=== PATIENT | female | born 1990 | race Caucasian/White ===

== ENCOUNTER 2023-07-13 09:30 | Outpatient (OUT) | payer OTHER, SELFPAY ==
--- NOTE | 2023-07-13 09:34 | US_ITS ---
[place] [id number] Patient Name: ACE MORRISSEY MRN: [id number] date: 1990 Sex: F Assigned Patient Location: [facility] Current Patient Location: [facility] Accession/Order Number: [id number] Exam Date: 07/13/2023 09:40 Report Date: 07/13/2023 11:09 At the request of: SHANNA KEITH Procedure: US OB transvaginal EXAMINATION: US OB transvaginal HISTORY: MISSED MENSES COMPARISON: No relevant comparison available. FINDINGS: GESTATIONAL SAC: Present and normal appearing. YOLK SAC: Present and normal appearing. POLE: Present and normal appearing. CARDIAC: Present. UTERUS: Small subchorionic hematoma. OVARIES: Right: Normal. Left: Not seen. CERVIX: 3.5 cm in length and closed. CUL-DE-SAC: Normal. OTHER: None. AGE BY LMP: 8 weeks 6 days [facility] BY LMP: 02/16/2024 AGE BY US CRL: 9 weeks 0 days [facility] BY US CRL: 02/15/2024 US/US OB transvaginal IMPRESSION: 1. Single live intrauterine . 2. Small subchronic hematoma. Electronically authenticated by: MARKELL FERMIN Date: 07/13/2023 11:09
== END 2023-07-13 09:31 | disposition home or self-care (01) ==
LOC: NOMS 09:30
PROVIDERS: PCP Family Medicine; Visit Provider Obstetrics & Gynecology
DX: Z34.91 Encounter for supervision of normal pregnancy, unspecified, first trimester (principal); Z3A.09 9 weeks gestation of pregnancy; N92.6 Irregular menstruation, unspecified
CPT/HCPCS: 76817

== ENCOUNTER 2023-07-25 09:57 | Outpatient (OUT) | payer OTHER, SELFPAY ==
[2023-07-25 10:50] LABS: Basophils Absolute Auto 0.1 10^3/uL (0.0-0.1); Basophils Percent Auto 0.5 % (0.2-2.0); Eosinophils Absolute Auto 0.1 10^3/uL (0.0-0.7); Eosinophils Percent Auto 1.2 % (0.9-7.0); Hematocrit 39.9 % (36.0-48.0); Hemoglobin 13.4 g/dL (12.0-16.0); Immature Granulocytes Abs Auto 0.02 10^3/uL (0.00-0.03); Immature Granulocytes Pct Auto 0.2 % (0.0-0.5); Lymphocytes Absolute Auto 2.7 10^3/uL (1.2-3.8); Mean Corpuscular HGB Conc 33.6 g/dL (29.9-35.2); Mean Corpuscular Hemoglobin 30.7 pg (26.7-34.0); Mean Corpuscular Volume 91.3 fL (81.0-99.0); Mean Platelet Volume 11.7 fL (9.5-13.5); Monocytes Absolute Auto 0.6 10^3/uL (0.3-0.8); Monocytes Percent Auto 6.7 % (1.7-12.0); Neutrophils Absolute Auto 6.1 10^3/uL (1.4-6.5); Neutrophils Percent Auto 63.4 % (43.0-75.0); Platelet Count 265 10^3/uL (150-450); Red Blood Count 4.37 10^6/uL (4.20-5.40); Red Cell Distribution Width 12.6 % (11.0-15.0); White Blood Count 9.5 10^3/uL (4.0-11.0)
[2023-07-25 12:01] LABS: Estimated Average Glucose 114 mg/dL; Glycohemoglobin A1C 5.6 % (4.5-6.2)
[2023-07-26 07:08] LABS: HBsAg Screen Negative (Negative); Rubella Antibodies, IgG 8.06 index (Immune >0.99)
[2023-07-26 08:10] LABS: HCV Ab Non Reactive (Non Reactive)
[2023-07-26 09:08] LABS: HIV Ab/p24 Ag Screen Non Reactive (Non Reactive)
[2023-07-26 13:08] LABS: Rapid Plasma Reagin, Quant Non Reactive titer (NonRea<1:1)
== END 2023-07-25 09:58 | disposition home or self-care (01) ==
LOC: LAB 10:01
PROVIDERS: PCP Family Medicine; Visit Provider Obstetrics & Gynecology
DX: Z36.0 Encounter for antenatal screening for chromosomal anomalies (principal); N92.6 Irregular menstruation, unspecified
CPT/HCPCS: 36415; 83036; 85025; 86592; 86762; 86803; 86850; 86900; 86901; 87086; 87340; 87389

== ENCOUNTER 2023-09-04 09:02 | Outpatient (OUT) | payer OTHER, SELFPAY ==
--- OUTSIDE RECORDS SUMMARY | 2023-09-04 09:29 | XMS_ITS | CCD ---
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 Name Role Phone NO, PHYSICIAN Primary Care Unavailable JUDY TORO Attending Marla vailable Maryuri, Physician Primary Care Provider Unavailabl e HAYLIE PEARSON Admitting Unavailabl e ORHAYLIE CRISTOBAL Referring Unavailabl e PEERZADE, [facility] Primary Care Unav ailable HAYLIE PEARSON Admitting Unavailabl e ORWIHAYLIE BROWN Referring Unavailabl e PEERZADE, [facility] Primary Care Unav ailable Haylie Pearson Unavailable [phone] Peerzade, [facility] Primary Care Provide r HAYLIE PEARSON Admitting Unavailabl e HAYLIE PEARSON Attending Unavailabl e NO, PHYSICIAN Primary Care Unavailable HAYLIE PEARSON Admitting Unavailabl e PEERZADE, [facility] Primary Care Unav ailable HAYLIE PEARSON Attending Unavailabl e [facility] onsulting Unavailable PEERZADE, [facility] Primary Care Unav ailable HAYLIE PEARSON Admitting Unavailabl e ORWICKHAYLIE Attending Unavailabl e ORWIHAYLIE BROWN Admitting Unavailabl e PEERZADE, [facility] Primary Care Unav ailable [facility] onsulting Unavailable KAREN SCHULTE Attending Unavailable HAYLIE PEARSON Admitting Unavailabl e PEERZADE, [facility] Primary Care Unav ailable SHANNA KEITH Attending Unavailable Medications Current Medications Medication Drug Class(es) Dates Sig (Normalized) Sig (Original) amoxicillin 500 mg oral capsule (1 source) Penicillin-class Antibacterial Start: 05-11-2019 End: 05-21-2019 take 1 capsule by mouth three times daily amoxicillin (AMOXIL) 500 MG capsule Indications: Acute bilateral otitis media Take 1 (one) capsule (500 mg total) by mouth 3 (three) times a day for 10 days . 30 capsule 0 05/11/2019 05/21/2019 Active vitamin with Ca-Iron-FA 27-1 mg Tab (2 sources) take 1 tablet by mouth once daily vitamin with Ca-Iron-FA 27-1 mg Tab Take 1 tablet by mouth daily . 0 Active Completed/Discontinued Medications Medication Drug Class(es) Dates Sig (Normalized) Sig (Original) acetaminophen 325 mg oral tablet (1 source) Start: 10-25-2019 End: 10-27-2019 take 1 tablet by mouth every four hours as needed 650 mg, Oral, Every 4 hours PRN, mild pain, Starting 10/25/19 at 1146, aluminum hydroxide 40 mg/ml / magnesium hydroxide 40 mg/ml / simethicone 4 mg/ml oral suspension (1 source) Start: 10-25-2019 End: 10-27-2019 take 30 mL by mouth every four hours as needed 30 mL, Oral, Every 4 hours PRN, indigestion, Starting 10/25/19 at 1146, bisacodyl 10 mg rectal suppository (1 source) Stimulant Laxative Start: 10-25-2019 End: 10-27-2019 10 mg, Rectal, Daily PRN, constipation, Starting 10/25/19 at 1146, Use oral medication first for constipation.&nbsp ; Use rectal suppository, if ordered, for constipation if oral route not tolerated. calcium chloride 0.0014 meq/ml / potassium chloride 0.004 meq/ml / sodium chloride 0.103 meq/ml / sodium lactate 0.028 meq/ml injectable solution (5 sources) Start: 10-25-2019 End: 10-27-2019 take 125 mL intravenous route every hour 125 mL/hr, Intravenous, Continuous, Starting Mon10/25/19 at 1245, Start when oxyTOCIN (PITOCIN) drip is discontinued. Discontinue after 24 hours if patient is afebrile and tolerating orals. Start: 10-25-2019 End: 10-25-2019 take 2000 mL intravenous route every twenty-four hours as needed lactated ringers bolus 2,000 mL Start: 10-14-2019 End: 10-14-2019 250 mL, Intravenous, Adminis ter over 5 Minutes, As needed, for hypotension, Starting Mon10/14/19 at 1037, For 1 dose, L&D Pre-Delivery For hypotension, over 5 minutes, as instructed in the Notify Anesthesiologist/WIRELESS CONSULTANT: Hypotension order. Start: 10-14-2019 End: 10-14-2019 lactated Ringers infusion ceFAZolin 2000 mg injection (1 source) Cephalosporin Antibacterial Start: 10-25-2019 End: 10-25-2019 ceFAZolin (ANCEF) IVPB 2 g (premix) citric acid 66.8 mg/ml / sodium citrate 100 mg/ml oral solution (2 sources) Calculi Dissolution Agent, Anti-coagulant Start: 10-25-2019 End: 10-25-2019 citric acid-sodium citrate (BICITRA) solution 30 mL Start: 10-14-2019 End: 10-14-2019 citric acid-sodium citrate ( BICITRA) solution 30 mL diphenhydrAMINE (BENADRYL) oral solid 25 mg (1 source) Start: 10-25-2019 End: 10-27-2019 take 25 mg by mouth every six hours as needed diphenhydrAMINE (BENADRYL) oral solid 25 mg docusate sodium 100 mg oral capsule (1 source) Start: 10-25-2019 End: 10-27-2019 100 mg, Oral, 2 times daily PRN, constipation, Starting Mon10/25/19 at 1146, Use oral medication first for constipation.&nbsp ; Use rectal suppository, if ordered, for constipation if oral route not tolerated. DO NOT CRUSH OR CHEW. docusate sodium 50 mg / sennosides, chcf 8.6 mg oral tablet (1 source) Start: 10-25-2019 End: 10-27-2019 take 1 tablet by mouth once daily 2 tablet, Oral, Nightly, First dose on Mon10/25/19 at 2100, Hold for loose stools Do Not Crush or Chew if administering orally due to bitter taste. May be crushed if given via tube. ferrous sulfate 325 mg oral tablet (1 source) Start: 10-26-2019 End: 10-27-2019 take 325 mg by mouth once daily at breakfast 325 mg, Oral, Daily with breakfast, First dose on Mon10/26/19 at 0800, ibuprofen 600 mg oral tablet (1 source) Nonsteroidal Anti-inflammatory Drug Start: 10-25-2019 End: 10-27-2019 600 mg, Oral, Every 6 hours scheduled, First dose on Mon10/25/19 at 1245, Give with food. D o not give with ketorolac (TORADOL). &n bsp;If following ketorolac (TORADOL) therapy, start at least 6 hours after ketorolac. Do Not Crush or Chew if administering orally due to bitter taste. May be crushed if given via tube. 1 ml ketorolac tromethamine 30 mg/ml injection (1 source) Nonsteroidal Anti-inflammatory Drug, Cyclooxygenase Inhibitor Start: 10-25-2019 End: 10-25-2019 take 30 mg intravenous route every six hours 30 mg, Intravenous, Every 6 hours, First dose on Mon10/25/19 at 1400, For 2 doses, Sign and Release Start 6 hours after dose given in OR. Give every 6 hours x 2 doses post-procedure. naloxone (NARCAN) injection 0.1 mg (1 source) Start: 10-25-2019 End: 10-27-2019 naloxone (NARCAN) injection 0.1 mg ondansetron 8 mg disintegrating oral tablet (1 source) Serotonin-3 Receptor Antagonist Start: 10-25-2019 End: 10-25-2019 ondansetron (ZOFRAN-ODT) disintegrating tablet 8 mg ondansetron (ZOFRAN-ODT) disintegrating tablet 4 mg (1 source) Start: 10-25-2019 End: 10-27-2019 take 1 tablet by mouth every six hours as needed ondansetron (ZOFRAN-ODT) disintegrating tablet 4 mg oxyCODONE hydrochloride 5 mg oral tablet (1 source) Opioid Agonist Start: 10-25-2019 End: 10-27-2019 take 5-10 mg by mouth every four hours as needed 5-10 mg, Oral, Every 4 hours PRN, moderate to severe pain, Starting Mon10/25/19 at 1146, [] Initiate with 5 mg oral every 4 hours prn moderate to severe pain. [] For unrelieved pain, may repeat 5 mg oral dose within 60 minutes of initial dose. [] If pain is RELIEVED after repeat dose, change to 10 mg oral every 4 hours prn moderate to severe pain. [] If pain is UNrelieved after repeat dose, or patient requires dose reduction, call physician. vitamin with Ca-Iron-FA tablet 1 tablet (1 source) Start: 10-25-2019 End: 10-27-2019 take 1 tablet by mouth once daily 1 tablet, Oral, Daily, First dose on Mon10/25/19 at 1245, rho(d) immune globulin (RHOPHYLAC) injection 300 mcg (1 source) Start: 10-25-2019 End: 10-27-2019 inject 300 ug by intramuscular injection every twenty-four hours as needed rho(d) immune globulin (RHOPHYLAC) injection 300 mcg 200 ml ropivacaine hydrochloride 2 mg/ml injection (1 source) Amide Local Anesthetic Start: 10-14-2019 End: 10-14-2019 Epidural, Continuous, Starting Mon10/14/19 at 0845, Sign and Release Only the patient is permitted to push the PCEA button. Continous Infusion: 10 mL/hr PCEA Bolus Dose: 4 mL PCEA Bolus Lockout Interval: 15 minutes Number of Boluses per Hour: 4 simethicone 80 mg chewable tablet (1 source) Start: 10-25-2019 End: 10-27-2019 take 80 mg by mouth after mealtime as needed 80 mg, Oral, After meals as needed, flatulence, Starting Mon10/25/19 at 1146, 1000 ml sodium chloride 9 mg/ml injection (1 source) Start: 10-25-2019 End: 10-27-2019 0-150 mL/hr, Intravenous, As needed, To flush line after IV infusions when no maintenance IV ordered or a compatibility issue. Infuse 20ml at the same rate as the secondary infusion, Starting Mon10/25/19 at 1146, Run as Primary IV. NOT intended for KVO. Problems Active Problems Problem Classification Problem Date Documented Da te Episodic/Chronic Other and delivery including normal (4 sources) ; Translations: [] Onset: 10-14-2019 10-14-2019 Episodic Other upper respiratory infections (1 source) Nasopharyngitis; Translations: [Acute nasopharyngitis] Episodic Otitis media and related conditions (1 source) Acute bilateral otitis media ; Translations: [Acute bilateral otitis media] Episodic Past or Other Problems Problem Classification Problem Date Documented Da te Episodic/Chronic NEGATED: Highlighted row has been ruled out!Unclassified (1 source) No known active problems Results Test Name Value Interpretation [facility] Erythrocyte distribution width (RBC) [Entitic vol] 14.1 % 11.6 - 14.8 % Hematocrit (Bld) [Volume fraction] 31.7 % Low 36 - 46 % Hemoglobin (Bld) [Mass/Vol] 9.9 g/dL Low 12 - 16 g/dL Interpretation and review of laboratory results Abnormal MCH (RBC) [Entitic mass] 29.6 pg 26 - 34 pg MCHC (RBC) [Mass/Vol] 31.2 g/dL 31 - 37 g/dL O [facility] MCV (RBC) [Entitic vol] 94.6 fL 80 - 100 fL Nucleated RBC (Bld) [#/Vol] 0.00 10*3/uL Nucleated RBC/100 WBC (Bld) [Ratio] 0.0 % Platelet mean volume (Bld) [Entitic vol] 12.2 fL 9.4 - 12.4 fL Platelets (Bld) [#/Vol] 191 10*3/uL RBC (Bld) [#/Vol] 3.35 10*6/uL Low [facility] WBC (Bld) [#/Vol] 12.37 10*3/uL High [facility] CBCon 10-25-2019 Erythrocyte distribution width (RBC) [Entitic vol] 13.8 % 11.6 - 14.8 % Hematocrit (Bld) [Volume fraction] 37.8 % 36 - 46 % Hemoglobin (Bld) [Mass/Vol] 12.5 g/dL 12 - 16 g/dL Interpretation and review of laboratory results Abnormal MCH (RBC) [Entitic mass] 30.0 pg 26 - 34 pg MCHC (RBC) [Mass/Vol] 33.1 g/dL 31 - 37 g/dL O [facility] MCV (RBC) [Entitic vol] 90.9 fL 80 - 100 fL Nucleated RBC (Bld) [#/Vol] 0.00 10*3/uL Nucleated RBC/100 WBC (Bld) [Ratio] 0.0 % Platelet mean volume (Bld) [Entitic vol] 12.4 fL 9.4 - 12.4 fL Platelets (Bld) [#/Vol] 256 10*3/uL RBC (Bld) [#/Vol] 4.16 10*6/uL [facility] WBC (Bld) [#/Vol] 12.90 10*3/uL [facility] Syphilis Antibodyon 10-25-19 20 Interpretation and review of laboratory results Normal T. pallidum Ab Ql (S) Negative Negative [facility] Type and Screenon 10-25-2019 ABO and Rh group Nom (Bld) B Positive Blood group antibody screen Ql Negative Specimen Expires 10/28/2019 23:59 EST ABORH VERIFICATIONon 020 ABO and Rh group Nom (Bld) ABO/Rh Verification ABO and Rh group Nom (Bld) B Positive Patient's ABO/Rh is verified. CBCon 10-14-2019 Erythrocyte distribution width (RBC) [Entitic vol] 13.5 % 11.6 - 14.8 % Hematocrit (Bld) [Volume fraction] 35.6 % Low 36 - 46 % Hemoglobin (Bld) [Mass/Vol] 11.6 g/dL Low 12 - 16 g/dL Interpretation and review of laboratory results Abnormal MCH (RBC) [Entitic mass] 30.0 pg 26 - 34 pg MCHC (RBC) [Mass/Vol] 32.6 g/dL 31 - 37 g/dL [facility] MCV (RBC) [Entitic vol] 92.0 fL 80 - 100 fL Nucleated RBC (Bld) [#/Vol] 0.00 10*3/uL Nucleated RBC/100 WBC (Bld) [Ratio] 0.0 % Platelet mean volume (Bld) [Entitic vol] 12.8 fL High 9.4 - 12.4 fL Platelets (Bld) [#/Vol] 253 10*3/uL RBC (Bld) [#/Vol] 3.87 10*6/uL Low [facility] ealt WBC (Bld) [#/Vol] 12.69 10*3/uL High [facility] RPRon 10-14-2019 Interpretation and review of laboratory results Normal Reagin Ab RPR Ql (S) Non-Reactive Non-Reactive Type and Screenon 10-14-2019 ABO and Rh group Nom (Bld) B Positive Blood group antibody screen Ql Negative Specimen Expires 10/17/2019 23:59 EST Group B Strep PCR, Vaginal/R ectalon 10-01-2019 S. agalactiae Ag Ql (Unsp spec) Negative Negative CHLAMYDIA/GONORRHOEAE AMPLIF IED RNAon 03-22-2019 C. trachomatis rRNA ELEUTERIO+probe Ql (Unsp spec) Negative Negative N. gonorrhoeae rRNA ELEUTERIO+probe Ql (Unsp spec) Negative Negative Type and Screenon 03-22-2019 ABO and Rh group Nom (Bld) B Rh Type Positive Vital Signs Date Time Vital Sign Value Performing Clinician Faci lity 10-27-2019 08:19-0400 Body Temperature 97.7 [degF] [facility] 10-27-2019 08:19-0400 BP Diastolic 67 mm[Hg] [facility] 10-27-2019 08:19-0400 BP Systolic 105 mm[Hg] [facility] 10-27-2019 08:19-0400 Pulse (Heart Rate) 71 /min [facility] 10-27-2019 08:19-0400 Pulse Oximetry 96 % [facility] 10-27-2019 08:19-0400 Respiratory Rate 16 /min [facility] 10-25-2019 06:01-0400 BMI (Body Mass Index) 29.13 kg/m2 [facility] 10-25-2019 06:01-0400 Body weight 84.37 kg [facility] 10-25-2019 06:01-0400 Height 170.2 cm [facility] 10-14-2019 10:30-0400 BP Diastolic 77 mm[Hg] [facility] 10-14-2019 10:30-0400 BP Systolic 126 mm[Hg] [facility] 10-14-2019 10:30-0400 Pulse (Heart Rate) 91 /min [facility] 10-14-2019 10:30-0400 Respiratory Rate 16 /min [facility] 10-14-2019 10:15-0400 Pulse Oximetry 97 % [facility] 10-14-2019 05:39-0400 BMI (Body Mass Index) 28.82 kg/m2 [facility] 10-14-2019 05:39-0400 Body Temperature 98.1 [degF] [facility] 10-14-2019 05:39-0400 Body weight 83.46 kg [facility] 10-14-2019 05:39-0400 Height 170.2 cm [facility] 05-11-2019 13:20-0500 Pulse (Heart Rate) 106 /min [facility] 05-11-2019 13:15-0500 BMI (Body Mass Index) 26.31 kg/m2 [facility] 05-11-2019 13:15-0500 Body Temperature 98.4 [degF] [facility] 05-11-2019 13:15-0500 Body weight 76.2 kg [facility] 05-11-2019 13:15-0500 BP Diastolic 76 mm[Hg] [facility] 05-11-2019 13:15-0500 BP Systolic 110 mm[Hg] [facility] 05-11-2019 13:15-0500 Height 170.2 cm [facility] 05-11-2019 13:15-0500 Pulse Oximetry 98 % [facility] 05-11-2019 13:15-0500 Respiratory Rate 14 /min [facility] Encounters Encounter Date Encounter Type Care Provider Facility Start: 08-14-2023 End: 08-14-2023 ambulatory SHANNA INNA Not Available Start: 07-13-2023 End: 07-13-2023 ambulatory SHANNA INNA Not Available Start: 11-11-2019 End: 11-15-2019 Patient encounter procedure [facility] Start: 10-25-2019 End: 10-27-2019 Evaluation and management of inpatient [facility] Start: 10-25-2019 End: 10-27-2019 Evaluation and management of inpatient [facility] Work Phone: [facility] Mother/ Start: 10-24-2019 End: 10-24-2019 Patient encounter procedure [facility] Start: 10-14-2019 End: 10-14-2019 [facility] Start: 10-14-2019 End: 10-14-2019 Subsequent hospital visit by physician Haylie Pearson Work Phone: [facility] Delivery Start: 10-11-2019 End: 10-11-2019 Patient encounter procedure [facility] Start: 10-08-2019 Patient encounter procedure [facility] Start: 05-11-2019 End: 05-11-2019 Patient encounter procedure PHYSICIAN MARYURI [facility] Start: 05-11-2019 End: 05-11-2019 Office outpatient visit 25 minutes [facility] [employer] [employer] Work Phone: Urgent Care [facility] Comment on above: Acute nasopharyngiti s (Primary Dx); Acute bilateral otitis media Procedures Date Procedure Procedure Detail Performing Clinician Start: 10-26-2019 Complete blood count (hemogram) panel - Blood by Automated count Haylie Pearson Work Phone: Start: 10-25-2019 Blood type and Indir ect antibody screen panel - Blood Haylie Pearson Work Phone: Start: 10-25-2019 Complete blood count (hemogram) panel - Blood by Automated count Haylie [facility]ocr[facility] Work Phone: Start: 10-25-2019 Treponema pallidum I gG Ab [Presence] in Serum Haylie [facility] Phone: Start: 10-14-2019 Blood group typing Caren ann [facility] Work Phone: Start: 10-14-2019 Blood type and Indir ect antibody screen panel - Blood Haylie Socrative Work Phone: Start: 10-14-2019 Complete blood count (hemogram) panel - Blood by Automated count Haylie Socrative Work Phone: Start: 10-14-2019 Rapid plasma reagin test [facility] Phone: Start: 10-01-2019 Streptococcus agalac tiae DNA [Presence] in Unspecified specimen by ELEUTERIO with probe detection Historical Provider Start: 03-22-2019 Blood type and Indir ect antibody screen panel - Blood Historical Provider Start: 03-22-2019 Neisseria gonorrhoea e nucleic acid detection Historical Provider Plan of Treatment Date Care Activity Detail Author Start: 12-03-2019 Influenza vaccination given Se quential Influenza Vaccine (#1) Start: 10-01-2019 Influenza vaccination given SE QUENTIAL INFLUENZA VACCINE (#1) Comment on above: Postponed from 12/02 (Patient Refused) Start: 02-08-2006 Hepatitis C antibody , confirmatory test Hepatitis C Screening Start: 02-08-2003 HIV screening HIV Screening [facility] Start: 02-08-1991 History and physical examination, annual for health maintenance Wellness Visit Start: 1988 Screening for malign ant neoplasm of cervix PAP SMEAR Start: 1988 Tetanus vaccination [facility] Immunizations Immunization Date Immunization Notes Care Provider [facility] [place] 10-25-2019 diphtheria, tetanus toxoids and acellular pertussis vaccine, unspecified formulation Haylie Pearson 10-25-2019 measles, mumps and r ubella virus vaccine Haylie Pearson 10-25-2019 varicella zoster immune globulin Tamanna nehemias [facility] Payers Date Payer Category Payer Private Health Insurance [id number] 2019 Private Health Insurance [id number] 2019 Private Health Insurance [id number] 1988 Unknown [id number] 1988 Unknown [id number] 2.16.8 [id number] 1988 Unknown [id number] 2.16.8 [id number] 1988 Unknown [id number] 2.16.8 [id number] 1988 Unknown [id number] 2.16.8 [id number] 1988 Unknown [id number] 2.16.8 [id number] 1988 Unknown [id number] 2.16.8 [id number] 1988 Unknown [id number] 2.16.8 [id number] 1988 Unknown [id number] 2.16.84 [id number] 1988 Unknown [id number] 2.16.84 [id number] Social History Date Type Detail Facility Start: 05-11-2019 End: 10-27-2019 Tobacco smoking status IDIS Never smoker Start: 05-11-2019 End: 10-27-2019 Alcohol intake Ex-drinker (finding) Start: 02-07-2019 Sex Assigned At Not on file [facility] Exposure to SARS-CoV-2 (event) Not sure Summary Purpose Family History No Family History Records FoundNo Family History Records FoundNo Family History Records FoundNo Family History Records Found Advance Directives No Advanced Directives Records FoundDocuments on File Type Date 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 Advance Directives and Living Will Documents on File Type Date Recorded 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 Advance Directives and Livin g Will 10/14/2019 5:28 AM Latest Code Status on File Code Status Date Activated Date Inactivated Comments Full Code 10/14/2019 5:32 AM 10/14/2019 1:17 PM Documents on File Type Date Recorded 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 URIs are spread by coughs, sneezes, and direct contact. The common cold is the most frequent kind of URI. The flu and sinus infections are other kinds of URIs. Almost all URIs are caused by viruses. Antibiotics won't cure them. But you can treat most infections with home care. This may include drinking lots of fluids and taking nvgs-arq-bsmueet pain medicine. You will probably feel better in 4 to 10 days. The doctor has checked you carefully, but problems can develop later. If you notice any problems ornew symptoms, get medical treatment right away. Follow-up care is a [place] part of your treatment and safety. Be sure to make and go to all appointments, and call your doctor if you are having problems. It's also a good idea to know your test resultsand keep a list of the medicines you take. How can you care for yourself at home? To prevent dehydration, drink plenty of fluids, enough so that your urine is light yellow or clear like water. Choose water and other caffeine-free clear liquids until you feel better. If you have kidney, heart, or liver disease and have to limit fluids, talk with your doctor before you increase the amount of fluids you drink. Take an bqvd-fhg-vlzrzhy pain medicine, such as acetaminophen (Tylenol), ibuprofen (Advil, Motrin),or naproxen (Aleve). Read and follow all instructions on the label. Before you use cough and cold medicines, check the label. These medicines may not be safe for youngchildren or for people with certain health problems. Be careful when taking onam-dcv-ekuyery cold or flu medicines and Tylenol at the same time. Many ofthese medicines have acetaminophen, which is Tylenol. Read the labels to make sure that you are nottaking more than the recommended dose. Too much acetaminophen (Tylenol) can be harmful. Get plenty of rest. Do not smoke or allow others to smoke around you. If you need help quitting, talk to your doctor about stop-smoking programs and medicines. These can increase your chances of quitting for good. When should you call for help? Call 911 anytime you think you may need emergency care. For example, call if: You have severe trouble breathing. Call your doctor now or seek immediate medical care if: You seem to be getting much sicker. You have new or worse trouble breathing. You have a new or higher fever. You have a new rash. Watch closely for changes in your health, and be sure to contact your doctor if: You have a new symptom, such as a sore throat, an earache, or sinus pain. You cough more deeply or more often, especially if you notice more mucus or a change in the color of your mucus. You do not get better as expected. Where can you learn more? Log into your personal health record on [email or web address] and enter K520 in the Education box to learn more about Upper Respiratory Infection (Cold): Care Instructions. Current as of: September 09, 2018 Content Version: 12.3 1508-9133 [employer]. Care instructions adapted under license by your healthcare professional. If you have questions about a medical condition or this instruction, always ask your healthcare professional. [employer] disclaims any warranty or liability for your use of this information. Ear Infection (Otitis Media): Care Instructions Your Care Instructions An ear infection may start with a cold and affect the middle ear (otitis media). It can hurt a lot.Most ear infections clear up on their own in a couple of days. Most often you will not need antibiotics. This is because many ear infections are caused by a virus. Antibiotics don't work against a virus. Regular doses of pain medicines are the best way to reduce your fever and help you feel better. Follow-up care is [place] part of your treatment and safety. Be sure to make and go to all appointments, and call your doctor if you are having problems. It's also a good idea to know your test resultsand keep a list of the medicines you take. How can you care for yourself at home? Take pain medicines exactly as directed. ? If the doctor gave you a prescription medicine for pain, take it as prescribed. ? If you are not taking a prescription pain medicine, take an mutd-pii-sbrvmxw medicine, such as acetaminophen (Tylenol), ibuprofen (Advil, Motrin), or naproxen (Aleve). Read and follow all instructions on the label. ? Do not take two or more pain medicines at the same time unless the doctor told you to. Many pain medicines have acetaminophen, which is Tylenol. Too much acetaminophen (Tylenol) can be harmful. Plan to take a full dose of pain reliever before bedtime. Getting enough sleep will help you get better. Try a warm, moist washcloth on the ear. It may help relieve pain. If your doctor prescribed antibiotics, take them as directed. Do not stop taking them just because you feel better. You need to take the full course of antibiotics. When should you call for help? Call your doctor now or seek immediate medical care if: You have new or increasing ear pain. You have new or increasing pus or blood draining from your ear. You have a fever with a stiff neck or a severe headache. Watch closely for changes in your health, and be sure to contact your doctor if: You have new or worse symptoms. You are not getting better after taking an antibiotic for 2 days. Where can you learn more? Log into your personal health record on https://[employer] Receive and enter X558 in the Education box to learn more about Ear Infection (Otitis Media): Care Instructions. Current as of: October 28, 2018 Content Version: 12.3 [employer]. Care instructions adapted under license by your healthcare professional. If you have questions about a medical condition or this instruction, always ask your healthcare professional. [employer] disclaims any warranty or liability for your use of this information. documented in this encounter History of Present Illness * Judy Toro CNP - 05/11/2019 1:31 PM EST PATIENT NAME: [facility] [address] [facility] [id number] : 1990 DATE OF VISIT: 05/11/2019 #: [id number] PROVIDER: Judy Toro CNP Chief Complaint Patient presents with URI Cough with sore throat, sinus pressure green and bloody mucus with fatigue x 5 days ( currently 15wks ) SUBJECTIVE 29 y.o. female presents URI (Cough with sore throat, sinus pressure green and bloody mucus with fatigue x 5 days ( currently 15wks )) Pt is currently 15 weeks . She denies any symptoms of labor, vaginal bleeding or abdominal cramps. She has not began feeling movement in her baby yet. URI This is a new problem. The current episode started in the past 7 days (5 days). The problem has been gradually worsening. There has been no fever. Associated symptoms include congestion, coughing, ear pain, rhinorrhea, sinus pain, sneezing and a sore throat. Pertinent negatives include no abdominalpain, chest pain, diarrhea, dysuria, headaches, nausea, rash, vomiting or wheezing. Treatments tried: Dayquil. The treatment provided no relief. MEDICAL ISSUES Past Medical History: Diagnosis Date Rheumatoid arthritis (HCC) There is no problem list on file for this patient. SOCIAL HISTORY Social History Socioeconomic History Marital status: Spouse name: Not on file Number of children: Not on file Years of education: Not on file Highest education level: Not on file Occupational History Not on file Social Needs Financial resource strain: Not on file Food insecurity Worry: Not on file Inability: Not on file Transportation needs Medical: Not on file Non-medical: Not on file Tobacco Use Smoking status: Never Smoker Smokeless tobacco: Never Used Substance and Sexual Activity Alcohol use: Not Currently Drug use: Never Sexual activity: Not on file Lifestyle Physical activity Days per week: Not on file Minutes per session: Not on file Stress: Not on file Relationships Social connections Talks on phone: Not on file Gets together: Not on file Attends mu-ism service: Not on file Active member of club or organization: Not on file Attends meetings of clubs or organizations: Not on file Relationship status: Not on file Other Topics Concern Not on file Social History Narrative Not on file FAMILY HISTORY Family History Problem Relation Age of Onset No Known Problems Mother No Known Problems Father No Known Problems Brother REVIEW OF SYSTEMS Review of Systems Constitutional: Positive for chills, diaphoresis and fatigue. Negative for activity change, appetite change and fever. HENT: Positive for congestion, ear pain, postnasal drip, rhinorrhea, sinus pressure, sinus pain, sneezing and sore throat. Eyes: Negative for pain, discharge, redness and itching. Respiratory: Positive for cough. Negative for chest tightness, shortness of breath and wheezing. Cardiovascular: Negative for chest pain, palpitations and leg swelling. Gastrointestinal: Negative for abdominal pain, constipation, diarrhea, nausea and vomiting. Genitourinary: Negative for dysuria. Musculoskeletal: Negative for arthralgias and myalgias. Skin: Negative for rash. Allergic/Immunologic: Negative for environmental allergies. Neurological: Negative for dizziness, light-headedness, numbness and headaches. MEDICATIONS PRIOR TO VISIT No current outpatient medications on file prior to visit. No current facility-administered medications on file prior to visit. ALLERGIES/INTOLERANCES No Known Allergies OBJECTIVE BP 110/76 (BP Location: Left arm, Patient Position: Sitting, BP Cuff Size: Adult) Pulse (!) 106 Temp 98.4 F (36.9 C) (Oral) Resp 14 Ht 5' 7 Wt 76.2 kg (168 lb) LMP 01/24/2019 SpO2 98% No BMI 26.31 kg/m Physical Exam Vitals signs and nursing note reviewed. Constitutional: General: She is not in acute distress. Appearance: She is well-developed. She is not diaphoretic. HENT: Head: Normocephalic and atraumatic. Right Ear: Ear canal and external ear normal. Tympanic membrane is erythematous. Left Ear: Ear canal and external ear normal. Tympanic membrane is erythematous. Nose: Nose normal. No rhinorrhea. Mouth/Throat: Mouth: Mucous membranes are moist. Eyes: General: Right eye: No discharge. Left eye: No discharge. Conjunctiva/sclera: Conjunctivae normal. Neck: Musculoskeletal: Normal range of motion and neck supple. Cardiovascular: Rate and Rhythm: Normal rate and regular rhythm. Heart sounds: Normal heart sounds. Pulmonary: Effort: Pulmonary effort is normal. No respiratory distress. Breath sounds: Normal breath sounds. Abdominal: General: There is no distension. Musculoskeletal: Normal range of motion. Skin: Findings: No rash. Neurological: Mental Status: She is alert and oriented to person, place, and time. Psychiatric: Behavior: Behavior normal. Thought Content: Thought content normal. Judgment: Judgment normal. PROCEDURE Procedures Results No results found for this or any previous visit (from the past 168 hour(s)). No orders to display ASSESSMENT/PLAN (expressed as patient instructions): 1. Acute nasopharyngitis CANCELED: POC Influenza A/B, Molecular 2. Acute bilateral otitis media amoxicillin (AMOXIL) 500 MG capsule Return if symptoms worsen or fail to improve, for Recheck. ADDITIONAL CLINICAL COMMENTS Pt to increase her oral fluid intake and follow up for persistent or worsening sx Flu Shot: Patient Declined Discussed over the counter medications for symptomatic management and side effects of medications. Recommended taking all medications with food and to stop medications if they develop any signs of anallergic reaction. Educated patient and/or guardian about signs and symptoms that would warrant further immediate evaluation. Recommended that they should return to urgent care, make an appointment with their family physician, or go to the emergency room if symptoms persist or get acutely worse. Recommended follow upwithin the next week with their PCP or to get established with a PCP soon in order to follow up appropriately. ORDERS PLACED THIS VISIT No orders of the defined types were placed in this encounter. MEDICATION LIST AT END OF VISIT Current Outpatient Medications Medication Sig Dispense Refill amoxicillin (AMOXIL) 500 MG capsule Take 1 (one) capsule (500 mg total) by mouth 3 (three) times a day for 10 days . 30 capsule 0 No current facility-administered medications for this visit. documented in this encounter* Saundra Whitlock CNM - 10/14/2019 11:07 AM EDT FHT reviewed and reassuring OK to discharge home Precautions reviewed Patient instructed to follow-up as scheduled/PRN * Haylie Pearson MD - 10/14/2019 8:18 AM EDT Failed version-- attempted under epidurall anesthesia without success. patientt to schedule c section at 39 weeks * Gaby Dahl CNM - 10/14/2019 6:51 AM EDT Limited abdominal ultrasound done to determine presentation prior to attempt at external version. Breech confirmed. documented in this encounter* Karen Schulte MD - 10/27/2019 10:15 AM EDT Section Progress Note Assessment/Plan: Status post section: Doing well post-op D/w pt post op restrictions and proper wound care Has percocet rx D/c home likely pod 2 with routine f/u in office. Subjective: Day 2: Delivery Pt is without complaints. Her pain is controlled. She is tolerating po, reports flatus, and is ambulating without difficulty. Objective: Vital signs in last 24 hours: Temp: [97.7 F (36.5 C)-98.3 F (36.8 C)] 97.7 F (36.5 C) Heart Rate: [71-88] 71 Resp: [16] 16 BP: (105-112)/(67-75) 105/67 Results from last 7 days Lab Units 10/26/19 0526 10/25/19 0606 WBC K/mcL 12.37* 12.90* HGB g/dL 9.9* 12.5 HCT % 31.7* 37.8 PLT K/mcL 191 256 Telemed rounds during COVID-19 pandemic. Karen Schulte MD 10/27/19 10:15 AM * Karen Schulte MD - 10/26/2019 10:11 AM EDT Section Progress Note Assessment/Plan: Status post section: Doing well post-op D/w pt post op restrictions and proper wound care Has percocet rx D/c home likely pod 2 with routine f/u in office. Subjective: Day 1: Delivery Pt is without complaints. Her pain is controlled. She is tolerating po and is ambulating without difficulty. Objective: Vital signs in last 24 hours: Temp: [97.7 F (36.5 C)-99.1 F (37.3 C)] 99.1 F (37.3 C) Heart Rate: [69-87] 76 Resp: [16-23] 16 BP: (101-110)/(62-80) 106/68 Results from last 7 days Lab Units 10/26/19 0526 10/25/19 0606 WBC K/mcL 12.37* 12.90* HGB g/dL 9.9* 12.5 HCT % 31.7* 37.8 PLT K/mcL 191 256 Telemed rounds during COVID-19 pandemic. Karen Schulte MD 10/26/19 10:12 AM * Mesfin Ortiz MD - 10/25/2019 8:16 AM EDT therapy administrative assistant to of primary for breech. documented in this encounter Assessments Diagnosis Acute nasopharyngitis Acute nasopharyngitis (common cold) Acute bilateral otitis media Diagnosis state, incidental Discharge Instructions * Attachments The following attachments cannot be sent through Care Everywhere. * : KICK COUNTS (SOMALI) * : WEEK 38 (SOMALI) * : WHEN TO CALL (AFTER 20 WEEKS): GENERAL INFO (SOMALI) * : BREECH VERSION (SOMALI) documented in this encounter Hospital Course * Karen Schulte MD - 10/27/2019 10:21 AM EDT Section Discharge Summary Patient is s/p Section Delivery day 2. course uncomplicated.Discharge to home in stable condition on ppd 2 with plans to follow up with OB provider in 4 weeks. Disposition: Home Discharge condition: Stable Medications upon discharge: Daily vitamin. Motrin 600 mg orally every 6 hours as needed for a week. section patients: Percocet 5/325 1-2 tabs orally every 6 hours as needed for pain. Medication List CONTINUE taking these medications vitamin with Ca-Iron-FA 27-1 mg Tab documented in this encounter Additional Source Comments INFORMATION SOURCE (unrecogn ized section and content) DATE CREATED AUTHOR 05/11/2019 [facility] DATE CREATED AUTHOR AUTHOR'S ORGANIZ ATION 10/25/2019 [facility] DATE CREATED AUTHOR AUTHOR'S ORGANIZ ATION 11/27/2019 [facility] DATE CREATED AUTHOR AUTHOR'S ORGANIZ ATION 08/15/[address] [facility] EPIC Reason for Visit (unrecogniz ed section and content) Reason Comments URI Cough with sore thro at, sinus pressure green and bloody mucus with fatigue x 5 days ( currently 15wks ) Reason Comments Procedure here for scheduled v ersion Status Reason Specialty Diagnoses / Procedures Referre d By Contact Referred To Contact Diagnoses MATERNITY Reason Comments Scheduled patient arrived ambu lating with FOB, denies LOF or VB, pos. FM Status Reason Specialty Diagnoses / Procedures Referre d By Contact Referred To Contact Diagnoses breech Procedures SECTION Haylie Pearson MD - 10/14/2019 8:17 AM Haylie Richardson MD - 10/25/2019 8:49 AM EDT H&P Notes (unrecognized sect ion and content) HISTORY AND PHYSICAL UPDATE Assessment/Plan: Active Problems: Risks, benefits, alternatives and possible complications have been discussed in detail with the patient. Pre-admission, admission, and post admission procedures and expectations were discussed in detail. All questions answered, all appropriate consents will be signed at the Hospital. Admission is for Intervention: version. Subjective: Chief Complaint Patient presents with Procedure here for scheduled version Jo[facility] is a 29 y.o. female with Estimated Date of Delivery: 10/31/19 at 37w4d gestation who is being admitted for External version. Her current obstetrical history is significant for no obstetrical problems. Patient reports no complaints. Movement: normal. The following past medical history, Medical/Surgical/Family/Social history, Medications and Allergies, and Physical Exam have been reviewed and are part of the record and are unchanged documented in this encounter HISTORY AND PHYSICAL UPDATE Assessment/Plan: Active Problems: Risks, benefits, alternatives and possible complications have been discussed in detail with the patient. Pre-admission, admission, and post admission procedures and expectations were discussed in detail. All questions answered, all appropriate consents will be signed at the Hospital. Admission is for Intervention: plan delivery. Subjective: Chief Complaint Patient presents with Scheduled patient arrived ambulating with FOB, denies LOF or VB, pos. FM Joanne Brown is a 29 y.o. female with Estimated Date of Delivery: 10/31/19 at 39w1d gestation who is being admitted for . Her current obstetrical history is significant for breech presentation. Patient reports no complaints. Movement: normal. The following past medical history, Medical/Surgical/Family/Social history, Medications and Allergies, and Physical Exam have been reviewed and are part of the record and are unchanged documented in this encounter Quick Note - Yasmin Butts, RN - 10/14/2019 10:56 AM EDTQuac Note - Yasmin Butts RN - 10/14/2019 10:31 AM EDTKiesha Note - Yasmin Butts, RN - 10/14/2019 9:16 AM EDT Miscellaneous Notes (unrecog nized section and content) D/C PIV and epidural. D/C pt. to home. Reviewed written d/c papers. Pt denied any further questions. Pt. escorted to drop off via wheelchair. Reactive tracing per C. PROSPER Stern Placed pt. breech to high fowlers. Fetus remains breech. Pt. tolerated well. Pt. Placed in trendelenburg/ironing board position. Version stopped. Placed toco and us on tender abdomen. Fetus remains breech. Start of version by Dr. Pearson. FHR 142. Procedure explained to pt. And all questions answered. Orders received for version including terbutaline 15min prior to procedure and epidural. Plan for version at 0730 Patient arrived ambulatory for scheduled version. States she is planning an epidural for the procedure. If no successful they will schedule a c/s for a later date. Patient is unsure if she will stay for induction if it is successful. Denies any complaints at this time. documented in this encounter Patient discharged out patient picker exit in wheelchair with infant. Pt given d/c instructions. Pt educated on d/c care, when to call dr, f/u appts, and medications. Pt verbalizes understanding and all questions answered by RN. This note was copied from a baby's chart. Rounding to discuss progress. Observed baby latched at the left breast in cross cradle hold. Baby displays a passive feeding pattern. Mom says baby has been feeding for about 40 minutes and feeding was more active earlier on in the feeding. Instructed on active feeding vs passive feeding, and signs of milk transfer/swallowing. Baby's weight is down 9% toady. Encouraged frequent feedings and instructed to try to keep baby active during feeding using stimulation and breast compressions. Recommend that mom start pumping after and feed baby anything that she collects. Parents to see the massage therapist tomorrow for exam and weight check. Mom informed that baby may need some formula supplementation for a short time if her weight continues to drop. Mom verbalizes understanding and she has a Spectra pump for home use. Instructed on engorgement management as well as signs and symptoms of mastitis. Reviewed outpatient resources and encouraged to follow up as needed. Mom verbalizes understanding and denies further needs at this time. Anesthesia Post-op Follow-up Note 1 Day Post-Op Procedure(s): SECTION Patient participation: patient participated Mental status: awake Pain management: adequate Anesthetic complications: no Nausea / vomiting: no Cardiovascular status: hemodynamically stable Respiratory / airway status: airway patent, room air and spontaneous ventilation Postoperative hydration: acceptable Comment: Patient has satisfactorily recovered from her anesthetic. Pt ambulating without difficulty. Pt denies headache. Temp: [36.5 C-37.3 C] 36.8 C Heart Rate: [72-87] 72 Resp: [16] 16 BP: (101-112)/(64-75) 112/75 This note was copied from a baby's chart. This mother states feeding is going much better now; states latch is comfortable and has settled down somewhat since last night. Encouraged to call if she is having issues with latch-pain, shallow latch, inability to keep baby awake. Reviewed signs of a good feeding-nutritive suck/swallow, rounded nipples after feeding, increasing voids/stools. Reviewed basics of engorgement including use of ice, massage, and reverse pressure softening, reviewed mastitis symptoms/treatment, and follow up support either through outpatient phone call/outpatient visit. Parents educated about second night, and to call with any issues with feeds this evening. Ongoing assistance offered per . This note was copied from a baby's chart. This mother called out to say they were attempting feeding; infant is still very irritable and father helping with positioning infant. She finally obtained moderately deep latch on R breast in cross cradle position; infant mostly passive and continuing to be irritable at the breast. She stayed latched for about 10-15 minutes overall. She opens her mouth wide and wants to latch but wants to suck on her fingers at the same time. Mother may need to wrap her with next feeding to see if she can latch more effectively. Ongoing support offered per , continue to encourage skin to skin, feeding attempts at least every 3 hours. This note was copied from a baby's chart. Completed initial assessment of this mother/baby couplet. sleepy tried rousing techniques. Able to wake her, brought her to mother where she started to scream. Assisted her in football position, infant showing feeding cues but refusing to latch. Hand expressed a drop and seemed briefly interested but continued to cry. Put skin to skin with mother and encouraged her to keep her there for at least 30 minutes to see if she will wake and start showing feeding cues. Reviewed initial education including skin to skin, feeding attempts, hand expression/breast compression, and voids and stools. Ongoing support offered per . Pt able to ambulate to bathroom with 2 person standby assist. Denies dizziness or lightheadedness. Marilu care instructed and patient able to demonstrate. Pt ambulated back to bed. Call light within reach. G1 now P1 primary c section for breech. See dictation. No complications documented in this encounter FOR RECORDS PERTAINING TO PATIENTS WHO ARE OR HAVE BEEN ENROLLED IN A CHEMICAL DEPENDENCY/SUBSTANCEABUSE PROGRAM, SOME INFORMATION MAY BE OMITTED. This clinical summary was aggregated from multiple sources. Caution should be exercised in using it in the provision of clinical care. This summary normalizes information from multiple sources, and as a consequence, information in this document may materially change the coding, format and clinical context of patient data. In addition, data may be omitted in some cases. CLINICAL DECISIONS SHOULD BE BASED ON THE PRIMARY CLINICAL RECORDS. [employer] [facility] [facility]. provides no warranty or guarantee of the accuracy or completeness of information in this document.
[2023-09-04 12:53] LABS: Glucose 1 Hour 111 mg/dL (<130)
== END 2023-09-04 09:03 | disposition home or self-care (01) ==
LOC: LAB 09:03
PROVIDERS: PCP Family Medicine; Visit Provider Obstetrics & Gynecology
DX: O09.522 Supervision of elderly multigravida, second trimester (principal)
CPT/HCPCS: 36415; 82950

== ENCOUNTER 2023-09-11 21:28 | Outpatient (REF) | payer OTHER, SELFPAY ==
--- OUTSIDE RECORDS SUMMARY | 2023-09-11 21:33 | XMS_ITS ---
Patient Summarization (C-CDA 2.1 CCD) Created on: September 11, 2023 BROWNACE : 1990 Sex: Female Author Organization Sample organization Care Team Providers Care Consultant Education Name Role Phone NO, PHYSICIAN Primary Care Unavailable JUDY TORO Attending Marla vailable Maryuri, Physician Primary Care Provider Unavailabl e HAYLIE PEARSON Admitting Unavailabl e ORWICK, HAYLIE HERNANDEZ Referring Unavailabl e PEERZADE, [facility] Primary Care Unav ailable HAYLIE PEARSON Admitting Unavailabl e ORWICK, HAYLIE HERNANDEZ Referring Unavailabl e PEERZADE, [facility] Care Unav ailable Haylie Pearson Unavailable Peerzade, [facility] Primary Care Provide r HAYLIE PEARSON Admitting Unavailabl e HAYLIE PEARSON Attending Unavailabl e NO, PHYSICIAN Primary Care Unavailable HAYLIE PEARSON Admitting Unavailabl e PEERZADE, [facility] Care Unav ailable HAYLIE PEARSON Attending Unavailabl e [facility] onsulting Unavailable PEERZADE, [facility] Unav ailable HAYLIE PEARSON Admitting Unavailabl e ORWIKEVIN, HAYLIE HERNANDEZ Attending Unavailabl e ORWIKEVIN, HAYLIE HERNANDEZ Admitting Unavailabl e PEERZADE, [facility] Primary [facility] [place] Unav ailable [facility] onsulting Unavailable KAREN SCHULTE Attending Unavailable HAYLIE PEARSON Admitting Unavailabl e PEERZADE, [facility] Unav ailable SHANNA KEITH Attending Unavailable SHANNA KEITH Attending Unavailable Encounters Encounter Date Encounter Type Care Provider Facility Start: 09-11-2023 End: 09-11-2023 ambulatory SHANNA INNA Not Available Start: 08-14-2023 End: 08-14-2023 ambulatory SHANNA INNA Not Available Start: 07-13-2023 End: 07-13-2023 ambulatory SHANNA INNA Not Available Start: 11-11-2019 End: 11-15-2019 [facility]: 10-25-2019 End: 10-27-2019 Evaluation and management of inpatient [facility] Start: 10-25-2019 End: 10-27-2019 Evaluation and management of inpatient [facility] Work Phone: [facility]/ Start: 10-24-2019 End: 10-24-2019 Patient encounter procedure [facility] Start: 10-14-2019 End: 10-14-2019 [facility] Start: 10-14-2019 End: 10-14-2019 Subsequent hospital visit by physician Haylie Pearson Work Phone: [facility] Start: 10-11-2019 End: 10-11-2019 Patient encounter procedure [facility] Start: 10-08-2019 Patient encounter procedure [facility] Start: 05-11-2019 End: 05-11-2019 Patient encounter procedure PHYSICIAN MARYURI [facility] Start: 05-11-2019 End: 05-11-2019 Office outpatient visit 25 minutes Judy Elena [employer] Work Phone: [facility] Jono Saldivar Comment on above: Acute nasopharyngiti s (Primary Dx); Acute bilateral otitis media Immunizations Immunization Date Immunization Notes Care Provider Fa [facility] 10-25-2019 diphtheria, tetanus toxoids and acellular pertussis vaccine, unspecified formulation [facility] 10-25-2019 measles, mumps and r ubella virus vaccine [facility] 10-25-2019 varicella zoster immune globulin [facility] Medications Current Medications Medication Drug Class(es) Dates [...] Every 4 hours PRN, mild pain, Starting Mon10/25/19 at 1146, aluminum hydroxide 40 mg/ml / [...] 10 mg, Rectal, Daily PRN, constipation, Starting Mon10/25/19 at 1146, Use [...] 5 minutes, as instructed in the Notify Anesthesiologist/CUSHION STUFFER: Hypotension order. Start: 10-14-2019 End: 10-14-2019 lactated [...] CHEW. docusate sodium 50 mg / sennosides, shelter 8.6 mg oral tablet (1 source) Start: [...] as Primary IV. NOT intended for KVO. Payers Date Payer Category Payer Private Health Insurance [id number] 2022 Private Health Insurance [id number] 2019 Private Health Insurance [id number] 2019 Private Health Insurance xxx [id number] 1990 Unknown [id number] [id number] 1990 Unknown [id number] 2.16.8 [id number] 1990 Unknown [id number] 2.16.8 [id number] 1988 Unknown [id number] 2.16.8 [id number] 1988 Unknown [id number] 2.16.8 [id number] 1988 Unknown [id number] 2.16.8 [id number] 1988 Unknown [id number] 2.16.8 [id number] 1988 Unknown [id number] 2.16.8 [id number] 1988 Unknown [id number] 2.16.84 [id number] 1988 Unknown [id number] 2.16.84 [id number] 1990 Unknown [id number] 2.16.84 [id number] Plan of Treatment Date Care Activity Detail Author Start: 12-03-2019 Influenza vaccination given Se quential Influenza Vaccine (#1) [facility] Start: 10-01-2019 Influenza vaccination given SE QUENTIAL INFLUENZA VACCINE (#1) [facility] Comment on above: Postponed from 12/02 (Patient Refused) Start: 02-08-2006 Hepatitis C antibody , confirmatory test Hepatitis C Screening [facility] Start: 02-08-2003 HIV screening HIV Screening [facility] Start: 02-08-1991 History and physical examination, annual for health maintenance Wellness Visit [facility] Start: 1990 Screening for malign ant neoplasm of cervix PAP SMEAR [facility] Start: 1988 Tetanus [facility] Problems Active Problems Problem Classification Problem Date [...] out!Unclassified (1 source) No known active problems Procedures Date Procedure Procedure Detail Performing Clinician Start: 10-26-2019 Complete blood count (hemogram) panel - Blood by Automated count Haylie [employer] Work Phone: Start: 10-25-2019 Blood type and Indir ect antibody screen panel - Blood Haylie [employer] Work Phone: Start: 10-25-2019 Complete blood count (hemogram) panel - Blood by Automated count Haylie [employer] Work Phone: Start: 10-25-2019 Treponema pallidum I gG Ab [Presence] in Serum Haylie [employer] Work Phone: Start: 10-14-2019 Blood group typing Caren ann [employer] Work Phone: Start: 10-14-2019 Blood type and Indir ect antibody screen panel - Blood Haylie [employer] Work Phone: Start: 10-14-2019 Complete blood count (hemogram) panel - Blood by Automated count Haylie [employer] Work Phone: Start: 10-14-2019 Rapid plasma reagin test Haylie Ivania Pearson Work Phone: Start: 10-01-2019 Streptococcus agalac tiae DNA [Presence] in Unspecified specimen by ELEUTERIO with probe detection Historical Provider Start: 03-22-2019 Blood type and Indir ect antibody screen panel - Blood Historical Provider Start: 03-22-2019 Neisseria gonorrhoea e nucleic acid detection Historical Provider Results Test Name Value Interpretation Reference [facility] Erythrocyte distribution width (RBC) [Entitic vol] 14.1 % 11.6 - 14.8 % [facility] Hematocrit (Bld) [Volume fraction] 31.7 % Low 36 - 46 % [facility] Hemoglobin (Bld) [Mass/Vol] 9.9 g/dL Low 12 - 16 g/dL [facility] Interpretation and review of laboratory results Abnormal [facility] MCH (RBC) [Entitic mass] 29.6 pg 26 - 34 pg [facility] MCHC (RBC) [Mass/Vol] 31.2 g/dL 31 - 37 g/dL [facility] MCV (RBC) [Entitic vol] 94.6 fL 80 - 100 fL [facility] Nucleated RBC (Bld) [#/Vol] 0.00 10*3/uL [facility] Nucleated RBC/100 WBC (Bld) [Ratio] 0.0 % [facility] Platelet mean volume (Bld) [Entitic vol] 12.2 fL 9.4 - 12.4 fL [facility] Platelets (Bld) [#/Vol] 191 10*3/uL [facility] RBC (Bld) [#/Vol] 3.35 10*6/uL Low [facility] WBC (Bld) [#/Vol] 12.37 10*3/uL [facility] Erythrocyte distribution width (RBC) [Entitic vol] 13.8 % 11.6 - 14.8 % [facility] Hematocrit (Bld) [Volume fraction] 37.8 % 36 - 46 % [facility] Hemoglobin (Bld) [Mass/Vol] 12.5 g/dL 12 - 16 g/dL [facility] Interpretation and review of laboratory results Abnormal [facility] MCH (RBC) [Entitic mass] 30.0 pg 26 - 34 pg [facility] MCHC (RBC) [Mass/Vol] 33.1 g/dL 31 - 37 g/dL [facility] MCV (RBC) [Entitic vol] 90.9 fL 80 - 100 fL [facility] Nucleated RBC (Bld) [#/Vol] 0.00 10*3/uL [facility] Nucleated RBC/100 WBC (Bld) [Ratio] 0.0 % [facility] Platelet mean volume (Bld) [Entitic vol] 12.4 fL 9.4 - 12.4 fL [facility] Platelets (Bld) [#/Vol] 256 10*3/uL [facility] RBC (Bld) [#/Vol] 4.16 10*6/uL [facility] ealth WBC (Bld) [#/Vol] 12.90 10*3/uL [facility] Syphilis Antibodyon 10-25-19 20 Interpretation and review of laboratory results Normal [facility] T. pallidum Ab Ql (S) Negative Negative [facility] Type and Screenon 10-25-2019 ABO and Rh group Nom (Bld) B Positive [facility] Blood group antibody screen Ql Negative [facility] Specimen Expires 10/28/2019 23:59 EST [facility] ABORH VERIFICATIONon 020 ABO and Rh group Nom (Bld) ABO/Rh Verification [facility] Patient's ABO/Rh is verified. [facility] CBCon 10-14-2019 Erythrocyte distribution width (RBC) [Entitic vol] 13.5 % 11.6 - 14.8 % [facility] Hematocrit (Bld) [Volume fraction] 35.6 % Low 36 - 46 % [facility] Hemoglobin (Bld) [Mass/Vol] 11.6 g/dL Low 12 - 16 g/dL [facility] Interpretation and review of laboratory results Abnormal [facility] MCH (RBC) [Entitic mass] 30.0 pg 26 - 34 pg [facility] MCHC (RBC) [Mass/Vol] 32.6 g/dL 31 - 37 g/dL [facility] MCV (RBC) [Entitic vol] 92.0 fL 80 - 100 fL [facility] Nucleated RBC (Bld) [#/Vol] 0.00 10*3/uL [facility] Nucleated RBC/100 WBC (Bld) [Ratio] 0.0 % [facility] Platelet mean volume (Bld) [Entitic vol] 12.8 fL High 9.4 - 12.4 fL [facility] Platelets (Bld) [#/Vol] 253 10*3/uL [facility] RBC (Bld) [#/Vol] 3.87 10*6/uL Low [facility] WBC (Bld) [#/Vol] 12.69 10*3/uL [facility] Hematologyon 10-14-2019 ABO and Rh group Nom (Bld) B Positive [facility] RPRon 10-14-2019 Interpretation and review of laboratory results Normal [facility] Reagin Ab RPR Ql (S) Non-Reactive Non-Reactive [facility] Type and Screenon 10-14-2019 Blood group antibody screen Ql Negative [facility] Specimen Expires 10/17/2019 23:59 EST [facility] Group B Strep PCR, Vaginal/R ectalon 10-01-2019 S. agalactiae Ag Ql (Unsp spec) Negative Negative [facility] CHLAMYDIA/GONORRHOEAE AMPLIF IED RNAon 03-22-2019 C. trachomatis rRNA ELEUTERIO+probe Ql (Unsp spec) Negative Negative [facility] N. gonorrhoeae rRNA ELEUTERIO+probe Ql (Unsp spec) Negative Negative [facility] Type and Screenon 03-22-2019 ABO and Rh group Nom (Bld) B [facility] Rh Type Positive [facility] Social History Date Type Detail Facility Start: 05-11-2019 End: 10-27-2019 Tobacco smoking status NHIS Never smoker [facility] Start: 05-11-2019 End: 10-27-2019 Alcohol intake Ex-drinker (finding) [facility] Start: 02-07-2019 [facility] Sex Assigned At Not on file [facility] Exposure to SARS-CoV-2 (event) Not sure [facility] Vital Signs Date Time Vital Sign Value Performing Clinician Faci lity 10-27-2019 08:19-0400 Body Temperature 97.7 [degF] [facility] 10-27-2019 08:19-0400 BP Diastolic 67 mm[Hg] [facility] 10-27-2019 08:19-0400 BP Systolic 105 mm[Hg] [facility] 10-27-2019 08:19-0400 Pulse (Heart Rate) 71 /min [facility] 10-27-2019 08:19-0400 Pulse Oximetry 96 % [facility] 10-27-2019 08:19-0400 Respiratory Rate 16 /min [facility] 10-25-2019 06:01-0400 BMI (Body Mass Index) 29.13 kg/m2 [facility] 10-25-2019 06:01-0400 Body weight 84.37 kg [facility] 10-25-2019 06:01-0400 Height 170.2 cm [facility] 10-14-2019 10:30-0400 BP Diastolic 77 mm[Hg] [facility] 10-14-2019 10:30-0400 BP Systolic 126 mm[Hg] [facility] 10-14-2019 10:30-0400 Pulse (Heart Rate) 91 /min [facility] 10-14-2019 10:30-0400 Respiratory Rate 16 /min [facility] 10-14-2019 10:15-0400 Pulse Oximetry 97 % [facility] 10-14-2019 05:39-0400 BMI (Body Mass Index) 28.82 kg/m2 [facility] 10-14-2019 05:39-0400 Body Temperature 98.1 [degF] [facility] 10-14-2019 05:39-0400 Body weight 83.46 kg [facility] 10-14-2019 05:39-0400 Height 170.2 cm [facility] 05-11-2019 13:20-0500 Pulse (Heart Rate) 106 /min [facility] 05-11-2019 13:15-0500 BMI (Body Mass Index) 26.31 kg/m2 [facility] 05-11-2019 13:15-0500 Body Temperature 98.4 [degF] [facility] 05-11-2019 13:15-0500 Body weight 76.2 kg [facility] 05-11-2019 13:15-0500 BP Diastolic 76 mm[Hg] [facility] 05-11-2019 13:15-0500 BP Systolic 110 mm[Hg] [facility] 05-11-2019 13:15-0500 Height 170.2 cm Judy Toro [facility] 05-11-2019 13:15-0500 Pulse Oximetry 98 % Judy Toro [facility] 05-11-2019 13:15-0500 Respiratory Rate 14 /min Judy Toro [facility] Summary Purpose Family History No Family History Records FoundNo Family History Records FoundNo Family History Records FoundNo Family History Records Found Advance Directives No Advanced Directives Records FoundDocuments on File Type Date Recorded Patient Gang Bore Operator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 Advance Directives and Living Will Documents on File Type Date Recorded Patient Gang Bore Operator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 Advance Directives and Livin g Will 10/14/2019 5:28 AM Latest Code Status on File Code Status Date Activated Date Inactivated Comments Full Code 10/14/2019 5:32 AM 10/14/2019 1:17 PM Documents on File Type Date Recorded Patient Gang Bore Operator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 Advance Directives and Livin g Will 10/25/2019 6:19 AM Latest Code Status on File Code Status Date Activated Date Inactivated Comments Full Code 10/25/2019 11:46 AM 10/27/2019 2:32 PM Full Code 10/25/2019 5:44 AM 10/25/2019 10:39 AM Full Code 10/14/2019 5:32 AM 10/14/2019 1:17 PM Instructions * Patient Instructions* Judy Toro, SPIKE DRIVER - 05/11/2019 1:40 PM EST Upper Respiratory [...] include drinking lots of fluids and taking hlhu-xmt-wrwegcr pain medicine. You will probably feel better [...] amount of fluids you drink. Take an vkzp-pdg-uvhglhq pain medicine, such as acetaminophen (Tylenol), ibuprofen (Advil, Motrin),or naproxen (Aleve). Read and follow all instructions on the label. Before you use cough and cold medicines, check the label. These medicines may not be safe for youngchildren or for people with certain health problems. Be careful when taking vnfd-unh-pgqwvke cold or flu medicines and Tylenol at [...] Log into your personal health record on [email or web address] and enter K520 in the Education box to learn more about Upper Respiratory Infection (Cold): Care Instructions. Current as of: September 09, 2018 Content Version: 12.3 [id number] [employer]. Care instructions adapted under license by your healthcare professional. If you have questions about a medical condition or this instruction, always ask your healthcare professional. [employer] disclaims any warranty or liability for your [...] taking a prescription pain medicine, take an qgjj-far-hqvnxwl medicine, such as acetaminophen (Tylenol), ibuprofen (Advil, [...] Log into your personal health record on [email or web address] and enter X558 in the Education box to learn more about Ear Infection (Otitis Media): Care Instructions. Current as of: October 28, 2018 Content Version: 12.3 [employer]. Care instructions adapted under license by your healthcare professional. If you have questions about a medical condition or this instruction, always ask your healthcare professional. [employer] disclaims any warranty or liability for your use of this information. documented in this encounter History of Present Illness * Judy Toro CNP - 05/11/2019 1:31 PM EST PATIENT NAME: Ace Brown [facility] [address] [facility] [address] : 1990 DATE OF VISIT: 05/11/2019 #: [...] file Gets together: Not on file Attends taoism service: Not on file Active member of [...] PLT K/mcL 191 256 Telemed rounds during COVID- pandemic. Karen Schulte MD 10/27/19 10:15 AM [...] PLT K/mcL 191 256 Telemed rounds during COVID- pandemic. Karen Schulte MD 10/26/19 10:12 AM * Mesfin Ortiz MD - 10/25/2019 8:16 AM EDT assistant manager bilingual to of primary for breech. documented in this encounter Assessments Diagnosis Acute nasopharyngitis Acute nasopharyngitis (common cold) Acute bilateral otitis media Diagnosis state, incidental Discharge Instructions * Attachments The following attachments cannot be sent through Care Everywhere. * : KICK COUNTS (FRISIAN) * : WEEK 38 (FRISIAN) * : WHEN TO CALL (AFTER 20 WEEKS): GENERAL INFO (FRISIAN) * : BREECH VERSION (FRISIAN) documented in this encounter Hospital Course * [...] section and content) DATE CREATED AUTHOR 05/11/[address] [facility] DATE CREATED AUTHOR AUTHOR'S ORGANIZ ATION 10/25/2019 [facility] DATE CREATED AUTHOR AUTHOR'S ORGANIZ ATION 11/27/2019 [facility] DATE CREATED AUTHOR AUTHOR'S ORGANIZ ATION 09/11/2023 [facility] EPIC Reason for Visit (unrecogniz [...] presents with Procedure here for scheduled version Ace Brown is a 29 y.o. female with [...] FOB, denies LOF or VB, pos. FM Ace Brown is a 29 y.o. 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 Pt given d/c instructions. Pt educated on [...] that she collects. Parents to see the control room agent tomorrow for exam and weight check. Mom [...] better now; states latch is comfortable and infant has settled down somewhat since last night. [...] on R breast in cross cradle position; mostly passive and continuing to be irritable [...] Completed initial assessment of this mother/baby couplet. Infant sleepy tried rousing techniques. Able to wake her, brought her to mother where she started to scream. Assisted her in football position, showing feeding cues but refusing to latch. [...] BE BASED ON THE PRIMARY CLINICAL RECORDS. [facility] [employer] [facility]. provides no warranty or guarantee of the accuracy or completeness of information in this document.
[2023-09-14 13:08] LABS: Age Gdln ACOG Testing Note (.); HPV Aptima Negative (Negative); IGP, Aptima HPV, rfx 16/18,45 Note (.)
== END 2023-09-11 21:29 | disposition home or self-care (01) ==
LOC: LAB 21:28
PROVIDERS: PCP Family Medicine; Visit Provider Obstetrics & Gynecology
DX: Z01.419 Encounter for gynecological examination (general) (routine) without abnormal findings (principal)
CPT/HCPCS: 87624; 88175

== ENCOUNTER 2023-09-19 10:12 | Outpatient (OUT) | payer OTHER, SELFPAY ==
[2023-09-22 01:09] LABS: AFP Value 32.3 ng/mL (.); Gest. Age on Collection Date 18.6 weeks (.); Insulin Dep Diabetes No (.); OSBR Risk 1 IN 10000 (.); Results Report (.)
== END 2023-09-19 10:13 | disposition home or self-care (01) ==
LOC: LAB 10:13
PROVIDERS: PCP Family Medicine; Visit Provider Obstetrics & Gynecology
DX: Z34.92 Encounter for supervision of normal pregnancy, unspecified, second trimester (principal); Z36.1 Encounter for antenatal screening for raised alphafetoprotein level
CPT/HCPCS: 36415; 82105

== ENCOUNTER 2023-10-16 08:26 | Outpatient (OUT) | payer OTHER, SELFPAY ==
--- NOTE | 2023-10-16 08:28 | US_ITS ---
[place] [id number] Patient Name: ACE MORRISSEY MRN: [id number] date: 1990 Sex: F Assigned Patient Location: [facility] Current Patient Location: [facility] Accession/Order Number: [id number] Exam Date: 10/16/2023 08:29 Report Date: 10/16/2023 09:59 At the request of: SHANNA KEITH Procedure: US OB cervical length EXAMINATION: US OB anatomy, US OB cervical length HISTORY: ANATOMY COMPARISON: No relevant comparison available. TECHNIQUE: Transabdominal sonographic examination was performed for obstetrical and evaluation. FINDINGS: Number: 1 Heart Rate: 141 H.B. /min Amniotic Fluid Volume: Subjectively normal position: Variable Placental Location: Anterior, grade 1. Placental edge is 3.6 cm from the internal cervical os Cervix Length: 4.4 cm, closed Normal anatomy: Lateral ventricles, cerebellum, posterior fossa, nose, lips, orbits, four-chamber heart, diaphragm, stomach, kidneys, abdominal cord insertion, bladder, umbilical arteries, three-vessel cord, extremities Nonvisualization: RVOT, LVOT due to positioning Suboptimal visualization: Spine due to positioning BIOMETRY: BPD: 5.5 cm, 22 weeks 4 days, 53% HC: 20.6 cm, 22 weeks 5 days, 50% AC: 18.9 cm, 23 weeks 4 days, 79% FL: 4.1 cm, 23 weeks 1 day, 62% EFW:581 g, 1 lb. 4 oz., 84%; FL/AC: 21.47 FL/BPD: 74.31 HC/AC: 1.09 GESTATIONAL AGE: Age by EDC: 22 weeks 3 days ZAMZAM by EDC: 02/16/2024 Age by current US: 23 weeks 0 days ZAMZAM by current US: 02/12/2024 US/US OB cervical length IMPRESSION: Nonvisualization and suboptimal visualization of the RVOT, LVOT and spine Otherwise normal anatomy scan Closed cervix measuring 3.6 cm in length. *Reference: [employer] Practice Guideline for the performance of Obstetric Ultrasound Examinations, January 01, 2007. Electronically authenticated by: DANG ROD Date: 10/16/2023 09:59
--- NOTE | 2023-10-16 08:28 | US_ITS ---
[address] [address] Patient Name: ACE MORRISSEY MRN: [id number] date: 1990 Sex: F Assigned Patient Location: [facility] Current Patient Location: [facility] Accession/Order Number: [id number] Exam Date: 10/16/2023 08:29 Report Date: 10/16/2023 09:59 At the request of: SHANNA KEITH Procedure: US OB anatomy EXAMINATION: US OB anatomy, US OB cervical length HISTORY: ANATOMY COMPARISON: No relevant comparison available. TECHNIQUE: Transabdominal sonographic examination was performed for obstetrical and evaluation. FINDINGS: Number: 1 Heart Rate: 141 H.B. /min Amniotic Fluid Volume: Subjectively normal position: Variable Placental Location: Anterior, grade 1. Placental edge is 3.6 cm from the internal cervical os Cervix Length: 4.4 cm, closed Normal anatomy: Lateral ventricles, cerebellum, posterior fossa, nose, lips, orbits, four-chamber heart, diaphragm, stomach, kidneys, abdominal cord insertion, bladder, umbilical arteries, three-vessel cord, extremities Nonvisualization: RVOT, LVOT due to positioning Suboptimal visualization: Spine due to positioning BIOMETRY: BPD: 5.5 cm, 22 weeks 4 days, 53% HC: 20.6 cm, 22 weeks 5 days, 50% AC: 18.9 cm, 23 weeks 4 days, 79% FL: 4.1 cm, 23 weeks 1 day, 62% EFW:581 g, 1 lb. 4 oz., 84%; FL/AC: 21.47 FL/BPD: 74.31 HC/AC: 1.09 GESTATIONAL AGE: Age by EDC: 22 weeks 3 days ZAMZAM by EDC: 02/16/2024 Age by current US: 23 weeks 0 days ZAMZAM by current US: 02/12/2024 US/US OB anatomy IMPRESSION: Nonvisualization and suboptimal visualization of the RVOT, LVOT and spine Otherwise normal anatomy scan Closed cervix measuring 3.6 cm in length. *Reference: [employer] Practice Guideline for the performance of Obstetric Ultrasound Examinations, January 01, 2007. Electronically authenticated by: DANG ROD Date: 10/16/2023 09:59
== END 2023-10-16 08:27 | disposition home or self-care (01) ==
PROVIDERS: PCP Family Medicine; Visit Provider Obstetrics & Gynecology
DX: Z36.89 Encounter for other specified antenatal screening (principal)
CPT/HCPCS: 76805; 76817

== ENCOUNTER 2023-10-30 09:38 | Outpatient (OUT) | payer OTHER, SELFPAY ==
--- OUTSIDE RECORDS SUMMARY | 2023-10-30 09:45 | XMS_ITS ---
Patient Summarization (C-CDA 2.1 CCD) Created on: October 30, 2023 ACE BROWN : 1990 Sex: Female Author Organization Sample organization Care Team Providers Care Process Area Supervisor Name Role Phone NO, PHYSICIAN Primary Care Unavailable JUDY TORO Attending Marla vailable Maryuri, Physician Primary Care Provider Unavailabl e HAYLIE PEARSON Admitting Unavailabl e ORWICK, HAYLIE HERNANDEZ Referring Unavailabl e PEERZADE, [facility] Primary Care Unav ailable HAYLIE PEARSON Admitting Unavailabl e ORWICK, HAYLIE HERNANDEZ Referring Unavailabl e PEERZADE, [facility] Unav ailable Haylie Pearson Unavailable [phone] Peerzade, [facility] Primary Care Provide r HAYLIE PEARSON Admitting Unavailabl e HAYLIE PEARSON Attending Unavailabl e NO, PHYSICIAN Primary Care Unavailable HAYLIE PEARSON Admitting Unavailabl e PEERZADE, [facility] Care Unav ailable HAYLIE PEARSON Attending Unavailabl e [facility] onsulting Unavailable PEERZADE, [facility] Unav ailable HAYLIE PEARSON Admitting Unavailabl e ORWIHAYLIE BROWN Attending Unavailabl e ORWIKEVIN, HAYLIE HERNANDEZ Admitting Unavailabl e PEERZADE, [facility] Primary [facility] [place] Unav ailable [facility] C onsulting Unavailable KAREN SCHULTE Attending Unavailable HAYLIE PEARSON Admitting Unavailabl e PEERZADE, [facility] Unav ailable SHANNA KEITH Attending Unavailable SHANNA KEITH Attending Unavailable Encounters Encounter Date Encounter Type Care Provider Facility Start: 09-11-2023 End: 09-11-2023 ambulatory SHANNA INNA Not Available Start: 08-14-2023 End: 08-14-2023 ambulatory SHANNA INNA Not Available Start: 07-13-2023 End: 07-13-2023 ambulatory SHANNA INNA Not Available Start: 11-11-2019 End: 11-15-2019 Patient encounter procedure [facility] Start: 10-25-2019 End: 10-27-2019 Evaluation and management of inpatient [facility] Start: 10-25-2019 End: 10-27-2019 Evaluation and management of inpatient [facility] Work Phone: [facility] Mother/ Start: 10-24-2019 End: 10-24-2019 Patient encounter procedure [facility] Start: 10-14-2019 End: 10-14-2019 [facility] 10-14-2019 End: 10-14-2019 Subsequent hospital visit by physician Haylie Pearson Work Phone: [facility] Start: 10-11-2019 End: 10-11-2019 Patient encounter procedure [facility] Start: 10-08-2019 Patient encounter procedure [facility] Start: 05-11-2019 End: 05-11-2019 Patient encounter procedure PHYSICIAN MARYURI [facility] Start: 05-11-2019 End: 05-11-2019 Office outpatient visit 25 minutes Judy Elena Synfora Work Phone: [facility] Jono Saldivar Comment on above: Acute nasopharyngiti s (Primary Dx); Acute bilateral otitis media Immunizations Immunization Date Immunization Notes Care Provider [facility] 10-25-2019 diphtheria, tetanus toxoids and acellular pertussis vaccine, unspecified formulation [facility] 10-25-2019 measles, mumps and r ubella virus vaccine [facility] 10-25-2019 varicella zoster immune globulin [facility] Medications Current Medications Medication Drug Class(es) [...] 5 minutes, as instructed in the Notify Anesthesiologist/RESIDENTIAL TREATMENT COUNSELOR: Hypotension order. Start: 10-14-2019 End: 10-14-2019 lactated [...] CHEW. docusate sodium 50 mg / sennosides, halfway 8.6 mg oral tablet (1 source) Start: [...] Payer Category Payer Private Health Insurance [id number] 2022 Private Health Insurance [id number] 2019 Private Health Insurance [id number] 2019 Private Health Insurance xxx [id number] 1990 Unknown [id number] 1988 Unknown [id number] 2.16.8 [id number] 1990 Unknown [id number] 2.16.8 [id number] 1990 Unknown [id number] 2.16.8 [id number] 1988 Unknown [id number] 2.16.8 [id number] 1988 Unknown [id number] 2.16.8 [id number] 1988 Unknown [id number] 2.16.8 [id number] 1988 Unknown [id number] 2.16.8 [id number] 1990 Unknown [id number] 2.16.84 [id number] 1990 Unknown [id number] 2.16.84 [id number] 1990 Unknown [id number] 2.16.84 [id number] Plan of Treatment Date Care Activity Detail Author Start: 12-03-2019 Influenza vaccination given Se quential Influenza Vaccine (#1) [facility] Start: 10-01-2019 Influenza vaccination given SE QUENTIAL INFLUENZA VACCINE (#1) [facility] Comment on above: Postponed from 12/02 (Patient Refused) Start: 02-08-2006 Hepatitis C antibody , confirmatory test Hepatitis C Screening [facility] Start: 02-08-2003 HIV screening HIV Screening [facility] Start: 02-08-1991 History and physical examination, annual for health maintenance Wellness Visit [facility] Start: 1990 Screening for malign ant neoplasm of cervix PAP SMEAR [facility] Start: 1988 Tetanus vaccination [facility] Problems [...] panel - Blood by Automated count Haylie Tray Work Phone: Start: 10-25-2019 Blood type and Indir ect antibody screen panel - Blood Haylie Tray Work Phone: Start: 10-25-2019 Complete blood count (hemogram) panel - Blood by Automated count Haylie Tray Work Phone: Start: 10-25-2019 Treponema pallidum I gG Ab [Presence] in Serum Haylie Tray Work Phone: Start: 10-14-2019 Blood group typing Caren ann Tray Work Phone: Start: 10-14-2019 Blood type and Indir ect antibody screen panel - Blood Haylie Tray Work Phone: Start: 10-14-2019 Complete blood count (hemogram) panel - Blood by Automated count [employer] Work Phone: Start: 10-14-2019 Rapid plasma reagin test Haylie Ivania Pearson Work Phone: Start: 10-01-2019 Streptococcus agalac tiae DNA [Presence] in Unspecified specimen by ELEUTERIO with probe detection Historical Provider Start: 03-22-2019 Blood type and Indir ect antibody screen panel - Blood Historical Provider Start: 03-22-2019 Neisseria gonorrhoea e nucleic acid detection Historical Provider Results Test Name Value Interpretation Reference Range [facility] CBCon 10-26-2019 Erythrocyte distribution width (RBC) [Entitic vol] 14.1 % 11.6 - 14.8 % [facility] Hematocrit (Bld) [Volume fraction] 31.7 % Low 36 - 46 % [facility] Hemoglobin (Bld) [Mass/Vol] 9.9 g/dL Low 12 - 16 g/dL [facility] Interpretation and review of laboratory results Abnormal [facility] MCH (RBC) [Entitic mass] 29.6 pg 26 - 34 pg [facility] MCHC (RBC) [Mass/Vol] 31.2 g/dL 31 - 37 g/dL O [facility] MCV (RBC) [Entitic vol] 94.6 fL 80 - 100 fL [facility] Nucleated RBC (Bld) [#/Vol] 0.00 10*3/uL [facility] Nucleated RBC/100 WBC (Bld) [Ratio] 0.0 % [facility] Platelet mean volume (Bld) [Entitic vol] 12.2 fL 9.4 - 12.4 fL [facility] Platelets (Bld) [#/Vol] 191 10*3/uL [facility] RBC (Bld) [#/Vol] 3.35 10*6/uL Low [facility] WBC (Bld) [#/Vol] 12.37 10*3/uL [facility] Erythrocyte distribution width (RBC) [Entitic vol] 13.8 % 11.6 - 14.8 % [facility] Hematocrit (Bld) [Volume fraction] 37.8 % 36 - 46 % [facility] Hemoglobin (Bld) [Mass/Vol] 12.5 g/dL 12 - 16 g/dL [facility] Interpretation and review of laboratory results Abnormal [facility] MCH (RBC) [Entitic mass] 30.0 pg 26 - 34 pg [facility] MCHC (RBC) [Mass/Vol] 33.1 g/dL 31 - 37 g/dL [facility] MCV (RBC) [Entitic vol] 90.9 fL 80 - 100 fL [facility] Nucleated RBC (Bld) [#/Vol] 0.00 10*3/uL [facility] Nucleated RBC/100 WBC (Bld) [Ratio] 0.0 % [facility] Platelet mean volume (Bld) [Entitic vol] 12.4 fL 9.4 - 12.4 fL [facility] Platelets (Bld) [#/Vol] 256 10*3/uL [facility] RBC (Bld) [#/Vol] 4.16 10*6/uL [facility] ealt WBC (Bld) [#/Vol] 12.90 10*3/uL High [facility] Syphilis Antibodyon 10-25-19 20 Interpretation and review of laboratory results Normal [facility] T. pallidum Ab Ql (S) Negative Negative [facility] Type and Screenon 10-25-2019 ABO and Rh group Nom (Bld) B Positive [facility] Blood group antibody screen Ql Negative [facility] Specimen Expires 10/28/2019 23:59 EST [facility] ABORH VERIFICATIONon 020 ABO and Rh group Nom (Bld) ABO/Rh Verification [facility] Patient's ABO/Rh is verified. [facility] CBCon 10-14-2019 Erythrocyte distribution width (RBC) [Entitic vol] 13.5 % 11.6 - 14.8 % [facility] Hematocrit (Bld) [Volume fraction] 35.6 % Low 36 - 46 % [facility] Hemoglobin (Bld) [Mass/Vol] 11.6 g/dL Low 12 - 16 g/dL [facility] Interpretation and review of laboratory results Abnormal [facility] MCH (RBC) [Entitic mass] 30.0 pg 26 - 34 pg [facility] MCHC (RBC) [Mass/Vol] 32.6 g/dL 31 - 37 g/dL [facility] MCV (RBC) [Entitic vol] 92.0 fL 80 - 100 fL [facility] Nucleated RBC (Bld) [#/Vol] 0.00 10*3/uL [facility] Nucleated RBC/100 WBC (Bld) [Ratio] 0.0 % [facility] Platelet mean volume (Bld) [Entitic vol] 12.8 fL High 9.4 - 12.4 fL [facility] Platelets (Bld) [#/Vol] 253 10*3/uL [facility] RBC (Bld) [#/Vol] 3.87 10*6/uL Low [facility] ealth WBC (Bld) [#/Vol] 12.69 10*3/uL [facility] Hematologyon 10-14-2019 ABO and Rh group Nom (Bld) B Positive [facility] RPRon 10-14-2019 Interpretation and review of laboratory results Normal [facility] Reagin Ab RPR Ql (S) Non-Reactive Non-Reactive [facility] Type and Screenon 10-14-2019 Blood group antibody screen Ql Negative [facility] Specimen Expires 10/17/2019 23:59 EST [facility] Group B Strep PCR, Vaginal/R ectalon 10-01-2019 S. agalactiae Ag Ql (Unsp spec) Negative Negative [facility] CHLAMYDIA/GONORRHOEAE AMPLIF IED RNAon 03-22-2019 C. trachomatis rRNA ELEUTERIO+probe Ql (Unsp spec) Negative Negative [facility] N. gonorrhoeae rRNA ELEUTERIO+probe Ql (Unsp spec) Negative Negative [facility] Type and Screenon 03-22-2019 ABO and Rh group Nom (Bld) B [facility] Rh Type Positive [facility] Social History Date Type Detail Facility Start: 05-11-2019 End: 10-27-2019 Tobacco smoking status NHIS Never smoker [facility] Start: 05-11-2019 End: 10-27-2019 Alcohol intake Ex-drinker (finding) [facility] Start: 02-07-2019 [facility] Sex Assigned At Not on file [facility] Exposure to SARS-CoV-2 (event) Not sure [facility] Vital Signs Date Time Vital Sign Value Performing Clinician Faci lity 10-27-2019 08:19-0400 Body Temperature 97.7 [degF] [facility] 10-27-2019 08:19-0400 BP Diastolic 67 mm[Hg] [facility] 10-27-2019 08:19-0400 BP Systolic 105 mm[Hg] [facility] 10-27-2019 08:19-0400 Pulse (Heart Rate) 71 /min [facility] 10-27-2019 08:19-0400 Pulse Oximetry 96 % [facility] 10-27-2019 08:19-0400 Respiratory Rate 16 /min [facility] 10-25-2019 06:01-0400 BMI (Body Mass Index) 29.13 kg/m2 [facility] 10-25-2019 06:01-0400 Body weight 84.37 kg [facility] 10-25-2019 06:01-0400 Height 170.2 cm [facility] 10-14-2019 10:30-0400 BP Diastolic 77 mm[Hg] [facility] 10-14-2019 10:30-0400 BP Systolic 126 mm[Hg] [facility] 10-14-2019 10:30-0400 Pulse (Heart Rate) 91 /min [facility] 10-14-2019 10:30-0400 Respiratory Rate 16 /min [facility] 10-14-2019 10:15-0400 Pulse Oximetry 97 % [facility] 10-14-2019 05:39-0400 BMI (Body Mass Index) 28.82 kg/m2 [facility] 10-14-2019 05:39-0400 Body Temperature 98.1 [degF] [facility] 10-14-2019 05:39-0400 Body weight 83.46 kg [facility] 10-14-2019 05:39-0400 Height 170.2 cm [facility] 05-11-2019 13:20-0500 Pulse (Heart Rate) 106 /min [facility] 05-11-2019 13:15-0500 BMI (Body Mass Index) 26.31 kg/m2 [facility] 05-11-2019 13:15-0500 Body Temperature 98.4 [degF] [facility] 05-11-2019 13:15-0500 Body weight 76.2 kg [facility] 05-11-2019 13:15-0500 BP Diastolic 76 mm[Hg] [facility] 05-11-2019 13:15-0500 BP Systolic 110 mm[Hg] [facility] 05-11-2019 13:15-0500 Height 170.2 cm Judy Toro [facility] 05-11-2019 13:15-0500 Pulse Oximetry 98 % Judy Toro [facility] 05-11-2019 13:15-0500 Respiratory Rate 14 /min Judy Toro [facility] Summary Purpose Family History No Family History Records FoundNo Family History Records FoundNo Family History Records FoundNo Family History Records Found Advance Directives No Advanced Directives Records FoundDocuments on File Type Date Recorded Patient Cloth Bleaching Supervisor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 Advance Directives and Living Will Documents on File Type Date Recorded Patient Cloth Bleaching Supervisor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 Advance Directives and Livin g Will 10/14/2019 5:28 AM Latest Code Status on File Code Status Date Activated Date Inactivated Comments Full Code 10/14/2019 5:32 AM 10/14/2019 1:17 PM Documents on File Type Date Recorded Patient Cloth Bleaching Supervisor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 Advance Directives and Livin g Will 10/25/2019 6:19 AM Latest Code Status on File Code Status Date Activated Date Inactivated Comments Full Code 10/25/2019 11:46 AM 10/27/2019 2:32 PM Full Code 10/25/2019 5:44 AM 10/25/2019 10:39 AM Full Code 10/14/2019 5:32 AM 10/14/2019 1:17 PM Instructions * Patient Instructions* Judy Toro, EXCELSIOR PICKER - 05/11/2019 1:40 PM EST Upper Respiratory [...] include drinking lots of fluids and taking qbze-vah-tzgfwkn pain medicine. You will probably feel better [...] amount of fluids you drink. Take an dygd-rnx-awnlsfy pain medicine, such as acetaminophen (Tylenol), ibuprofen (Advil, Motrin),or naproxen (Aleve). Read and follow all instructions on the label. Before you use cough and cold medicines, check the label. These medicines may not be safe for youngchildren or for people with certain health problems. Be careful when taking vaba-jtf-rddondv cold or flu medicines and Tylenol at [...] Log into your personal health record on [email or web address] and enter K520 in the Education box to learn more about Upper Respiratory Infection (Cold): Care Instructions. Current as of: September 09, 2018 Content Version: 12.3 9934-5345 [employer] Care instructions adapted under license by your healthcare professional. If you have questions about a medical condition or this instruction, always ask your healthcare professional. [employer] disclaims any warranty or liability for your [...] taking a prescription pain medicine, take an nwpw-dwh-rlhgqfm medicine, such as acetaminophen (Tylenol), ibuprofen (Advil, [...] Log into your personal health record on [email or web address] and enter X558 in the Education box to learn more about Ear Infection (Otitis Media): Care Instructions. Current as of: October 28, 2018 Content Version: 12.3 [employer] Care instructions adapted under license by your healthcare professional. If you have questions about a medical condition or this instruction, always ask your healthcare professional. [employer] disclaims any warranty or liability for your use of this information. documented in this encounter History of Present Illness * Judy Toro CNP - 05/11/2019 1:31 PM EST PATIENT NAME: Ace Brown [facility] [address] [facility] [address] : 1990 DATE OF VISIT: 05/11/2019 #: [...] file Gets together: Not on file Attends denominational service: Not on file Active member of [...] Ortiz MD - 10/25/2019 8:16 AM EDT acute care nursing assistant to of primary for breech. documented in this encounter Assessments Diagnosis Acute nasopharyngitis Acute nasopharyngitis (common cold) Acute bilateral otitis media Diagnosis state, incidental Discharge Instructions * Attachments The following attachments cannot be sent through Care Everywhere. * : KICK COUNTS (SUDANESE) * : WEEK 38 (SUDANESE) * : WHEN TO CALL (AFTER 20 WEEKS): GENERAL INFO (SUDANESE) * : BREECH VERSION (SUDANESE) documented in this encounter Hospital Course * [...] and content) DATE CREATED AUTHOR 05/11/2019 [facility] DATE CREATED AUTHOR AUTHOR'S ORGANIZ ATION 10/25/2019 [facility] DATE CREATED AUTHOR AUTHOR'S ORGANIZ ATION 11/27/2019 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 Parents to see the accountant supervisor tomorrow for exam and weight check. Mom [...] very irritable and father helping with positioning . She finally obtained moderately deep latch on [...] to latch. Hand expressed a drop and infant seemed briefly interested but continued to cry. [...] BE BASED ON THE PRIMARY CLINICAL RECORDS. [employer] [facility]. provides no warranty or guarantee of the accuracy or completeness of information in this document.
[2023-10-30 10:50] LABS: Basophils Absolute Auto 0.1 10^3/uL (0.0-0.1); Basophils Percent Auto 0.6 % (0.2-2.0); Eosinophils Absolute Auto 0.1 10^3/uL (0.0-0.7); Eosinophils Percent Auto 1.1 % (0.9-7.0); Hematocrit 35.6 % (36.0-48.0); Hemoglobin 12.1 g/dL (12.0-16.0); Immature Granulocytes Abs Auto 0.04 10^3/uL (0.00-0.03); Immature Granulocytes Pct Auto 0.4 % (0.0-0.5); Lymphocytes Absolute Auto 2.2 10^3/uL (1.2-3.8); Lymphocytes Percent Auto 24.4 % (20.5-60.0); Mean Corpuscular Hemoglobin 31.5 pg (26.7-34.0); Mean Corpuscular Volume 92.7 fL (81.0-99.0); Mean Platelet Volume 11.7 fL (9.5-13.5); Monocytes Absolute Auto 0.6 10^3/uL (0.3-0.8); Monocytes Percent Auto 6.9 % (1.7-12.0); Neutrophils Percent Auto 66.6 % (43.0-75.0); Platelet Count 235 10^3/uL (150-450); Red Blood Count 3.84 10^6/uL (4.20-5.40)
[2023-10-30 11:44] LABS: Glucose 1 Hour 122 mg/dL (<130)
== END 2023-10-30 09:39 | disposition home or self-care (01) ==
LOC: LAB 09:39
PROVIDERS: PCP Family Medicine; Visit Provider Obstetrics & Gynecology
DX: Z13.1 Encounter for screening for diabetes mellitus (principal)
CPT/HCPCS: 36415; 82950; 85025

== ENCOUNTER 2023-11-15 09:52 | Outpatient (OUT) | payer OTHER, SELFPAY ==
--- NOTE | 2023-11-15 09:55 | US_ITS ---
[place] [id number] Patient Name: ACE MORRISSEY MRN: [id number] date: 1990 Sex: F Assigned Patient Location: [facility] Current Patient Location: [facility] Accession/Order Number: [id number] Exam Date: 11/15/2023 09:56 Report Date: 11/15/2023 12:08 At the request of: SHANNA KEITH Procedure: US OB follow up EXAMINATION: US OB follow up HISTORY: INCOMPLETE ANATOMY COMPARISON: 10/16/2023 FINDINGS: Cephalic presentation Normal observed anatomy, spine, RVOT, LVOT Clinical age: 26 weeks 5 days US/US OB follow up IMPRESSION: Normal observed anatomy Electronically authenticated by: DANG ROD Date: 11/15/2023 12:08
--- OUTSIDE RECORDS SUMMARY | 2023-11-15 10:08 | XMS_ITS | CCD ---
Author Organization [facility] Care Team Providers Care Director Digital Advertising Name Role Phone NO, PHYSICIAN Primary Care Unavailable JUDY TORO Attending Marla vailable Maryuri, Physician Primary Care Provider Unavailabl e HAYLIE PEARSON Admitting Unavailabl e ORWIHAYLIE BROWN Referring Unavailabl e PEERZADE, [facility] Primary Care Unav ailable HAYLIE PEARSON Admitting Unavailabl e ORWIKEVIN, HAYLIE HERNANDEZ Referring Unavailabl e PEERZADE, [facility] Care Unav ailable Haylie Pearson Unavailable [phone] Peerzade, [facility] Primary [facility] Provide r HAYLIE PEARSON Admitting Unavailabl e HAYLIE PEARSON Attending Unavailabl e NO, PHYSICIAN Primary Care Unavailable HAYLIE PEARSON Admitting Unavailabl e PEERZADE, [facility] Care Unav ailable HAYLIE PEARSON Attending Unavailabl e [facility] onsulting Unavailable PEERZADE, [facility] Unav ailable HAYLIE PEARSON Admitting Unavailabl e ORWICKHAYLIE Attending Unavailabl e ORWICK, HAYLIE HERNANDEZ Admitting Unavailabl e PEERZADE, [facility] Primary Care Unav ailable [facility] C onsulting Unavailable KAREN SCHULTE Attending Unavailable HAYLIE PEARSON Admitting Unavailabl e PEERZADE, [facility] Unav ailable SHANNA KEITH Attending Unavailable SHANNA KEITH Attending Unavailable Medications Current Medications [...] 5 minutes, as instructed in the Notify Anesthesiologist/AVIONICS MECHANIC: Hypotension order. Start: 10-14-2019 End: 10-14-2019 lactated [...] Results Test Name Value Interpretation [facility] Erythrocyte distribution width (RBC) [Entitic vol] 14.1 % 11.6 - 14.8 % [facility] Hematocrit (Bld) [Volume fraction] 31.7 % Low 36 - 46 % [facility] Hemoglobin (Bld) [Mass/Vol] 9.9 g/dL Low 12 - 16 g/dL [facility] Interpretation and review of laboratory results Abnormal [facility] MCH (RBC) [Entitic mass] 29.6 pg 26 - 34 pg [facility] MCHC (RBC) [Mass/Vol] 31.2 g/dL 31 - 37 g/dL O [facility] MCV (RBC) [Entitic vol] 94.6 fL 80 - 100 fL [facility] Nucleated RBC (Bld) [#/Vol] 0.00 10*3/uL [facility] Nucleated RBC/100 WBC (Bld) [Ratio] 0.0 % [facility] Platelet mean volume (Bld) [Entitic vol] 12.2 fL 9.4 - 12.4 fL [facility] Platelets (Bld) [#/Vol] 191 10*3/uL [facility] RBC (Bld) [#/Vol] 3.35 10*6/uL Low [facility] WBC (Bld) [#/Vol] 12.37 10*3/uL High [facility] CBCon 10-25-2019 Erythrocyte distribution width (RBC) [Entitic vol] 13.8 % 11.6 - 14.8 % [facility] Hematocrit (Bld) [Volume fraction] 37.8 % 36 - 46 % [facility] Hemoglobin (Bld) [Mass/Vol] 12.5 g/dL 12 - 16 g/dL [facility] Interpretation and review of laboratory results Abnormal [facility] MCH (RBC) [Entitic mass] 30.0 pg 26 - 34 pg [facility] MCHC (RBC) [Mass/Vol] 33.1 g/dL 31 - 37 g/dL [facility] MCV (RBC) [Entitic vol] 90.9 fL 80 - 100 fL [facility] Nucleated RBC (Bld) [#/Vol] 0.00 10*3/uL [facility] Nucleated RBC/100 WBC (Bld) [Ratio] 0.0 % [facility] Platelet mean volume (Bld) [Entitic vol] 12.4 fL 9.4 - 12.4 fL [facility] Platelets (Bld) [#/Vol] 256 10*3/uL [facility] RBC (Bld) [#/Vol] 4.16 10*6/uL [facility] WBC (Bld) [#/Vol] 12.90 10*3/uL [facility] Syphilis Antibodyon 10-25-19 20 Interpretation and review of laboratory results Normal [facility] T. pallidum Ab Ql (S) Negative Negative [facility] Type and Screenon 10-25-2019 ABO and Rh group Nom (Bld) B Positive [facility] Blood group antibody screen Ql Negative [facility] Specimen Expires 10/28/2019 23:59 EST [facility] ABORH VERIFICATIONon 020 ABO and Rh group Nom (Bld) ABO/Rh Verification [facility] ABO and Rh group Nom (Bld) B Positive [facility] Patient's ABO/Rh is verified. [facility] CBCon 10-14-2019 Erythrocyte distribution width (RBC) [Entitic vol] 13.5 % 11.6 - 14.8 % [facility] Hematocrit (Bld) [Volume fraction] 35.6 % Low 36 - 46 % [facility] Hemoglobin (Bld) [Mass/Vol] 11.6 g/dL Low 12 - 16 g/dL [facility] Interpretation and review of laboratory results Abnormal [facility] MCH (RBC) [Entitic mass] 30.0 pg 26 - 34 pg [facility] MCHC (RBC) [Mass/Vol] 32.6 g/dL 31 - 37 g/dL [facility] MCV (RBC) [Entitic vol] 92.0 fL 80 - 100 fL [facility] Nucleated RBC (Bld) [#/Vol] 0.00 10*3/uL [facility] Nucleated RBC/100 WBC (Bld) [Ratio] 0.0 % [facility] Platelet mean volume (Bld) [Entitic vol] 12.8 fL High 9.4 - 12.4 fL [facility] Platelets (Bld) [#/Vol] 253 10*3/uL [facility] RBC (Bld) [#/Vol] 3.87 10*6/uL Low [facility] WBC (Bld) [#/Vol] 12.69 10*3/uL [facility] RPRon 10-14-2019 Interpretation and review of laboratory results Normal [facility] Reagin Ab RPR Ql (S) Non-Reactive Non-Reactive [facility] Type and Screenon 10-14-2019 ABO and Rh group Nom (Bld) B Positive [facility] Blood group antibody screen Ql Negative [facility] Specimen Expires 10/17/2019 23:59 EST [facility] Group B Strep PCR, Vaginal/R ectalon 10-01-2019 S. agalactiae Ag Ql (Unsp spec) Negative Negative [facility] CHLAMYDIA/GONORRHOEAE AMPLIF IED RNAon 03-22-2019 C. trachomatis rRNA ELEUTERIO+probe Ql (Unsp spec) Negative Negative [facility] N. gonorrhoeae rRNA ELEUTERIO+probe Ql (Unsp spec) Negative Negative [facility] Type and Screenon 03-22-2019 ABO and Rh group Nom (Bld) B [facility] Rh Type Positive [facility] Vital Signs Date Time Vital Sign Value Performing Clinician Faci lity 10-27-2019 08:19-0400 Body Temperature 97.7 [degF] [facility] 10-27-2019 08:19-0400 BP Diastolic 67 mm[Hg] [facility] 10-27-2019 08:19-0400 BP Systolic 105 mm[Hg] [facility] 10-27-2019 08:19-0400 Pulse (Heart Rate) 71 /min [facility] 10-27-2019 08:19-0400 Pulse Oximetry 96 % [facility] 10-27-2019 08:19-0400 Respiratory Rate 16 /min [facility] 10-25-2019 06:01-0400 BMI (Body Mass Index) 29.13 kg/m2 [facility] 10-25-2019 06:01-0400 Body weight 84.37 kg [facility] 10-25-2019 06:01-0400 Height 170.2 cm [facility] 10-14-2019 10:30-0400 BP Diastolic 77 mm[Hg] [facility] 10-14-2019 10:30-0400 BP Systolic 126 mm[Hg] [facility] 10-14-2019 10:30-0400 Pulse (Heart Rate) 91 /min [facility] 10-14-2019 10:30-0400 Respiratory Rate 16 /min [facility] 10-14-2019 10:15-0400 Pulse Oximetry 97 % [facility] 10-14-2019 05:39-0400 BMI (Body Mass Index) 28.82 kg/m2 [facility] 10-14-2019 05:39-0400 Body Temperature 98.1 [degF] [facility] 10-14-2019 05:39-0400 Body weight 83.46 kg [facility] 10-14-2019 05:39-0400 Height 170.2 cm [facility] 05-11-2019 13:20-0500 Pulse (Heart Rate) 106 /min [facility] 05-11-2019 13:15-0500 BMI (Body Mass Index) 26.31 kg/m2 [facility] 05-11-2019 13:15-0500 Body Temperature 98.4 [degF] [facility] 05-11-2019 13:15-0500 Body weight 76.2 kg [facility] 05-11-2019 13:15-0500 BP Diastolic 76 mm[Hg] [facility] 05-11-2019 13:15-0500 BP Systolic 110 mm[Hg] [facility] 05-11-2019 13:15-0500 Height 170.2 cm [facility] 05-11-2019 13:15-0500 Pulse Oximetry 98 % [facility] 05-11-2019 13:15-0500 Respiratory Rate 14 /min Judy Toro [facility] Encounters Encounter Date Encounter Type Care Provider Facility Start: 09-11-2023 End: 09-11-2023 ambulatory SHANNA INNA Not Available Start: 08-14-2023 End: 08-14-2023 ambulatory SHANNA INNA Not Available Start: 07-13-2023 End: 07-13-2023 ambulatory SHANNA INNA Not Available Start: 11-11-2019 End: 11-15-2019 Patient encounter procedure [facility] Start: 10-25-2019 End: 10-27-2019 Evaluation and management of inpatient [facility] Start: 10-25-2019 End: 10-27-2019 [facility] [place] [facility] Start: 10-24-2019 End: 10-24-2019 Patient encounter procedure [facility] Start: 10-14-2019 End: 10-14-2019 Patient encounter procedure DANETTE CERVANTES [facility] Start: 10-14-2019 End: 10-14-2019 Subsequent hospital visit by physician Haylie Pearson Work Phone: [facility] Start: 10-11-2019 End: 10-11-2019 Patient encounter procedure [facility] Start: 10-08-2019 Patient encounter procedure [facility] Start: 05-11-2019 End: 05-11-2019 Patient encounter procedure PHYSICIAN MARYURI [facility] Start: 05-11-2019 End: 05-11-2019 Office outpatient visit 25 minutes Judy Parker [employer] Work Phone: [facility] Comment on above: Acute nasopharyngiti s (Primary Dx); Acute bilateral otitis media Procedures Date Procedure Procedure Detail Performing Clinician Start: 10-26-2019 Complete blood count (hemogram) panel - Blood by Automated count Haylie Pearson Work Phone: Start: 10-25-2019 Blood type and Indir ect antibody screen panel - Blood Haylie Tamago Work Phone: Start: 10-25-2019 Complete blood count (hemogram) panel - Blood by Automated count Haylie Hernandez [employer] Work Phone: Start: 10-25-2019 Treponema pallidum I gG Ab [Presence] in Serum Haylie Tamago Work Phone: Start: 10-14-2019 Blood group typing Caren ann Tamago Work Phone: Start: 10-14-2019 Blood type and Indir ect antibody screen panel - Blood Haylie Tamago Work Phone: Start: 10-14-2019 Complete blood count (hemogram) panel - Blood by Automated count Haylie Tamago Work Phone: Start: 10-14-2019 Rapid plasma reagin test Haylie [employer] Phone: Start: 10-01-2019 Streptococcus agalac tiae DNA [Presence] in Unspecified specimen by ELEUTERIO with probe detection Historical Provider Start: 03-22-2019 Blood type and Indir ect antibody screen panel - Blood Historical Provider Start: 03-22-2019 Neisseria gonorrhoea e nucleic acid detection Historical Provider Plan of Treatment Date Care Activity Detail Author Start: 12-03-2019 Influenza vaccination given Se quential Influenza Vaccine (#1) [facility] Start: 10-01-2019 Influenza vaccination given SE QUENTIAL INFLUENZA VACCINE (#1) [facility] Comment on above: Postponed from 12/02 (Patient Refused) Start: 02-08-2006 Hepatitis C antibody , confirmatory test Hepatitis C Screening [facility] Start: 02-08-2003 HIV screening HIV Screening [facility] Start: 02-08-1991 History and physical examination, annual for health maintenance Wellness Visit [facility] Start: 1988 Screening for malign ant neoplasm of cervix PAP SMEAR [facility] Start: 1988 Tetanus vaccination [facility] Immunizations Immunization Date Immunization Notes Care Provider Fa cility 10-25-2019 diphtheria, tetanus toxoids and acellular pertussis vaccine, unspecified formulation [facility] 10-25-2019 measles, mumps and r ubella virus vaccine [facility] 10-25-2019 varicella zoster immune globulin [facility] Payers Date Payer Category Payer Private Health Insurance [id number] 2022 Private Health Insurance [id number] 2019 Private Health Insurance [id number] 2019 Private Health Insurance xxx [id number] 1988 Unknown [id number] 1988 Unknown [id number] 2.16.8 [id number] 1988 Unknown [id number] 2.16.8 [id number] 1988 Unknown [id number] 2.16.8 [id number] 1988 Unknown [id number] 2.16.8 [id number] 1988 Unknown [id number] 2.16.8 [id number] 1988 Unknown [id number] 2.16.8 [id number] 1988 Unknown [id number] 2.16.8 [id number] 1988 Unknown [id number] 2.16.84 [id number] 1988 Unknown [id number] 2.16.84 [id number] 1988 Unknown [id number] 2.16.84 [id number] Social History Date Type Detail Facility Start: 05-11-2019 End: 10-27-2019 Tobacco smoking status NHIS Never smoker [facility] Start: 05-11-2019 End: 10-27-2019 Alcohol intake Ex-drinker (finding) [facility] Start: 02-07-2019 [facility] Sex Assigned At Not on file [place] Exposure to SARS-CoV-2 (event) Not sure [facility] Summary Purpose Family History No Family History Records FoundNo Family History Records FoundNo Family History Records FoundNo Family History Records Found Advance Directives No Advanced Directives Records FoundDocuments on File Type Date Recorded Patient 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 Production Associate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 Advance Directives and Living Will Documents on File Type Date Recorded Patient Print Production Associate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 Advance Directives and Livin g Will 10/14/2019 5:28 AM Latest Code Status on File Code Status Date Activated Date Inactivated Comments Full Code 10/14/2019 5:32 AM 10/14/2019 1:17 PM Documents on File Type Date Recorded Patient Print Production Associate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 Advance Directives and Livin g Will 10/25/2019 6:19 AM Latest Code Status on File Code Status Date Activated Date Inactivated Comments Full Code 10/25/2019 11:46 AM 10/27/2019 2:32 PM Full Code 10/25/2019 5:44 AM 10/25/2019 10:39 AM Full Code 10/14/2019 5:32 AM 10/14/2019 1:17 PM Instructions * Patient Instructions* Judy Toro, LEAD PROJECT MANAGER - 05/11/2019 1:40 PM EST Upper Respiratory [...] include drinking lots of fluids and taking dibr-fhk-tvirktz pain medicine. You will probably feel better [...] amount of fluids you drink. Take an aurp-nvz-zdmgewm pain medicine, such as acetaminophen (Tylenol), ibuprofen (Advil, Motrin),or naproxen (Aleve). Read and follow all instructions on the label. Before you use cough and cold medicines, check the label. These medicines may not be safe for youngchildren or for people with certain health problems. Be careful when taking ilnv-xei-scbilxp cold or flu medicines and Tylenol at [...] Log into your personal health record on [email or web address]://Xiantt.[email or web address] and enter K520 in the Education box to learn more about Upper Respiratory Infection (Cold): Care Instructions. Current as of: September 09, 2018 Content Version: 12.3 1542-8523 [employer]. Care instructions adapted under license by your healthcare professional. If you have questions about a medical condition or this instruction, always ask your healthcare professional. [employer] disclaims any warranty or liability for your [...] taking a prescription pain medicine, take an hifq-xou-lpqezpw medicine, such as acetaminophen (Tylenol), ibuprofen (Advil, [...] Log into your personal health record on [email or web address] and enter X558 in the Education box to learn more about Ear Infection (Otitis Media): Care Instructions. Current as of: October 28, 2018 Content Version: 12.3 3770-4037 [employer]. Care instructions adapted under license by your healthcare professional. If you have questions about a medical condition or this instruction, always ask your healthcare professional. [employer] disclaims any warranty or liability for your use of this information. 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 documented in this encounter Assessments Diagnosis Acute nasopharyngitis Acute nasopharyngitis (common cold) Acute bilateral otitis media Diagnosis state, incidental Discharge Instructions * Attachments The following attachments cannot be sent through Care Everywhere. * : KICK COUNTS (PAKISTANI) * : WEEK 38 (PAKISTANI) * : WHEN TO CALL (AFTER 20 WEEKS): GENERAL INFO ([place]KISTANI) * : BREECH VERSION ([place]KISTANI) documented in this encounter Hospital Course * [...] and content) DATE CREATED AUTHOR 05/11/2019 [facility] DATE CREATED AUTHOR AUTHOR'S ORGANIZ ATION 10/25/2019 [facility] DATE CREATED AUTHOR AUTHOR'S ORGANIZ ATION 11/27/2019 [facility] DATE CREATED AUTHOR AUTHOR'S ORGANIZ ATION 09/11/[address] [facility] dical Specialists EPIC Reason for Visit [...] Haylie Pearson MD - 10/14/2019 8:17 AM EDTOrHaylie muñoz MD - 10/25/2019 8:49 AM EDT H&P [...] Yasmin Butts RN - 10/14/2019 10:56 AM EDTQuac Note - Yasmin Butts RN - 10/14/2019 10:31 AM EDTQuac Note - Yasmin Butts RN - 10/14/2019 9:16 AM EDT Miscellaneous [...] in this encounter Patient discharged out patient pear picker exit in wheelchair with infant. 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 Parents to see the auditor tomorrow for exam and weight check. Mom [...] out to say they were attempting feeding; is still very irritable and father helping [...] briefly interested but continued to cry. Put infant skin to skin with mother and encouraged [...] BE BASED ON THE PRIMARY CLINICAL RECORDS. [employer] [facility]. provides no warranty or guarantee of the accuracy or completeness of information in this document.
== END 2023-11-15 09:53 | disposition home or self-care (01) ==
LOC: NOMS 09:53
PROVIDERS: PCP Family Medicine; Visit Provider Obstetrics & Gynecology
DX: Z36.2 Encounter for other antenatal screening follow-up (principal); Z3A.26 26 weeks gestation of pregnancy
CPT/HCPCS: 76816

== ENCOUNTER 2023-11-29 09:42 | Outpatient (OUT) | payer OTHER, SELFPAY ==
--- NOTE | 2023-11-29 09:44 | US_ITS ---
[address] [address] Patient Name: ACE MORRISSEY MRN: [id number] date: 1990 Sex: F Assigned Patient Location: [facility] Current Patient Location: [facility] Accession/Order Number: [id number] Exam Date: 11/29/2023 09:45 Report Date: 11/29/2023 10:24 At the request of: SHANNA KEITH Procedure: US OB growth EXAMINATION: US OB growth HISTORY: Multigravida of advanced maternal age O09.522 COMPARISON: Ultrasound OB follow-up 11/15/2023, ultrasound OB anatomy 10/16/2023 FINDINGS: Heart Rate: 141 bpm Amniotic Fluid Volume: 16.0 cm; normal range Number: 1 Position: CEPHALIC BIOMETRY: BPD: 7.51 cm; 30 weeks 1 day; 80.80 % HC: 29.05 cm; 32 weeks 0 days; 96.20 % AC: 26.80 cm; 30 weeks 6 days; 94.10 % FL: 5.73 cm; 30 weeks 0 days; 72.90 % EFW: 1640.68 g; 95.60 % FL/AC: 21.38 FL/BPD: 76.30 HC/AC: 1.08 GESTATIONAL AGE: Age by EDC: 28 weeks 5 days ZAMZAM by EDC: 2024-02-16 Age by US: 30 weeks 5 days ZAMZAM by US: 2024-02-02 US/US OB growth IMPRESSION: 1. Single live intrauterine with growth detailed above. 2. Estimated weight is at 96th percentile. Electronically authenticated by: MARKELL FERMIN Date: 11/29/2023 10:24
--- OUTSIDE RECORDS SUMMARY | 2023-11-29 10:01 | XMS_ITS | CCD ---
Author Organization [facility] Care Team Providers Care Hopper Feeder Name Role Phone NO, PHYSICIAN Primary Care Unavailable JUDY TORO Attending Marla vailable Maryuri, Physician Primary Care Provider Unavailabl e HAYLIE PEARSON Admitting Unavailabl e HAYLIE PEARSON Referring Unavailabl e PEERZADE, [facility] Primary Care Unav ailable HAYLIE PEARSON Admitting Unavailabl e ORHAYLIE CRISTOBAL Referring Unavailabl e PEERZADE, [facility] Primary Care Unav ailable Haylie Pearson Unavailable Peerzade, [facility] Primary [facility] Provide r HAYLIE PEARSON Admitting Unavailabl e HAYLIE PEARSON Attending Unavailabl e NO, PHYSICIAN Primary Care Unavailable HAYLIE PEARSON Admitting Unavailabl e PEERZADE, [facility] Care Unav ailable HAYLIE PEARSON Attending Unavailabl e [facility], GENERIC C onsulting Unavailable PEERZADE, [facility] Primary [facility] Unav ailable HAYLIE PEARSON Admitting Unavailabl e ORWICKHAYLIE Attending Unavailabl e ORWIHAYLIE BROWN Admitting Unavailabl e PEERZADE, [facility] Unav ailable [facility]IA [facility], GENERIC C onsulting Unavailable KAREN SCHULTE Attending Unavailable HYALIE PEARSON Admitting Unavailabl e PEERZADE, [facility] Primary Care Unav ailable SHANNA KEITH Attending Unavailable INNA, SHANNA Attending Unavailable SHANNA KEITH Attending Unavailable SHANNA KEITH Attending [...] 5 minutes, as instructed in the Notify Anesthesiologist/RIGHT OF WAY MANAGER: Hypotension order. Start: 10-14-2019 End: 10-14-2019 lactated [...] CHEW. docusate sodium 50 mg / sennosides, intermediate 8.6 mg oral tablet (1 source) Start: [...] Results Test Name Value Interpretation Reference Range [facility] CBCon 10-26-2019 Erythrocyte distribution width (RBC) [Entitic vol] 14.1 % 11.6 - 14.8 % [facility] Hematocrit (Bld) [Volume fraction] 31.7 % Low 36 - 46 % [facility] Hemoglobin (Bld) [Mass/Vol] 9.9 g/dL Low 12 - 16 g/dL [facility] Interpretation and review of laboratory results Abnormal [facility] MCH (RBC) [Entitic mass] 29.6 pg 26 - 34 pg [facility] MCHC (RBC) [Mass/Vol] 31.2 g/dL 31 - 37 g/dL [facility] MCV (RBC) [Entitic vol] 94.6 fL 80 - 100 fL [facility] Nucleated RBC (Bld) [#/Vol] 0.00 10*3/uL [facility] Nucleated RBC/100 WBC (Bld) [Ratio] 0.0 % [facility] Platelet mean volume (Bld) [Entitic vol] 12.2 fL 9.4 - 12.4 fL [facility] Platelets (Bld) [#/Vol] 191 10*3/uL [facility] RBC (Bld) [#/Vol] 3.35 10*6/uL Low [facility] WBC (Bld) [#/Vol] 12.37 10*3/uL High [facility] CBCon 10-25-2019 Erythrocyte distribution width (RBC) [Entitic vol] 13.8 % 11.6 - 14.8 % [facility] Hematocrit (Bld) [Volume fraction] 37.8 % 36 - 46 % [facility] Hemoglobin (Bld) [Mass/Vol] 12.5 g/dL 12 - 16 g/dL [facility] Interpretation and review of laboratory results Abnormal [facility] MCH (RBC) [Entitic mass] 30.0 pg 26 - 34 pg [facility] MCHC (RBC) [Mass/Vol] 33.1 g/dL 31 - 37 g/dL [facility] MCV (RBC) [Entitic vol] 90.9 fL 80 - 100 fL [facility] Nucleated RBC (Bld) [#/Vol] 0.00 10*3/uL [facility] Nucleated RBC/100 WBC (Bld) [Ratio] 0.0 % [facility] Platelet mean volume (Bld) [Entitic vol] 12.4 fL 9.4 - 12.4 fL [facility] Platelets (Bld) [#/Vol] 256 10*3/uL [facility] RBC (Bld) [#/Vol] 4.16 10*6/uL [facility] WBC (Bld) [#/Vol] 12.90 10*3/uL High [facility] Syphilis Antibodyon 10-25-19 20 Interpretation and review of laboratory results Normal [facility] T. pallidum Ab Ql (S) Negative Negative [facility] Type and Screenon 10-25-2019 ABO and Rh group Nom (Bld) B Positive [facility] Blood group antibody screen Ql Negative [facility] Specimen Expires 10/28/2019 23:59 EST [facility] ABORH VERIFICATIONon 020 ABO and Rh group Nom (Bld) ABO/Rh Verification [facility] ABO and Rh group Nom (Bld) B Positive [facility] Patient's ABO/Rh is verified. [facility] CBCon 10-14-2019 Erythrocyte distribution width (RBC) [Entitic vol] 13.5 % 11.6 - 14.8 % [facility] Hematocrit (Bld) [Volume fraction] 35.6 % Low 36 - 46 % [facility] Hemoglobin (Bld) [Mass/Vol] 11.6 g/dL Low 12 - 16 g/dL [facility] Interpretation and review of laboratory results Abnormal [facility] MCH (RBC) [Entitic mass] 30.0 pg 26 - 34 pg [facility] MCHC (RBC) [Mass/Vol] 32.6 g/dL 31 - 37 g/dL [facility] MCV (RBC) [Entitic vol] 92.0 fL 80 - 100 fL [facility] Nucleated RBC (Bld) [#/Vol] 0.00 10*3/uL [facility] Nucleated RBC/100 WBC (Bld) [Ratio] 0.0 % [facility] Platelet mean volume (Bld) [Entitic vol] 12.8 fL High 9.4 - 12.4 fL [facility] Platelets (Bld) [#/Vol] 253 10*3/uL [facility] RBC (Bld) [#/Vol] 3.87 10*6/uL Low [facility] WBC (Bld) [#/Vol] 12.69 10*3/uL High [facility] RPRon 10-14-2019 Interpretation and review of laboratory results Normal [facility] Reagin Ab RPR Ql (S) Non-Reactive Non-Reactive [facility] Type and Screenon 10-14-2019 ABO and Rh group Nom (Bld) B Positive [facility] Blood group antibody screen Ql Negative [facility] Specimen Expires 10/17/2019 23:59 EST [facility] Group B Strep PCR, Vaginal/R ectalon 10-01-2019 S. agalactiae Ag Ql (Unsp spec) Negative Negative [facility] CHLAMYDIA/GONORRHOEAE AMPLIF IED RNAon 03-22-2019 C. trachomatis rRNA ELEUTERIO+probe Ql (Unsp spec) Negative Negative [facility] N. gonorrhoeae rRNA ELEUTERIO+probe Ql (Unsp spec) Negative Negative [facility] Type and Screenon 03-22-2019 ABO and Rh group Nom (Bld) B [facility] Rh Type Positive [facility] Vital Signs Date Time Vital Sign Value Performing Clinician Faci lity 10-27-2019 08:19-0400 Body Temperature 97.7 [degF] [facility] 10-27-2019 08:19-0400 BP Diastolic 67 mm[Hg] [facility] 10-27-2019 08:19-0400 BP Systolic 105 mm[Hg] [facility] 10-27-2019 08:19-0400 Pulse (Heart Rate) 71 /min [facility] 10-27-2019 08:19-0400 Pulse Oximetry 96 % [facility] 10-27-2019 08:19-0400 Respiratory Rate 16 /min [facility] 10-25-2019 06:01-0400 BMI (Body Mass Index) 29.13 kg/m2 [facility] 10-25-2019 06:01-0400 Body weight 84.37 kg [facility] 10-25-2019 06:01-0400 Height 170.2 cm [facility] 10-14-2019 10:30-0400 BP Diastolic 77 mm[Hg] [facility] 10-14-2019 10:30-0400 BP Systolic 126 mm[Hg] [facility] 10-14-2019 10:30-0400 Pulse (Heart Rate) 91 /min [facility] 10-14-2019 10:30-0400 Respiratory Rate 16 /min [facility] 10-14-2019 10:15-0400 Pulse Oximetry 97 % [facility] 10-14-2019 05:39-0400 BMI (Body Mass Index) 28.82 kg/m2 [facility] 10-14-2019 05:39-0400 Body Temperature 98.1 [degF] [facility] 10-14-2019 05:39-0400 Body weight 83.46 kg [facility] 10-14-2019 05:39-0400 Height 170.2 cm [facility] 05-11-2019 13:20-0500 Pulse (Heart Rate) 106 /min [facility] 05-11-2019 13:15-0500 BMI (Body Mass Index) 26.31 kg/m2 [facility] 05-11-2019 13:15-0500 Body Temperature 98.4 [degF] [facility] 05-11-2019 13:15-0500 Body weight 76.2 kg [facility] 05-11-2019 13:15-0500 BP Diastolic 76 mm[Hg] [facility] 05-11-2019 13:15-0500 BP Systolic 110 mm[Hg] [facility] 05-11-2019 13:15-0500 Height 170.2 cm [facility] 05-11-2019 13:15-0500 Pulse Oximetry 98 % [facility] 05-11-2019 13:15-0500 Respiratory Rate 14 /[facility] Encounter Date Encounter Type Care Provider Facility Start: 11-15-2023 End: 11-15-2023 ambulatory SHANNA INNA Not Available Start: 10-16-2023 End: 10-16-2023 ambulatory SHANNA INNA Not Available Start: 09-11-2023 End: 09-11-2023 ambulatory SHANNA INNA Not Available Start: 08-14-2023 End: 08-14-2023 ambulatory SHANNA INNA Not Available Start: 07-13-2023 End: 07-13-2023 ambulatory SHANNA INNA Not Available Start: 11-11-2019 End: 11-15-2019 Patient encounter procedure [facility] Start: 10-25-2019 End: 10-27-2019 Evaluation and management of inpatient [facility] Start: 10-25-2019 End: 10-27-2019 Evaluation and management of inpatient [facility] Work Phone: [facility] Mother/Infant Start: 10-24-2019 End: 10-24-2019 Patient encounter procedure [facility] Start: 10-14-2019 End: 10-14-2019 Patient encounter procedure [facility] Start: 10-14-2019 End: 10-14-2019 Subsequent hospital visit by physician Haylie Jordanmevick Work Phone: [facility] Labor & Delivery Start: 10-11-2019 End: 10-11-2019 Patient encounter procedure [facility] Start: 10-08-2019 Patient encounter procedure [facility] Start: 05-11-2019 End: 05-11-2019 Patient encounter procedure PHYSICIAN MARYURI [facility] Start: 05-11-2019 End: 05-11-2019 Office outpatient visit 25 minutes Judy [facility] Work Phone: [facility] Comment on above: Acute nasopharyngiti s (Primary Dx); Acute bilateral otitis media Procedures Date Procedure Procedure Detail Performing Clinician Start: 10-26-2019 Complete blood count (hemogram) panel - Blood by Automated count Haylie Calcivis Work Phone: Start: 10-25-2019 Blood type and Indir ect antibody screen panel - Blood [employer] Phone: Start: 10-25-2019 Complete blood count (hemogram) panel - Blood by Automated count [facility] Work Phone: Start: 10-25-2019 Treponema pallidum I gG Ab [Presence] in Serum [facility] Work Phone: Start: 10-14-2019 Blood group typing Caren seth [email or web address] Phone: Start: 10-14-2019 Blood type and Indir ect antibody screen panel - Blood [facility] Work Phone: Start: 10-14-2019 Complete blood count (hemogram) panel - Blood by Automated count [employer] Phone: Start: 10-14-2019 Rapid plasma reagin test [employer] Phone: Start: 10-01-2019 Streptococcus agalac tiae DNA [Presence] in Unspecified specimen by ELEUTERIO with probe detection Historical Provider Start: 03-22-2019 Blood type and Indir ect antibody screen panel - Blood Historical Provider Start: 03-22-2019 Neisseria gonorrhoea e nucleic acid detection Historical Provider Plan of Treatment Date Care Activity Detail Author Start: 12-03-2019 Influenza vaccination given Se quential Influenza Vaccine (#1) [facility] Start: 10-01-2019 Influenza vaccination given SE QUENTIAL INFLUENZA VACCINE (#1) [facility] Comment on above: Postponed from 12/02 (Patient Refused) Start: 02-08-2006 Hepatitis C antibody , confirmatory test Hepatitis C Screening [facility] Start: 02-08-2003 HIV screening HIV Screening [facility] Start: 02-08-1991 History and physical examination, annual for health maintenance Wellness Visit [facility] Start: 1990 Screening for malign ant neoplasm of cervix PAP SMEAR [facility] Start: 1988 Tetanus vaccination [facility] Immunizations Immunization Date Immunization Notes Care Provider Felipe peres 10-25-2019 diphtheria, tetanus toxoids and acellular pertussis vaccine, unspecified formulation Haylie Jordanmevick [facility] 10-25-2019 measles, mumps and r ubella virus vaccine [facility] 10-25-2019 varicella zoster immune globulin [facility] Payers Date Payer Category Payer Private Health Insurance [id number] 2022 Private Health Insurance [id number] 2019 Private Health Insurance [id number] 2019 Private Health Insurance xxx [id number] 1988 Unknown [id number] [id number]. [id number] 1988 Unknown [id number] 2.16.8 [id number] 1988 Unknown [id number] 2.16.8 [id number] 1988 Unknown [id number] 2.16.8 [id number] 1988 Unknown [id number] 2.16.8 [id number] 1988 Unknown [id number] 2.16.8 [id number] 1988 Unknown [id number] 2.16.8 [id number] 1988 Unknown [id number] 2.16.8 [id number] 1988 Unknown [id number] 2.16.84 [id number] 1988 Unknown [id number] 2.16.84 [id number] 1988 Unknown [id number] 2.16.84 [id number] 1988 Unknown [id number] 2.16.84 [id number] 1988 Unknown [id number] 2.16.84 [id number] Social History Date Type Detail Facility Start: 05-11-2019 End: 10-27-2019 Tobacco smoking status NHIS Never smoker [facility] Start: 05-11-2019 End: 10-27-2019 Alcohol intake Ex-drinker (finding) [facility] Start: 02-07-2019 [facility] Sex Assigned At Not on file [facility] Exposure to SARS-CoV-2 (event) Not sure [facility] Summary Purpose Family History No Family History Records FoundNo Family History Records FoundNo Family History Records FoundNo Family History Records Found Advance Directives No Advanced Directives Records FoundDocuments on File Type Date Recorded Patient Bill Distributor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 Advance Directives and Living Will Documents on File Type Date Recorded Patient Bill Distributor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 Advance Directives and Livin g Will 10/14/2019 5:28 AM Latest Code Status on File Code Status Date Activated Date Inactivated Comments Full Code 10/14/2019 5:32 AM 10/14/2019 1:17 PM Documents on File Type Date Recorded Patient Bill Distributor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 Advance Directives and Livin g [...] include drinking lots of fluids and taking nzfe-fed-hvomjol pain medicine. You will probably feel better [...] amount of fluids you drink. Take an kvig-uri-yxpeomn pain medicine, such as acetaminophen (Tylenol), ibuprofen (Advil, Motrin),or naproxen (Aleve). Read and follow all instructions on the label. Before you use cough and cold medicines, check the label. These medicines may not be safe for youngchildren or for people with certain health problems. Be careful when taking obxi-ird-xwnmoaa cold or flu medicines and Tylenol at [...] Log into your personal health record on https://NOTIKhart.TerraWi and enter K520 in the Education box to learn more about Upper Respiratory Infection (Cold): Care Instructions. Current as of: September 09, 2018 Content Version: 12.3 0335-8562 [employer]. Care instructions adapted under license by your healthcare professional. If you have questions about a medical condition or this instruction, always ask your healthcare professional. [employer] disclaims any warranty or liability for your [...] taking a prescription pain medicine, take an clgw-nvy-xotdoav medicine, such as acetaminophen (Tylenol), ibuprofen (Advil, [...] Log into your personal health record on [email or web address] and enter X558 in the Education box to learn more about Ear Infection (Otitis Media): Care Instructions. Current as of: October 28, 2018 Content Version: 12.3 3915-6472 [employer]. Care instructions adapted under license by your healthcare professional. If you have questions about a medical condition or this instruction, always ask your healthcare professional. [employer] disclaims any warranty or liability for your use of this information. documented in this encounter History of Present Illness * Judy Toro CNP - 05/11/2019 1:31 PM EST PATIENT NAME: Ace Brown [facility] [address] [facility] [address] : 1990 DATE OF VISIT: 05/11/2019 #: [...] file Gets together: Not on file Attends advent service: Not on file Active member of [...] PLT K/mcL 191 256 Telemed rounds during ID pandemic. 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 documented in this encounter Assessments Diagnosis Acute nasopharyngitis Acute nasopharyngitis (common cold) Acute bilateral otitis media Diagnosis state, incidental Discharge Instructions * Attachments The following attachments cannot be sent through Care Everywhere. * : KICK COUNTS (UZBEK) * : WEEK 38 (UZBEK) * : WHEN TO CALL (AFTER 20 WEEKS): GENERAL INFO (UZBEK) * : BREECH VERSION (UZBEK) documented in this encounter Hospital Course * [...] section and content) DATE CREATED AUTHOR 05/11/2019 [facility] DATE CREATED AUTHOR AUTHOR'S ORGANIZ ATION 10/25/2019 [facility] DATE CREATED AUTHOR AUTHOR'S ORGANIZ ATION 11/27/2019 [facility] DATE CREATED AUTHOR AUTHOR'S ORGANIZ ATION 11/17/2023 [facility] EPIC Reason for Visit (unrecogniz [...] Pearson MD - 10/14/2019 8:17 AM EDTOrHaylie cristobal MD - 10/25/2019 8:49 AM EDT H&P [...] in this encounter Quick Note - Yasmin Butts RN - 10/14/2019 10:56 AM EDTQuick Note - Yasmin Butst RN - 10/14/2019 10:31 AM EDTQuick Note - Yasmin Butts RN - 10/14/2019 9:16 AM EDT Miscellaneous Notes (unrecog nized section and content) D/C PIV and epidural. D/C pt. to home. Reviewed written d/c papers. Pt denied any further questions. Pt. escorted to drop off via wheelchair. Reactive tracing per Lexx Stern CNM Placed pt. breech to high fowlers. 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 Parents to see the student loan counselor tomorrow for exam and weight check. Mom [...] BE BASED ON THE PRIMARY CLINICAL RECORDS. [employer] provides no warranty or guarantee of the accuracy or completeness of information in this document.
== END 2023-11-29 09:43 | disposition home or self-care (01) ==
LOC: NOMS 09:42
PROVIDERS: PCP Family Medicine; Visit Provider Obstetrics & Gynecology
DX: O09.522 Supervision of elderly multigravida, second trimester (principal); Z3A.30 30 weeks gestation of pregnancy
CPT/HCPCS: 76816

== ENCOUNTER 2023-12-27 07:12 | Outpatient (OUT) | payer OTHER, SELFPAY ==
--- NOTE | 2023-12-27 | US_ITS ---
[place] [id number] Patient Name: ACE MORRISSEY MRN: [id number] date: 1990 Sex: F Assigned Patient Location: [facility] Current Patient Location: Accession/Order Number: [id number] Exam Date: 12/27/2023 17:10 Report Date: 12/28/2023 04:09 At the request of: SHANNA KEITH Procedure: US OB BPP w non-stress EXAMINATION: US OB BPP w non-stress HISTORY:Multigravida of advanced maternal age COMPARISON: Ultrasound OB growth 11/29/2023 TECHNIQUE: Ultrasound biophysical profile was performed in the radiology department. BREATHING MOVEMENTS: 2 GROSS BODY MOVEMENTS: 2 TONE: 2 QUALITATIVE AMNIOTIC FLUID VOLUME: 2 PRESENTATION: CEPHALIC HEART RATE: 121.08 bpm AMNIOTIC FLUID VOLUME: 16.21 cm GESTATIONAL AGE: 32 weeks 5 days US/US OB BPP w non-stress IMPRESSION: Total biophysical profile score: 8 Electronically authenticated by: MARKELL FERMIN Date: 12/28/2023 04:09
--- OUTSIDE RECORDS SUMMARY | 2023-12-27 07:15 | XMS_ITS | CCD ---
Author Organization [facility] Care Team Providers Care Interventional Radiology Rn Name Role Phone NO, PHYSICIAN Primary Care Unavailable JUDY TORO Attending Marla vailable Maryuri, Physician Primary Care Provider Unavailabl e HAYLIE PEARSON Admitting Unavailabl e HAYLIE PEARSON Referring Unavailabl e PEERZADE, [facility] Primary Care Unav ailable HAYLIE PEARSON Admitting Unavailabl e ORHAYLIE CRISTOBAL Referring Unavailabl e PEERZADE, [facility] Primary Care Unav ailable Haylie Pearson Unavailable [phone] Peerzade, [facility] Primary [facility] Provide r HAYLIE PEARSON Admitting Unavailabl e HAYLIE PEARSON Attending Unavailabl e NO, PHYSICIAN Primary Care Unavailable HAYLIE PEARSON Admitting Unavailabl e PEERZADE, [facility] Care Unav ailable HAYLIE PEARSON Attending Unavailabl e [facility] C onsulting Unavailable PEERZADE, [facility] Primary [facility] Unav ailable HAYLIE PEARSON Admitting Unavailabl e ORWICKHAYLIE Attending Unavailabl e ORWIHAYLIE BROWN Admitting Unavailabl e PEERZADE, [facility] Unav ailable [facility] GENERIC C onsulting Unavailable KAREN SCHULTE Attending Unavailable HAYLIE PEARSON Admitting Unavailabl e PEERZADE, [facility] Primary Care Unav ailable SHANNA KEITH Attending Unavailable INNA, SHANNA Attending Unavailable SHANNA KEITH Attending Unavailable SHANNA KEITH Attending Unavailable JOSÉ ANTONIO GUZMAN Attending Unavailable SHANNA KEITH Attending Unavailable Medications [...] Oral, Every 4 hours PRN, indigestion, Starting Mon10/25/19 at 1146, bisacodyl 10 mg rectal suppository [...] 5 minutes, as instructed in the Notify Anesthesiologist/STAIN SPRAYER: Hypotension order. Start: 10-14-2019 End: 10-14-2019 lactated [...] CHEW. docusate sodium 50 mg / sennosides, skilled nursing 8.6 mg oral tablet (1 source) Start: [...] Results Test Name Value Interpretation [facility] Erythrocyte distribution width (RBC) [Entitic vol] 14.1 % 11.6 - 14.8 % [facility] Hematocrit (Bld) [Volume fraction] 31.7 % Low 36 - 46 % [facility] Hemoglobin (Bld) [Mass/Vol] 9.9 g/dL Low 12 - 16 g/dL [facility] Interpretation and review of laboratory results Abnormal [facility] MCH (RBC) [Entitic mass] 29.6 pg 26 - 34 pg [facility] MCHC (RBC) [Mass/Vol] 31.2 g/dL 31 - 37 g/dL [facility] MCV (RBC) [Entitic vol] 94.6 fL 80 - 100 fL [facility] Nucleated RBC (Bld) [#/Vol] 0.00 10*3/uL [facility] Nucleated RBC/100 WBC (Bld) [Ratio] 0.0 % [facility] Platelet mean volume (Bld) [Entitic vol] 12.2 fL 9.4 - 12.4 fL [facility] Platelets (Bld) [#/Vol] 191 10*3/uL [facility] RBC (Bld) [#/Vol] 3.35 10*6/uL [facility] WBC (Bld) [#/Vol] 12.37 10*3/uL [facility] Erythrocyte distribution width (RBC) [Entitic vol] 13.8 % 11.6 - 14.8 % [facility] Hematocrit (Bld) [Volume fraction] 37.8 % 36 - 46 % [facility] Hemoglobin (Bld) [Mass/Vol] 12.5 g/dL 12 - 16 g/dL [facility] Interpretation and review of laboratory results Abnormal [facility] MCH (RBC) [Entitic mass] 30.0 pg 26 - 34 pg [facility] MCHC (RBC) [Mass/Vol] 33.1 g/dL 31 - 37 g/dL [facility] MCV (RBC) [Entitic vol] 90.9 fL 80 - 100 fL [facility] Nucleated RBC (Bld) [#/Vol] 0.00 10*3/uL [facility] Nucleated RBC/100 WBC (Bld) [Ratio] 0.0 % [facility] Platelet mean volume (Bld) [Entitic vol] 12.4 fL 9.4 - 12.4 fL [facility] Platelets (Bld) [#/Vol] 256 10*3/uL [facility] RBC (Bld) [#/Vol] 4.16 10*6/uL [facility] WBC (Bld) [#/Vol] 12.90 10*3/uL [facility] Syphilis Antibodyon 10-25-19 20 Interpretation and review of laboratory results Normal [facility] T. pallidum Ab Ql (S) Negative [facility] Type and Screenon 10-25-2019 ABO and Rh group Nom (Bld) B Positive [facility] Blood group antibody screen Ql Negative [facility] Specimen Expires 10/28/2019 23:59 EST [facility] ABORH VERIFICATIONon 020 ABO and Rh group Nom (Bld) ABO/Rh Verification [facility] ABO and Rh group Nom (Bld) B Positive [facility] Patient's ABO/Rh is verified. [facility] CBCon 10-14-2019 Erythrocyte distribution width (RBC) [Entitic vol] 13.5 % 11.6 - 14.8 % [facility] Hematocrit (Bld) [Volume fraction] 35.6 % Low 36 - 46 % [facility] Hemoglobin (Bld) [Mass/Vol] 11.6 g/dL Low 12 - 16 g/dL [facility] Interpretation and review of laboratory results Abnormal [facility] MCH (RBC) [Entitic mass] 30.0 pg 26 - 34 pg [facility] MCHC (RBC) [Mass/Vol] 32.6 g/dL 31 - 37 g/dL [facility] MCV (RBC) [Entitic vol] 92.0 fL 80 - 100 fL [facility] Nucleated RBC (Bld) [#/Vol] 0.00 10*3/uL [facility] Nucleated RBC/100 WBC (Bld) [Ratio] 0.0 % [facility] Platelet mean volume (Bld) [Entitic vol] 12.8 fL High 9.4 - 12.4 fL [facility] Platelets (Bld) [#/Vol] 253 10*3/uL [facility] RBC (Bld) [#/Vol] 3.87 10*6/uL [facility] WBC (Bld) [#/Vol] 12.69 10*3/uL [facility] RPRon 10-14-2019 Interpretation and review of laboratory results Normal [facility] Reagin Ab RPR Ql (S) Non-Reactive Non-Reactive [facility] Type and Screenon 10-14-2019 ABO and Rh group Nom (Bld) B Positive [facility] Blood group antibody screen Ql Negative [facility] Specimen Expires 10/17/2019 23:59 EST [facility] Group B Strep PCR, Vaginal/R ectalon 10-01-2019 S. agalactiae Ag Ql (Unsp spec) Negative Negative [facility] CHLAMYDIA/GONORRHOEAE AMPLIF IED RNAon 03-22-2019 C. trachomatis rRNA ELEUTERIO+probe Ql (Unsp spec) Negative Negative [facility] N. gonorrhoeae rRNA ELEUTERIO+probe Ql (Unsp spec) Negative Negative [facility] Type and Screenon 03-22-2019 ABO and Rh group Nom (Bld) B [facility] Rh Type Positive [facility] Vital Signs Date Time Vital Sign [...] (Body Mass Index) 29.13 kg/m2 [facility] 10-25-2019 06:01-0400 Body weight 84.37 kg [...] (Body Mass Index) 28.82 kg/m2 [facility] 10-14-2019 05:39-0400 Body Temperature 98.1 [degF] [facility] 10-14-2019 05:39-0400 Body weight 83.46 kg [facility] 10-14-2019 05:39-0400 Height 170.2 cm [facility] 05-11-2019 13:20-0500 Pulse (Heart Rate) 106 /min [facility] 05-11-2019 13:15-0500 BMI (Body Mass Index) 26.31 kg/m2 [facility] 05-11-2019 13:15-0500 Body Temperature 98.4 [degF] [facility] 05-11-2019 13:15-0500 Body weight 76.2 kg [facility] 05-11-2019 13:15-0500 BP Diastolic 76 mm[Hg] [facility] 05-11-2019 13:15-0500 BP Systolic 110 mm[Hg] [facility] 05-11-2019 13:15-0500 Height 170.2 cm [facility] 05-11-2019 13:15-0500 Pulse [facility]xim[facility] 98 % [facility] 13[facility]15-0500 Respiratory Rate 14 /min [facility] En[facility] Encounter Date Encounter Type Care Provider Facility Start: 12-13-2023 End: 12-13-2023 ambulatory SHANNA INNA Not Available Start: 11-29-2023 End: 11-29-2023 ambulatory JOSÉ ANTONIO GUZMAN Not Available Start: 11-15-2023 End: 11-15-2023 ambulatory SHANNA INNA Not Available Start: 10-16-2023 End: 10-16-2023 ambulatory SHANNA INNA Not Available Start: 09-11-2023 End: 09-11-2023 ambulatory SHANNA INNA Not Available Start: 08-14-2023 End: 08-14-2023 ambulatory SHANNA INNA Not Available Start: 07-13-2023 End: 07-13-2023 ambulatory SHANNA INNA Not Available Start: 11-11-2019 End: 11-15-2019 Patient encounter procedure [facility] Start: 10-25-2019 End: 10-27-2019 Evaluation and management of inpatient [facility] Start: 10-25-2019 End: 10-27-2019 Evaluation and management of inpatient Haylie Pearson Work Phone: [facility] Mother/ Start: 10-24-2019 End: 10-24-2019 Patient encounter procedure [facility] Start: 10-14-2019 End: 10-14-2019 [facility] Start: 10-14-2019 End: 10-14-2019 Subsequent hospital visit by physician Haylie Pearson Work Phone: [facility] Labor & Delivery Start: 10-11-2019 End: 10-11-2019 Patient encounter procedure [facility] Start: 10-08-2019 Patient encounter procedure [facility] Start: 05-11-2019 End: 05-11-2019 Patient encounter procedure PHYSICIAN NO [facility] Start: 05-11-2019 End: 05-11-2019 Office outpatient visit 25 minutes Judy CharlesNPTV Work Phone: [facility] Jono Saldivar Comment on above: Acute nasopharyngiti s (Primary Dx); Acute bilateral otitis media Procedures Date Procedure Procedure Detail Performing Clinician Start: 10-26-2019 Complete blood count (hemogram) panel - Blood by Automated count [employer] Work Phone: Start: 10-25-2019 Blood type and Indir ect antibody screen panel - Blood [employer] Work Phone: Start: 10-25-2019 Complete blood count (hemogram) panel - Blood by Automated count [employer] Work Phone: Start: 10-25-2019 Treponema pallidum I gG Ab [Presence] in Serum Haylie [employer] Work Phone: Start: 10-14-2019 Blood group typing Caren ann [employer] Work Phone: Start: 10-14-2019 Blood type and Indir ect antibody screen panel - Blood [employer] Work Phone: Start: 10-14-2019 Complete blood count (hemogram) panel - Blood by Automated count [employer] Phone: Start: 10-14-2019 Rapid plasma reagin test [employer] Work Phone: Start: 10-01-2019 Streptococcus agalac tiae DNA [Presence] in Unspecified specimen by ELEUTERIO with probe detection Historical Provider Start: 03-22-2019 Blood type and Indir ect antibody screen panel - Blood Historical Provider Start: 03-22-2019 Neisseria gonorrhoea e nucleic acid detection Historical Provider Plan of Treatment Date Care Activity Detail Author Start: 12-03-2019 Influenza vaccination given Se quential Influenza Vaccine (#1) [facility] Start: 10-01-2019 Influenza vaccination given SE QUENTIAL INFLUENZA VACCINE (#1) [facility] Comment on above: Postponed from 12/02 (Patient Refused) Start: 02-08-2006 Hepatitis C antibody , confirmatory test Hepatitis C Screening [facility] Start: 02-08-2003 HIV screening HIV Screening [facility] Start: 02-08-1991 History and physical examination, annual for health maintenance Wellness Visit [facility] Start: 1988 Screening for malign ant neoplasm of cervix PAP SMEAR [facility] Start: 1988 [facility] Immunizations Immunization Date Immunization Notes Care Provider [facility] 10-25-2019 diphtheria, tetanus toxoids and acellular pertussis vaccine, unspecified formulation [facility] 10-25-2019 measles, mumps and r ubella virus vaccine [facility] 10-25-2019 varicella zoster immune globulin [facility] Payers Date Payer Category Payer Private Health Insurance [id number] 2022 Private Health Insurance [id number] 2019 Private Health Insurance [id number] 2019 Private Health Insurance xxx [id number] 1988 Unknown [id number] 2.16. [id number] 1988 Unknown [id number] 2.16.8 [id number] 1988 Unknown [id number] 2.16.8 [id number] 1988 Unknown [id number] 2.16.8 [id number] 1988 Unknown [id number] 2.16.8 [id number] 1988 Unknown [id number] 2.16.8 [id number] 1988 Unknown [id number] 2.16.8 [id number] 1988 Unknown [id number] 2.16.8 [id number] 1988 Unknown [id number] 2.16.84 [id number] 1988 Unknown [id number] 2.16.84 [id number] 1988 Unknown [id number] 2.16.84 [id number] 1988 Unknown [id number] 2.16.84 [id number] 1988 Unknown [id number] 2.16.84 [id number] 1988 Unknown [id number] 2.16.84 [id number] 1988 Unknown [id number] 2.16.84 [id number] Social History Date Type Detail Facility Start: 05-11-2019 End: 10-27-2019 Tobacco smoking status IDIS Never smoker [facility] Start: 05-11-2019 End: 10-27-2019 Alcohol intake Ex-drinker (finding) [facility] Start: 02-07-2019 [facility] Sex Assigned At Not on file [facility] Exposure to SARS-CoV-2 (event) Not sure [facility] Summary Purpose Family History No Family History Records FoundNo Family History Records FoundNo Family History Records FoundNo Family History Records Found Advance Directives No Advanced Directives Records FoundDocuments on File Type Date Recorded 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 Advance Directives and Living Will Documents on File Type Date Recorded 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 Advance Directives and Livin g Will 10/14/2019 5:28 AM Latest Code Status on File Code Status Date Activated Date Inactivated Comments Full Code 10/14/2019 5:32 AM 10/14/2019 1:17 PM Documents on File Type Date Recorded 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 You will probably feel better [...] amount of fluids you drink. Take an dojk-uyo-hgnbgdo pain medicine, such as acetaminophen (Tylenol), ibuprofen (Advil, Motrin),or naproxen (Aleve). Read and follow all instructions on the label. Before you use cough and cold medicines, check the label. These medicines may not be safe for youngchildren or for people with certain health problems. Be careful when taking eqzi-nrd-hyhypog cold or flu medicines and Tylenol at [...] Log into your personal health record on https://hoccer.tapviva and enter K520 in the Education box to learn more about Upper Respiratory Infection (Cold): Care Instructions. Current as of: September 09, 2018 Content Version: 12.3 0080-2071 [employer]. Care instructions adapted under license by your healthcare professional. If you have questions about a medical condition or this instruction, always ask your healthcare professional. [employer] disclaims any warranty or liability for your [...] taking a prescription pain medicine, take an tbuj-tfm-tsknofg medicine, such as acetaminophen (Tylenol), ibuprofen (Advil, [...] Log into your personal health record on https://QingCloudt.tapviva and enter X558 in the Education box to learn more about Ear Infection (Otitis Media): Care Instructions. Current as of: October 28, 2018 Content Version: 12.3 [employer]. Care instructions adapted under license by your healthcare professional. If you have questions about a medical condition or this instruction, always ask your healthcare professional. [employer] disclaims any warranty or liability for your use of this information. 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 documented in this encounter Assessments Diagnosis Acute nasopharyngitis Acute nasopharyngitis (common cold) Acute bilateral otitis media Diagnosis state, incidental Discharge Instructions * Attachments The following attachments cannot be sent through Care Everywhere. * : KICK COUNTS (KITTITIAN) * : WEEK 38 (KITTITIAN) * : WHEN TO CALL (AFTER 20 WEEKS): GENERAL INFO (KITTITIAN) * : BREECH VERSION (KITTITIAN) documented in this encounter Hospital Course * [...] and content) DATE CREATED AUTHOR 05/11/2019 [facility] DATE CREATED AUTHOR AUTHOR'S ORGANIZ ATION 10/25/2019 [facility] DATE CREATED AUTHOR AUTHOR'S ORGANIZ ATION 11/27/2019 [facility] DATE CREATED AUTHOR AUTHOR'S ORGANIZ ATION 12/15/2023 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 Parents to see the it program auditor tomorrow for exam and weight check. [...] latch more effectively. Ongoing support offered per LC, continue to encourage skin to skin, feeding [...] BE BASED ON THE PRIMARY CLINICAL RECORDS. [facility] [employer] provides no warranty or guarantee of the accuracy or completeness of information in this document.
== END 2023-12-27 07:13 | disposition home or self-care (01) ==
LOC: US 07:13
PROVIDERS: PCP Family Medicine; Visit Provider Obstetrics & Gynecology
DX: O09.523 Supervision of elderly multigravida, third trimester (principal); Z3A.32 32 weeks gestation of pregnancy
CPT/HCPCS: 76816; 76818

== ENCOUNTER 2023-12-27 14:40 | Outpatient (OUT) | payer OTHER, SELFPAY ==
--- NOTE | 2023-12-27 14:42 | US_ITS ---
[address] [address] Patient Name: ACE MORRISSEY MRN: [id number] date: 1990 Sex: F Assigned Patient Location: [facility] Current Patient Location: Accession/Order Number: [id number] Exam Date: 12/27/2023 14:42 Report Date: 12/28/2023 04:15 At the request of: SHANNA KEITH Procedure: US OB growth EXAMINATION: US OB growth HISTORY: ADVANCED MATERNAL AGE COMPARISON: Ultrasound OB growth 11/29/2023 FINDINGS: Heart Rate: 136 bpm Amniotic Fluid Volume: 16.8 cm; normal range Number: 1 Position: CEPHALIC BIOMETRY: BPD: 8.28 cm; 33 weeks 2 days; 60.90 % HC: 31.42 cm; 35 weeks 2 days; 78.40 % AC: 31.23 cm; 35 weeks 1 day; 97 % FL: 6.80 cm; 35 weeks 0 days; 89.70 % EFW: 2385.86 g; 95.30 % FL/AC: 21.77 FL/BPD: 82.13 HC/AC: 1.01 GESTATIONAL AGE: Age by EDC: 32 weeks 5 days ZAMZAM by EDC: 2024-02-16 Age by US: 34 weeks 5 days ZAMZAM by US: 2024-02-02 US/US OB growth IMPRESSION: 1. Single live intrauterine with growth detailed above. 2. Estimated weight is at 95th percentile. Abdominal circumference is greater than 97th percentile Electronically authenticated by: MARKELL FERMIN Date: 12/28/2023 04:15
[2023-12-27 16:32] VITALS: BP 121/71; PULSE 79
== END 2023-12-27 17:35 | disposition home or self-care (01) ==
LOC: NOMS 14:40 → FBC 16:23
PROVIDERS: PCP Family Medicine; Visit Provider Obstetrics & Gynecology
DX: O09.523 Supervision of elderly multigravida, third trimester (principal); Z3A.32 32 weeks gestation of pregnancy
CPT/HCPCS: 76816

== ENCOUNTER 2023-12-30 06:58 | Outpatient (OUT) | payer OTHER, SELFPAY ==
--- OUTSIDE RECORDS SUMMARY | 2023-12-30 07:00 | XMS_ITS | CCD ---
Author Organization [facility] Care Team Providers Care Technician Helper Instrument Name Role Phone NO, PHYSICIAN Primary Care Unavailable JUDY TORO Attending Marla vailable Maryuri, Physician Primary Care Provider Unavailabl e HAYLIE PEARSON Admitting Unavailabl e HAYLIE PEARSON Referring Unavailabl e PEERZADE, [facility] Primary Care Unav ailable HAYLIE PEARSON Admitting Unavailabl e ORHAYLIE CRISTOBAL Referring Unavailabl e PEERZADE, [facility] Primary Care Unav ailable Haylie Pearson Unavailable Peerzade, [facility] Primary [facility] Provide r HAYLIE PEARSON Admitting Unavailabl e HAYLIE PEARSON Attending Unavailabl e NO, PHYSICIAN Primary Care Unavailable HAYLIE PEARSON Admitting Unavailabl e PEERZADE, [facility] Care Unav ailable HAYLIE PEARSON Attending Unavailabl e [facility] onsulting Unavailable PEERZADE, [facility] Primary [facility] Unav ailable HAYLIE PEARSON Admitting Unavailabl e ORWICKHAYLIE Attending Unavailabl e ORWIHAYLIE BROWN Admitting Unavailabl e PEERZADE, [facility] Unav ailable [facility], GENERIC C onsulting Unavailable KAREN SCHULTE Attending Unavailable HAYLIE PEARSON Admitting Unavailabl e PEERZADE, [facility] Primary Care Unav ailable SHANNA KEITH [...] 5 minutes, as instructed in the Notify Anesthesiologist/BANK GUARD: Hypotension order. Start: 10-14-2019 End: 10-14-2019 lactated [...] CHEW. docusate sodium 50 mg / sennosides, residential 8.6 mg oral tablet (1 source) Start: [...] vol] 14.1 % 11.6 - 14.8 % [facility] Hematocrit (Bld) [Volume fraction] 31.7 % Low 36 - 46 % [facility] Hemoglobin (Bld) [Mass/Vol] 9.9 g/dL Low 12 - 16 g/dL [facility] Interpretation and review of laboratory results Abnormal [facility] MCH (RBC) [Entitic mass] 29.6 pg 26 - 34 pg [facility] MCHC (RBC) [Mass/Vol] 31.2 g/dL 31 - 37 g/dL [facility] MCV (RBC) [Entitic vol] 94.6 fL 80 - 100 fL [facility] Nucleated RBC (Bld) [#/Vol] 0.00 10*3/uL [facility] Nucleated RBC/100 WBC (Bld) [Ratio] 0.0 % [facility] Platelet mean volume (Bld) [Entitic vol] 12.2 fL 9.4 - 12.4 fL [facility] Platelets (Bld) [#/Vol] 191 10*3/uL [facility] RBC (Bld) [#/Vol] 3.35 10*6/uL Low [facility] WBC (Bld) [#/Vol] 12.37 10*3/uL High [facility] 10-25-2019 Erythrocyte distribution width (RBC) [Entitic vol] 13.8 % 11.6 - 14.8 % [facility] Hematocrit (Bld) [Volume fraction] 37.8 % 36 - 46 % [facility] Hemoglobin (Bld) [Mass/Vol] 12.5 g/dL 12 - 16 g/dL [facility] Interpretation and review of laboratory results Abnormal [facility] MCH (RBC) [Entitic mass] 30.0 pg 26 - 34 pg [facility] MCHC (RBC) [Mass/Vol] 33.1 g/dL 31 - 37 g/dL [facility] MCV (RBC) [Entitic vol] 90.9 fL 80 - 100 fL [facility] Nucleated RBC (Bld) [#/Vol] 0.00 10*3/uL [facility] Nucleated RBC/100 WBC (Bld) [Ratio] 0.0 % [facility] Platelet mean volume (Bld) [Entitic vol] 12.4 fL 9.4 - 12.4 fL [facility] Platelets (Bld) [#/Vol] 256 10*3/uL [facility] RBC (Bld) [#/Vol] 4.16 10*6/uL [facility] WBC (Bld) [#/Vol] 12.90 10*3/uL [facility] Syphilis Antibodyon 10-25-19 20 Interpretation and review of laboratory results Normal [facility] T. pallidum Ab Ql (S) Negative Negative [facility] Type and Screenon 10-25-2019 ABO and Rh group Nom (Bld) B Positive [facility] Blood group antibody screen Ql Negative [facility] Specimen Expires 10/28/2019 23:59 EST [facility] ABORH VERIFICATIONon 020 ABO and Rh group Nom (Bld) ABO/Rh Verification [facility] ABO and Rh group Nom (Bld) B Positive [facility] Patient's ABO/Rh is verified. [facility] CBCon 10-14-2019 Erythrocyte distribution width (RBC) [Entitic vol] 13.5 % 11.6 - 14.8 % [facility] Hematocrit (Bld) [Volume fraction] 35.6 % Low 36 - 46 % [facility] Hemoglobin (Bld) [Mass/Vol] 11.6 g/dL Low 12 - 16 g/dL [facility] Interpretation and review of laboratory results Abnormal [facility] MCH (RBC) [Entitic mass] 30.0 pg 26 - 34 pg [facility] MCHC (RBC) [Mass/Vol] 32.6 g/dL 31 - 37 g/dL [facility] MCV (RBC) [Entitic vol] 92.0 fL 80 - 100 fL [facility] Nucleated RBC (Bld) [#/Vol] 0.00 10*3/uL [facility] Nucleated RBC/100 WBC (Bld) [Ratio] 0.0 % [facility] Platelet mean volume (Bld) [Entitic vol] 12.8 fL High 9.4 - 12.4 fL [facility] Platelets (Bld) [#/Vol] 253 10*3/uL [facility] RBC (Bld) [#/Vol] 3.87 10*6/uL Low [facility] ealth WBC (Bld) [#/Vol] 12.69 10*3/uL High [facility] RPRon 10-14-2019 Interpretation and review of laboratory results Normal [facility] Reagin Ab RPR Ql (S) Non-Reactive Non-Reactive [facility] Type and Screenon 10-14-2019 ABO and Rh group Nom (Bld) B Positive [facility] Blood group antibody screen Ql Negative [facility] Specimen Expires 10/17/2019 23:59 EST [facility] Group B Strep PCR, Vaginal/R ectalon 10-01-2019 S. agalactiae Ag Ql (Unsp spec) Negative Negative [facility] CHLAMYDIA/GONORRHOEAE AMPLIF IED RNAon 03-22-2019 C. trachomatis rRNA ELEUTERIO+probe Ql (Unsp spec) Negative Negative [facility] N. gonorrhoeae rRNA ELEUTERIO+probe Ql (Unsp spec) Negative Negative [facility] Type and Screenon 03-22-2019 ABO and Rh group Nom (Bld) B [facility] Rh Type Positive [facility] Vital Signs Date Time Vital Sign Value Performing Clinician Faci lity 10-27-2019 08:19-0400 Body Temperature 97.7 [degF] [facility] 10-27-2019 08:19-0400 BP Diastolic 67 mm[Hg] [facility] 10-27-2019 08:19-0400 BP Systolic 105 mm[Hg] [facility] 10-27-2019 08:19-0400 Pulse (Heart Rate) 71 /min [facility] 10-27-2019 08:19-0400 Pulse Oximetry 96 % [facility] 10-27-2019 08:19-0400 Respiratory Rate 16 /min [facility] 10-25-2019 06:01-0400 BMI (Body Mass Index) 29.13 kg/m2 [facility] 10-25-2019 06:01-0400 Body weight 84.37 kg [facility] 10-25-2019 06:01-0400 Height 170.2 cm [facility] 10-14-2019 10:30-0400 BP Diastolic 77 mm[Hg] [facility] 10-14-2019 10:30-0400 BP Systolic 126 mm[Hg] [facility] 10-14-2019 10:30-0400 Pulse (Heart Rate) 91 /min [facility] 10-14-2019 10:30-0400 Respiratory Rate 16 /min [facility] 10-14-2019 10:15-0400 Pulse Oximetry 97 % [facility] 10-14-2019 05:39-0400 BMI (Body Mass Index) 28.82 kg/m2 [facility] 10-14-2019 05:39-0400 Body Temperature 98.1 [degF] [facility] 10-14-2019 05:39-0400 Body weight 83.46 kg [facility] 10-14-2019 05:39-0400 Height 170.2 cm [facility] 05-11-2019 13:20-0500 Pulse (Heart Rate) 106 /min [facility] 05-11-2019 13:15-0500 BMI (Body Mass Index) 26.31 kg/m2 [facility] 05-11-2019 13:15-0500 Body Temperature 98.4 [degF] [facility] 05-11-2019 13:15-0500 Body weight 76.2 kg [facility] 05-11-2019 13:15-0500 BP Diastolic 76 mm[Hg] [facility] 05-11-2019 13:15-0500 BP Systolic 110 mm[Hg] [facility] 05-11-2019 13:15-0500 Height 170.2 cm [facility] 05-11-2019 13:15-0500 Pulse [facility]ximetry 98 % [facility] 13:15-0500 Respiratory Rate 14 /min [facility] En[facility]ters Encounter Date Encounter Type Care Provider [...] Start: 11-11-2019 End: 11-15-2019 Patient encounter procedure [facility] Start: 10-25-2019 End: 10-27-2019 Evaluation and management of inpatient [facility] Start: 10-25-2019 End: 10-27-2019 Evaluation and management of inpatient Haylie Pearson Work Phone: [facility] Mother/ Start: 10-24-2019 End: 10-24-2019 Patient encounter procedure [facility] Start: 10-14-2019 End: 10-14-2019 [facility] Start: 10-14-2019 End: 10-14-2019 Subsequent hospital visit by physician Haylie Pearson Work Phone: [facility] Labor & Delivery Start: 10-11-2019 End: 10-11-2019 Patient encounter procedure [facility] Start: 10-08-2019 Patient encounter procedure [facility] Start: 05-11-2019 End: 05-11-2019 Patient encounter procedure PHYSICIAN NO [facility] Start: 05-11-2019 End: 05-11-2019 Office outpatient visit 25 minutes Judy [employer] Work Phone: [facility] Jono Saldivar Comment on above: Acute nasopharyngiti s (Primary Dx); Acute bilateral otitis media Procedures Date Procedure Procedure Detail Performing Clinician Start: 10-26-2019 Complete blood count (hemogram) panel - Blood by Automated count [employer] Work Phone: Start: 10-25-2019 Blood type and Indir ect antibody screen panel - Blood [employer] Work Phone: Start: 10-25-2019 Complete blood count (hemogram) panel - Blood by Automated count [employer] Work Phone: Start: 10-25-2019 Treponema pallidum I gG Ab [Presence] in Serum Haylie [employer] Work Phone: Start: 10-14-2019 Blood group typing Caren ann [employer] Work Phone: Start: 10-14-2019 Blood type and Indir ect antibody screen panel - Blood [employer] Work Phone: Start: 10-14-2019 Complete blood count (hemogram) panel - Blood by Automated count [employer] Phone: Start: 10-14-2019 Rapid plasma reagin test [employer] Work Phone: Start: 10-01-2019 Streptococcus agalac tiae DNA [Presence] in Unspecified specimen by ELEUTERIO with probe detection Historical Provider Start: 03-22-2019 Blood type and Indir ect antibody screen panel - Blood Historical Provider Start: 03-22-2019 Neisseria gonorrhoea e nucleic acid detection Historical Provider Plan of Treatment Date Care Activity Detail Author Start: 12-03-2019 Influenza vaccination given Se quential Influenza Vaccine (#1) [facility] Start: 10-01-2019 Influenza vaccination given SE QUENTIAL INFLUENZA VACCINE (#1) [facility] Comment on above: Postponed from 12/02 (Patient Refused) Start: 02-08-2006 Hepatitis C antibody , confirmatory test Hepatitis C Screening [facility] Start: 02-08-2003 HIV screening HIV Screening [facility] Start: 02-08-1991 History and physical examination, annual for health maintenance Wellness Visit [facility] Start: 1988 Screening for malign ant neoplasm of cervix PAP SMEAR [facility] Start: 1988 [facility] Immunizations Immunization Date Immunization Notes Care Provider Felipe [facility] 10-25-2019 diphtheria, tetanus toxoids and acellular pertussis vaccine, unspecified formulation [facility] 10-25-2019 measles, mumps and r ubella virus vaccine [facility] 10-25-2019 varicella zoster immune globulin [facility] Payers Date Payer Category Payer Private Health Insurance [id number] 2022 Private Health Insurance [id number] 2019 Private Health Insurance [id number] 2019 Private Health Insurance [id number] 1988 Unknown [id number] 2.16. [id number] 1988 Unknown [id number] 2.16.8 [id number] 1988 Unknown [id number] 2.16.8 [id number] 1988 Unknown [id number] 2.16.8 [id number] 1988 Unknown [id number] 2.16.8 [id number] 1988 Unknown [id number] 2.16.8 [id number] 1988 Unknown [id number] 2.16.8 [id number] 1988 Unknown [id number] 2.16.8 [id number] 1988 Unknown [id number] 2.16.84 [id number] 1988 Unknown [id number] 2.16.84 [id number] 1988 Unknown [id number] 2.16.84 [id number] 1988 Unknown [id number] 2.16.84 [id number] 1988 Unknown [id number] 2.16.84 [id number] 1988 Unknown [id number] 2.16.84 [id number] 1988 Unknown [id number] 2.16.84 [id number] Social History Date Type Detail Facility Start: 05-11-2019 End: 10-27-2019 Tobacco smoking status NEIS Never smoker [facility] Start: 05-11-2019 End: 10-27-2019 Alcohol intake Ex-drinker (finding) [facility] Start: 02-07-2019 [facility] Sex Assigned At Not on file [facility] Exposure to SARS-CoV-2 (event) Not sure [facility] Summary Purpose Family History No Family History Records FoundNo Family History Records FoundNo Family History Records FoundNo Family History Records Found Advance Directives No Advanced Directives Records FoundDocuments on File Type Date Recorded 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 [employer]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 Advance Directives and Living Will Documents on File Type Date Recorded 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 [employer]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 Advance Directives and Livin g Will 10/14/2019 5:28 AM Latest Code Status on File Code Status Date Activated Date Inactivated Comments Full Code 10/14/2019 5:32 AM 10/14/2019 1:17 PM Documents on File Type Date Recorded 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 You will probably feel better [...] amount of fluids you drink. Take an ojdt-mno-yxievfe pain medicine, such as acetaminophen (Tylenol), ibuprofen (Advil, Motrin),or naproxen (Aleve). Read and follow all instructions on the label. Before you use cough and cold medicines, check the label. These medicines may not be safe for youngchildren or for people with certain health problems. Be careful when taking wbjk-hhj-mpmscgz cold or flu medicines and Tylenol at [...] Log into your personal health record on https://[employer] and enter K520 in the Education box to learn more about Upper Respiratory Infection (Cold): Care Instructions. Current as of: September 09, 2018 Content Version: 12.3 3852-6429 [employer]. Care instructions adapted under license by your healthcare professional. If you have questions about a medical condition or this instruction, always ask your healthcare professional. [employer] disclaims any warranty or liability for your [...] taking a prescription pain medicine, take an htej-ypv-anvbdrq medicine, such as acetaminophen (Tylenol), ibuprofen (Advil, [...] Log into your personal health record on https://[employer]etica and enter X558 in the Education box to learn more about Ear Infection (Otitis Media): Care Instructions. Current as of: October 28, 2018 Content Version: 12.3 [employer]. Care instructions adapted under license by your healthcare professional. If you have questions about a medical condition or this instruction, always ask your healthcare professional. [employer] disclaims any warranty or liability for your use of this information. documented in this encounter History of Present Illness * Judy Toro CNP - 05/11/2019 1:31 PM EST PATIENT NAME: Ace Brown [facility] [address] [facility] [id number] : 1990 DATE OF VISIT: 05/11/2019 #: [...] file Gets together: Not on file Attends druze service: Not on file Active member of [...] [phone] Telemed rounds during COVID-19 pandemic. aKren Schulte MD 10/27/19 10:15 AM * Karen [...] Ortiz MD - 10/25/2019 8:16 AM EDT neurology physician assistant to of primary for breech. documented in this encounter Assessments Diagnosis Acute nasopharyngitis Acute nasopharyngitis (common cold) Acute bilateral otitis media Diagnosis state, incidental Discharge Instructions * Attachments The following attachments cannot be sent through Care Everywhere. 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 Parents to see the histology technician tomorrow for exam and weight check. Mom [...] BE BASED ON THE PRIMARY CLINICAL RECORDS. [facility] [employer] provides no warranty or guarantee of the accuracy or completeness of information in this document.
[2023-12-30 11:16] VITALS: BP 116/73; PULSE 90; TEMP 35.8
--- OUTSIDE RECORDS SUMMARY | 2024-01-03 07:00 | XMS_ITS | CCD ---
Author Organization [facility] Care Team Providers Care Car Icer Name Role Phone NO, PHYSICIAN Primary Care Unavailable JUDY TORO Attending Marla vailable Maryuri, Physician Primary Care Provider Unavailabl e HAYLIE PEARSON Admitting Unavailabl e HAYLIE PEARSON Referring Unavailabl e [place], [facility] Primary Care Unav ailable HAYLIE PEARSON Admitting Unavailabl e ORHAYLIE CRISTOBAL Referring Unavailabl e PEERZADE, [facility] Primary Care Unav ailable Haylie Pearson Unavailable [phone] [place], [facility] Primary [facility] Provide r HAYLIE PEARSON Admitting Unavailabl e HAYLIE PEARSON Attending Unavailabl e NO, PHYSICIAN Primary Care Unavailable HAYLIE PEARSON Admitting Unavailabl e PEERZADE, [facility] Care Unav ailable HAYLIE PEARSON Attending [facility]availabl e [facility] C onsulting Unavailable PEERZADE, [facility] Primary [facility] Unav ailable HAYLIE PEARSON Admitting Unavailabl e ORWICKHAYLIE Attending Unavailabl e ORWIHAYLIE BROWN Admitting Unavailabl e PEERZADE, [facility] Unav ailable [facility], GENERIC C onsulting Unavailable KAREN SCHULTE Attending Unavailable HAYLIE PEARSON Admitting Unavailabl e PE[place]ZADE, [facility] Primary Care Unav ailable SHANNA KEITH [...] 5 minutes, as instructed in the Notify Anesthesiologist/ORANGE PEEL OPERATOR: Hypotension order. Start: 10-14-2019 End: 10-14-2019 lactated [...] CHEW. docusate sodium 50 mg / sennosides, group home 8.6 mg oral tablet (1 source) Start: [...] Results Test Name Value Interpretation [facility] Erythrocyte distribution width (RBC) [Entitic vol] 14.1 % 11.6 - 14.8 % [facility] Hematocrit (Bld) [Volume fraction] 31.7 % Low 36 - 46 % [facility] Hemoglobin (Bld) [Mass/Vol] 9.9 g/dL Low 12 - 16 g/dL [facility] Interpretation and review of laboratory results Abnormal [facility] MCH (RBC) [Entitic mass] 29.6 pg 26 - 34 pg [facility] MCHC (RBC) [Mass/Vol] 31.2 g/dL 31 - 37 g/dL [facility] MCV (RBC) [Entitic vol] 94.6 fL 80 - 100 fL [facility] Nucleated RBC (Bld) [#/Vol] 0.00 10*3/uL [facility] Nucleated RBC/100 WBC (Bld) [Ratio] 0.0 % [facility] Platelet mean volume (Bld) [Entitic vol] 12.2 fL 9.4 - 12.4 fL [facility] Platelets (Bld) [#/Vol] 191 10*3/uL [facility] RBC (Bld) [#/Vol] 3.35 10*6/uL Low [facility] WBC (Bld) [#/Vol] 12.37 10*3/[facility] Erythrocyte distribution width (RBC) [Entitic vol] 13.8 % 11.6 - 14.8 % [facility] Hematocrit (Bld) [Volume fraction] 37.8 % 36 - 46 % [facility] Hemoglobin (Bld) [Mass/Vol] 12.5 g/dL 12 - 16 g/dL [facility] Interpretation and review of laboratory results Abnormal [facility] MCH (RBC) [Entitic mass] 30.0 pg 26 - 34 pg [facility] MCHC (RBC) [Mass/Vol] 33.1 g/dL 31 - 37 g/dL [facility] MCV (RBC) [Entitic vol] 90.9 fL 80 - 100 fL [facility] Nucleated RBC (Bld) [#/Vol] 0.00 10*3/uL [facility] Nucleated RBC/100 WBC (Bld) [Ratio] 0.0 % [facility] Platelet mean volume (Bld) [Entitic vol] 12.4 fL 9.4 - 12.4 fL [facility] Platelets (Bld) [#/Vol] 256 10*3/uL [facility] RBC (Bld) [#/Vol] 4.16 10*6/uL [facility] WBC (Bld) [#/Vol] 12.90 10*3/uL [facility] Syphilis Antibodyon 10-25-19 20 Interpretation and review of laboratory results Normal [facility] T. pallidum Ab Ql (S) Negative Negative [facility] Type and Screenon 10-25-2019 ABO and Rh group Nom (Bld) B Positive [facility] Blood group antibody screen Ql Negative [facility] Specimen Expires 10/28/2019 23:59 EST [facility] ABORH VERIFICATIONon 020 ABO and Rh group Nom (Bld) ABO/Rh Verification [facility] ABO and Rh group Nom (Bld) B Positive [facility] Patient's ABO/Rh is verified. [facility] CBCon 10-14-2019 Erythrocyte distribution width (RBC) [Entitic vol] 13.5 % 11.6 - 14.8 % [facility] Hematocrit (Bld) [Volume fraction] 35.6 % Low 36 - 46 % [facility] Hemoglobin (Bld) [Mass/Vol] 11.6 g/dL Low 12 - 16 g/dL [facility] Interpretation and review of laboratory results Abnormal [facility] MCH (RBC) [Entitic mass] 30.0 pg 26 - 34 pg [facility] MCHC (RBC) [Mass/Vol] 32.6 g/dL 31 - 37 g/dL [facility] MCV (RBC) [Entitic vol] 92.0 fL 80 - 100 fL [facility] Nucleated RBC (Bld) [#/Vol] 0.00 10*3/uL [facility] Nucleated RBC/100 WBC (Bld) [Ratio] 0.0 % [facility] Platelet mean volume (Bld) [Entitic vol] 12.8 fL High 9.4 - 12.4 fL [facility] Platelets (Bld) [#/Vol] 253 10*3/uL [facility] RBC (Bld) [#/Vol] 3.87 10*6/uL Low [facility] ealth WBC (Bld) [#/Vol] 12.69 10*3/uL [facility] RPRon 10-14-2019 Interpretation and review of laboratory results Normal [facility] Reagin Ab RPR Ql (S) Non-Reactive Non-Reactive [facility] Type and Screenon 10-14-2019 ABO and Rh group Nom (Bld) B Positive [facility] Blood group antibody screen Ql Negative [facility] Specimen Expires 10/17/2019 23:59 EST [facility] Group B Strep PCR, Vaginal/R ectalon 10-01-2019 S. agalactiae Ag Ql (Unsp spec) Negative Negative [facility] CHLAMYDIA/GONORRHOEAE AMPLIF IED RNAon 03-22-2019 C. trachomatis rRNA ELEUTERIO+probe Ql (Unsp spec) Negative Negative [facility] N. gonorrhoeae rRNA ELEUTERIO+probe Ql (Unsp spec) Negative Negative [facility] Type and Screenon 03-22-2019 ABO and Rh group Nom (Bld) B [facility] Rh Type Positive [facility] Vital Signs Date Time Vital Sign Value Performing Clinician Faci lity 10-27-2019 08:19-0400 Body Temperature 97.7 [degF] [facility] 10-27-2019 08:19-0400 BP Diastolic 67 mm[Hg] [facility] 10-27-2019 08:19-0400 BP Systolic 105 mm[Hg] [facility] 10-27-2019 08:19-0400 Pulse (Heart Rate) 71 /min [facility] 10-27-2019 08:19-0400 Pulse Oximetry 96 % [facility] 10-27-2019 08:19-0400 Respiratory Rate 16 /min [facility] 10-25-2019 06:01-0400 BMI (Body Mass Index) 29.13 kg/m2 [facility] 10-25-2019 06:01-0400 Body weight 84.37 kg [facility] 10-25-2019 06:01-0400 Height 170.2 cm [facility] 10-14-2019 10:30-0400 BP Diastolic 77 mm[Hg] [facility] 10-14-2019 10:30-0400 BP Systolic 126 mm[Hg] [facility] 10-14-2019 10:30-0400 Pulse (Heart Rate) 91 /min [facility] 10-14-2019 10:30-0400 Respiratory Rate 16 /min [facility] 10-14-2019 10:15-0400 Pulse Oximetry 97 % [facility] 10-14-2019 05:39-0400 BMI (Body Mass Index) 28.82 kg/m2 [facility] 10-14-2019 05:39-0400 Body Temperature 98.1 [degF] [facility] 10-14-2019 05:39-0400 Body weight 83.46 kg [facility] 10-14-2019 05:39-0400 Height 170.2 cm [facility] 05-11-2019 13:20-0500 Pulse (Heart Rate) 106 /min [facility] 05-11-2019 13:15-0500 BMI (Body Mass Index) 26.31 kg/m2 [facility] 05-11-2019 13:15-0500 Body Temperature 98.4 [degF] [facility] 05-11-2019 13:15-0500 Body weight 76.[address] [facility] 05-11-2019 13:15-0500 BP Diastolic 76 mm[Hg] [facility] 05-11-2019 13:15-0500 BP Systolic 110 mm[Hg] [facility] 05-11-2019 13:15-0500 Height 170.[address] [facility] 05-11-2019 13:15-0500 Pulse Oximetry 98 % [facility] 13:15-0500 Respiratory Rate 14 /min [facility] Encounters Encounter Date Encounter Type Care Provider [...] Start: 11-11-2019 End: 11-15-2019 Patient encounter procedure [facility] Start: 10-25-2019 End: 10-27-2019 Evaluation and management of inpatient [facility] Start: 10-25-2019 End: 10-27-2019 Evaluation and management of inpatient Haylie Pearson Work Phone: [facility]/ Start: 10-24-2019 End: 10-24-2019 Patient encounter procedure [facility] Start: 10-14-2019 End: 10-14-2019 [facility] Start: 10-14-2019 End: 10-14-2019 Subsequent hospital visit by physician Haylie Pearson Work Phone: [facility] Start: 10-11-2019 End: 10-11-2019 Patient encounter procedure [facility] Start: 10-08-2019 Patient encounter procedure [facility] Start: 05-11-2019 End: 05-11-2019 Patient encounter procedure PHYSICIAN NO [facility] Start: 05-11-2019 End: 05-11-2019 Office outpatient visit 25 minutes Judy CharlesQordoba Work Phone: [facility] Jono Saldivar Comment on above: Acute nasopharyngiti s (Primary Dx); Acute bilateral otitis media Procedures Date Procedure Procedure Detail Performing Clinician Start: 10-26-2019 Complete blood count (hemogram) panel - Blood by Automated count [employer] Work Phone: Start: 10-25-2019 Blood type and Indir ect antibody screen panel - Blood [facility] Work Phone: Start: 10-25-2019 Complete blood count (hemogram) panel - Blood by Automated count [facility] Work Phone: Start: 10-25-2019 Treponema pallidum I gG Ab [Presence] in Serum Haylie goBramble Work Phone: Start: 10-14-2019 Blood group typing Caren ann [facility] Work Phone: Start: 10-14-2019 Blood type and Indir ect antibody screen panel - Blood [facility] Work Phone: Start: 10-14-2019 Complete blood count (hemogram) panel - Blood by Automated count Kopo Kopo Phone: Start: 10-14-2019 Rapid plasma reagin test [facility] [employer] Work Phone: Start: 10-01-2019 Streptococcus agalac tiae DNA [Presence] in Unspecified specimen by ELEUTERIO with probe detection Historical Provider Start: 03-22-2019 Blood type and Indir ect antibody screen panel - Blood Historical Provider Start: 03-22-2019 Neisseria gonorrhoea e nucleic acid detection Historical Provider Plan of Treatment Date Care Activity Detail Author Start: 12-03-2019 Influenza vaccination given Se quential Influenza Vaccine (#1) [facility] Start: 10-01-2019 Influenza vaccination given SE QUENTIAL INFLUENZA VACCINE (#1) [facility] Comment on above: Postponed from 12/02 (Patient Refused) Start: 02-08-2006 Hepatitis C antibody , confirmatory test Hepatitis C Screening [facility] Start: 02-08-2003 HIV screening HIV Screening [facility] Start: 02-08-1991 History and physical examination, annual for health maintenance Wellness Visit [facility] Start: 1988 Screening for malign ant neoplasm of cervix PAP SMEAR [facility] Start: 1988 [facility] Immunizations Immunization Date Immunization Notes Care Provider Fel[facility] 10-25-2019 diphtheria, tetanus toxoids and acellular pertussis vaccine, unspecified formulation [facility] 10-25-2019 measles, mumps and r ubella virus vaccine [facility] 10-25-2019 varicella zoster immune globulin [facility] Payers Date Payer Category Payer Private Health Insurance [id number] 2022 Private Health Insurance [id number] 2019 Private Health Insurance [id number] 2019 Private Health Insurance xxx [id number] 1988 Unknown [id number] 2.16. [id number] 1988 Unknown [id number] 2.16.8 [id number] 1988 Unknown [id number] 2.16.8 [id number] 1988 Unknown [id number] 2.16.8 [id number] 1988 Unknown [id number] 2.16.8 [id number] 1988 Unknown [id number] 2.16.8 [id number] 1988 Unknown [id number] 2.16.8 [id number] 1988 Unknown [id number] 2.16.8 [id number] 1988 Unknown [id number] 2.16.84 [id number] 1988 Unknown [id number] 2.16.84 [id number] 1988 Unknown [id number] 2.16.84 [id number] 1988 Unknown [id number] 2.16.84 [id number] 1988 Unknown [id number] 2.16.84 0.1.508486.3.579.2.9 1988 Unknown [id number] 2.16.84 [id number] 1988 Unknown [id number] 2.16.84 [id number] Social History Date Type Detail Facility Start: 05-11-2019 End: 10-27-2019 Tobacco smoking status PRIS Never smoker [facility] Start: 05-11-2019 End: 10-27-2019 Alcohol intake Ex-drinker (finding) [facility] Start: 02-07-2019 [facility] Sex Assigned At Not on file [facility] Exposure to SARS-CoV-2 (event) Not sure [facility] Summary Purpose Family History No Family History Records FoundNo Family History Records FoundNo Family History Records FoundNo Family History Records Found Advance Directives No Advanced Directives Records FoundDocuments on File Type Date Recorded Patient District Leader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 Advance Directives and Living Will Documents on File Type Date Recorded Patient District Leader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 Advance Directives and Livin g Will 10/14/2019 5:28 AM Latest Code Status on File Code Status Date Activated Date Inactivated Comments Full Code 10/14/2019 5:32 AM 10/14/2019 1:17 PM Documents on File Type Date Recorded Patient District Leader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 Advance Directives and Livin g Will 10/25/2019 6:19 AM Latest Code Status on File Code Status Date Activated Date Inactivated Comments Full Code 10/25/2019 11:46 AM 10/27/2019 2:32 PM Full Code 10/25/2019 5:44 AM 10/25/2019 10:39 AM Full Code 10/14/2019 5:32 AM 10/14/2019 1:17 PM Instructions * Patient Instructions* Judy Toro, FRUIT AND VEGETABLE CLASSER - 05/11/2019 1:40 PM EST Upper Respiratory [...] include drinking lots of fluids and taking gyao-ktl-maksyvu pain medicine. You will probably feel better [...] amount of fluids you drink. Take an flme-qmn-dazysyy pain medicine, such as acetaminophen (Tylenol), ibuprofen (Advil, Motrin),or naproxen (Aleve). Read and follow all instructions on the label. Before you use cough and cold medicines, check the label. These medicines may not be safe for youngchildren or for people with certain health problems. Be careful when taking qzen-nsi-hmvqvzp cold or flu medicines and Tylenol at [...] Log into your personal health record on [email or web address].[email or web address] and enter K520 in the Education box to learn more about Upper Respiratory Infection (Cold): Care Instructions. Current as of: September 09, 2018 Content Version: 12.3 5571-4310 [employer]. Care instructions adapted under license by your healthcare professional. If you have questions about a medical condition or this instruction, always ask your healthcare professional. [employer] disclaims any warranty or liability for your [...] taking a prescription pain medicine, take an krzz-hpi-dimbgfc medicine, such as acetaminophen (Tylenol), ibuprofen (Advil, [...] Log into your personal health record on [email or web address] and enter X558 in the Education box to learn more about Ear Infection (Otitis Media): Care Instructions. Current as of: October 28, 2018 Content Version: 12.3 [employer]. Care instructions adapted under license by your healthcare professional. If you have questions about a medical condition or this instruction, always ask your healthcare professional. [employer] disclaims any warranty or liability for your use of this information. 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 documented in this encounter Assessments Diagnosis Acute nasopharyngitis Acute nasopharyngitis (common cold) Acute bilateral otitis media Diagnosis state, incidental Discharge Instructions * Attachments The following attachments cannot be sent through Care Everywhere. * : KICK COUNTS (MARSHALLESE) * : WEEK 38 (MARSHALLESE) * : WHEN TO CALL (AFTER 20 WEEKS): GENERAL INFO (MARSHALLESE) * : BREECH VERSION (MARSHALLESE) documented in this encounter Hospital Course * [...] section and content) DATE CREATED AUTHOR 05/11/2019 [facility] DATE CREATED AUTHOR AUTHOR'S ORGANIZ ATION 10/25/2019 [facility] DATE CREATED AUTHOR AUTHOR'S ORGANIZ ATION 11/27/2019 [facility] DATE CREATED AUTHOR AUTHOR'S ORGANIZ ATION 12/15/2023 [facility] EPIC Reason [...] in this encounter Patient discharged out patient pickle pumper exit in wheelchair with . 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 Parents to see the technical services librarian tomorrow for exam and weight check. Mom [...] BE BASED ON THE PRIMARY CLINICAL RECORDS. [facility] [employer] provides no warranty or guarantee of the accuracy or completeness of information in this document.
== END 2023-12-30 11:40 | disposition home or self-care (01) ==
LOC: FBCO 06:58 → FBC 11:06
PROVIDERS: PCP Family Medicine; Visit Provider Obstetrics & Gynecology
DX: O09.529 Supervision of elderly multigravida, unspecified trimester (principal); Z3A.33 33 weeks gestation of pregnancy
CPT/HCPCS: 59025

== ENCOUNTER 2024-01-08 07:20 | Outpatient (OUT) | payer OTHER, SELFPAY ==
--- NOTE | 2024-01-08 | US_ITS ---
[address] [address] Patient Name: ACE MORRISSEY MRN: [id number] date: 1990 Sex: F Assigned Patient Location: [facility] Current Patient Location: [facility] Accession/Order Number: [id number] Exam Date: 01/08/2024 14:08 Report Date: 01/08/2024 14:52 At the request of: SHANNA KEITH Procedure: US OB BPP w non-stress EXAMINATION: US OB BPP w non-stress HISTORY: Multigravida of advanced maternal age O09.522 COMPARISON: No relevant comparison available. TECHNIQUE: Ultrasound biophysical profile was performed in the radiology department. non-reactive stress testing was performed by nursing staff in the birthing center. FINDINGS: BREATHING MOVEMENTS: 2 GROSS BODY MOVEMENTS: 2 TONE: 2 QUALITATIVE AMNIOTIC FLUID VOLUME: 2 PRESENTATION: CEPHALIC HEART RATE: 139.90 bpm AMNIOTIC FLUID VOLUME: 18.2 cm GESTATIONAL AGE: 34 weeks 3 days US/US OB BPP w non-stress IMPRESSION: Total biophysical profile score: 8 Electronically authenticated by: DANG ROD Date: 01/08/2024 14:52
--- OUTSIDE RECORDS SUMMARY | 2024-01-08 07:25 | XMS_ITS | CCD ---
Author Organization [facility] Care Team Providers Care Director Of Bands Name Role Phone NO, PHYSICIAN Primary Care Unavailable JUDY TORO Attending Marla vailable Maryuri, Physician Primary Care Provider Unavailabl e HAYLIE PEARSON Admitting Unavailabl e HAYLIE PEARSON Referring Unavailabl e PEERZADE, [facility] Primary Care Unav ailable HAYLIE PEARSON Admitting Unavailabl e ORHAYLIE CRISTOBAL Referring Unavailabl e PEERZADE, [facility] Primary Care Unav ailable Haylie Pearson Unavailable Peerzade, [facility] Primary [facility] [place] Provide r HAYLIE PEARSON Admitting Unavailabl e HAYLIE PEARSON Attending Unavailabl e NO, PHYSICIAN Primary Care Unavailable HAYLIE PEARSON Admitting Unavailabl e PEERZADE, [facility] Unav ailable HAYLIE PEARSON Attending Unavailabl e [facility] GENERIC C onsulting Unavailable PEERZADE, [facility] Primary [facility] [place] Unav ailable HAYLIE PEARSON Admitting Unavailabl e ORWICKHAYLIE Attending Unavailabl e ORWIHAYLIE BROWN Admitting Unavailabl e PEERZADE, [facility] Unav ailable [facility], GENERIC C onsulting Unavailable KAREN SCHULTE Attending Unavailable HAYLIE PEARSON Admitting Unavailabl e PEERZADE, [facility] Primary Care Unav ailable SHANNA KEITH Attending [...] 5 minutes, as instructed in the Notify Anesthesiologist/CLINICAL SUPPORT ASSOCIATE: Hypotension order. Start: 10-14-2019 End: 10-14-2019 lactated [...] CHEW. docusate sodium 50 mg / sennosides, longterm 8.6 mg oral tablet (1 source) Start: [...] Test Name Value Interpretation [facility] Erythrocyte distribution width (RBC) [Entitic [...] Hospital RBC (Bld) [#/Vol] 3.35 10*6/uL [facility] WBC (Bld) [#/Vol] 12.37 10*3/uL [facility] Erythrocyte distribution width (RBC) [...] [facility] RBC (Bld) [#/Vol] 4.16 10*6/uL [facility] WBC (Bld) [#/Vol] 12.90 10*3/uL [facility] Syphilis Antibodyon 10-25-19 20 Interpretation and review of laboratory results Normal [facility] T. pallidum Ab Ql (S) Negative Negative [facility] Type and Screenon 10-25-2019 ABO [...] Hospital RBC (Bld) [#/Vol] 3.87 10*6/uL Low [facility]alth WBC (Bld) [#/Vol] 12.69 10*3/uL High [facility] RPRon 10-14-2019 Interpretation and review of [...] lity 10-27-2019 08:19-0400 Body Temperature 97.7 [degF] [facility] 10-27-2019 08:19-0400 BP Diastolic 67 mm[Hg] [facility] 10-27-2019 08:19-0400 BP Systolic 105 mm[Hg] [facility] 10-27-2019 08:19-0400 Pulse (Heart Rate) 71 /min [facility] 10-27-2019 08:19-0400 Pulse Oximetry 96 % [facility] 10-27-2019 08:19-0400 Respiratory Rate 16 /min [facility] 10-25-2019 06:01-0400 BMI (Body Mass Index) 29.13 kg/m2 [facility] 10-25-2019 06:01-0400 Body weight 84.37 kg [facility] 10-25-2019 06:01-0400 Height 170.2 cm [facility] 10-14-2019 10:30-0400 BP Diastolic 77 mm[Hg] [facility] 10-14-2019 10:30-0400 BP Systolic 126 mm[Hg] [facility] 10-14-2019 10:30-0400 Pulse (Heart Rate) 91 /min [facility] 10-14-2019 10:30-0400 Respiratory Rate 16 /min [facility] 10-14-2019 10:15-0400 Pulse Oximetry 97 % [facility] 10-14-2019 05:39-0400 BMI (Body Mass Index) 28.82 kg/m2 [facility] 10-14-2019 05:39-0400 Body Temperature 98.1 [degF] [facility] 10-14-2019 05:39-0400 Body weight 83.46 kg [facility] 10-14-2019 05:39-0400 Height 170.2 cm [facility] 05-11-2019 13:20-0500 Pulse (Heart Rate) 106 /min [facility] 05-11-2019 13:15-0500 BMI (Body Mass Index) 26.31 kg/m2 [facility] 05-11-2019 13:15-0500 Body Temperature 98.4 [degF] [facility] 05-11-2019 13:15-0500 Body weight 76.2 kg [facility] 05-11-2019 13:15-0500 BP Diastolic 76 mm[Hg] [facility] 05-11-2019 13:15-0500 BP Systolic 110 mm[Hg] [facility] 05-11-2019 13:15-0500 Height 170.2 cm [facility] 05-11-2019 13:15-0500 Pulse [facility]ximetry 98 % [facility] 13:15-0500 Respiratory Rate 14 /min [facility] En[facility]ters Encounter Date Encounter Type Care [...] Start: 11-11-2019 End: 11-15-2019 Patient encounter procedure [facility] Start: 10-25-2019 End: 10-27-2019 Evaluation and management of inpatient [facility] Start: 10-25-2019 End: 10-27-2019 Evaluation and management of inpatient Haylie Pearson Work Phone: [facility]/ Start: 10-24-2019 End: 10-24-2019 Patient encounter procedure [facility] Start: 10-14-2019 End: 10-14-2019 [facility] Start: 10-14-2019 End: 10-14-2019 Subsequent hospital visit by physician Haylie Pearson Work Phone: [facility] Start: 10-11-2019 End: 10-11-2019 Patient encounter procedure [facility] Start: 10-08-2019 Patient encounter procedure [facility] Start: 05-11-2019 End: 05-11-2019 Patient encounter procedure PHYSICIAN NO [facility] Start: 05-11-2019 End: 05-11-2019 Office outpatient visit 25 minutes [employer] Work Phone: [facility] Jono Saldivar Comment on above: Acute nasopharyngiti s (Primary Dx); Acute bilateral otitis media Procedures Date Procedure Procedure Detail Performing Clinician Start: 10-26-2019 Complete blood count (hemogram) panel - Blood by Automated count [employer] ([employer]) Work Phone: Start: 10-25-2019 Blood type and Indir ect antibody screen panel - Blood [employer] ([employer]) Work Phone: Start: 10-25-2019 Complete blood count (hemogram) panel - Blood by Automated count [employer] ([employer]) Work Phone: Start: 10-25-2019 Treponema pallidum I gG Ab [Presence] in Serum Haylie [employer] Work Phone: Start: 10-14-2019 Blood group typing Caren ann [employer] Work Phone: Start: 10-14-2019 Blood type and Indir ect antibody screen panel - Blood [employer] ([employer]) Work Phone: Start: 10-14-2019 Complete blood count (hemogram) panel - Blood by Automated count [employer] Phone: Start: 10-14-2019 Rapid plasma reagin test [employer] ([employer]) Work Phone: Start: 10-01-2019 Streptococcus agalac tiae [...] Hospital Start: 02-08-2003 HIV screening HIV Screening [facility] Start: 02-08-1991 History and physical examination, annual for health maintenance Wellness Visit [facility] Start: 1988 Screening for malign ant neoplasm of cervix PAP SMEAR [facility] Start: 1988 [facility] Immunizations Immunization Date Immunization Notes Care Provider Felipe [facility] 10-25-2019 diphtheria, tetanus toxoids and acellular pertussis vaccine, unspecified formulation [facility] 10-25-2019 measles, mumps and r ubella virus vaccine [facility] 10-25-2019 varicella zoster immune globulin [facility] Payers Date Payer Category Payer Private Health Insurance [id number] 2022 Private Health Insurance [id number] 2019 Private Health Insurance [id number] 2019 Private Health Insurance xxx [id number] 1988 Unknown [id number] 2.16. [id number] 1988 Unknown [id number] 2.16.8 [id number] 1988 Unknown [id number] 2.16.8 [id number] 1988 Unknown [id number] 2.16.8 [id number] 1988 Unknown [id number] 2.16.8 [id number] 1988 Unknown [id number] 2.16.8 [id number] 1988 Unknown [id number] 2.16.8 [id number] 1988 Unknown [id number] 2.16.8 [id number] 1988 Unknown [id number] 2.16.84 [id number] 1988 Unknown [id number] 2.16.84 [id number] 1988 Unknown [id number] 2.16.84 [id number] 1988 Unknown [id number] 2.16.84 [id number] 1988 Unknown [id number] 2.16.84 0.1.641735.3.579.2.9 1988 Unknown [id number] 2.16.84 [id number] 1988 Unknown [id number] 2.16.84 [id number] Social History Date Type Detail Facility Start: 05-11-2019 End: 10-27-2019 Tobacco smoking status TXIS Never smoker [facility] Start: 05-11-2019 End: 10-27-2019 Alcohol intake Ex-drinker (finding) [facility] Start: 02-07-2019 [facility] Sex Assigned At Not on file [facility] Exposure to SARS-CoV-2 (event) Not sure [facility] Summary Purpose Family History No Family History Records FoundNo Family History Records FoundNo Family History Records FoundNo Family History Records Found Advance Directives No Advanced Directives Records FoundDocuments on File Type Date Recorded Patient [employer]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 Advance Directives and Living Will Documents on File Type Date Recorded Patient [employer]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 Advance Directives and Livin g Will 10/14/2019 5:28 AM Latest Code Status on File Code Status Date Activated Date Inactivated Comments Full Code 10/14/2019 5:32 AM 10/14/2019 1:17 PM Documents on File Type Date Recorded Patient [employer]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 Advance Directives and Livin g Will 10/25/2019 6:19 AM Latest Code Status on File Code Status Date Activated Date Inactivated Comments Full Code 10/25/2019 11:46 AM 10/27/2019 2:32 PM Full Code 10/25/2019 5:44 AM 10/25/2019 10:39 AM Full Code 10/14/2019 5:32 AM 10/14/2019 1:17 PM Instructions * Patient Instructions* Judy Toro, SUCTION PLATE ROLLER HAND - 05/11/2019 1:40 PM EST Upper Respiratory [...] include drinking lots of fluids and taking pmye-puz-zdopdbr pain medicine. You will probably feel better [...] amount of fluids you drink. Take an cxcr-egz-ihjxagn pain medicine, such as acetaminophen (Tylenol), ibuprofen (Advil, Motrin),or naproxen (Aleve). Read and follow all instructions on the label. Before you use cough and cold medicines, check the label. These medicines may not be safe for youngchildren or for people with certain health problems. Be careful when taking diku-cwx-ypuolhh cold or flu medicines and Tylenol at [...] Log into your personal health record on [email or web address] and enter K520 in the Education box to learn more about Upper Respiratory Infection (Cold): Care Instructions. Current as of: September 09, 2018 Content Version: 12.3 6090-6298 [employer]. Care instructions adapted under license by your healthcare professional. If you have questions about a medical condition or this instruction, always ask your healthcare professional. [employer] disclaims any warranty or liability for your [...] taking a prescription pain medicine, take an mvxq-adn-vbztctl medicine, such as acetaminophen (Tylenol), ibuprofen (Advil, [...] Log into your personal health record on [email or web address] and enter X558 in the Education box to learn more about Ear Infection (Otitis Media): Care Instructions. Current as of: October 28, 2018 Content Version: 12.3 [employer]. Care instructions adapted under license by your healthcare professional. If you have questions about a medical condition or this instruction, always ask your healthcare professional. [employer] disclaims any warranty or liability for your use of this information. documented in this encounter History of Present Illness * Judy Toro CNP - 05/11/2019 1:31 PM EST PATIENT NAME: Ace Brown [facility] [address] [facility] [id number] : 1990 DATE OF VISIT: 05/11/2019 #: [...] file Gets together: Not on file Attends christian service: Not on file Active member of [...] Ortiz MD - 10/25/2019 8:16 AM EDT resident programs assistant to of primary for breech. documented in this encounter Assessments Diagnosis Acute nasopharyngitis Acute nasopharyngitis (common cold) Acute bilateral otitis media Diagnosis state, incidental Discharge Instructions * Attachments The following attachments cannot be sent through Care Everywhere. * : KICK COUNTS (GABONESE) * : WEEK 38 (GABONESE) * : WHEN TO CALL (AFTER 20 WEEKS): GENERAL INFO (GABONESE) * : BREECH VERSION (GABONESE) documented in this encounter Hospital Course * [...] and content) DATE CREATED AUTHOR 05/11/2019 [facility] DATE CREATED AUTHOR AUTHOR'S ORGANIZ ATION 10/25/2019 [facility] DATE CREATED AUTHOR AUTHOR'S ORGANIZ ATION 11/27/2019 [facility] DATE CREATED AUTHOR AUTHOR'S ORGANIZ ATION 12/15/2023 [facility] EPIC Reason for [...] patient pear picker exit in wheelchair with . 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 Parents to see the rn case manager hospice tomorrow for exam and weight check. Mom [...] BE BASED ON THE PRIMARY CLINICAL RECORDS. [facility] [employer] provides no warranty or guarantee of the accuracy or completeness of information in this document.
[2024-01-08 14:27] VITALS: BP 119/73; PULSE 103
== END 2024-01-08 15:19 | disposition home or self-care (01) ==
LOC: US 07:20 → FBC 14:03
PROVIDERS: PCP Family Medicine; Visit Provider Obstetrics & Gynecology
DX: O09.522 Supervision of elderly multigravida, second trimester (principal); Z3A.34 34 weeks gestation of pregnancy
CPT/HCPCS: 76818

== ENCOUNTER 2024-01-11 08:59 | Outpatient (OUT) | payer OTHER, SELFPAY ==
[2024-01-11 09:10] VITALS: BP 126/71; PULSE 88
--- OUTSIDE RECORDS SUMMARY | 2024-01-11 09:16 | XMS_ITS | CCD ---
Author Organization [facility] Care Team Providers Care Anthropology Professor Name Role Phone NO, PHYSICIAN Primary Care Unavailable JUDY TORO Attending Marla vailable Maryuri, Physician Primary Care Provider Unavailabl e HAYLIE PEARSON Admitting Unavailabl e HAYLIE PEARSON Referring Unavailabl e PEERZADE, [facility] Primary Care Unav ailable HAYLIE PEARSON Admitting Unavailabl e ORHAYLIE CRISTOBAL Referring Unavailabl e PEERZADE, [facility] Primary Care Unav ailable Haylie Pearson Unavailable Peerzade, [facility] Primary [facility] [place] Provide r HAYLIE PEARSON Admitting Unavailabl e AHYLIE PEARSON Attending Unavailabl e NO, PHYSICIAN Primary Care Unavailable HAYLIE PEARSON Admitting Unavailabl e PEERZADE, [facility] Care Unav ailable HAYLIE PEARSON Attending Unavailabl e [facility] C onsulting Unavailable PEERZADE, [facility] Primary [facility] [place] Unav ailable HAYLIE PEARSON Admitting Unavailabl e ORWICKHAYLIE Attending Unavailabl e ORWIHAYLIE BROWN Admitting Unavailabl e PEERZADE, [facility] Unav ailable [place] [facility], GENERIC C onsulting Unavailable KAREN SCHULTE Attending Unavailable HAYLIE PEARSON Admitting Unavailabl e PEERZADE, [facility] Primary Care Unav ailable SHANNA [...] 5 minutes, as instructed in the Notify Anesthesiologist/MOISTURE METER READER: Hypotension order. Start: 10-14-2019 End: 10-14-2019 lactated [...] CHEW. docusate sodium 50 mg / sennosides, long term 8.6 mg oral tablet (1 source) Start: [...] Results Test Name Value Interpretation [facility] Erythrocyte distribution width (RBC) [Entitic vol] 14.1 % 11.6 - 14.8 % [facility] Hematocrit (Bld) [Volume fraction] 31.7 % Low 36 - 46 % [facility] Hemoglobin (Bld) [Mass/Vol] 9.9 g/dL Low 12 - 16 g/dL [facility] Interpretation and review of laboratory results Abnormal [facility] MCH (RBC) [Entitic mass] 29.6 pg 26 - 34 pg [facility] MCHC (RBC) [Mass/Vol] 31.2 g/dL 31 - 37 g/dL [facility] MCV (RBC) [Entitic vol] 94.6 fL 80 - 100 fL [facility] Nucleated RBC (Bld) [#/Vol] 0.00 10*3/uL [facility] Nucleated RBC/100 WBC (Bld) [Ratio] 0.0 % [facility] Platelet mean volume (Bld) [Entitic vol] 12.2 fL 9.4 - 12.4 fL [facility] Platelets (Bld) [#/Vol] 191 10*3/uL [facility] RBC (Bld) [#/Vol] 3.35 10*6/uL Low [facility] WBC (Bld) [#/Vol] 12.37 10*3/uL [facility] Erythrocyte distribution width (RBC) [Entitic vol] 13.8 % 11.6 - 14.8 % [facility] Hematocrit (Bld) [Volume fraction] 37.8 % 36 - 46 % [facility] Hemoglobin (Bld) [Mass/Vol] 12.5 g/dL 12 - 16 g/dL [facility] Interpretation and review of laboratory results Abnormal [facility] MCH (RBC) [Entitic mass] 30.0 pg 26 - 34 pg [facility] MCHC (RBC) [Mass/Vol] 33.1 g/dL 31 - 37 g/dL [facility] MCV (RBC) [Entitic vol] 90.9 fL 80 - 100 fL [facility] Nucleated RBC (Bld) [#/Vol] 0.00 10*3/uL [facility] Nucleated RBC/100 WBC (Bld) [Ratio] 0.0 % [facility] Platelet mean volume (Bld) [Entitic vol] 12.4 fL 9.4 - 12.4 fL [facility] Platelets (Bld) [#/Vol] 256 10*3/uL [facility] RBC (Bld) [#/Vol] 4.16 10*6/uL [facility] WBC (Bld) [#/Vol] 12.90 10*3/uL [facility] Syphilis Antibodyon 10-25-19 20 Interpretation and review of laboratory results Normal [facility] T. pallidum Ab Ql (S) Negative Negative [facility] Type and Screenon 10-25-2019 ABO and Rh group Nom (Bld) B Positive [facility] Blood group antibody screen Ql Negative [facility] Specimen Expires 10/28/2019 23:59 EST [facility] ABORH VERIFICATIONon 020 ABO and Rh group Nom (Bld) ABO/Rh Verification [facility] ABO and Rh group Nom (Bld) B Positive [facility] Patient's ABO/Rh is verified. [facility] CBCon 10-14-2019 Erythrocyte distribution width (RBC) [Entitic vol] 13.5 % 11.6 - 14.8 % [facility] Hematocrit (Bld) [Volume fraction] 35.6 % Low 36 - 46 % [facility] Hemoglobin (Bld) [Mass/Vol] 11.6 g/dL Low 12 - 16 g/dL [facility] Interpretation and review of laboratory results Abnormal [facility] MCH (RBC) [Entitic mass] 30.0 pg 26 - 34 pg [facility] MCHC (RBC) [Mass/Vol] 32.6 g/dL 31 - 37 g/dL [facility] MCV (RBC) [Entitic vol] 92.0 fL 80 - 100 fL [facility] Nucleated RBC (Bld) [#/Vol] 0.00 10*3/uL [facility] Nucleated RBC/100 WBC (Bld) [Ratio] 0.0 % [facility] Platelet mean volume (Bld) [Entitic vol] 12.8 fL High 9.4 - 12.4 fL [facility] Platelets (Bld) [#/Vol] 253 10*3/uL [facility] RBC (Bld) [#/Vol] 3.87 10*6/uL Low [facility] WBC (Bld) [#/Vol] 12.69 10*3/uL High [facility] RPRon 10-14-2019 Interpretation and review of laboratory results Normal [facility] Reagin Ab RPR Ql (S) Non-Reactive Non-Reactive [facility] Type and Screenon 10-14-2019 ABO and Rh group Nom (Bld) B Positive [facility] Blood group antibody screen Ql Negative [facility] Specimen Expires 10/17/2019 23:59 EST [facility] Group B Strep PCR, Vaginal/R ectalon 10-01-2019 S. agalactiae Ag Ql (Unsp spec) Negative Negative [facility] CHLAMYDIA/GONORRHOEAE AMPLIF IED RNAon 03-22-2019 C. trachomatis rRNA ELEUTERIO+probe Ql (Unsp spec) Negative Negative [facility] N. gonorrhoeae rRNA ELEUTERIO+probe Ql (Unsp spec) Negative Negative [facility] Type and Screenon 03-22-2019 ABO and Rh group Nom (Bld) B [facility] Rh Type Positive [facility] Vital Signs Date Time Vital Sign Value Performing Clinician Faci lity 10-27-2019 08:19-0400 Body Temperature 97.7 [degF] [facility] 10-27-2019 08:19-0400 BP Diastolic 67 mm[Hg] [facility] 10-27-2019 08:19-0400 BP Systolic 105 mm[Hg] [facility] 10-27-2019 08:19-0400 Pulse (Heart Rate) 71 /min [facility] 10-27-2019 08:19-0400 Pulse Oximetry 96 % [facility] 10-27-2019 08:19-0400 Respiratory Rate 16 /min [facility] 10-25-2019 06:01-0400 BMI (Body Mass Index) 29.13 kg/m2 [facility] 10-25-2019 06:01-0400 Body weight 84.37 kg [facility] 10-25-2019 06:01-0400 Height 170.2 cm [facility] 10-14-2019 10:30-0400 BP Diastolic 77 mm[Hg] [facility] 10-14-2019 10:30-0400 BP Systolic 126 mm[Hg] [facility] 10-14-2019 10:30-0400 Pulse (Heart Rate) 91 /min [facility] 10-14-2019 10:30-0400 Respiratory Rate 16 /min [facility] 10-14-2019 10:15-0400 Pulse Oximetry 97 % [facility] 10-14-2019 05:39-0400 BMI (Body Mass Index) 28.82 kg/m2 [facility] 10-14-2019 05:39-0400 Body Temperature 98.1 [degF] [facility] 10-14-2019 05:39-0400 Body weight 83.46 kg [facility] 10-14-2019 05:39-0400 Height 170.2 cm [facility] 05-11-2019 13:20-0500 Pulse (Heart Rate) 106 /min [facility] 05-11-2019 13:15-0500 BMI (Body Mass Index) 26.31 kg/m2 [facility] 05-11-2019 13:15-0500 Body Temperature 98.4 [degF] [facility] 05-11-2019 13:15-0500 Body weight 76.2 kg [facility] 05-11-2019 13:15-0500 BP Diastolic 76 mm[Hg] [facility] 05-11-2019 13:15-0500 BP Systolic 110 mm[Hg] [facility] 05-11-2019 13:15-0500 Height 170.2 cm [facility] 05-11-2019 13:15-0500 Pulse [facility]ximetry 98 % [facility] 13:15-0500 Respiratory Rate 14 /min [facility] Encounter Date Encounter Type Care [...] 11-11-2019 End: 11-15-2019 Patient encounter procedure [facility] Start: 10-25-2019 End: 10-27-2019 Evaluation and management of inpatient [facility] Start: 10-25-2019 End: 10-27-2019 Evaluation and management of inpatient Haylie Pearson Work Phone: [facility] Mother/Infant Start: 10-24-2019 End: 10-24-2019 Patient encounter procedure [facility] Start: 10-14-2019 End: 10-14-2019 [facility]: 10-14-2019 End: 10-14-2019 Subsequent hospital visit by physician Haylie Pearson Work Phone: [facility] Labor & Delivery Start: 10-11-2019 End: 10-11-2019 Patient encounter procedure [facility] Start: 10-08-2019 Patient encounter procedure [facility] Start: 05-11-2019 End: 05-11-2019 Patient encounter procedure PHYSICIAN NO [facility] Start: 05-11-2019 End: 05-11-2019 Office outpatient visit 25 minutes Judy [employer] Work Phone: [facility] Jono Saldivar Comment on above: Acute nasopharyngiti s (Primary Dx); Acute bilateral otitis media Procedures Date Procedure Procedure Detail Performing Clinician Start: 10-26-2019 Complete blood count (hemogram) panel - Blood by Automated count [email or web address] Work Phone: Start: 10-25-2019 Blood type and Indir ect antibody screen panel - Blood [email or web address] Work Phone: Start: 10-25-2019 Complete blood count (hemogram) panel - Blood by Automated count [email or web address] Work Phone: Start: 10-25-2019 Treponema pallidum I gG Ab [Presence] in Serum Haylie [employer] Work Phone: Start: 10-14-2019 Blood group typing Caren ann [employer] Work Phone: Start: 10-14-2019 Blood type and Indir ect antibody screen panel - Blood [email or web address] Work Phone: Start: 10-14-2019 Complete blood count (hemogram) panel - Blood by Automated count [employer] Phone: Start: 10-14-2019 Rapid plasma reagin test [email or web address] Work Phone: Start: 10-01-2019 Streptococcus agalac tiae DNA [Presence] in Unspecified specimen by ELEUTERIO with probe detection Historical Provider Start: 03-22-2019 Blood type and Indir ect antibody screen panel - Blood Historical Provider Start: 03-22-2019 Neisseria gonorrhoea e nucleic acid detection Historical Provider Plan of Treatment Date Care Activity Detail Author Start: 12-03-2019 Influenza vaccination given Se quential Influenza Vaccine (#1) [facility] Start: 10-01-2019 Influenza vaccination given SE QUENTIAL INFLUENZA VACCINE (#1) [facility] Comment on above: Postponed from 12/02 (Patient Refused) Start: 02-08-2006 Hepatitis C antibody , confirmatory test Hepatitis C Screening [facility] Start: 02-08-2003 HIV screening HIV Screening [facility] Start: 02-08-1991 History and physical examination, annual for health maintenance Wellness Visit [facility] Start: 1988 Screening for malign ant neoplasm of cervix PAP SMEAR [facility] Start: 1988 [facility] Immunizations Immunization Date Immunization Notes Care Provider [facility] 10-25-2019 diphtheria, tetanus toxoids and acellular pertussis vaccine, unspecified formulation [facility] 10-25-2019 measles, mumps and r ubella virus vaccine [facility] 10-25-2019 varicella zoster immune globulin [facility] Payers Date Payer Category Payer Private Health Insurance [id number] 2022 Private Health Insurance [id number] 2019 Private Health Insurance [id number] 2019 Private Health Insurance xxx [id number] 1988 Unknown [id number] 2.16. [id number] 1988 Unknown [id number] 2.16.8 [id number] 1988 Unknown [id number] 2.16.8 [id number] 1988 Unknown [id number] 2.16.8 [id number] 1988 Unknown [id number] 2.16.8 [id number] 1988 Unknown [id number] 2.16.8 [id number] 1988 Unknown [id number] 2.16.8 [id number] 1988 Unknown [id number] 2.16.8 [id number] 1988 Unknown [id number] 2.16.84 [id number] 1988 Unknown [id number] 2.16.84 [id number] 1988 Unknown [id number] 2.16.84 [id number] 1988 Unknown [id number] 2.16.84 [id number] 1988 Unknown [id number] 2.16.84 [id number] 1988 Unknown [id number] 2.16.84 [id number] 1988 Unknown [id number] 2.16.84 [id number] Social History Date Type Detail Facility Start: 05-11-2019 End: 10-27-2019 Tobacco smoking status MEIS Never smoker [facility] Start: 05-11-2019 End: 10-27-2019 Alcohol intake Ex-drinker (finding) [facility] Start: 02-07-2019 [facility] Sex Assigned At Not on file [facility] Exposure to SARS-CoV-2 (event) Not sure [facility] Summary Purpose Family History No Family History Records FoundNo Family History Records FoundNo Family History Records FoundNo Family History Records Found Advance Directives No Advanced Directives Records FoundDocuments on File Type Date Recorded 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 Advance Directives and Living Will Documents on File Type Date Recorded 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 Advance Directives and Livin g Will 10/14/2019 5:28 AM Latest Code Status on File Code Status Date Activated Date Inactivated Comments Full Code 10/14/2019 5:32 AM 10/14/2019 1:17 PM Documents on File Type Date Recorded 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 You will probably feel better [...] amount of fluids you drink. Take an ahwu-ypd-jqfexfz pain medicine, such as acetaminophen (Tylenol), ibuprofen (Advil, Motrin),or naproxen (Aleve). Read and follow all instructions on the label. Before you use cough and cold medicines, check the label. These medicines may not be safe for youngchildren or for people with certain health problems. Be careful when taking yaiv-uht-gjewbas cold or flu medicines and Tylenol at [...] Log into your personal health record on https://[employer] and enter K520 in the Education box to learn more about Upper Respiratory Infection (Cold): Care Instructions. Current as of: September 09, 2018 Content Version: 12.3 7273-5513 [employer]. Care instructions adapted under license by your healthcare professional. If you have questions about a medical condition or this instruction, always ask your healthcare professional. [employer] disclaims any warranty or liability for your [...] taking a prescription pain medicine, take an ccda-zyr-gnjssyb medicine, such as acetaminophen (Tylenol), ibuprofen (Advil, [...] Log into your personal health record on https://[email or web address] and enter X558 in the Education box to learn more about Ear Infection (Otitis Media): Care Instructions. Current as of: October 28, 2018 Content Version: 12.3 [employer]. Care instructions adapted under license by your healthcare professional. If you have questions about a medical condition or this instruction, always ask your healthcare professional. [employer] disclaims any warranty or liability for your use of this information. documented in this encounter History of Present Illness * Judy Toro CNP - 05/11/2019 1:31 PM EST PATIENT NAME: Ace Brown [facility] [address] [place] [address] : 1990 DATE OF VISIT: 05/11/2019 #: [...] file Gets together: Not on file Attends mormonism service: Not on file Active member of [...] Ortiz MD - 10/25/2019 8:16 AM EDT ortho assistant to of primary for breech. documented in this encounter Assessments Diagnosis Acute nasopharyngitis Acute nasopharyngitis (common cold) Acute bilateral otitis media Diagnosis state, incidental Discharge Instructions * Attachments The following attachments cannot be sent through Care Everywhere. * : KICK COUNTS (PUERTO RICAN) * : WEEK 38 (PUERTO RICAN) * : WHEN TO CALL (AFTER 20 WEEKS): GENERAL INFO (PUERTO RICAN) * : BREECH VERSION (PUERTO RICAN) documented in this encounter Hospital Course * [...] section and content) DATE CREATED AUTHOR 05/11/[address] 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 Parents to see the land degradation analyst tomorrow for exam and weight check. Mom [...] THE PRIMARY CLINICAL RECORDS. [facility] [employer] provides no warranty or guarantee of the accuracy or completeness of information in this document.
--- OUTSIDE RECORDS SUMMARY | 2024-01-13 06:36 | XMS_ITS | CCD ---
Author Organization [facility] Care Team Providers Care Oncology Rep Name Role Phone NO, PHYSICIAN Primary Care Unavailable JUDY TORO Attending Marla vailable Maryuri, Physician Primary Care Provider Unavailabl e HAYLIE PEARSON Admitting Unavailabl e HAYLIE PEARSON Referring Unavailabl e PEERZADE, [facility] Primary Care Unav ailable HAYLIE PEARSON Admitting Unavailabl e ORHAYLIE CRISTOBAL Referring Unavailabl e PEERZADE, [facility] Primary Care Unav ailable Haylie Pearson Unavailable Peerzade, [facility] Primary [facility] Provide r HAYLIE PEARSON Admitting Unavailabl e HAYLIE PEARSON Attending Unavailabl e NO, PHYSICIAN Primary Care Unavailable HAYLIE PEARSON Admitting Unavailabl e PEERZADE, [facility] Care Unav ailable HAYLIE PEARSON Attending Unavailabl e [facility] C onsulting Unavailable PEERZADE, [facility] Primary [facility] Unav ailable HAYLIE PEARSON Admitting Unavailabl e ORWICKHAYLIE Attending Unavailabl e ORWIHAYLIE BROWN Admitting Unavailabl e PEERZADE, [facility] Unav ailable [facility] C onsulting Unavailable [...] 5 minutes, as instructed in the Notify Anesthesiologist/RAGMAN: Hypotension order. Start: 10-14-2019 End: 10-14-2019 lactated [...] CHEW. docusate sodium 50 mg / sennosides, senior care 8.6 mg oral tablet (1 source) Start: [...] Test Name Value Interpretation [facility] Erythrocyte distribution width (RBC) [Entitic vol] 14.1 % 11.6 - 14.8 % [facility] Hematocrit (Bld) [Volume fraction] 31.7 % Low 36 - 46 % [facility] Hemoglobin (Bld) [Mass/Vol] 9.9 g/dL Low 12 - 16 g/dL [facility] Interpretation and review of laboratory results Abnormal [facility] MCH (RBC) [Entitic mass] 29.6 pg 26 - 34 pg [facility] MCHC (RBC) [Mass/Vol] 31.2 g/dL 31 - 37 g/dL [facility] MCV (RBC) [Entitic vol] 94.6 fL 80 - 100 fL [facility] Nucleated RBC (Bld) [#/Vol] 0.00 10*3/uL [facility] Nucleated RBC/100 WBC (Bld) [Ratio] 0.0 % [facility] Platelet mean volume (Bld) [Entitic vol] 12.2 fL 9.4 - 12.4 fL [facility] Platelets (Bld) [#/Vol] 191 10*3/uL [facility] RBC (Bld) [#/Vol] 3.35 10*6/uL Low [facility] WBC (Bld) [#/Vol] 12.37 10*3/[facility]L [facility] Erythrocyte distribution width (RBC) [Entitic vol] 13.8 % 11.6 - 14.8 % [facility] Hematocrit (Bld) [Volume fraction] 37.8 % 36 - 46 % [facility] Hemoglobin (Bld) [Mass/Vol] 12.5 g/dL 12 - 16 g/dL [facility] Interpretation and review of laboratory results Abnormal [facility] MCH (RBC) [Entitic mass] 30.0 pg 26 - 34 pg [facility] MCHC (RBC) [Mass/Vol] 33.1 g/dL 31 - 37 g/dL [facility] MCV (RBC) [Entitic vol] 90.9 fL 80 - 100 fL [facility] Nucleated RBC (Bld) [#/Vol] 0.00 10*3/uL [facility] Nucleated RBC/100 WBC (Bld) [Ratio] 0.0 % [facility] Platelet mean volume (Bld) [Entitic vol] 12.4 fL 9.4 - 12.4 fL [facility] Platelets (Bld) [#/Vol] 256 10*3/uL [facility] RBC (Bld) [#/Vol] 4.16 10*6/uL [facility] WBC (Bld) [#/Vol] 12.90 10*3/uL [facility] Syphilis Antibodyon 10-25-19 20 Interpretation and review of laboratory results Normal [facility] T. pallidum Ab Ql (S) Negative Negative [facility] Type and Screenon 10-25-2019 ABO and Rh group Nom (Bld) B Positive [facility] Blood group antibody screen Ql Negative [facility] Specimen Expires 10/28/2019 23:59 EST [facility] ABORH VERIFICATIONon 020 ABO and Rh group Nom (Bld) ABO/Rh Verification [facility] ABO and Rh group Nom (Bld) B Positive [facility] Patient's ABO/Rh is verified. [facility] CBCon 10-14-2019 Erythrocyte distribution width (RBC) [Entitic vol] 13.5 % 11.6 - 14.8 % [facility] Hematocrit (Bld) [Volume fraction] 35.6 % Low 36 - 46 % [facility] Hemoglobin (Bld) [Mass/Vol] 11.6 g/dL Low 12 - 16 g/dL [facility] Interpretation and review of laboratory results Abnormal [facility] MCH (RBC) [Entitic mass] 30.0 pg 26 - 34 pg [facility] MCHC (RBC) [Mass/Vol] 32.6 g/dL 31 - 37 g/dL [facility] MCV (RBC) [Entitic vol] 92.0 fL 80 - 100 fL [facility] Nucleated RBC (Bld) [#/Vol] 0.00 10*3/uL [facility] Nucleated RBC/100 WBC (Bld) [Ratio] 0.0 % [facility] Platelet mean volume (Bld) [Entitic vol] 12.8 fL High 9.4 - 12.4 fL [facility] Platelets (Bld) [#/Vol] 253 10*3/uL [facility] RBC (Bld) [#/Vol] 3.87 10*6/uL Low [facility]alth WBC (Bld) [#/Vol] 12.69 10*3/uL [facility] RPRon 10-14-2019 Interpretation and review of laboratory results Normal [facility] Reagin Ab RPR Ql (S) Non-Reactive Non-Reactive [facility] Type and Screenon 10-14-2019 ABO and Rh group Nom (Bld) B Positive [facility] Blood group antibody screen Ql Negative [facility] Specimen Expires 10/17/2019 23:59 EST [facility] Group B Strep PCR, Vaginal/R ectalon 10-01-2019 S. agalactiae Ag Ql (Unsp spec) Negative Negative [facility] CHLAMYDIA/GONORRHOEAE AMPLIF IED RNAon 03-22-2019 C. trachomatis rRNA ELEUTERIO+probe Ql (Unsp spec) Negative Negative [facility] N. gonorrhoeae rRNA ELEUTERIO+probe Ql (Unsp spec) Negative Negative [facility] Type and Screenon 03-22-2019 ABO and Rh group Nom (Bld) B [facility] Rh Type Positive [facility] Vital Signs Date Time Vital Sign Value Performing Clinician Faci lity 10-27-2019 08:19-0400 Body Temperature 97.7 [degF] [facility] 10-27-2019 08:19-0400 BP Diastolic 67 mm[Hg] [facility] 10-27-2019 08:19-0400 BP Systolic 105 mm[Hg] [facility] 10-27-2019 08:19-0400 Pulse (Heart Rate) 71 /min [facility] 10-27-2019 08:19-0400 Pulse Oximetry 96 % [facility] 10-27-2019 08:19-0400 Respiratory Rate 16 /min [facility] 10-25-2019 06:01-0400 BMI (Body Mass Index) 29.13 kg/m2 [facility] 10-25-2019 06:01-0400 Body weight 84.37 kg [facility] 10-25-2019 06:01-0400 Height 170.2 cm [facility] 10-14-2019 10:30-0400 BP Diastolic 77 mm[Hg] [facility] 10-14-2019 10:30-0400 BP Systolic 126 mm[Hg] [facility] 10-14-2019 10:30-0400 Pulse (Heart Rate) 91 /min [facility] 10-14-2019 10:30-0400 Respiratory Rate 16 /min [facility] 10-14-2019 10:15-0400 Pulse Oximetry 97 % [facility] 10-14-2019 05:39-0400 BMI (Body Mass Index) 28.82 kg/m2 [facility] 10-14-2019 05:39-0400 Body Temperature 98.1 [degF] [facility] 10-14-2019 05:39-0400 Body weight 83.46 kg [facility] 10-14-2019 05:39-0400 Height 170.2 cm [facility] 05-11-2019 13:20-0500 Pulse (Heart Rate) 106 /min [facility] 05-11-2019 13:15-0500 BMI (Body Mass Index) 26.31 kg/m2 [facility] 05-11-2019 13:15-0500 Body Temperature 98.4 [degF] [facility] 05-11-2019 13:15-0500 Body weight 76.2 kg [facility] 05-11-2019 13:15-0500 BP Diastolic 76 mm[Hg] [facility] 05-11-2019 13:15-0500 BP Systolic 110 mm[Hg] [facility] 05-11-2019 13:15-0500 Height 170.2 cm [facility] 05-11-2019 13:15-0500 Pulse [facility]ximetry 98 % [facility] 13:15-0500 Respiratory Rate 14 /min [facility] En[facility]ters Encounter Date Encounter Type Care Provider [...] Start: 11-11-2019 End: 11-15-2019 Patient encounter procedure [facility] Start: 10-25-2019 End: 10-27-2019 Evaluation and management of inpatient [facility] Start: 10-25-2019 End: 10-27-2019 Evaluation and management of inpatient Haylie Pearson Work Phone: [facility] Mother/Infant Start: 10-24-2019 End: 10-24-2019 Patient encounter procedure [facility] Start: 10-14-2019 End: 10-14-2019 [facility] Start: 10-14-2019 End: 10-14-2019 Subsequent hospital visit by physician Haylie Pearson Work Phone: [facility] Labor [facility] Delivery Start: 10-11-2019 End: 10-11-2019 Patient encounter procedure [facility] Start: 10-08-2019 Patient encounter procedure [facility] Start: 05-11-2019 End: 05-11-2019 Patient encounter procedure PHYSICIAN NO [facility] Start: 05-11-2019 End: 05-11-2019 Office outpatient visit 25 minutes Judy CharlesGeneAssess Work Phone: [facility] Jono Saldivar Comment on above: Acute nasopharyngiti s (Primary Dx); Acute bilateral otitis media Procedures Date Procedure Procedure Detail Performing Clinician Start: 10-26-2019 Complete blood count (hemogram) panel - Blood by Automated count [employer] Work Phone: Start: 10-25-2019 Blood type and Indir ect antibody screen panel - Blood [employer] Work Phone: Start: 10-25-2019 Complete blood count (hemogram) panel - Blood by Automated count [employer] Work Phone: Start: 10-25-2019 Treponema pallidum I gG Ab [Presence] in Serum Haylie [employer] Work Phone: Start: 10-14-2019 Blood group typing Caren ann [employer] Work Phone: Start: 10-14-2019 Blood type and Indir ect antibody screen panel - Blood [employer] Work Phone: Start: 10-14-2019 Complete blood count (hemogram) panel - Blood by Automated count [employer] Phone: Start: 10-14-2019 Rapid plasma reagin test [employer] Work Phone: Start: 10-01-2019 Streptococcus agalac tiae DNA [Presence] in Unspecified specimen by ELEUTERIO with probe detection Historical Provider Start: 03-22-2019 Blood type and Indir ect antibody screen panel - Blood Historical Provider Start: 03-22-2019 Neisseria gonorrhoea e nucleic acid detection Historical Provider Plan of Treatment Date Care Activity Detail Author Start: 12-03-2019 Influenza vaccination given Se quential Influenza Vaccine (#1) [facility] Start: 10-01-2019 Influenza vaccination given SE QUENTIAL INFLUENZA VACCINE (#1) [facility] Comment on above: Postponed from 12/02 (Patient Refused) Start: 02-08-2006 Hepatitis C antibody , confirmatory test Hepatitis C Screening [facility] Start: 02-08-2003 HIV screening HIV Screening [facility] Start: 02-08-1991 History and physical examination, annual for health maintenance Wellness Visit [facility] Start: 1988 Screening for malign ant neoplasm of cervix PAP SMEAR [facility] Start: 1988 [facility] Immunizations Immunization Date Immunization Notes Care Provider Felipe [facility] 10-25-2019 diphtheria, tetanus toxoids and acellular pertussis vaccine, unspecified formulation [facility] 10-25-2019 measles, mumps and r ubella virus vaccine [facility] 10-25-2019 varicella zoster immune globulin [facility] Payers Date Payer Category Payer Private Health Insurance [id number] Private Health Insurance [id number] 2019 Private Health Insurance [id number] 2019 Private Health Insurance [id number] 1988 Unknown [id number] 2.16. [id number] 1988 Unknown [id number] 2.16.8 [id number] 1988 Unknown [id number] 2.16.8 [id number] 1988 Unknown [id number] 2.16.8 [id number] 1988 Unknown [id number] 2.16.8 [id number] 1988 Unknown [id number] 2.16.8 [id number] 1988 Unknown [id number] 2.16.8 [id number] 1988 Unknown [id number] 2.16.8 [id number] 1988 Unknown [id number] 2.16.84 0.1.889580.3.579.2.1259 1988 Unknown [id number] 2.16.84 0.1.128901.3.579.2.1259 1988 Unknown [id number] 2.16.84 0.1.984775.3.579.2.1259 1988 Unknown [id number] 2.16.84 0.1.068605.3.579.2.1259 1988 Unknown [id number] 2.16.84 0.1.302506.3.579.2.9 1988 Unknown [id number] 2.16.84 [id number] 1988 Unknown [id number] 2.16.84 [id number] Social History Date Type Detail Facility Start: 05-11-2019 End: 10-27-2019 Tobacco smoking status VTIS Never smoker [facility] Start: 05-11-2019 End: 10-27-2019 Alcohol intake Ex-drinker (finding) [facility] Start: 02-07-2019 [facility] Sex Assigned At Not on file [facility] Exposure to SARS-CoV-2 (event) Not sure [facility] Summary Purpose Family History No Family History Records FoundNo Family History Records FoundNo Family History Records FoundNo Family History Records Found Advance Directives No Advanced Directives Records FoundDocuments on File Type Date 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 Advance Directives and Living Will Documents on File Type Date 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 Advance Directives and Livin g Will 10/14/2019 5:28 AM Latest Code Status on File Code Status Date Activated Date Inactivated Comments Full Code 10/14/2019 5:32 AM 10/14/2019 1:17 PM Documents on File Type Date 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 You will probably feel better [...] amount of fluids you drink. Take an dutc-hdx-ecryzoi pain medicine, such as acetaminophen (Tylenol), ibuprofen (Advil, Motrin),or naproxen (Aleve). Read and follow all instructions on the label. Before you use cough and cold medicines, check the label. These medicines may not be safe for youngchildren or for people with certain health problems. Be careful when taking dynl-vhm-isqzevz cold or flu medicines and Tylenol at [...] Log into your personal health record on [email or web address] and enter K520 in the Education box to learn more about Upper Respiratory Infection (Cold): Care Instructions. Current as of: September 09, 2018 Content Version: 12.3 3572-8284 [employer]. Care instructions adapted under license by your healthcare professional. If you have questions about a medical condition or this instruction, always ask your healthcare professional. [employer] disclaims any warranty or liability for your [...] taking a prescription pain medicine, take an oaiv-xyk-eaocnul medicine, such as acetaminophen (Tylenol), ibuprofen (Advil, [...] Log into your personal health record on [email or web address]://[email or web address] and enter X558 in the Education box to learn more about Ear Infection (Otitis Media): Care Instructions. Current as of: October 28, 2018 Content Version: 12.3 [employer]. Care instructions adapted under license by your healthcare professional. If you have questions about a medical condition or this instruction, always ask your healthcare professional. [employer] disclaims any warranty or liability for your use of this information. 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 documented in this encounter Assessments Diagnosis Acute nasopharyngitis Acute nasopharyngitis (common cold) Acute bilateral otitis media Diagnosis state, incidental Discharge Instructions * Attachments The following attachments cannot be sent through Care Everywhere. * : KICK COUNTS (TRINIDADIAN) * : WEEK 38 (TRINIDADIAN) * : WHEN TO CALL (AFTER 20 WEEKS): GENERAL INFO (TRINIDADIAN) * : BREECH VERSION (TRINIDADIAN) documented in this encounter Hospital Course * [...] section and content) DATE CREATED AUTHOR 05/11/2019 [facility] DATE CREATED AUTHOR AUTHOR'S ORGANIZ ATION 10/25/2019 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 Parents to see the material assembler tomorrow for exam and weight check. Mom [...] BE BASED ON THE PRIMARY CLINICAL RECORDS. [facility] [employer] provides no warranty or guarantee of the accuracy or completeness of information in this document.
== END 2024-01-11 10:00 | disposition home or self-care (01) ==
LOC: FBCO 09:00 → FBC 09:02
PROVIDERS: PCP Family Medicine; Visit Provider Obstetrics & Gynecology
DX: O09.523 Supervision of elderly multigravida, third trimester (principal); Z3A.34 34 weeks gestation of pregnancy
CPT/HCPCS: 59025

== ENCOUNTER 2024-01-17 06:57 | Outpatient (OUT) | payer OTHER, SELFPAY ==
--- NOTE | 2024-01-17 | US_ITS ---
[address] [address] Patient Name: ACE MORRISSEY MRN: [id number] date: 1990 Sex: F Assigned Patient Location: [facility] Current Patient Location: [facility] Accession/Order Number: [id number] Exam Date: 01/17/2024 08:05 Report Date: 01/17/2024 08:50 At the request of: SHANNA KEITH Procedure: US OB BPP w non-stress EXAMINATION: US OB BPP w non-stress HISTORY: Multigravida of advanced maternal age O09.522 COMPARISON: No relevant comparison available. TECHNIQUE: Ultrasound biophysical profile was performed in the radiology department. non-reactive stress testing was performed by nursing staff in the birthing center. FINDINGS: BREATHING MOVEMENTS: 2 GROSS BODY MOVEMENTS: 2 TONE: 2 QUALITATIVE AMNIOTIC FLUID VOLUME: 2 PRESENTATION: CEPHALIC HEART RATE: 117.84 bpm AMNIOTIC FLUID VOLUME: 16.9 cm GESTATIONAL AGE: 35 weeks 5 days US/US OB BPP w non-stress IMPRESSION: Total biophysical profile score: 8 Electronically authenticated by: DANG ROD Date: 01/17/2024 08:50
--- OUTSIDE RECORDS SUMMARY | 2024-01-17 06:58 | XMS_ITS | CCD ---
Author Organization [facility] Care Team Providers Care Mammalogy Teacher Name Role Phone NO, PHYSICIAN Primary Care Unavailable JUDY TORO Attending Marla vailable Maryuri, Physician Primary Care Provider Unavailabl HAYLIE Bustos Admitting Unavailabl e HAYLIE PEARSON Referring Unavailabl e PEERZADE, [facility] Primary Care Unav ailable HAYLIE PEARSON Admitting Unavailabl e ORSUSU, HAYLIE HERNANDEZ Referring Unavailabl e PEERZADE, [facility] Care Unav ailable Haylie Pearson Unavailable Peerzade, [facility] Primary [facility] Provide r HAYLIE PEARSON Admitting Unavailabl e HAYLIE PEARSON Attending Unavailabl e NO, PHYSICIAN Primary Care Unavailable HAYLIE PEARSON Admitting Unavailabl e PEERZADE, [facility] Primary Care Unav ailable HAYLIE PEARSON Attending Unavailabl e [facility] onsulting Unavailable PEERZADE, [facility] Primary [facility] Unav ailable HAYLIE PEARSON Admitting Unavailabl e ORHAYLIE CRISTOBAL Attending Unavailabl e HAYLIE PEARSON Admitting Unavailabl e PEERZADE, [facility] Primary Care Unav ailable [facility] onsulting Unavailable KAREN SCHULTE Attending Unavailable HAYLIE PEARSON Admitting Unavailabl e PEERZADE, [facility] Primary Care Unav ailable SHANNA FORD Attending Unavailable SHANNA FORD Attending Unavailable SHANNA FORD Attending Unavailable SHANNA FORD Attending Unavailable SHARRI GUZMAN Attending Unavailable SHANNA FORD Attending Unavailable SHARRI GUZMAN Attending Unavailable SHARRI GUZMAN Attending Unavailable Sagar GALDAMEZ, Nathaly Briggs Primary Care Provider Medications Current Medications Medication Drug Class(es) Dates [...] . 30 capsule 0 05/11/2019 05/21/2019 Active aspirin 81 mg delayed release oral tablet (3 sources) Platelet Aggregation Inhibitor, Nonsteroidal Anti-inflammatory Drug take 1 tablet by mouth once daily aspirin 81 MG EC tablet Take 81 mg by mouth Daily Active MV-Min-Fe Fum-FA-DHA ( 1 PO) (3 sources) MV-Min-Fe Fum-FA-DHA ( 1 PO) Take 1 each by mouth Daily Active vitamin with Ca-Iron-FA 27-1 mg Tab [...] 5 minutes, as instructed in the Notify Anesthesiologist/COORDINATE MEASURING EQUIPMENT OPERATOR: Hypotension order. Start: 10-14-2019 End: 10-14-2019 [...] te Episodic/Chronic Other and delivery including normal (6 sources) ; Translations: [Third trimester ] Onset: 10-14-2019 10-14-2019 Episodic Other upper respiratory infections (1 source) Nasopharyngitis; Translations: [Acute nasopharyngitis] Episodic Otitis media and related conditions (1 source) Acute bilateral otitis media ; Translations: [Acute bilateral otitis media] Episodic Residual codes; unclassified (2 sources) Gestation period, 34 weeks; Translations: [34 weeks gestation of ] 01-11-2024 Episodic Unclassified (3 sources) OB Reminders Onset: 08-13-2023 08-13-2023 Past or Other Problems Problem Classification Problem Date Documented Da te Episodic/Chronic NEGATED: Highlighted row has been ruled out!Unclassified (1 source) No known active problems Results Test Name Value Interpretation Reference Range Facil ity Urinalysis macro (dipstick) panel (U)on 01-11-2024 Bilirubin, UA Negative Negative - 4(70) +++ mg/dL [facility] Blood, UA Negative Negative - 50 [place]/mcL [facility] Clarity, UA Clear [facility] Color, UA Yellow [facility] Glucose, UA Negative Negative - 2000(110) ++++ mg/dL [facility] Interpretation and review of laboratory results Normal [facility] Ketones, UA Negative Negative - 160(16) ++++ mg/dL [facility] Leukocytes, UA Negative Negative - 500+++ Elsa/mcL [facility] Nitrite, UA Negative Negative - Positive [facility] pH, UA 7.0 5 - 9 [facility] Protein, UA Negative Negative - 1999(20) ++++ mg/dL [facility] Spec Grav, UA 1.010 1 - 1.03 [facility] Urobilinogen, UA 0.2 0.2 - 12 mg/dL [facility] 10-26-2019 Erythrocyte distribution width (RBC) [Entitic vol] 14.1 % 11.6 - 14.8 % [facility] Hematocrit (Bld) [Volume fraction] 31.7 % Low 36 - 46 % [facility] Hemoglobin (Bld) [Mass/Vol] 9.9 g/dL Low 12 - 16 g/dL [facility] Interpretation and review of laboratory results Abnormal [facility] MCH (RBC) [Entitic mass] 29.6 pg 26 - 34 pg [facility] MCHC (RBC) [Mass/Vol] 31.2 g/dL 31 - 37 g/dL [facility] MCV (RBC) [Entitic vol] 94.6 fL 80 - 100 fL [facility] Nucleated RBC (Bld) [#/Vol] 0.00 10*3/uL [facility] Nucleated RBC/100 WBC (Bld) [Ratio] 0.0 % [facility] Platelet mean volume (Bld) [Entitic vol] 12.2 fL 9.4 - 12.4 fL [facility] Platelets (Bld) [#/Vol] 191 10*3/uL [facility] RBC (Bld) [#/Vol] 3.35 10*6/uL Low [facility] WBC (Bld) [#/Vol] 12.37 10*3/uL High [facility] CBCon 10-25-2019 Erythrocyte distribution width (RBC) [Entitic vol] 13.8 % 11.6 - 14.8 % [facility] Hematocrit (Bld) [Volume fraction] 37.8 % 36 - 46 % [facility] Hemoglobin (Bld) [Mass/Vol] 12.5 g/dL 12 - 16 g/dL [facility] Interpretation and review of laboratory results Abnormal [facility] MCH (RBC) [Entitic mass] 30.0 pg 26 - 34 pg [facility] MCHC (RBC) [Mass/Vol] 33.1 g/dL 31 - 37 g/dL [facility] MCV (RBC) [Entitic vol] 90.9 fL 80 - 100 fL [facility] Nucleated RBC (Bld) [#/Vol] 0.00 10*3/uL [facility] Nucleated RBC/100 WBC (Bld) [Ratio] 0.0 % [facility] Platelet mean volume (Bld) [Entitic vol] 12.4 fL 9.4 - 12.4 fL [facility] Platelets (Bld) [#/Vol] 256 10*3/uL [facility] RBC (Bld) [#/Vol] 4.16 10*6/uL [facility] WBC (Bld) [#/Vol] 12.90 10*3/uL High [facility] Syphilis Antibodyon 10-25-19 20 Interpretation and review of laboratory results Normal [facility] T. pallidum Ab Ql (S) Negative Negative [facility] Type and Screenon 10-25-2019 ABO and Rh group Nom (Bld) B Positive [facility] Blood group antibody screen Ql Negative [facility] Specimen Expires 10/28/2019 23:59 EST [facility] ABORH VERIFICATIONon 020 ABO and Rh group Nom (Bld) ABO/Rh Verification [facility] ABO and Rh group Nom (Bld) B Positive [facility] Patient's ABO/Rh is verified. [facility] CBCon 10-14-2019 Erythrocyte distribution width (RBC) [Entitic vol] 13.5 % 11.6 - 14.8 % [facility] Hematocrit (Bld) [Volume fraction] 35.6 % Low 36 - 46 % [facility] Hemoglobin (Bld) [Mass/Vol] 11.6 g/dL Low 12 - 16 g/dL [facility] Interpretation and review of laboratory results Abnormal [facility] MCH (RBC) [Entitic mass] 30.0 pg 26 - 34 pg [facility] MCHC (RBC) [Mass/Vol] 32.6 g/dL 31 - 37 g/dL [facility] MCV (RBC) [Entitic vol] 92.0 fL 80 - 100 fL [facility] Nucleated RBC (Bld) [#/Vol] 0.00 10*3/uL [facility] Nucleated RBC/100 WBC (Bld) [Ratio] 0.0 % [facility] Platelet mean volume (Bld) [Entitic vol] 12.8 fL High 9.4 - 12.4 fL [facility] Platelets (Bld) [#/Vol] 253 10*3/uL [facility] RBC (Bld) [#/Vol] 3.87 10*6/uL Low [facility] WBC (Bld) [#/Vol] 12.69 10*3/uL High [facility] RPRon 10-14-2019 Interpretation and review of laboratory results Normal [facility] Reagin Ab RPR Ql (S) Non-Reactive Non-Reactive [facility] Type and Screenon 10-14-2019 ABO and Rh group Nom (Bld) B Positive [facility] Blood group antibody screen Ql Negative [facility] Specimen Expires 10/17/2019 23:59 EST [facility] Group B Strep PCR, Vaginal/R ectalon 10-01-2019 S. agalactiae Ag Ql (Unsp spec) Negative Negative [facility] CHLAMYDIA/GONORRHOEAE AMPLIF IED RNAon 03-22-2019 C. trachomatis rRNA ELEUTERIO+probe Ql (Unsp spec) Negative Negative [facility] N. gonorrhoeae rRNA ELEUTERIO+probe Ql (Unsp spec) Negative Negative [facility] Type and Screenon 03-22-2019 ABO and Rh group Nom (Bld) B [facility] Rh Type Positive [facility] Vital Signs Date Time Vital Sign Value Performing Clinician Faci lity 01-11-2024 10:10-0400 Body mass index (BMI) [Ratio] 31.93 kg/m2 Sharri MEZA Work Phone: [facility] 01-11-2024 10:10-0400 Body weight 89.72 kg Sharri MEZA Work Phone: [facility] 01-11-2024 10:10-0400 Diastolic blood pressure 68 mm[Hg] Sharri MEZA Work Phone: [facility] 01-11-2024 10:10-0400 Systolic blood pressure 120 mm[Hg] Sharri MEZA Work Phone: [facility] 10-27-2019 08:19-0400 Body Temperature 97.7 [degF] [facility] 10-27-2019 08:19-0400 BP Diastolic 67 mm[Hg] [facility] 10-27-2019 08:19-0400 BP Systolic 105 mm[Hg] [facility] 10-27-2019 08:19-0400 Pulse (Heart Rate) 71 /min [facility] 10-27-2019 08:19-0400 Pulse Oximetry 96 % [facility] 10-27-2019 08:19-0400 Respiratory Rate 16 /min [facility] 10-25-2019 06:01-0400 BMI (Body Mass Index) 29.13 kg/m2 [facility] 10-25-2019 06:01-0400 Body weight 84.37 kg [facility] 10-25-2019 06:01-0400 Height 170.2 cm [facility] 10-14-2019 10:30-0400 BP Diastolic 77 mm[Hg] [facility] 10-14-2019 10:30-0400 BP Systolic 126 mm[Hg] [facility] 10-14-2019 10:30-0400 Pulse (Heart Rate) 91 /min [facility] 10-14-2019 10:30-0400 Respiratory Rate 16 /min [facility] 10-14-2019 10:15-0400 Pulse Oximetry 97 % [facility] 10-14-2019 05:39-0400 BMI (Body Mass Index) 28.82 kg/m2 [facility] 10-14-2019 05:39-0400 Body Temperature 98.1 [degF] [facility] 10-14-2019 05:39-0400 Body weight 83.46 kg [facility] 10-14-2019 05:39-0400 Height 170.2 cm [facility] 05-11-2019 13:20-0500 Pulse (Heart Rate) 106 /min [facility] 05-11-2019 13:15-0500 BMI (Body Mass Index) 26.31 kg/m2 [facility] 05-11-2019 13:15-0500 Body Temperature 98.4 [degF] [facility] 05-11-2019 13:15-0500 Body weight 76.2 kg [facility] 05-11-2019 13:15-0500 BP Diastolic 76 mm[Hg] [facility] 05-11-2019 13:15-0500 BP Systolic 110 mm[Hg] [facility] 05-11-2019 13:15-0500 Height 170.2 cm [facility] 05-11-2019 13:15-0500 Pulse Oximetry 98 % [facility] 05-11-2019 13:15-0500 Respiratory Rate 14 /min [facility] Encounters Encounter Date Encounter Type Care Provider Facility Start: 01-11-2024 End: 01-11-2024 Bamboo flowsheet Sharri MEZA Work Phone: [facility] Start: 01-11-2024 End: 01-11-2024 Bamboo flowsheet Sharri MEZA Work Phone: [facility] Start: 01-11-2024 End: 01-11-2024 ambulatory SHARRI GUZMAN Not Available Start: 01-11-2024 End: 01-11-2024 flow sheet Sharri MEZA Work Phone: [facility] Comment on above: 34 weeks gestation o f ; Third trimester Start: 12-27-2023 End: 12-27-2023 ambulatory SHARRI GUZMAN Not Available Start: 12-13-2023 End: 12-13-2023 ambulatory SHANNA INNA Not Available Start: 11-29-2023 End: 11-29-2023 ambulatory SHARRI MEGAN Not Available Start: 11-15-2023 End: 11-15-2023 ambulatory SHANNA INNA Not Available Start: 10-16-2023 End: 10-16-2023 ambulatory SHANNA INNA Not Available Start: 09-11-2023 End: 09-11-2023 ambulatory SHANNA INNA Not Available Start: 08-14-2023 End: 08-14-2023 ambulatory SHANNA INNA Not Available Start: 07-13-2023 End: 07-13-2023 ambulatory SHANNA INNA Not Available Start: 11-11-2019 End: 11-15-2019 Patient encounter procedure [facility] Start: 10-25-2019 End: 10-27-2019 Evaluation and management of inpatient [facility] Start: 10-25-2019 End: 10-27-2019 Evaluation and management of inpatient [facility] Work Phone: [facility] Mother/ Start: 10-24-2019 End: 10-24-2019 Patient encounter procedure [facility] Start: 10-14-2019 End: 10-14-2019 Patient encounter procedure DANETTE CERVANTES PEERZADE [facility] Start: 10-14-2019 End: 10-14-2019 Subsequent hospital visit by physician Haylie Pearson Work Phone: [facility] Labor [facility] Delivery Start: 10-11-2019 End: 10-11-2019 Patient encounter procedure [facility] Start: 10-08-2019 Patient encounter procedure [facility] Start: 05-11-2019 End: 05-11-2019 Patient encounter procedure PHYSICIAN MARYURI [facility] Start: 05-11-2019 End: 05-11-2019 Office outpatient visit 25 minutes [place] Work Phone: [facility] Comment on above: Acute nasopharyngiti s (Primary Dx); Acute bilateral otitis media Procedures Date Procedure Procedure Detail Performing Clinician Start: 01-11-2024 Urnls dip stick/tabl et rgnt non-auto w/o micrscp Sharri MEZA Work Phone: Start: 09-11-2023 Microscopic observat ion [Identifier] in Cervix by Cyto stain Sharri MEZA Work Phone: Start: 10-26-2019 Complete blood count (hemogram) panel - Blood by Automated count Haylie Pearson Work Phone: Start: 10-25-2019 Blood type and Indir ect antibody screen panel - Blood Haylie Pearson Work Phone: Start: 10-25-2019 Complete blood count (hemogram) panel - Blood by Automated count Haylie Pearson Work Phone: Start: 10-25-2019 Treponema pallidum I gG Ab [Presence] in Serum Haylie Pearson Work Phone: Start: 10-14-2019 Blood group typing Caren ClarkeLore Work Phone: Start: 10-14-2019 Blood type and Indir ect antibody screen panel - Blood Haylie Pearson Work Phone: Start: 10-14-2019 Complete blood count (hemogram) panel - Blood by Automated count [employer]lie [employer] Work Phone: Start: 10-14-2019 Rapid plasma reagin test Haylie Pearson Work Phone: Start: 10-01-2019 Streptococcus agalac tiae DNA [Presence] in Unspecified specimen by ELEUTERIO with probe detection Historical Provider Start: 03-22-2019 Blood type and Indir ect antibody screen panel - Blood Historical Provider Start: 03-22-2019 Neisseria gonorrhoea e nucleic acid detection Historical Provider Plan of Treatment Date Care Activity Detail Author Start: 09-10-2028 Screening for malign ant neoplasm of cervix [facility] Start: 01-31-2024 End: 01-31-2024 Patient encounter procedure 01/31/2024 9:50 AM EDT Routine [facility] [address] [facility] [place] [place] [id number] Sharri Guzman PA [address] [place] [address] [facility] Start: 01-22-2024 End: 01-22-2024 Patient encounter procedure 01/22/2024 3:00 PM EDT Routine [facility] [address] [place] [id number] Shanna Ford DO [address] [place] [address] [facility] Start: 12-03-2023 Influenza vaccination Influenza Vacc ine (#1) [facility] Start: 12-03-2019 Influenza vaccination given Se quential Influenza Vaccine (#1) [facility] Start: 10-01-2019 Influenza vaccination given SE QUENTIAL INFLUENZA VACCINE (#1) [facility] Comment on above: Postponed from 12/02 (Patient Refused) Start: 02-08-2006 Hepatitis C antibody , confirmatory test Hepatitis C Screening [facility] Start: 02-08-2003 HIV screening HIV Screening [facility] Start: 02-08-1991 History and physical examination, annual for health maintenance Wellness Visit [facility] Start: 1988 Screening for malign ant neoplasm of cervix PAP SMEAR [facility] Start: 1988 Tetanus vaccination [facility] Immunizations Immunization Date Immunization Notes Care Provider [facility] 10-25-2019 diphtheria, tetanus toxoids and acellular pertussis vaccine, unspecified formulation [facility] 10-25-2019 measles, mumps and r ubella virus vaccine [facility] 10-25-2019 varicella zoster immune globulin Tamanna [facility] Payers Date Payer Category Payer Private Health Insurance [employer] [id number] 2023-Present [address] [address] [place] [address] [id number] 2023 Private Health Insurance [id number] 2022 Private Health Insurance [id number] 2019 Private Health Insurance [id number] 2019 Private Health Insurance [id number] 1988 Unknown [id number] [id number]. 903 1988 Unknown [id number] [id number]. 900 1988 Unknown [id number] 2.16.840.1.915832.3.579.2. 900 1988 Unknown [id number] 2.16.840.1.562375.3.579.2. 902 1988 Unknown [id number] 2.16.840.1.775634.3.579.2. 902 1988 Unknown [id number] 2.16.840.1.163847.3.579.2. 902 1988 Unknown [id number] 2.16.840.1.987226.3.579.2. 902 1988 Unknown [id number] 2.16.840.1.182705.3.579.2. 902 1988 Unknown [id number] 2.16.840.1.949476.3.579.2. 9 1988 Unknown [id number] 2.16.840.1.667642.3.579.2. 9 1988 Unknown [id number] 2.16.840.1.022656.3.579.2. 9 1988 Unknown [id number] 2.16.840.1.913079.3.579.2. 9 1988 Unknown [id number] 2.16.840.1.922015.3.579.2. 9 1988 Unknown [id number] 2.16.840.1.254884.3.579.2. 9 1988 Unknown [id number] 2.16.840.1.938583.3.579.2. 1259 1988 Unknown [id number] 2.16.840.1.688119.3.579.2. 1259 1988 Unknown [id number] [id number]. 1259 Social History Date Type Detail Facility Start: 05-11-2019 End: 12-26-2022 Tobacco smoking status INIS Never smoker [facility] Start: 05-11-2019 End: 10-27-2019 Alcohol intake Ex-drinker (finding) [facility] Start: 02-07-2019 [facility] Sex Assigned At Not on file [facility] Exposure to SARS-CoV -2 (event) Not sure [facility] Start: 12-26-2022 Tobacco use and exposure Smokeless t obacco non-user [facility] Start: 12-27-2023 End: 01-11-2024 Alcoholic beverage intake Current drinker of alcohol (finding) [facility] Start: 07-07-2023 History of Social function [facility] Start: 07-07-2023 Tobacco use panel [facility] Start: 1990 Sex assigned at Female [facility] Start: 12-25-2022 Gender identity Identifies as female gender (finding) [facility] Start: 12-25-2022 Sexual orientation Heterosexual (fin ding) [facility] Goals Date Patient Goal Desired Activity /State Personal health goal History of Present illness Narrative 01-11-2024 DERRICK Vargas - 01/11/2024 9:50 AM EDT Note Date & Type Note Facility 01-11-2024 History of Presen t illness Narrative Reason for Appointment: Patient ID: Joanne Brown is a 33 y.o. female who presents for Routine Visit Patient presents today for Return OB appointment. MEDICATIONS Current Outpatient Medications Medication Instructions aspirin 81 mg, Oral, Daily MV-Min-Fe Fum-FA-DHA ( 1 PO) 1 each, Oral, Daily ALLERGIES No Known Allergies PROBLEMS Active Ambulatory Problems Diagnosis Date Noted No Active Ambulatory Problems Resolved Ambulatory Problems Diagnosis Date Noted No Resolved Ambulatory Problems Past Medical History: Diagnosis Date Anxiety History of depression HISTORY PAST MEDICAL HISTORY SOCIAL HISTORY Past Medical History: Diagnosis Date Anxiety History of depression Social History Tobacco Use Smoking status: Never Smokeless tobacco: Never Substance Use Topics Alcohol use: Yes Drug use: Never FAMILY HISTORY No family history on file. SURGICAL HISTORY Past Surgical History: Procedure Laterality Date SECTION, LOW TRANSVERSE 2020 REVIEW OF SYSTEMS Review of Systems: Review of Systems Constitutional: Negative. HENT: Negative. Eyes: Negative. Respiratory: Negative. Cardiovascular: Negative. Gastrointestinal: Negative. Genitourinary: Negative. Musculoskeletal: Negative. Skin: Negative. Neurological: Negative. All other systems reviewed and are negative. Hematological: Negative. Endocrine: Negative. Allergic/Immunologic: Negative. OBJECTIVE Objective: Physical Exam Constitutional: Appearance: Normal appearance. She is well-developed and normal weight. HENT: Head: Normocephalic. Cardiovascular: Rate and Rhythm: Normal rate and regular rhythm. Pulses: Normal pulses. Pulmonary: Effort: Pulmonary effort is normal. Breath sounds: Normal breath sounds. Abdominal: General: Bowel sounds are normal. There is no distension. Palpations: Abdomen is soft. Tenderness: There is no abdominal tenderness. There is no guarding or rebound. Musculoskeletal: General: No swelling. Normal range of motion. Right lower leg: No edema. Left lower leg: No edema. Neurological: General: No focal deficit present. Mental Status: She is alert and oriented to person, place, and time. Skin: General: Skin is warm and dry. Psychiatric: Mood and Affect: Mood normal. Behavior: Behavior normal. Thought Content: Thought content normal. Judgment: Judgment normal. Vitals and nursing note reviewed. Exam conducted with a mortar maker present. Vitals: Estimated body mass index is 31.93 kg/m as calculated from the following: Height as of 08/08/22: 5' 6 . Weight as of this encounter: 197 lb 12.8 oz. BP: 120/68 Patient's last menstrual period was 05/12/2023. ASSESSMENT & PLAN ICD-10-CM 1. 34 weeks gestation of Z3A.34 POCT urinalysis dipstick manually resulted 2. Third trimester Z34.93 POCT urinalysis dipstick manually resulted Return OB: Patient presents today for a routine obstetrics appointment. Patient is currently 34w6d . Patient states she is doing well but has complaints of being tired due to current . Patient has verbalizes frequent movement. labor precautions was discussed/given and patient was instructed to perform kick counts three times a day. Orders Placed This Encounter Procedures POCT urinalysis dipstick manually resulted Follow Up: Patient is to return to office in 2 week for routine OB appointment. Documented by Shirley Shultz LPN on behalf of: DERRICK Vargas documented in this encounter [facility] Evaluation note Note Date & Type Note Facility Evaluation note Diagnosis 34 weeks gestation of Third trimester state, incidental documented in this encounter [facility] Summary Purpose Family History No Family History Records FoundNo Family History Records FoundNo Family History Records FoundNo Family History Records Found Advance Directives Documents on File Type Date Recorded Patient Assistance Coordinator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 Advance Directives and Living Will Documents on File Type Date Recorded Patient Assistance Coordinator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 Advance Directives and Livin g Will 10/14/2019 5:28 AM Latest Code Status on File Code Status Date Activated Date Inactivated Comments Full Code 10/14/2019 5:32 AM 10/14/2019 1:17 PM Documents on File Type Date Recorded Patient Assistance Coordinator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 Advance Directives and Livin g Will 10/25/2019 6:19 AM Latest Code Status on File Code Status Date Activated Date Inactivated Comments Full Code 10/25/2019 11:46 AM 10/27/2019 2:32 PM Full Code 10/25/2019 5:44 AM 10/25/2019 10:39 AM Full Code 10/14/2019 5:32 AM 10/14/2019 1:17 PM Instructions * Patient Instructions* Judy Toro, PLUG WIRER - 05/11/2019 1:40 PM EST Upper Respiratory [...] include drinking lots of fluids and taking ajox-htw-siudpol pain medicine. You will probably feel better [...] amount of fluids you drink. Take an slwr-oxe-gmvsdcx pain medicine, such as acetaminophen (Tylenol), ibuprofen (Advil, Motrin),or naproxen (Aleve). Read and follow all instructions on the label. Before you use cough and cold medicines, check the label. These medicines may not be safe for youngchildren or for people with certain health problems. Be careful when taking imka-hrq-jjsgylc cold or flu medicines and Tylenol at [...] Log into your personal health record on [email or web address] and enter K520 in the Education box to learn more about Upper Respiratory Infection (Cold): Care Instructions. Current as of: September 09, 2018 Content Version: 12. [employer]. Care instructions adapted under license by your healthcare professional. If you have questions about a medical condition or this instruction, always ask your healthcare professional. [employer] disclaims any warranty or liability for your [...] taking a prescription pain medicine, take an ncjz-sjx-rtiumdq medicine, such as acetaminophen (Tylenol), ibuprofen (Advil, [...] Log into your personal health record on [email or web address] and enter X558 in the Education box to learn more about Ear Infection (Otitis Media): Care Instructions. Current as of: October 28, 2018 Content Version: 12.3 [id number] [employer]. Care instructions adapted under license by your healthcare professional. If you have questions about a medical condition or this instruction, always ask your healthcare professional. [employer] disclaims any warranty or liability for your use of this information. documented in this encounter History of Present Illness * Judy Toro CNP - 05/11/2019 1:31 PM EST PATIENT NAME: Joanne Brown [facility] [address] [facility] [address] : 1990 DATE OF VISIT: 05/11/2019 #: [...] file Gets together: Not on file Attends yazdanism service: Not on file Active member of [...] Ortiz MD - 10/25/2019 8:16 AM EDT sales assistant entertainment and media to of primary for breech. documented in this encounter Assessments Diagnosis Acute nasopharyngitis Acute nasopharyngitis (common cold) Acute bilateral otitis media Diagnosis state, incidental Discharge Instructions * Attachments The following attachments cannot be sent through Care Everywhere. * : KICK COUNTS (SYRIAN) * : WEEK 38 (SYRIAN) * : WHEN TO CALL (AFTER 20 WEEKS): GENERAL INFO (SYRIAN) * : BREECH VERSION (SYRIAN) documented in this encounter Hospital Course * [...] section and content) DATE CREATED AUTHOR 05/11/2019 [facility] DATE CREATED AUTHOR AUTHOR'S ORGANIZ ATION 10/25/2019 [facility] DATE CREATED AUTHOR AUTHOR'S ORGANIZ ATION 11/27/2019 [facility] DATE CREATED AUTHOR AUTHOR'S ORGANIZ ATION 01/13/2024 [facility] EPIC Reason for [...] Referred To Contact Diagnoses breech Procedures SECTION Reason Comments Routine Visit Haylie Pearson MD - 10/14/2019 8:17 AM [...] with FOB, denies LOF or VB, pos. Joanne Brown is a 29 y.o. female [...] Yasmin Butts, RN - 10/14/2019 10:56 AM EDTQuick Note - Yasmin Butts RN - 10/14/2019 10:31 AM EDTQuac Note - Yasmin Butts, RN [...] in this encounter Patient discharged out patient hop picker exit in wheelchair with infant. 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 Parents to see the investigator vice tomorrow for exam and weight check. Mom [...] dictation. No complications documented in this encounter Care Teams (unrecognized sec tion and content) Mammalogy Teacher Relationship Specialty Start Date End Date Nathaly Keith MD [address] [place] [address] PCP - General Family Medicine 12/26/22 Mammalogy Teacher Relationship Specialty Start Date End Date Nathaly Keith MD [address] [place] [address] PCP - General Family Medicine 12/26/22 FOR RECORDS PERTAINING TO PATIENTS WHO ARE [...] BE BASED ON THE PRIMARY CLINICAL RECORDS. [employer] provides no warranty or guarantee of the accuracy or completeness of information in this document.
[2024-01-17 08:33] VITALS: BP 121/79; PULSE 111
== END 2024-01-17 09:10 | disposition home or self-care (01) ==
LOC: US 06:57 → FBC 08:01
PROVIDERS: PCP Family Medicine; Visit Provider Obstetrics & Gynecology
DX: O09.523 Supervision of elderly multigravida, third trimester (principal); Z3A.35 35 weeks gestation of pregnancy
CPT/HCPCS: 76818

== ENCOUNTER 2024-01-20 07:29 | Outpatient (OUT) | payer OTHER, SELFPAY ==
--- OUTSIDE RECORDS SUMMARY | 2024-01-20 07:32 | XMS_ITS | CCD ---
Author Organization [facility] Care Team Providers Care Sales And Marketing Director Name Role Phone NO, PHYSICIAN Primary Care Unavailable JUDY TORO Attending Marla vailable Maryuri, Physician Primary Care Provider Unavailabl HAYLIE Bustos Admitting Unavailabl e HAYLIE PEARSON Referring Unavailabl e PEERZADE, [facility] Primary Care Unav ailable HAYLIE PEARSON Admitting Unavailabl e ORSUSU, HAYLIE HERNANDEZ Referring Unavailabl e PEERZADE, [facility] Care Unav ailable Haylie Pearson Unavailable [phone] Peerzade, [facility] Primary [facility] Provide r HAYLIE PEARSON Admitting Unavailabl e HAYLIE PEARSON Attending Unavailabl e NO, PHYSICIAN Primary Care Unavailable HAYLIE PEARSON Admitting Unavailabl e PEERZADE, [facility] Primary Care Unav ailable HAYLIE PEARSON Attending Unavailabl e [facility] onsulting Unavailable PEERZADE, [facility] Primary [facility] Unav ailable HAYLIE PEARSON Admitting Unavailabl e ORHAYLIE CRISTOBAL Attending Unavailabl e HAYLIE PEARSON Admitting Unavailabl e PEERZADE, [facility] Primary Care Unav ailable [facility] C onsulting Unavailable KAREN SCHULTE Attending Unavailable HAYLIE PEARSON Admitting Unavailabl e PEERZADE, [facility] Primary Care Unav ailable SHANNA FORD Attending Unavailable SHANNA FORD Attending Unavailable SHANNA FORD Attending Unavailable SHANNA FORD Attending Unavailable SHARRI GUZMAN Attending Unavailable SHANNA FORD Attending Unavailable SHARRI GUMZAN Attending Unavailable SHARRI GUZMAN Attending Unavailable Sagar GALDAMEZ, Nathaly Briggs Primary Care Provider [phone] Medications Current Medications Medication Drug Class(es) Dates [...] 5 minutes, as instructed in the Notify Anesthesiologist/INWARD TOLL OPERATOR: Hypotension order. Start: 10-14-2019 End: 10-14-2019 [...] UA Negative Negative - 4(70) +++ mg/dL [facility] Blood, UA Negative Negative - 50 [place]/mcL [facility] Healthcare Clarity, UA Clear [facility] Color, UA Yellow [facility] Healthcar e Glucose, UA Negative Negative - 2000(110) ++++ mg/dL [facility] Interpretation and review of laboratory results Normal [facility] Ketones, UA Negative Negative - 160(16) ++++ mg/dL [facility] Leukocytes, UA Negative Negative - 500+++ Elsa/mcL [facility] Healthcare Nitrite, UA Negative Negative - Positive [facility] pH, UA 7.0 5 - 9 [facility] Protein, UA Negative Negative - 1999(20) ++++ mg/dL [facility] Spec Grav, UA 1.010 1 - 1.03 [facility] Urobilinogen, UA 0.2 0.2 - 12 mg/dL [facility] Erythrocyte distribution width (RBC) [Entitic vol] 14.1 % 11.6 - 14.8 % [facility] Hematocrit (Bld) [Volume fraction] 31.7 % Low 36 - 46 % [facility] Hemoglobin (Bld) [Mass/Vol] 9.9 g/dL Low 12 - 16 g/dL [facility] Interpretation and review of laboratory results Abnormal [facility] MCH (RBC) [Entitic mass] 29.6 pg 26 - 34 pg [facility] MCHC (RBC) [Mass/Vol] 31.2 g/dL 31 - 37 g/dL [facility] MCV (RBC) [Entitic vol] 94.6 fL 80 - 100 fL [facility] Nucleated RBC (Bld) [#/Vol] 0.00 10*3/uL [facility] Nucleated RBC/100 WBC (Bld) [Ratio] 0.0 % [facility] Platelet mean volume (Bld) [Entitic vol] 12.2 fL 9.4 - 12.4 fL [facility] Platelets (Bld) [#/Vol] 191 10*3/uL [facility] RBC (Bld) [#/Vol] 3.35 10*6/uL Low [facility] WBC (Bld) [#/Vol] 12.37 10*3/uL [facility] CBCon 10-25-2019 Erythrocyte distribution width (RBC) [Entitic vol] 13.8 % 11.6 - 14.8 % [facility] Hematocrit (Bld) [Volume fraction] 37.8 % 36 - 46 % [facility] Hemoglobin (Bld) [Mass/Vol] 12.5 g/dL 12 - 16 g/dL [facility] Interpretation and review of laboratory results Abnormal [facility] MCH (RBC) [Entitic mass] 30.0 pg 26 - 34 pg [facility] MCHC (RBC) [Mass/Vol] 33.1 g/dL 31 - 37 g/dL [facility] MCV (RBC) [Entitic vol] 90.9 fL 80 - 100 fL [facility] Nucleated RBC (Bld) [#/Vol] 0.00 10*3/uL [facility] Nucleated RBC/100 WBC (Bld) [Ratio] 0.0 % [facility] Platelet mean volume (Bld) [Entitic vol] 12.4 fL 9.4 - 12.4 fL [facility] Platelets (Bld) [#/Vol] 256 10*3/uL [facility] RBC (Bld) [#/Vol] 4.16 10*6/uL [facility] WBC (Bld) [#/Vol] 12.90 10*3/uL [facility] Syphilis Antibodyon 10-25-19 20 Interpretation and review of laboratory results Normal [facility] T. pallidum Ab Ql (S) Negative Negative [facility] Type and Screenon 10-25-2019 ABO and Rh group Nom (Bld) B Positive [facility] Blood group antibody screen Ql Negative [facility] Specimen Expires 10/28/2019 23:59 EST [facility] ABORH VERIFICATIONon 020 ABO and Rh group Nom (Bld) ABO/Rh Verification [facility] ABO and Rh group Nom (Bld) B Positive [facility] Patient's ABO/Rh is verified. [facility] CBCon 10-14-2019 Erythrocyte distribution width (RBC) [Entitic vol] 13.5 % 11.6 - 14.8 % [facility] Hematocrit (Bld) [Volume fraction] 35.6 % Low 36 - 46 % [facility] Hemoglobin (Bld) [Mass/Vol] 11.6 g/dL Low 12 - 16 g/dL [facility] Interpretation and review of laboratory results Abnormal [facility] MCH (RBC) [Entitic mass] 30.0 pg 26 - 34 pg [facility] MCHC (RBC) [Mass/Vol] 32.6 g/dL 31 - 37 g/dL [facility] MCV (RBC) [Entitic vol] 92.0 fL 80 - 100 fL [facility] Nucleated RBC (Bld) [#/Vol] 0.00 10*3/uL [facility] Nucleated RBC/100 WBC (Bld) [Ratio] 0.0 % [facility] Platelet mean volume (Bld) [Entitic vol] 12.8 fL High 9.4 - 12.4 fL [facility] Platelets (Bld) [#/Vol] 253 10*3/uL [facility] RBC (Bld) [#/Vol] 3.87 10*6/uL Low [facility] WBC (Bld) [#/Vol] 12.69 10*3/uL [facility] RPRon 10-14-2019 Interpretation and review of laboratory results Normal [facility] Reagin Ab RPR Ql (S) Non-Reactive Non-Reactive [facility] Type and Screenon 10-14-2019 ABO and Rh group Nom (Bld) B Positive [facility] Blood group antibody screen Ql Negative [facility] Specimen Expires 10/17/2019 23:59 EST [facility] Group B Strep PCR, Vaginal/R ectalon 10-01-2019 S. agalactiae Ag Ql (Unsp spec) Negative Negative [facility] CHLAMYDIA/GONORRHOEAE AMPLIF IED RNAon 03-22-2019 C. trachomatis rRNA ELEUTERIO+probe Ql (Unsp spec) Negative Negative [facility] N. gonorrhoeae rRNA ELEUTERIO+probe Ql (Unsp spec) Negative Negative [facility] Type and Screenon 03-22-2019 ABO and Rh group Nom (Bld) B [facility] Rh Type Positive [facility] Vital Signs Date Time Vital Sign Value Performing Clinician Faci lity 01-11-2024 10:10-0400 Body mass index (BMI) [Ratio] 31.93 kg/m2 Sharri MEZA Work Phone: [facility] 01-11-2024 10:10-0400 Body weight 89.72 kg Sharri MEZA Work Phone: [facility] 01-11-2024 10:10-0400 Diastolic blood pressure 68 mm[Hg] Sharri MEZA Work Phone: [facility] 01-11-2024 10:10-0400 Systolic blood pressure 120 mm[Hg] Sharri MEZA Work Phone: [facility] 10-27-2019 08:19-0400 Body Temperature 97.7 [degF] [facility] 10-27-2019 08:19-0400 BP Diastolic 67 mm[Hg] [facility] 10-27-2019 08:19-0400 BP Systolic 105 mm[Hg] [facility] 10-27-2019 08:19-0400 Pulse (Heart Rate) 71 /min [facility] 10-27-2019 08:19-0400 Pulse Oximetry 96 % [facility] 10-27-2019 08:19-0400 Respiratory Rate 16 /min [facility] 10-25-2019 06:01-0400 BMI (Body Mass Index) 29.13 kg/m2 [facility] 10-25-2019 06:01-0400 Body weight 84.37 kg [facility] 10-25-2019 06:01-0400 Height 170.2 cm [facility] 10-14-2019 10:30-0400 BP Diastolic 77 mm[Hg] [facility] 10-14-2019 10:30-0400 BP Systolic 126 mm[Hg] [facility] 10-14-2019 10:30-0400 Pulse (Heart Rate) 91 /min [facility] 10-14-2019 10:30-0400 Respiratory Rate 16 /min [facility] 10-14-2019 10:15-0400 Pulse Oximetry 97 % [facility] 10-14-2019 05:39-0400 BMI (Body Mass Index) 28.82 kg/m2 [facility] 10-14-2019 05:39-0400 Body Temperature 98.1 [degF] [facility] 10-14-2019 05:39-0400 Body weight 83.46 kg [facility] 10-14-2019 05:39-0400 Height 170.2 cm [facility] 05-11-2019 13:20-0500 Pulse (Heart Rate) 106 /min [facility] 05-11-2019 13:15-0500 BMI (Body Mass Index) 26.31 kg/m2 [facility] 05-11-2019 13:15-0500 Body Temperature 98.4 [degF] [facility] 05-11-2019 13:15-0500 Body weight 76.2 kg [facility] 05-11-2019 13:15-0500 BP Diastolic 76 mm[Hg] [facility] 05-11-2019 13:15-0500 BP Systolic 110 mm[Hg] [facility] 05-11-2019 13:15-0500 Height 170.2 cm [facility] 05-11-2019 13:15-0500 Pulse Oximetry 98 % [facility] 05-11-2019 13:15-0500 Respiratory Rate 14 /min [facility] Encounters Encounter Date Encounter Type Care Provider [...] 11-11-2019 End: 11-15-2019 Patient encounter procedure [facility] Start: 10-25-2019 End: 10-27-2019 Evaluation and management of inpatient [facility] Start: 10-25-2019 End: 10-27-2019 Evaluation and management of inpatient [facility] Work Phone: [facility] Mother/ Start: 10-24-2019 End: 10-24-2019 Patient encounter procedure [facility] Start: 10-14-2019 End: 10-14-2019 Patient encounter procedure DANETTE CERVANTES PEERZADE [facility] Start: 10-14-2019 End: 10-14-2019 Subsequent hospital visit by physician Haylie Pearson Work Phone: [facility] Delivery Start: 10-11-2019 End: 10-11-2019 Patient encounter procedure [facility] Start: 10-08-2019 Patient encounter procedure [facility] Start: 05-11-2019 End: 05-11-2019 Patient encounter procedure PHYSICIAN MARYURI [facility] Start: 05-11-2019 End: 05-11-2019 Office outpatient visit 25 minutes Judy Parker [employer] Work Phone: [facility] Comment on above: Acute nasopharyngiti s [...] Phone: Start: 10-14-2019 Blood group typing [employer] Work Phone: Start: 10-14-2019 Blood type and Indir ect antibody screen panel - Blood Haylie Pearson Work Phone: Start: 10-14-2019 Complete blood count (hemogram) panel - Blood by Automated count Haylie [email or web address] Work Phone: Start: 10-14-2019 Rapid plasma reagin [...] Screening for malign ant neoplasm of cervix [facility] Start: 01-31-2024 End: 01-31-2024 Patient encounter procedure 01/31/2024 9:50 AM EDT Routine [facility] [address] [facility] [place] [id number] Sharri Guzman PA [address] [place] [address] [facility] Start: 01-22-2024 End: 01-22-2024 Patient encounter procedure 01/22/2024 3:00 PM EDT Routine [facility] [address] [place] [phone] Shanna Ford DO [address] [place] [address] [facility] Start: 12-03-2023 Influenza vaccination Influenza Vacc ine (#1) [facility] Start: 12-03-2019 Influenza vaccination given Se quential Influenza Vaccine (#1) [facility] Start: 10-01-2019 Influenza vaccination given SE QUENTIAL INFLUENZA VACCINE (#1) [facility] Comment on above: Postponed from 12/02 (Patient Refused) Start: 02-08-2006 Hepatitis C antibody , confirmatory test Hepatitis C Screening [facility] Start: 02-08-2003 HIV screening HIV Scre[facility] Start: 02-08-1991 History and physical examination, annual for health maintenance Wellness Visit [facility] Start: 1988 Screening for malign ant neoplasm of cervix PAP SMEAR [facility] Start: 1988 Tetanus vaccination [facility] Immunizations Immunization Date Immunization Notes Care Provider [facility] 10-25-2019 diphtheria, tetanus toxoids and acellular pertussis vaccine, unspecified formulation [facility] 10-25-2019 measles, mumps and r ubella virus vaccine [facility] 10-25-2019 varicella zoster immune globulin Tamanna [facility] Payers Date Payer Category Payer Private Health Insurance [employer] [id number] 2023-Present [address] [address] [place] [address] [id number] 2023 Private Health Insurance [id number] 2022 Private Health Insurance [id number] 2019 Private Health Insurance [id number] 2019 Private Health Insurance xxx [id number] 1988 Unknown [id number] [id number]. 903 1988 Unknown [id number] 2.16.840.1.219737.3.579.2. 900 1988 Unknown [id number] 2.16.840.1.321885.3.579.2. 900 1988 Unknown [id number] 2.16.840.1.144842.3.579.2. 902 1988 Unknown [id number] 2.16.840.1.307097.3.579.2. 902 1988 Unknown [id number] 2.16.840.1.554533.3.579.2. 902 1988 Unknown [id number] 2.16.840.1.779190.3.579.2. 902 1988 Unknown [id number] 2.16.840.1.754676.3.579.2. 902 1988 Unknown [id number] 2.16.840.1.506800.3.579.2. 9 1988 Unknown [id number] 2.16.840.1.751389.3.579.2. 9 1988 Unknown [id number] 2.16.840.1.621040.3.579.2. 9 1988 Unknown [id number] 2.16.840.1.679113.3.579.2. 9 1988 Unknown [id number] 2.16.840.1.567577.3.579.2. 9 1988 Unknown [id number] 2.16.840.1.390977.3.579.2. 9 1988 Unknown [id number] 2.16.840.1.527959.3.579.2. 1259 1988 Unknown [id number] 2.16.840.1.353662.3.579.2. 1259 1988 Unknown [id number] 2.16.840.1.346017.3.579.2. 1259 Social History Date Type Detail Facility Start: 05-11-2019 End: 12-26-2022 Tobacco smoking status IDIS Never smoker [facility] Start: 05-11-2019 End: 10-27-2019 Alcohol intake Ex-drinker (finding) [facility] Start: 02-07-2019 [facility] Sex Assigned At Not on file [facility] Exposure to SARS-CoV -2 (event) Not sure [facility] Start: 12-26-2022 Tobacco use and exposure Smokeless t obacco non-user [facility] Start: 12-27-2023 End: 01-11-2024 Alcoholic beverage intake Current drinker of alcohol (finding) [facility] Start: 07-07-2023 History of Social function [facility] Start: 07-07-2023 Tobacco use panel [facility] Start: 1990 Sex assigned at Female [facility] Start: 12-25-2022 Gender identity Identifies as female gender (finding) [facility] Start: 12-25-2022 Sexual orientation Heterosexual (fin ding) [facility] Healthcare Goals Date Patient Goal Desired [...] nursing note reviewed. Exam conducted with a radioisotope technologist present. Vitals: Estimated body mass index is [...] Documents on File Type Date Recorded Patient Material Clerk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 Advance Directives and Living Will Documents on File Type Date Recorded Patient Material Clerk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 Advance Directives and Livin g Will 10/14/2019 5:28 AM Latest Code Status on File Code Status Date Activated Date Inactivated Comments Full Code 10/14/2019 5:32 AM 10/14/2019 1:17 PM Documents on File Type Date Recorded Patient Material Clerk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 Advance Directives and Livin g Will 10/25/2019 6:19 AM Latest Code Status on File Code Status Date Activated Date Inactivated Comments Full Code 10/25/2019 11:46 AM 10/27/2019 2:32 PM Full Code 10/25/2019 5:44 AM 10/25/2019 10:39 AM Full Code 10/14/2019 5:32 AM 10/14/2019 1:17 PM Instructions * Patient Instructions* Judy Toro, COMPLIANCE REVIEW SPECIALIST - 05/11/2019 1:40 PM EST Upper Respiratory [...] include drinking lots of fluids and taking vvfn-uej-aeroemi pain medicine. You will probably feel better [...] amount of fluids you drink. Take an ooaa-rej-lmwihpy pain medicine, such as acetaminophen (Tylenol), ibuprofen (Advil, Motrin),or naproxen (Aleve). Read and follow all instructions on the label. Before you use cough and cold medicines, check the label. These medicines may not be safe for youngchildren or for people with certain health problems. Be careful when taking vvzh-xjj-qfjoewo cold or flu medicines and Tylenol at [...] Log into your personal health record on [email or web address] and enter K520 in the Education box to learn more about Upper Respiratory Infection (Cold): Care Instructions. Current as of: September 09, 2018 Content Version: 12. [employer]. Care instructions adapted under license by your healthcare professional. If you have questions about a medical condition or this instruction, always ask your healthcare professional. [employer] disclaims any warranty or liability for your [...] taking a prescription pain medicine, take an xvpa-hyq-vpoigml medicine, such as acetaminophen (Tylenol), ibuprofen (Advil, [...] Log into your personal health record on [email or web address] and enter X558 in the Education box to learn more about Ear Infection (Otitis Media): Care Instructions. Current as of: October 28, 2018 Content Version: 12.3 [id number] [employer]. Care instructions adapted under license by your healthcare professional. If you have questions about a medical condition or this instruction, always ask your healthcare professional. [email or web address] disclaims any warranty or liability for your use of this information. documented in this encounter History of Present Illness * Judy Toro CNP - 05/11/2019 1:31 PM EST PATIENT NAME: Joanne Brown [facility] [address] [facility] [address] : 1990 DATE OF VISIT: 05/11/2019 #: [...] file Gets together: Not on file Attends scientology service: Not on file Active member of [...] Ortiz MD - 10/25/2019 8:16 AM EDT occupational therapy assist to of primary for breech. documented in this encounter Assessments Diagnosis Acute nasopharyngitis Acute nasopharyngitis (common cold) Acute bilateral otitis media Diagnosis state, incidental Discharge Instructions * Attachments The following attachments cannot be sent through Care Everywhere. * : KICK COUNTS (ALBANIAN) * : WEEK 38 (ALBANIAN) * : WHEN TO CALL (AFTER 20 WEEKS): GENERAL INFO (ALBANIAN) * : BREECH VERSION (ALBANIAN) documented in this encounter Hospital Course * [...] section and content) DATE CREATED AUTHOR 05/11/2019 [facility] DATE CREATED AUTHOR AUTHOR'S ORGANIZ ATION 10/25/2019 [facility] DATE CREATED AUTHOR AUTHOR'S ORGANIZ ATION 11/27/2019 [facility] DATE CREATED AUTHOR AUTHOR'S ORGANIZ ATION 01/13/2024 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 Parents to see the regional service manager tomorrow for exam and weight check. Mom [...] Care Teams (unrecognized sec tion and content) Sales And Marketing Director Relationship Specialty Start Date End Date Nathaly Keith MD [address] [place] [address] PCP - General Family Medicine 12/26/22 Sales And Marketing Director Relationship Specialty Start Date End Date Nathaly Keith MD [address] [place] [address] PCP - General Family Medicine 12/26/22 FOR [...] BE BASED ON THE PRIMARY CLINICAL RECORDS. [email or web address] provides no warranty or guarantee of the accuracy or completeness of information in this document.
[2024-01-20 14:10] VITALS: BP 114/74; PULSE 94
[2024-01-20 14:11] VITALS: TEMP 36.1; TEMP 36.2
== END 2024-01-20 14:50 | disposition home or self-care (01) ==
LOC: FBCO 07:29 → FBC 14:04
PROVIDERS: PCP Family Medicine; Visit Provider Obstetrics & Gynecology
DX: O09.523 Supervision of elderly multigravida, third trimester (principal); Z3A.36 36 weeks gestation of pregnancy
CPT/HCPCS: 59025

== ENCOUNTER 2024-01-22 19:44 | Outpatient (REF) | payer OTHER, SELFPAY ==
--- OUTSIDE RECORDS SUMMARY | 2024-01-22 19:48 | XMS_ITS | CCD ---
Author Organization [facility] Care Team Providers Care Donor Processor Name Role Phone NO, PHYSICIAN Primary Care Unavailable JUDY TORO Attending Marla vailable Maryuri, Physician Primary Care Provider Unavailabl HAYLIE Bustos Admitting Unavailabl e HAYLIE PEARSON Referring Unavailabl e PEERZADE, [facility] Primary Care Unav ailable HAYLIE PEARSON Admitting Unavailabl e ORSUSU, HAYLIE HERNANDEZ Referring Unavailabl e PEERZADE, [facility] Care Unav ailable Haylie Pearson Unavailable [phone] Peerzade, [facility] Primary [facility] Provide r HAYLIE PEARSON Admitting Unavailabl e HAYLIE PEARSON Attending Unavailabl e NO, PHYSICIAN Primary Care Unavailable HAYLIE PEARSON Admitting Unavailabl e PEERZADE, [facility] Primary Care Unav ailable HAYLIE PEARSON Attending Unavailabl e [facility] onsulting Unavailable PEERZADE, [facility] Primary [facility] Unav ailable HAYLIE PEARSON Admitting Unavailabl e ORHAYLIE CRISTOBAL Attending Unavailabl e HAYLIE PEARSON Admitting Unavailabl e PEERZADE, [facility] Primary Care Unav ailable [facility] onsulting Unavailable KAREN SCHULTE Attending Unavailable HAYLIE PEARSON Admitting Unavailabl e PEERZADE, [facility] Primary Care Unav ailable SHANNA FORD Attending Unavailable SHANNA FORD Attending Unavailable SHANAN FORD Attending Unavailable SHANNA FORD Attending Unavailable SHARRI GUZMAN Attending Unavailable SHANNA FORD Attending Unavailable SHARRI GUZMAN Attending Unavailable SHARRI GUZMAN Attending Unavailable Sagar GALDAMEZ, Nathaly Briggs Primary Care Provider [phone] Medications Current Medications Medication Drug Class(es) Dates [...] 5 minutes, as instructed in the Notify Anesthesiologist/JEWELRY ENAMELER: Hypotension order. Start: 10-14-2019 End: 10-14-2019 lactated [...] CHEW. docusate sodium 50 mg / sennosides, mcc 8.6 mg oral tablet (1 source) Start: [...] UA Negative Negative - 4(70) +++ mg/dL [facility] Blood, UA Negative Negative - 50 [place]/mcL [facility] Healthcare Clarity, UA Clear [facility] Color, UA Yellow [facility] Healthcar e Glucose, UA Negative Negative - 2000(110) ++++ mg/dL [facility] Interpretation and review of laboratory results Normal [facility] Ketones, UA Negative Negative - 160(16) ++++ mg/dL [facility] Leukocytes, UA Negative Negative - 500+++ Elsa/mcL [facility] Healthcare Nitrite, UA Negative Negative - Positive [facility] pH, UA 7.0 5 - 9 [facility] Protein, UA Negative Negative - 1999(20) ++++ mg/dL [facility] Spec Grav, UA 1.010 1 - 1.03 [facility] Urobilinogen, UA 0.2 0.2 - 12 mg/dL [facility] Erythrocyte distribution width (RBC) [Entitic vol] 14.1 % 11.6 - 14.8 % [facility] Hematocrit (Bld) [Volume fraction] 31.7 % Low 36 - 46 % [facility] Hemoglobin (Bld) [Mass/Vol] 9.9 g/dL Low 12 - 16 g/dL [facility] Interpretation and review of laboratory results Abnormal [facility] MCH (RBC) [Entitic mass] 29.6 pg 26 - 34 pg [facility] MCHC (RBC) [Mass/Vol] 31.2 g/dL 31 - 37 g/dL [facility] MCV (RBC) [Entitic vol] 94.6 fL 80 - 100 fL [facility] Nucleated RBC (Bld) [#/Vol] 0.00 10*3/uL [facility] Nucleated RBC/100 WBC (Bld) [Ratio] 0.0 % [facility] Platelet mean volume (Bld) [Entitic vol] 12.2 fL 9.4 - 12.4 fL [facility] Platelets (Bld) [#/Vol] 191 10*3/uL [facility] RBC (Bld) [#/Vol] 3.35 10*6/uL Low [facility] WBC (Bld) [#/Vol] 12.37 10*3/uL High [facility] CBCon 10-25-2019 Erythrocyte distribution width (RBC) [Entitic vol] 13.8 % 11.6 - 14.8 % [facility] Hematocrit (Bld) [Volume fraction] 37.8 % 36 - 46 % [facility] Hemoglobin (Bld) [Mass/Vol] 12.5 g/dL 12 - 16 g/dL [facility] Interpretation and review of laboratory results Abnormal [facility] MCH (RBC) [Entitic mass] 30.0 pg 26 - 34 pg [facility] MCHC (RBC) [Mass/Vol] 33.1 g/dL 31 - 37 g/dL [facility] MCV (RBC) [Entitic vol] 90.9 fL 80 - 100 fL [facility] Nucleated RBC (Bld) [#/Vol] 0.00 10*3/uL [facility] Nucleated RBC/100 WBC (Bld) [Ratio] 0.0 % [facility] Platelet mean volume (Bld) [Entitic vol] 12.4 fL 9.4 - 12.4 fL [facility] Platelets (Bld) [#/Vol] 256 10*3/uL [facility] RBC (Bld) [#/Vol] 4.16 10*6/uL [facility] WBC (Bld) [#/Vol] 12.90 10*3/uL High [facility] Syphilis Antibodyon 10-25-19 20 Interpretation and review of laboratory results Normal [facility] T. pallidum Ab Ql (S) Negative Negative [facility] Type and Screenon 10-25-2019 ABO and Rh group Nom (Bld) B Positive [facility] Blood group antibody screen Ql Negative [facility] Specimen Expires 10/28/2019 23:59 EST [facility] ABORH VERIFICATIONon 020 ABO and Rh group Nom (Bld) ABO/Rh Verification [facility] ABO and Rh group Nom (Bld) B Positive [facility] Patient's ABO/Rh is verified. [facility] CBCon 10-14-2019 Erythrocyte distribution width (RBC) [Entitic vol] 13.5 % 11.6 - 14.8 % [facility] Hematocrit (Bld) [Volume fraction] 35.6 % Low 36 - 46 % [facility] Hemoglobin (Bld) [Mass/Vol] 11.6 g/dL Low 12 - 16 g/dL [facility] Interpretation and review of laboratory results Abnormal [facility] MCH (RBC) [Entitic mass] 30.0 pg 26 - 34 pg [facility] MCHC (RBC) [Mass/Vol] 32.6 g/dL 31 - 37 g/dL [facility] MCV (RBC) [Entitic vol] 92.0 fL 80 - 100 fL [facility] Nucleated RBC (Bld) [#/Vol] 0.00 10*3/uL [facility] Nucleated RBC/100 WBC (Bld) [Ratio] 0.0 % [facility] Platelet mean volume (Bld) [Entitic vol] 12.8 fL High 9.4 - 12.4 fL [facility] Platelets (Bld) [#/Vol] 253 10*3/uL [facility] RBC (Bld) [#/Vol] 3.87 10*6/uL Low [facility] ealth WBC (Bld) [#/Vol] 12.69 10*3/uL High [facility] RPRon 10-14-2019 Interpretation and review of laboratory results Normal [facility] Reagin Ab RPR Ql (S) Non-Reactive Non-Reactive [facility] Type and Screenon 10-14-2019 ABO and Rh group Nom (Bld) B Positive [facility] Blood group antibody screen Ql Negative [facility] Specimen Expires 10/17/2019 23:59 EST [facility] Group B Strep PCR, Vaginal/R ectalon 10-01-2019 S. agalactiae Ag Ql (Unsp spec) Negative Negative [facility] CHLAMYDIA/GONORRHOEAE AMPLIF IED RNAon 03-22-2019 C. trachomatis rRNA ELEUTERIO+probe Ql (Unsp spec) Negative Negative [facility] N. gonorrhoeae rRNA ELEUTERIO+probe Ql (Unsp spec) Negative Negative [facility] Type and Screenon 03-22-2019 ABO and Rh group Nom (Bld) B [facility] Rh Type Positive [facility] Vital Signs Date Time Vital Sign Value Performing Clinician Faci lity 01-11-2024 10:10-0400 Body mass index (BMI) [Ratio] 31.93 kg/m2 Sharri MEZA Work Phone: [facility] 01-11-2024 10:10-0400 Body weight 89.72 kg Sharri MEZA Work Phone: [facility] 01-11-2024 10:10-0400 Diastolic blood pressure 68 mm[Hg] Sharri MEZA Work Phone: [facility] 01-11-2024 10:10-0400 Systolic blood pressure 120 mm[Hg] Sharri MEZA Work Phone: [facility] 10-27-2019 08:19-0400 Body Temperature 97.7 [degF] [facility] 10-27-2019 08:19-0400 BP Diastolic 67 mm[Hg] [facility] 10-27-2019 08:19-0400 BP Systolic 105 mm[Hg] [facility] 10-27-2019 08:19-0400 Pulse (Heart Rate) 71 /min [facility] 10-27-2019 08:19-0400 Pulse Oximetry 96 % [facility] 10-27-2019 08:19-0400 Respiratory Rate 16 /min [facility] 10-25-2019 06:01-0400 BMI (Body Mass Index) 29.13 kg/m2 [facility] 10-25-2019 06:01-0400 Body weight 84.37 kg [facility] 10-25-2019 06:01-0400 Height 170.2 cm [facility] 10-14-2019 10:30-0400 BP Diastolic 77 mm[Hg] [facility] 10-14-2019 10:30-0400 BP Systolic 126 mm[Hg] [facility] 10-14-2019 10:30-0400 Pulse (Heart Rate) 91 /min [facility] 10-14-2019 10:30-0400 Respiratory Rate 16 /min [facility] 10-14-2019 10:15-0400 Pulse Oximetry 97 % [facility] 10-14-2019 05:39-0400 BMI (Body Mass Index) 28.82 kg/m2 [facility] 10-14-2019 05:39-0400 Body Temperature 98.1 [degF] [facility] 10-14-2019 05:39-0400 Body weight 83.46 kg [facility] 10-14-2019 05:39-0400 Height 170.2 cm [facility] 05-11-2019 13:20-0500 Pulse (Heart Rate) 106 /min [facility] 05-11-2019 13:15-0500 BMI (Body Mass Index) 26.31 kg/m2 [facility] 05-11-2019 13:15-0500 Body Temperature 98.4 [degF] [facility] 05-11-2019 13:15-0500 Body weight 76.2 kg [facility] 05-11-2019 13:15-0500 BP Diastolic 76 mm[Hg] [facility] 05-11-2019 13:15-0500 BP Systolic 110 mm[Hg] [facility] 05-11-2019 13:15-0500 Height 170.2 cm [facility] 05-11-2019 13:15-0500 Pulse Oximetry 98 % [facility] 05-11-2019 13:15-0500 Respiratory Rate 14 /min [facility] Encounters Encounter Date Encounter Type Care Provider [...] Start: 11-11-2019 End: 11-15-2019 Patient encounter procedure [facility] Start: 10-25-2019 End: 10-27-2019 Evaluation and management of inpatient [facility] Start: 10-25-2019 End: 10-27-2019 Evaluation and management of inpatient [facility] Work Phone: [facility] Mother/ Start: 10-24-2019 End: 10-24-2019 Patient encounter procedure [facility] Start: 10-14-2019 End: 10-14-2019 Patient encounter procedure DANETTE CERVANTES PEERZADE [facility] Start: 10-14-2019 End: 10-14-2019 Subsequent hospital visit by physician Haylie Pearson Work Phone: [facility] Labor & Delivery Start: 10-11-2019 End: 10-11-2019 Patient encounter procedure [facility] Start: 10-08-2019 Patient encounter procedure [facility] Start: 05-11-2019 End: 05-11-2019 Patient encounter procedure PHYSICIAN MARYURI [facility] Urgent [facility] Start: 05-11-2019 End: 05-11-2019 Office outpatient visit 25 minutes Judy Parker [employer] Work Phone: [facility] Comment on above: Acute nasopharyngiti [...] Phone: Start: 10-14-2019 Blood group typing [facility] Work Phone: Start: 10-14-2019 Blood type and Indir ect antibody screen panel - Blood Haylie Pearson Work Phone: Start: 10-14-2019 Complete blood count (hemogram) panel - Blood by Automated count [facility] [employer] Work Phone: Start: 10-14-2019 Rapid plasma reagin [...] Screening for malign ant neoplasm of cervix [facility] Start: 01-31-2024 End: 01-31-2024 Patient encounter procedure 01/31/2024 9:50 AM EDT Routine [facility] [address] [facility] [place] [phone] Sharri Guzman PA [address] [place] [address] [facility] Start: 01-22-2024 End: 01-22-2024 Patient encounter procedure 01/22/2024 3:00 PM EDT Routine [facility] [address] [place] [phone] Shanna Ford DO [address] [place] [address] [facility] Start: 12-03-2023 Influenza vaccination Influenza Vacc ine (#1) [facility] Start: 12-03-2019 Influenza vaccination given Se quential Influenza Vaccine (#1) [facility] Start: 10-01-2019 Influenza vaccination given SE QUENTIAL INFLUENZA VACCINE (#1) [facility] Comment on above: Postponed from 12/02 (Patient Refused) Start: 02-08-2006 Hepatitis C antibody , confirmatory test Hepatitis C Screening [facility] Start: 02-08-2003 HIV screening HIV Screening [facility] Start: 02-08-1991 History and physical examination, annual for health maintenance Wellness Visit [facility] Start: 1988 Screening for malign ant neoplasm of cervix PAP SMEAR [facility] Start: 1988 Tetanus vaccination [facility] Immunizations Immunization Date Immunization Notes Care Provider Fa [facility] 10-25-2019 diphtheria, tetanus toxoids and acellular pertussis vaccine, unspecified formulation [facility] 10-25-2019 measles, mumps and r ubella virus vaccine [facility] 10-25-2019 varicella zoster immune globulin Tam[facility] Payers Date Payer Category Payer Private Health Insurance [employer] A [employer] [id number] 2023-Present [address] [address] [place] [address] [id number] 2023 Private Health Insurance [id number] 2022 Private Health Insurance [id number] 2019 Private Health Insurance [id number] 2019 Private Health Insurance xxx [id number] 1988 Unknown [id number] 2.16.840.1.450674.3.579.2. 903 1988 Unknown [id number] 2.16.840.1.163010.3.579.2. 900 1988 Unknown [id number] 2.16.840.1.497534.3.579.2. 900 1988 Unknown [id number] 2.16.840.1.596597.3.579.2. 902 1988 Unknown [id number] 2.16.840.1.583508.3.579.2. 902 1988 Unknown [id number] 2.16.840.1.896009.3.579.2. 902 1988 Unknown [id number] 2.16.840.1.184545.3.579.2. 902 1988 Unknown [id number] 2.16.840.1.687332.3.579.2. 902 1988 Unknown [id number] 2.16.840.1.020579.3.579.2. 9 1988 Unknown [id number] 2.16.840.1.217065.3.579.2. 9 1988 Unknown [id number] 2.16.840.1.459259.3.579.2. 9 1988 Unknown [id number] 2.16.840.1.160535.3.579.2. 9 1988 Unknown [id number] 2.16.840.1.222674.3.579.2. 9 1988 Unknown [id number] 2.16.840.1.850825.3.579.2. 9 1988 Unknown [id number] 2.16.840.1.613064.3.579.2. 1259 1988 Unknown [id number] 2.16.840.1.059224.3.579.2. 1259 1988 Unknown [id number] 2.16.840.1.695307.3.579.2. 1259 Social History Date Type Detail Facility Start: 05-11-2019 End: 12-26-2022 Tobacco smoking status KSIS Never smoker [facility] Start: 05-11-2019 End: 10-27-2019 Alcohol intake Ex-drinker (finding) [facility] Start: 02-07-2019 [facility] Sex Assigned At Not on file [facility] Exposure to SARS-CoV -2 (event) Not sure [facility] Start: 12-26-2022 Tobacco use and exposure Smokeless t obacco non-user [facility] Start: 12-27-2023 End: 01-11-2024 Alcoholic beverage intake Current drinker of alcohol (finding) [facility] Start: 07-07-2023 History of Social function [facility] Start: 07-07-2023 Tobacco use panel [facility] Start: 1990 Sex assigned at Female [facility] Start: 12-25-2022 Gender identity Identifies as female gender (finding) [facility] Start: 12-25-2022 Sexual orientation Heterosexual (fin ding) [facility] Healthcare Goals Date Patient Goal Desired Activity [...] nursing note reviewed. Exam conducted with a scale reclamation tender present. Vitals: Estimated body mass index is [...] Documents on File Type Date Recorded Patient [employer]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 Advance Directives and Living Will Documents on File Type Date Recorded Patient [employer]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 Advance Directives and Livin g Will 10/14/2019 5:28 AM Latest Code Status on File Code Status Date Activated Date Inactivated Comments Full Code 10/14/2019 5:32 AM 10/14/2019 1:17 PM Documents on File Type Date Recorded Patient [employer]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 Advance Directives and Livin g Will 10/25/2019 6:19 AM Latest Code Status on File Code Status Date Activated Date Inactivated Comments Full Code 10/25/2019 11:46 AM 10/27/2019 2:32 PM Full Code 10/25/2019 5:44 AM 10/25/2019 10:39 AM Full Code 10/14/2019 5:32 AM 10/14/2019 1:17 PM Instructions * Patient Instructions* Judy Toro, ADMINISTRATIVE OFFICE CLERK - 05/11/2019 1:40 PM EST Upper Respiratory [...] include drinking lots of fluids and taking qrtd-gij-yrzfucy pain medicine. You will probably feel better [...] amount of fluids you drink. Take an eeuc-ahj-omapoet pain medicine, such as acetaminophen (Tylenol), ibuprofen (Advil, Motrin),or naproxen (Aleve). Read and follow all instructions on the label. Before you use cough and cold medicines, check the label. These medicines may not be safe for youngchildren or for people with certain health problems. Be careful when taking uknb-ofn-pqmwucc cold or flu medicines and Tylenol at [...] Log into your personal health record on [email or web address] and enter K520 in the Education box to learn more about Upper Respiratory Infection (Cold): Care Instructions. Current as of: September 09, 2018 Content Version: 12. [employer]. Care instructions adapted under license by your healthcare professional. If you have questions about a medical condition or this instruction, always ask your healthcare professional. [employer] disclaims any warranty or liability for your [...] taking a prescription pain medicine, take an zvub-pfw-wzrffav medicine, such as acetaminophen (Tylenol), ibuprofen (Advil, [...] Log into your personal health record on [email or web address] and enter X558 in the Education box to learn more about Ear Infection (Otitis Media): Care Instructions. Current as of: October 28, 2018 Content Version: 12.3 8432-7573 [employer]. Care instructions adapted under license by your healthcare professional. If you have questions about a medical condition or this instruction, always ask your healthcare professional. [employer] disclaims any warranty or liability for your use of this information. 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 documented in this encounter Assessments Diagnosis Acute nasopharyngitis Acute nasopharyngitis (common cold) Acute bilateral otitis media Diagnosis state, incidental Discharge Instructions * Attachments The following attachments cannot be sent through Care Everywhere. * : KICK COUNTS ([place]) * : WEEK 38 ([place]) * : WHEN TO CALL (AFTER 20 WEEKS): GENERAL INFO ([place]) * : BREECH VERSION ([place]) documented in this encounter Hospital Course * [...] section and content) DATE CREATED AUTHOR 05/11/[address] 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 Parents to see the electrical design technologist tomorrow for exam and weight check. Mom [...] Care Teams (unrecognized sec tion and content) Donor Processor Relationship Specialty Start Date End Date Nathaly Keith MD [address] [place] [address] PCP - General Family Medicine 12/26/22 Donor Processor Relationship Specialty Start Date End Date Nathaly Keith MD [address] [place] [address] PCP - General Family Medicine 12/26/22 FOR [...] BE BASED ON THE PRIMARY CLINICAL RECORDS. [employer] provides no warranty or guarantee of the accuracy or completeness of information in this document.
== END 2024-01-22 19:45 | disposition home or self-care (01) ==
LOC: LAB 19:44
PROVIDERS: PCP Family Medicine; Visit Provider Obstetrics & Gynecology
DX: Z34.93 Encounter for supervision of normal pregnancy, unspecified, third trimester (principal)
CPT/HCPCS: 87081; 87150

== ENCOUNTER 2024-01-24 06:55 | Outpatient (OUT) | payer OTHER, SELFPAY ==
--- NOTE | 2024-01-24 | US_ITS ---
[address] [address] Patient Name: ACE MORRISSEY MRN: [id number] date: 1990 Sex: F Assigned Patient Location: [facility] Current Patient Location: Accession/Order Number: [id number] Exam Date: 01/24/2024 08:06 Report Date: 01/24/2024 16:26 At the request of: SHANNA KEITH Procedure: US OB growth EXAMINATION: US OB growth HISTORY: Multigravida advanced maternal age O09.522 COMPARISON: Ultrasound OB growth 12/27/2023 FINDINGS: Heart Rate: 123.85 bpm Amniotic Fluid Volume: 18.1 cm; normal range Number: 1 Position: CEPHALIC BIOMETRY: BPD: 9.00 cm; 36 weeks 3 days; 56.70 % HC: 34.24 cm; 39 weeks 3 days; 85.50 % AC: 35.01 cm; 38 weeks 6 days; >97 % FL: 7.25 cm; 37 weeks 1 day; 58.60 % EFW: 3445.31 g; 89.70 % FL/AC: 20.71 FL/BPD: 80.51 HC/AC: 0.98 GESTATIONAL AGE: Age by EDC: 36 weeks 5 days ZAMZAM by EDC: 2024-02-16 Age by US: 38 weeks 0 days ZAMZAM by US: 2024-02-07 US/US OB growth IMPRESSION: 1. Single live intrauterine with growth detailed above. 2. Abdominal circumference is greater than 97th percentile. Electronically authenticated by: MARKELL FERMIN Date: 01/24/2024 16:26
--- NOTE | 2024-01-24 | US_ITS ---
[place] [id number] Patient Name: ACE MORRISSEY MRN: [id number] date: 1990 Sex: F Assigned Patient Location: US Current Patient Location: Accession/Order Number: [id number] Exam Date: 01/24/2024 08:06 Report Date: 01/24/2024 16:23 At the request of: SHANNA KEITH Procedure: US OB BPP w non-stress EXAMINATION: US OB BPP w non-stress HISTORY:Multigravida of advanced maternal age O09.522 COMPARISON: Ultrasound OB biophysical 01/08/2024, 01/17/2024 TECHNIQUE: Ultrasound biophysical profile was performed in the radiology department. BREATHING MOVEMENTS: 2 GROSS BODY MOVEMENTS: 2 TONE: 2 QUALITATIVE AMNIOTIC FLUID VOLUME: 2 PRESENTATION: CEPHALIC HEART RATE: 123.85 bpm AMNIOTIC FLUID VOLUME: 18.14 cm GESTATIONAL AGE: 36 weeks 5 days US/US OB BPP w non-stress IMPRESSION: Total biophysical profile score: 8 Electronically authenticated by: MARKELL FERMIN Date: 01/24/2024 16:23
--- OUTSIDE RECORDS SUMMARY | 2024-01-24 06:58 | XMS_ITS | CCD ---
Author Organization [facility] Care Team Providers Care Scientific Affairs Manager Name Role Phone NO, PHYSICIAN Primary Care Unavailable JUDY TORO Attending Marla vailable Maryuri, Physician Primary Care Provider Unavailabl HAYLIE Bustos Admitting Unavailabl e HAYLIE PEARSON Referring Unavailabl e PEERZADE, [facility] Primary Care Unav ailable HAYLIE PEARSON Admitting Unavailabl e ORSUSU, HAYLIE HERNANDEZ Referring Unavailabl e PEERZADE, [facility] Care Unav ailable Haylie Pearson Unavailable Peerzade, [facility] Primary [facility] Provide r HAYLIE PEARSON Admitting Unavailabl e HAYLIE PEARSON Attending Unavailabl e NO, PHYSICIAN Primary Care Unavailable HAYLIE PEARSON Admitting Unavailabl e PEERZADE, [facility] Primary Care Unav ailable HAYLIE PEARSON Attending Unavailabl e [facility] onsulting Unavailable PEERZADE, [facility] Primary [facility] Unav ailable HAYLIE PEARSON Admitting Unavailabl e ORHAYLIE CRISTOBAL Attending Unavailabl e HAYLIE PEARSON Admitting Unavailabl e PEERZADE, [facility] Primary Care Unav ailable [facility] C onsulting Unavailable KAREN SCHULTE Attending Unavailable HAYLIE PEARSON Admitting Unavailabl e PEERZADE, [facility] Primary Care Unav ailable SHANNA FORD Attending [...] aspirin 81 mg delayed release oral tablet (6 sources) Platelet Aggregation Inhibitor, Nonsteroidal Anti-inflammatory Drug take 1 tablet by mouth once daily aspirin 81 MG EC tablet Take 81 mg by mouth Daily Active MV-Min-Fe Fum-FA-DHA ( 1 PO) (6 sources) MV-Min-Fe Fum-FA-DHA ( 1 PO) Take [...] 5 minutes, as instructed in the Notify Anesthesiologist/CRUSHER ASSEMBLER: Hypotension order. Start: 10-14-2019 End: 10-14-2019 lactated [...] Oral, After meals as needed, flatulence, Starting 10/25/19 at 1146, 1000 ml sodium chloride 9 [...] te Episodic/Chronic Other and delivery including normal (8 sources) ; Translations: [Third trimester ] Onset: 10-14-2019 10-14-2019 Episodic Other upper respiratory infections (1 source) Nasopharyngitis; Translations: [Acute nasopharyngitis] Episodic Otitis media and related conditions (1 source) Acute bilateral otitis media ; Translations: [Acute bilateral otitis media] Episodic Residual codes; unclassified (2 sources) Gestation period, 34 weeks; Translations: [34 weeks gestation of ] 01-11-2024 Episodic Residual codes; unclassified (4 sources) Gestation period, 36 weeks; Translations: [36 weeks gestation of ] Onset: 01-23-2024 01-22-2024 Episodic Unclassified (6 sources) OB Reminders Onset: 08-13-2023 08-13-2023 Past or Other Problems Problem Classification Problem Date Documented Da te Episodic/Chronic NEGATED: Highlighted row has been ruled out!Unclassified (1 source) No known active problems Results Test Name Value Interpretation Reference Range Facil ity Urinalysis macro (dipstick) panel (U)on 01-22-2024 Bilirubin, UA Negative Negative - 4(70) +++ mg/dL [facility] Blood, UA Negative Negative - 50 [place]/mcL [facility] Clarity, UA Clear [facility] Color, UA Yellow [facility] Glucose, UA Negative Negative - 2000(110) ++++ mg/dL [facility] Interpretation and review of laboratory results Abnormal [facility] Ketones, UA Negative Negative - 160(16) ++++ mg/dL [facility] Leukocytes, UA Negative Negative - 500+++ Elsa/mcL [facility] Nitrite, UA Negative Negative - Positive [facility] pH, UA 5.5 5 - 9 [facility] e Protein, UA Negative Negative - 1999(20) ++++ mg/dL [facility] Spec Grav, UA 1.02 1 - 1.03 [facility] Urobilinogen, UA 1.0 0.2 - 12 mg/dL [facility] Urinalysis macro (dipstick) panel (U)on 01-11-2024 Bilirubin, UA Negative Negative - 4(70) +++ mg/dL [facility] Blood, UA Negative Negative - 50 [place]/mcL [facility] Clarity, UA Clear [facility] re Color, UA Yellow [facility] e Glucose, UA Negative Negative - 1999(110) ++++ mg/dL [facility] Interpretation and review of laboratory results Normal [facility] Ketones, UA Negative Negative - 160(16) ++++ mg/dL [facility] Leukocytes, UA Negative Negative - 500+++ Elsa/mcL [facility] Nitrite, UA Negative Negative - Positive [facility] pH, UA 7.0 5 - 9 [facility] e Protein, UA Negative Negative - 1999(20) ++++ mg/dL [facility] Spec Grav, UA 1.010 1 - 1.03 [facility] Urobilinogen, UA 0.2 0.2 - 12 mg/dL [facility] CBCon 10-26-2019 Erythrocyte distribution width (RBC) [Entitic vol] 14.1 % 11.6 - 14.8 % [facility] Hematocrit (Bld) [Volume fraction] 31.7 % Low 36 - 46 % [facility] Hemoglobin (Bld) [Mass/Vol] 9.9 g/dL Low 12 - 16 g/dL [facility] Interpretation and review of laboratory results Abnormal [facility] MCH (RBC) [Entitic mass] 29.6 pg 26 - 34 pg [facility] MCHC (RBC) [Mass/Vol] 31.2 g/dL 31 - 37 g/dL [facility] MCV (RBC) [Entitic vol] 94.6 fL 80 - 100 fL [facility] Nucleated RBC (Bld) [#/Vol] 0.00 10*3/uL [facility] Nucleated RBC/100 WBC (Bld) [Ratio] 0.0 % [facility] Platelet mean volume (Bld) [Entitic vol] 12.2 fL 9.4 - 12.4 fL [facility] Platelets (Bld) [#/Vol] 191 10*3/uL [facility] RBC (Bld) [#/Vol] 3.35 10*6/uL Low [facility] ealth WBC (Bld) [#/Vol] 12.37 10*3/uL [facility] CBCon 10-25-2019 Erythrocyte distribution width (RBC) [Entitic vol] 13.8 % 11.6 - 14.8 % [facility] Hematocrit (Bld) [Volume fraction] 37.8 % 36 - 46 % [facility] Hemoglobin (Bld) [Mass/Vol] 12.5 g/dL 12 - 16 g/dL [facility] Interpretation and review of laboratory results Abnormal [facility] MCH (RBC) [Entitic mass] 30.0 pg 26 - 34 pg [facility] MCHC (RBC) [Mass/Vol] 33.1 g/dL 31 - 37 g/dL [facility] MCV (RBC) [Entitic vol] 90.9 fL 80 - 100 fL [facility] Nucleated RBC (Bld) [#/Vol] 0.00 10*3/uL [facility] Nucleated RBC/100 WBC (Bld) [Ratio] 0.0 % [facility] Platelet mean volume (Bld) [Entitic vol] 12.4 fL 9.4 - 12.4 fL [facility] Platelets (Bld) [#/Vol] 256 10*3/uL [facility] RBC (Bld) [#/Vol] 4.16 10*6/uL [facility] WBC (Bld) [#/Vol] 12.90 10*3/uL [facility] Syphilis Antibodyon 10-25-19 20 Interpretation and review of laboratory results Normal [facility] T. pallidum Ab Ql (S) Negative Negative [facility] Type and Screenon 10-25-2019 ABO and Rh group Nom (Bld) B Positive [facility] Blood group antibody screen Ql Negative [facility] Specimen Expires 10/28/2019 23:59 EST [facility] ABORH VERIFICATIONon 020 ABO and Rh group Nom (Bld) ABO/Rh Verification [facility] ABO and Rh group Nom (Bld) B Positive [facility] Patient's ABO/Rh is verified. [facility] CBCon 10-14-2019 Erythrocyte distribution width (RBC) [Entitic vol] 13.5 % 11.6 - 14.8 % [facility] Hematocrit (Bld) [Volume fraction] 35.6 % Low 36 - 46 % [facility] Hemoglobin (Bld) [Mass/Vol] 11.6 g/dL Low 12 - 16 g/dL [facility] Interpretation and review of laboratory results Abnormal [facility] MCH (RBC) [Entitic mass] 30.0 pg 26 - 34 pg [facility] MCHC (RBC) [Mass/Vol] 32.6 g/dL 31 - 37 g/dL [facility] MCV (RBC) [Entitic vol] 92.0 fL 80 - 100 fL [facility] Nucleated RBC (Bld) [#/Vol] 0.00 10*3/uL [facility] Nucleated RBC/100 WBC (Bld) [Ratio] 0.0 % [facility] Platelet mean volume (Bld) [Entitic vol] 12.8 fL High 9.4 - 12.4 fL [facility] Platelets (Bld) [#/Vol] 253 10*3/uL [facility] RBC (Bld) [#/Vol] 3.87 10*6/uL Low [facility] ealth WBC (Bld) [#/Vol] 12.69 10*3/uL High [facility] RPRon 10-14-2019 Interpretation and review of laboratory results Normal [facility] Reagin Ab RPR Ql (S) Non-Reactive Non-Reactive [facility] Type and Screenon 10-14-2019 ABO and Rh group Nom (Bld) B Positive [facility] Blood group antibody screen Ql Negative [facility] Specimen Expires 10/17/2019 23:59 EST [facility] Group B Strep PCR, Vaginal/R ectalon 10-01-2019 S. agalactiae Ag Ql (Unsp spec) Negative Negative [facility] CHLAMYDIA/GONORRHOEAE AMPLIF IED RNAon 03-22-2019 C. trachomatis rRNA ELEUTERIO+probe Ql (Unsp spec) Negative Negative [facility] N. gonorrhoeae rRNA ELEUTERIO+probe Ql (Unsp spec) Negative Negative [facility] Type and Screenon 03-22-2019 ABO and Rh group Nom (Bld) B [facility] Rh Type Positive [facility] Vital Signs Date Time Vital Sign Value Performing Clinician Faci lity 01-22-2024 15:27-0400 Body mass index (BMI) [Ratio] 32.28 kg/m2 Shanna Logan DO Work Phone: [facility] 01-22-2024 15:27-0400 Body weight 90.72 kg Shanna Logan DO Work Phone: [facility] 01-22-2024 15:27-0400 Diastolic blood pressure 68 mm[Hg] Shanna Logan DO Work Phone: [facility] 01-22-2024 15:27-0400 Systolic blood pressure 112 mm[Hg] Shanna Logan DO Work Phone: [facility] 01-11-2024 10:10-0400 Body mass index (BMI) [Ratio] 31.93 kg/m2 Sharri MEZA Work Phone: [facility] 01-11-2024 10:10-0400 Body weight 89.72 kg Sharri MEZA Work Phone: [facility] 01-11-2024 10:10-0400 Diastolic blood pressure 68 mm[Hg] Sharri MEZA Work Phone: [facility] 01-11-2024 10:10-0400 Systolic blood pressure 120 mm[Hg] Sharri Guzman PA Work Phone: [facility] 10-27-2019 08:19-0400 Body Temperature 97.7 [degF] [facility] 10-27-2019 08:19-0400 BP Diastolic 67 mm[Hg] [facility] 10-27-2019 08:19-0400 BP Systolic 105 mm[Hg] [facility] 10-27-2019 08:19-0400 Pulse (Heart Rate) 71 /min [facility] 10-27-2019 08:19-0400 Pulse Oximetry 96 % [facility] 10-27-2019 08:19-0400 Respiratory Rate 16 /min [facility] 10-25-2019 06:01-0400 BMI (Body Mass Index) 29.13 kg/m2 [facility] 10-25-2019 06:01-0400 Body weight 84.37 kg [facility] 10-25-2019 06:01-0400 Height 170.2 cm [facility] 10-14-2019 10:30-0400 BP Diastolic 77 mm[Hg] [facility] 10-14-2019 10:30-0400 BP Systolic 126 mm[Hg] [facility] 10-14-2019 10:30-0400 Pulse (Heart Rate) 91 /min [facility] 10-14-2019 10:30-0400 Respiratory Rate 16 /min [facility] 10-14-2019 10:15-0400 Pulse Oximetry 97 % [facility] 10-14-2019 05:39-0400 BMI (Body Mass Index) 28.82 kg/m2 [facility] 10-14-2019 05:39-0400 Body Temperature 98.1 [degF] [facility] 10-14-2019 05:39-0400 Body weight 83.46 kg [facility] 10-14-2019 05:39-0400 Height 170.2 cm [facility] 05-11-2019 13:20-0500 Pulse (Heart Rate) 106 /min [facility] 05-11-2019 13:15-0500 BMI (Body Mass Index) 26.31 kg/m2 [facility] 05-11-2019 13:15-0500 Body Temperature 98.4 [degF] [facility] 05-11-2019 13:15-0500 Body weight 76.2 kg [facility] 05-11-2019 13:15-0500 BP Diastolic 76 mm[Hg] [facility] 05-11-2019 13:15-0500 BP Systolic 110 mm[Hg] [facility] 05-11-2019 13:15-0500 Height 170.2 cm [facility] 05-11-2019 13:15-0500 Pulse Oximetry 98 % [facility] 05-11-2019 13:15-0500 Respiratory Rate 14 /min [facility] Encounters Encounter Date Encounter Type Care Provider Facility Start: 01-22-2024 End: 01-22-2024 flow sheet Shanna Logan DO Work Phone: [facility] Comment on above: Third trimester preg eliud; 36 weeks gestation of Start: 01-22-2024 End: 01-22-2024 Bamboo flowsheet Shanna Logan DO Work Phone: [facility] Start: 01-22-2024 End: 01-22-2024 Bamboo flowsheet Shanna Logan DO Work Phone: [facility] Start: 01-11-2024 End: 01-11-2024 Bamboo flowsheet Sharri MEZA Work Phone: [facility] Start: 01-11-2024 End: 01-11-2024 Bamboo flowsheet Sharri Guzman PA Work Phone: [facility] Start: 01-11-2024 End: 01-11-2024 ambulatory SHARRI GUZMAN Not Available Start: 01-11-2024 End: 01-11-2024 flow sheet Sharri MEZA Work Phone: [facility] Comment on above: 34 weeks gestation o f ; Third trimester Start: 12-27-2023 End: 12-27-2023 ambulatory SHARRI MEGAN Not Available Start: 12-13-2023 End: 12-13-2023 ambulatory SHANNA LOGAN Not Available Start: 11-29-2023 End: 11-29-2023 ambulatory SHARRI MEGAN Not Available Start: 11-15-2023 End: 11-15-2023 ambulatory SHANNA LOGAN Not Available Start: 10-16-2023 End: 10-16-2023 ambulatory SHANNA LOGAN Not Available Start: 09-11-2023 End: 09-11-2023 ambulatory SHANNA LOGAN Not Available Start: 08-14-2023 End: 08-14-2023 ambulatory SHANNA LOGAN Not Available Start: 07-13-2023 End: 07-13-2023 ambulatory SHANNA FORD Not Available Start: 11-11-2019 End: 11-15-2019 Patient encounter procedure HAYLIE DAVID [facility] Start: 10-25-2019 End: 10-27-2019 Evaluation and management of inpatient [facility] Start: 10-25-2019 End: 10-27-2019 Evaluation and management of inpatient [facility] Work Phone: [facility] Mother/Infant Start: 10-24-2019 End: 10-24-2019 Patient encounter procedure [facility] Start: 10-14-2019 End: 10-14-2019 [facility] Start: 10-14-2019 End: 10-14-2019 Subsequent hospital visit by physician Haylie Hernandez [facility] Work Phone: [facility] Labor [facility] Delivery Start: 10-11-2019 End: 10-11-2019 Patient encounter procedure [facility] Start: 10-08-2019 Patient encounter procedure [facility] Start: 05-11-2019 End: 05-11-2019 Patient encounter procedure PHYSICIAN MARYURI [facility] Start: 05-11-2019 End: 05-11-2019 Office outpatient visit 25 minutes Judy Parker [employer] Work Phone: [facility] Comment on above: Acute nasopharyngiti s (Primary Dx); Acute bilateral otitis media Procedures Date Procedure Procedure Detail Performing Clinician Start: 01-22-2024 Urnls dip stick/tabl et rgnt non-auto w/o micrscp Shanna Ford DO Work Phone: Start: 01-11-2024 Urnls dip stick/tabl et rgnt non-auto w/o micrscp Sharri MEZA Work Phone: Start: 09-11-2023 Microscopic observat ion [Identifier] in Cervix by Cyto stain Sharri MEZA Work Phone: Start: 10-26-2019 Complete blood count (hemogram) panel - Blood by Automated count Haylie Hernandez [employer] Work Phone: Start: 10-25-2019 Blood type and Indir ect antibody screen panel - Blood Haylienehemias Hernandez [employer] Work Phone: Start: 10-25-2019 Complete blood count (hemogram) panel - Blood by Automated count Haylienehemias Hernandez [employer] Work Phone: Start: 10-25-2019 Treponema pallidum I gG Ab [Presence] in Serum Haylie Hernandez [employer] Work Phone: Start: 10-14-2019 Blood group typing Caren Hernandez [employer] Work Phone: Start: 10-14-2019 Blood type and Indir ect antibody screen panel - Blood Haylie Hernandez [employer] Work Phone: Start: 10-14-2019 Complete blood count (hemogram) panel - Blood by Automated count Haylie Hernandez [employer] Work Phone: Start: 10-14-2019 Rapid plasma reagin test Haylie Ann [employer] Work Phone: Start: 10-01-2019 Streptococcus agalac tiae DNA [Presence] in Unspecified specimen by ELEUTERIO with probe detection Historical Provider Start: 03-22-2019 Blood type and Indir ect antibody screen panel - Blood Historical Provider Start: 03-22-2019 Neisseria gonorrhoea e nucleic acid detection Historical Provider Plan of Treatment Date Care Activity Detail Author Start: 09-10-2028 Screening for malign ant neoplasm of cervix [facility] Start: 01-31-2024 End: 01-31-2024 Patient encounter procedure 01/31/2024 9:50 AM EDT Routine [facility] [address] [place] [id number] Sharri Guzman PA [address] [place] [address] [facility] Start: 01-22-2024 End: 01-22-2024 Patient encounter procedure [facility] Comment on above: Arrived Start: 01-22-2024 End: 01-21-2025 Strep B DNA probe, amplification Strep B DNA probe, amplification Lab Routine Third trimester Expected: 01/22/2024 (Approximate), Expires: 01/21/2025 [facility] Work Phone: Comment on above: Expected: 01/22/2024 (Approximate), Expires: 01/21/2025 Start: 12-03-2023 Influenza vaccination Influenza Vacc ine (#1) [facility] Start: 12-03-2019 Influenza vaccinatio n given Sequential Influenza Vaccine (#1) [facility] Start: 10-01-2019 Influenza vaccinatio n given SEQUENTIAL INFLUENZA VACCINE (#1) [facility] Comment on above: Postponed from 12/02 (Patient Refused) Start: 02-08-2006 Hepatitis C antibody , confirmatory test Hepatitis C Screening [facility] Start: 02-08-2003 HIV screening HIV Screening [facility] Start: 02-08-1991 History and physical examination, annual for health maintenance Wellness Visit [facility] Start: 1988 Screening for malign ant neoplasm of cervix PAP SMEAR [facility] Start: 1988 Tetanus vaccination [facility] Immunizations Immunization Date Immunization Notes [facility]-25-2019 diphtheria, tetanus toxoids and acellular pertussis vaccine, unspecified formulation Haylie Pearson [facility] 10-25-2019 measles, mumps and r ubella virus vaccine [facility] 10-25-2019 varicella zoster immune globulin [facility] Payers Date Payer Category Payer Private Health Insurance [id number] 2023 Private Health Insurance [id number] 2022 Private Health Insurance [id number] 2019 Private Health Insurance [id number] 2019 Private Health Insurance [id number] 1988 Unknown [id number] 2.16. [id number] 1988 Unknown [id number] 2.16.8 [id number] 1988 Unknown [id number] 2.16.8 [id number] 1988 Unknown [id number] 2.16.8 [id number] 1988 Unknown [id number] 2.16.8 [id number] 1988 Unknown [id number] 2.16.8 [id number] 1988 Unknown [id number] 2.16.8 [id number] 1988 Unknown [id number] 2.16.8 [id number] 1988 Unknown [id number] 2.16.84 [id number] 1988 Unknown [id number] 2.16.84 [id number] 1988 Unknown [id number] 2.16.84 [id number] 1988 Unknown [id number] 2.16.84 [id number] 1988 Unknown [id number] 2.16.84 [id number] 1988 Unknown [id number] 2.16.84 [id number] 1988 Unknown [id number] 2.16.84 [id number] 1988 Unknown [id number] 2.16.84 [id number] 1988 Unknown [id number] 2.16.84 [id number] Social History Date Type Detail Facility Start: 05-11-2019 End: 12-26-2022 Tobacco smoking status NHIS Never smoker [facility] Start: 05-11-2019 End: 10-27-2019 Alcohol intake Ex-drinker (finding) [facility] Start: 02-07-2019 [facility] Sex Assigned At Not on file [facility] Exposure to SARS-CoV -2 (event) Not sure [facility] Start: 12-26-2022 Tobacco use and exposure Smokeless t obacco non-user [facility] Start: 12-27-2023 End: 01-11-2024 Alcoholic beverage intake Current drinker of alcohol (finding) [facility] Start: 07-07-2023 History of Social function [facility] Start: 07-07-2023 Tobacco use panel [facility] Start: 1988 Sex assigned at Female [facility] Start: 12-25-2022 Gender identity Identifies as female gender (finding) [facility] Start: 12-25-2022 Sexual orientation Heterosexual (fin ding) [facility] Goals Date Patient Goal Desired Activity /State Personal health goal History of Present illness Narrative 01-22-2024 Shanna Ford DO - 01/22/2024 3:00 PM EDT Note Date & Type Note Facility 01-22-2024 History of Presen t illness Narrative Reason for Appointment: Patient ID: Joanne Brown is a 33 y.o. female who presents for Routine Visit Patient presents today for Return OB appointment. MEDICATIONS Current Outpatient Medications Medication Instructions aspirin 81 mg, Oral, Daily MV-Min-Fe Fum-FA-DHA ( 1 PO) 1 each, Oral, Daily ALLERGIES No Known Allergies PROBLEMS Active Ambulatory Problems Diagnosis Date Noted 36 weeks gestation of 01/23/2024 Resolved Ambulatory Problems Diagnosis Date Noted No [...] SYSTEMS Review of Systems: Review of Systems All other systems reviewed and are negative. OBJECTIVE Objective: Physical Exam Constitutional: Appearance: Normal appearance. She is well-developed. Genitourinary: Vulva normal. Cardiovascular: Rate and Rhythm: Normal rate and regular rhythm. Pulmonary: Effort: Pulmonary effort is normal. Breath sounds: Normal breath sounds. Abdominal: General: Bowel sounds are normal. There is no distension. Palpations: Abdomen is soft. Tenderness: There is no abdominal tenderness. There is no guarding or rebound. Musculoskeletal: General: No swelling. Normal range of motion. Right lower leg: No edema. Left lower leg: No edema. Neurological: Mental Status: She is alert and oriented to person, place, and time. Skin: General: Skin is warm and dry. Psychiatric: Mood and Affect: Mood normal. Behavior: Behavior normal. Vitals and nursing note reviewed. Exam conducted with a apartment groundskeeper present. Vitals: Estimated body mass index is 32.28 kg/m as calculated from the following: Height as of 08/08/22: 5' 6 . Weight as of this encounter: 200 lb. BP: 112/68 Patient's last menstrual period was 05/12/2023. ASSESSMENT & PLAN ICD-10-CM 1. Third trimester Z34.93 POCT urinalysis dipstick manually resulted Strep B DNA probe, amplification 2. 36 weeks gestation of Z3A.36 POCT urinalysis dipstick manually resulted Patient is doing well but has complaints of being tired and having maternal discomfort due to . Patient verbalized frequent movement and was instructed to perform kick counts three times per day. labor precautions were given, LARC consent was signed/declined, and GBS was obtained. Orders Placed This Encounter Procedures Strep B DNA probe, amplification POCT urinalysis dipstick manually resulted Follow Up: Patient is to return to office in 1 week for routine OB appointment Documented by Elis Ramires LPN on behalf of: Shanna Ford DO documented in this encounter [facility] History of Present illness Narrative 01-11-2024 DERRICK [...] nursing note reviewed. Exam conducted with a apartment groundskeeper present. 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 Advance Directives and Livin g Will 10/14/2019 5:28 AM Latest Code Status on File Code Status Date Activated Date Inactivated Comments Full Code 10/14/2019 5:32 AM 10/14/2019 1:17 PM Documents on File Type Date Recorded 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 You will probably feel better [...] amount of fluids you drink. Take an rryg-rqk-svhojrx pain medicine, such as acetaminophen (Tylenol), ibuprofen (Advil, Motrin),or naproxen (Aleve). Read and follow all instructions on the label. Before you use cough and cold medicines, check the label. These medicines may not be safe for youngchildren or for people with certain health problems. Be careful when taking aywx-dsb-kjlzqzu cold or flu medicines and Tylenol at [...] Log into your personal health record on [email or web address] and enter K520 in the Education box to learn more about Upper Respiratory Infection (Cold): Care Instructions. Current as of: September 09, 2018 Content Version: 12.3 5018-7859 [employer]. Care instructions adapted under license by your healthcare professional. If you have questions about a medical condition or this instruction, always ask your healthcare professional. [employer] disclaims any warranty or liability for your [...] taking a prescription pain medicine, take an mkmw-tti-sjecwes medicine, such as acetaminophen (Tylenol), ibuprofen (Advil, [...] Log into your personal health record on [email or web address] and enter X558 in the Education box to learn more about Ear Infection (Otitis Media): Care Instructions. Current as of: October 28, 2018 Content Version: 12.3 2239-9691 [employer]. Care instructions adapted under license by your healthcare professional. If you have questions about a medical condition or this instruction, always ask your healthcare professional. [employer] disclaims any warranty or liability for your use of this information. documented in this encounter History of Present Illness * Judy Toro CNP - 05/11/2019 1:31 PM EST PATIENT NAME: Joanne Brown [facility] [address] [facility] [address] : 1990 DATE OF VISIT: 05/11/2019 #: [...] Ortiz MD - 10/25/2019 8:16 AM EDT certified surgical assistant to of primary for breech. documented in this encounter Assessments Diagnosis Acute nasopharyngitis Acute nasopharyngitis (common cold) Acute bilateral otitis media Diagnosis state, incidental Discharge Instructions * Attachments The following attachments cannot be sent through Care Everywhere. * : KICK COUNTS (SIERRA LEONEAN) * : WEEK 38 (SIERRA LEONEAN) * : WHEN TO CALL (AFTER 20 WEEKS): GENERAL INFO ([employer]ER[employer] LEONE[facility]) * : BREECH VERSION (SIERRA LEONEAN) documented in this encounter Hospital Course * [...] and content) DATE CREATED AUTHOR 05/11/2019 [facility] DATE CREATED AUTHOR AUTHOR'S ORGANIZ ATION 10/25/2019 [facility] DATE CREATED AUTHOR AUTHOR'S ORGANIZ ATION 11/27/2019 [facility] DATE CREATED AUTHOR AUTHOR'S ORGANIZ ATION 01/13/2024 [facility] EPIC Reason for [...] in this encounter 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 Parents to see the gut snatcher tomorrow for exam and weight check. Mom [...] Care Teams (unrecognized sec tion and content) Scientific Affairs Manager Relationship Specialty Start Date End Date Nathaly Keith MD [address] [place] [address] PCP - General Family Medicine 12/26/22 Scientific Affairs Manager Relationship Specialty Start Date End Date Nathaly Keith MD [address] [facility] [place] [address] PCP - General Family Medicine 12/26/22 Scientific Affairs Manager Relationship Specialty Start Date End Date Nathaly Keith MD [address] [facility] [place] [address] PCP - General Family Medicine 12/26/22 FOR [...] BE BASED ON THE PRIMARY CLINICAL RECORDS. [facility] [facility]. provides no warranty or guarantee of the accuracy or completeness of information in this document.
[2024-01-24 08:29] VITALS: BP 122/77; PULSE 89
== END 2024-01-24 09:01 | disposition home or self-care (01) ==
LOC: US 06:55 → FBC 08:05
PROVIDERS: PCP Family Medicine; Visit Provider Obstetrics & Gynecology
DX: O09.522 Supervision of elderly multigravida, second trimester (principal); Z3A.36 36 weeks gestation of pregnancy
CPT/HCPCS: 76816; 76818

== ENCOUNTER 2024-01-27 06:49 | Outpatient (OUT) | payer OTHER, SELFPAY ==
--- OUTSIDE RECORDS SUMMARY | 2024-01-27 06:52 | XMS_ITS | CCD ---
Author Organization [facility] Care Team Providers Care [employer] Name Role Phone NO, PHYSICIAN Primary Care Unavailable JUDY TORO Attending Marla vailable Maryuri, Physician Primary Care Provider Unavailabl HAYLIE Bustos Admitting Unavailabl e HAYLIE PEARSON Referring Unavailabl e PEERZADE, [facility] Primary Care Unav ailable HAYLIE PEARSON Admitting Unavailabl e ORSUSU, HAYLIE HERNANDEZ Referring Unavailabl e PEERZADE, [facility] Care Unav ailable Haylie Pearson Unavailable Peerzade, [facility] Primary [facility] [place] Provide r HAYLIE PEARSON Admitting Unavailabl e HAYLIE PEARSON Attending Unavailabl e NO, PHYSICIAN Primary Care Unavailable HAYLIE PEARSON Admitting Unavailabl e PEERZADE, [facility] Primary Care Unav ailable HAYLIE PEARSON Attending Unavailabl e [facility] onsulting Unavailable PEERZADE, [facility] Primary Care Unav ailable HAYLIE PEARSON Admitting Unavailabl e HAYLIE PEARSON Attending Unavailabl e HAYLIE PEARSON Admitting Unavailabl e PEERZADE, [facility] Primary Care Unav ailable [facility] onsulting Unavailable KAREN SCHULTE Attending Unavailable HAYLIE PEARSON Admitting Unavailabl e PEERZADE, [facility] Primary Care Unav ailable Nathaly Keith MD Primary Care Provider [phone] SHANNA FORD Attending Unavailable LOGAN, SHANNA Attending Unavailable LOGAN, SHANNA Attending Unavailable LOGAN, SHANNA Attending Unavailable MEGAN, SHARRI Attending Unavailable LOGAN, SHANNA Attending Unavailable MEGAN, SHARRI Attending Unavailable MEGAN, SHARRI Attending Unavailable LOGAN, SHANNA Attending Unavailable Medications Current Medications Medication Drug [...] aspirin 81 mg delayed release oral tablet (7 sources) Platelet Aggregation Inhibitor, Nonsteroidal Anti-inflammatory Drug take 1 tablet by mouth once daily aspirin 81 MG EC tablet Take 81 mg by mouth Daily Active MV-Min-Fe Fum-FA-DHA ( 1 PO) (7 sources) MV-Min-Fe Fum-FA-DHA ( 1 PO) Take [...] 5 minutes, as instructed in the Notify Anesthesiologist/FRONT WORKER: Hypotension order. Start: 10-14-2019 End: 10-14-2019 lactated [...] CHEW. docusate sodium 50 mg / sennosides, fpc 8.6 mg oral tablet (1 source) Start: [...] same rate as the secondary infusion, Starting 10/25/19 at 1146, Run as Primary IV. NOT [...] of ] 01-11-2024 Episodic Residual codes; unclassified (5 sources) Gestation period, 36 weeks; Translations: [36 weeks gestation of ] Onset: 01-23-2024 01-22-2024 Episodic Unclassified (7 sources) OB Reminders Onset: 08-13-2023 08-13-2023 Past or Other Problems Problem Classification Problem Date Documented Da te Episodic/Chronic NEGATED: Highlighted row has been ruled out!Unclassified (1 source) No known active problems Results Test Name Value Interpretation Reference Range Facil ity STREP GP B NAAon 01-25-2024 STREP GP B ELEUTERIO Strep Gp B ELEUTERIO [facility] STREP GP B ELEUTERIO Negative [facility] STREP GP B ELEUTERIO Centers for Disease Control and Prevention (CDC) and [facility] STREP GP B ELEUTERIO [employer] [employer] [facility] STREP GP B ELEUTERIO (ACOG) guidelines for prevention of group B [facility] STREP GP B ELEUTERIO streptococcal (GBS) disease specify co-collection of [facility] STREP GP B ELEUTERIO a vaginal and rectal swab specimen to maximize [facility] STREP GP B ELEUTERIO sensitivity of GBS detection. Per the CDC and ACOG, [facility] STREP GP B ELEUTERIO swabbing both the lower vagina and rectum [facility] STREP GP B ELEUTERIO substantially increases the yield of detection [facility] STREP GP B ELEUTERIO compared with sampling the vagina alone. [facility] STREP GP B ELEUTERIO Penicillin G, ampicillin, or cefazolin are indicated [facility] STREP GP B ELEUTERIO for intrapartum prophylaxis of GBS [facility] STREP GP B ELEUTERIO colonization. Reflex susceptibility testing should be [facility] STREP GP B ELEUTERIO performed prior to use of clindamycin only on GBS [facility] STREP GP B ELEUTERIO isolates from penicillin-allergic women who are [facility] STREP GP B ELEUTERIO considered a high risk for anaphylaxis. Treatment with [facility] STREP GP B ELEUTERIO vancomycin without additional testing is warranted if [facility] STREP GP B ELEUTERIO resistance to clindamycin is noted. [facility] STREP GP B ELEUTERIO Performed at: [facility] STREP GP B ELEUTERIO [address] [place] [address] [phone] [facility] STREP GP B ELEUTERIO Conveyor Worker: Jeffery Delgado PhD, Phone: [phone] [facility] e Urinalysis macro (dipstick) panel (U)on 01-22-2024 Bilirubin, UA Negative Negative - 4(70) +++ mg/dL [facility] Blood, UA Negative Negative - 50 [place]/mcL [facility] Clarity, UA Clear [facility] re Color, UA Yellow [facility] Glucose, UA Negative Negative - 1999(110) ++++ mg/dL [facility] Interpretation and review of laboratory results Abnormal [facility] Ketones, UA Negative Negative - 160(16) ++++ mg/dL [facility] Leukocytes, UA Negative Negative - 500+++ Elsa/mcL [facility] Nitrite, UA Negative Negative - Positive [facility] pH, UA 5.5 5 - 9 [facility] Protein, UA Negative Negative - 1999(20) ++++ mg/dL [facility] Spec Grav, UA 1.02 1 - 1.03 [facility] Urobilinogen, UA 1.0 0.2 - 12 mg/dL [facility] Urinalysis macro (dipstick) panel (U)on 01-11-2024 Bilirubin, UA Negative Negative - 4(70) +++ mg/dL [facility] Blood, UA Negative Negative - 50 [place]/mcL [facility] Clarity, UA Clear [facility] re Color, UA Yellow [facility] Glucose, UA Negative Negative - 1999(110) ++++ mg/dL [facility] Interpretation and review of laboratory results Normal [facility] Ketones, UA Negative Negative - 160(16) ++++ mg/dL [facility] Leukocytes, UA Negative Negative - 500+++ Elsa/mcL [facility] Nitrite, UA Negative Negative - Positive [facility] pH, UA 7.0 5 - [address] [facility] e Protein, UA Negative Negative - 1999(20) ++++ mg/dL [facility] Spec Grav, UA 1.010 1 - 1.03 [facility] Urobilinogen, UA 0.2 0.2 - 12 mg/dL [facility] CBCon 10-26-2019 Erythrocyte distribution width (RBC) [Entitic vol] 14.1 % 11.6 - 14.8 % [facility] Hematocrit (Bld) [Volume fraction] 31.7 % Low 36 - 46 % [facility] Hemoglobin (Bld) [Mass/Vol] 9.9 g/dL Low 12 - 16 g/dL [facility] Interpretation and review of laboratory results Abnormal [facility] MCH (RBC) [Entitic mass] 29.6 pg 26 - [address] [facility] MCHC (RBC) [Mass/Vol] 31.2 g/dL 31 - 37 g/dL [facility] MCV (RBC) [Entitic vol] 94.6 fL 80 - [address] [facility] Nucleated RBC (Bld) [#/Vol] 0.00 10*3/uL [facility] Nucleated RBC/100 WBC (Bld) [Ratio] 0.0 % [facility] Platelet mean volume (Bld) [Entitic vol] 12.2 fL 9.4 - 12.[address] [facility] Platelets (Bld) [#/Vol] 191 10*3/uL [facility] RBC (Bld) [#/Vol] 3.35 10*6/uL Low [facility] ealth WBC (Bld) [#/Vol] 12.37 10*3/uL High [facility] CBCon 10-25-2019 Erythrocyte distribution width (RBC) [Entitic vol] 13.8 % 11.6 - 14.8 % [facility] Hematocrit (Bld) [Volume fraction] 37.8 % 36 - 46 % [facility] Hemoglobin (Bld) [Mass/Vol] 12.5 g/dL 12 - 16 g/dL [facility] Interpretation and review of laboratory results Abnormal [facility] MCH (RBC) [Entitic mass] 30.0 pg 26 - [address] [facility] MCHC (RBC) [Mass/Vol] 33.1 g/dL 31 - 37 g/dL [facility] MCV (RBC) [Entitic vol] 90.9 fL 80 - [address] [facility] Nucleated RBC (Bld) [#/Vol] 0.00 10*3/uL [facility] Nucleated RBC/100 WBC (Bld) [Ratio] 0.0 % [facility] Platelet mean volume (Bld) [Entitic vol] 12.4 fL 9.4 - 12.[address] [facility] Platelets (Bld) [#/Vol] 256 10*3/uL [facility] RBC (Bld) [#/Vol] 4.16 10*6/uL [facility] WBC (Bld) [#/Vol] 12.90 10*3/uL [facility] Syphilis Antibodyon 10-25-19 20 Interpretation and review of laboratory results Normal [facility] T. pallidum Ab Ql (S) Negative Negative [facility] Type and Screenon 10-25-2019 ABO and Rh group Nom (Bld) B Positive [facility] Blood group antibody screen Ql Negative [facility] Specimen Expires 10/28/2019 23:[address] [facility] ABORH VERIFICATIONon 020 ABO and Rh group Nom (Bld) ABO/Rh Verification [facility] ABO and Rh group Nom (Bld) B Positive [facility] Patient's ABO/Rh is verified. [facility] CBCon 10-14-2019 Erythrocyte distribution width (RBC) [Entitic vol] 13.5 % 11.6 - 14.8 % [facility] Hematocrit (Bld) [Volume fraction] 35.6 % Low 36 - 46 % [facility] Hemoglobin (Bld) [Mass/Vol] 11.6 g/dL Low 12 - 16 g/dL [facility] Interpretation and review of laboratory results Abnormal [facility] MCH (RBC) [Entitic mass] 30.0 pg 26 - [address] [facility] MCHC (RBC) [Mass/Vol] 32.6 g/dL 31 - 37 g/dL [facility] MCV (RBC) [Entitic vol] 92.0 fL 80 - [address] [facility] Nucleated RBC (Bld) [#/Vol] 0.00 10*3/uL [facility] Nucleated RBC/100 WBC (Bld) [Ratio] 0.0 % [facility] Platelet mean volume (Bld) [Entitic vol] 12.8 fL High 9.4 - 12.[address] [facility] Platelets (Bld) [#/Vol] 253 10*3/uL [facility] RBC (Bld) [#/Vol] 3.87 10*6/uL Low [facility] ealth WBC (Bld) [#/Vol] 12.69 10*3/uL [facility] RPRon 10-14-2019 Interpretation and review of laboratory results Normal [facility] Reagin Ab RPR Ql (S) Non-Reactive Non-Reactive [facility] Type and Screenon 10-14-2019 ABO and Rh group Nom (Bld) B Positive [facility] Blood group antibody screen Ql Negative [facility] Specimen Expires 10/17/2019 23:[address] [facility] Group B Strep PCR, Vaginal/R ectalon 10-01-2019 S. agalactiae Ag Ql (Unsp spec) Negative Negative [facility] CHLAMYDIA/GONORRHOEAE AMPLIF IED RNAon 03-22-2019 C. trachomatis rRNA ELEUTERIO+probe Ql (Unsp spec) Negative Negative [facility] N. gonorrhoeae rRNA ELEUTERIO+probe Ql (Unsp spec) Negative Negative [facility] Type and Screenon 03-22-2019 ABO and Rh group Nom (Bld) B [facility] Rh Type Positive [facility] Vital Signs Date Time Vital Sign Value Performing Clinician Faci lity 01-22-2024 15:27-0400 Body mass index (BMI) [Ratio] 32.28 kg/m2 [employer] DO Work Phone: [facility] 01-22-2024 15:27-0400 Body weight 90.72 kg [employer] DO Work Phone: [facility] 01-22-2024 15:27-0400 Diastolic blood pressure 68 mm[Hg] [facility] Work Phone: [facility] 01-22-2024 15:27-0400 Systolic blood pressure 112 mm[Hg] Shanna Ford DO Work Phone: [facility] 01-11-2024 10:10-0400 Body mass index (BMI) [Ratio] 31.93 kg/m2 Sharri [place] PA Work Phone: [facility] 01-11-2024 10:10-0400 Body weight 89.72 kg Sharri Garciajadyn MEZA Work Phone: [facility] 01-11-2024 10:10-0400 Diastolic blood pressure 68 mm[Hg] Sharri Garciajadyn MEZA Work Phone: [facility] 01-11-2024 10:10-0400 Systolic blood pressure 120 mm[Hg] Sharri Garciajadyn MEZA Work Phone: [facility] 10-27-2019 08:19-0400 Body Temperature 97.7 [degF] [facility] 10-27-2019 08:19-0400 BP Diastolic 67 mm[Hg] [facility] 10-27-2019 08:19-0400 BP Systolic 105 mm[Hg] [facility] 10-27-2019 08:19-0400 Pulse (Heart Rate) 71 /min [facility] 10-27-2019 08:19-0400 Pulse Oximetry 96 % [facility] 10-27-2019 08:19-0400 Respiratory Rate 16 /min [facility] 10-25-2019 06:01-0400 BMI (Body Mass Index) 29.13 kg/m2 [facility] 10-25-2019 06:01-0400 Body weight 84.37 kg [facility] 10-25-2019 06:01-0400 Height 170.2 cm [facility] 10-14-2019 10:30-0400 BP Diastolic 77 mm[Hg] [facility] 10-14-2019 10:30-0400 BP Systolic 126 mm[Hg] [facility] 10-14-2019 10:30-0400 Pulse (Heart Rate) 91 /min [facility] 10-14-2019 10:30-0400 Respiratory Rate 16 /min [facility] 10-14-2019 10:15-0400 Pulse Oximetry 97 % [facility] 10-14-2019 05:39-0400 BMI (Body Mass Index) 28.82 kg/m2 [facility] 10-14-2019 05:39-0400 Body Temperature 98.1 [degF] [facility] 10-14-2019 05:39-0400 Body weight 83.46 kg [facility] 10-14-2019 05:39-0400 Height 170.2 cm [facility] 05-11-2019 13:20-0500 Pulse (Heart Rate) 106 /min [facility] 05-11-2019 13:15-0500 BMI (Body Mass Index) 26.31 kg/m2 [facility] 05-11-2019 13:15-0500 Body Temperature 98.4 [degF] [facility] [...] Start: 01-22-2024 End: 01-22-2024 flow sheet Shanna Ford DO Work Phone: [facility] Comment on above: Third trimester preg eliud; 36 weeks gestation of Start: 01-22-2024 End: 01-22-2024 ambulatory SHANNA FORD Not Available Start: 01-22-2024 End: 01-22-2024 Bamboo flowsheet Shanna Logan DO Work Phone: [facility] Start: 01-22-2024 End: 01-25-2024 Bamboo flowsheet Shanna Logan DO Work Phone: [facility] Start: 01-22-2024 End: 01-25-2024 [facility] Result Encounter Generic External Data Provider [facility] Unsolicited Start: 01-11-2024 End: 01-11-2024 Bamboo flowsheet Sharri MEZA Work Phone: [facility] Start: 01-11-2024 End: 01-11-2024 Bamboo flowsheet Sharri MEZA Work Phone: [facility] Start: 01-11-2024 End: 01-11-2024 ambulatory SHARRI GUZMAN Not Available Start: 01-11-2024 End: 01-11-2024 flow sheet Sharri MEZA Work Phone: [facility] Comment on above: 34 weeks [...] Available Start: 07-13-2023 End: 07-13-2023 ambulatory SHANNA LOGAN Not Available Start: 11-11-2019 End: 11-15-2019 Patient encounter procedure [facility] Start: 10-25-2019 End: 10-27-2019 [facility]: 10-25-[facility] End: 10-27-2019 Evaluation and management of inpatient [facility] Work Phone: [facility] Mother/ Start: 10-24-2019 End: 10-24-2019 Patient encounter procedure [facility] Start: 10-14-2019 End: 10-14-2019 Patient encounter procedure DANETTE FINNEGANZACALVIN [facility] Start: 10-14-2019 End: 10-14-2019 Subsequent hospital visit by physician Haylie Jordanutvick Work Phone: [facility] Delivery Start: 10-11-2019 End: 10-11-2019 Patient encounter procedure [facility] Start: 10-08-2019 Patient encounter procedure [facility] Start: 05-11-2019 End: 05-11-2019 Patient encounter procedure PHYSICIAN MARYURI [facility] Start: 05-11-2019 End: 05-11-2019 Office outpatient visit 25 minutes [place] Work Phone: [facility] Comment on above: Acute nasopharyngiti s (Primary Dx); Acute bilateral otitis media Procedures Date Procedure Procedure Detail Performing Clinician Start: 01-22-2024 Urnls dip stick/tabl et rgnt non-auto w/o micrscp Shanna Ford DO Work Phone: Start: 01-22-2024 STREP GP B ELEUTERIO Generic External Data Provider Start: 01-11-2024 Urnls dip stick/tabl et rgnt non-auto w/o micrscp Sharri MEZA Work Phone: Start: 09-11-2023 Microscopic observat ion [Identifier] in Cervix by Cyto stain Sharri MEZA Work Phone: Start: 10-26-2019 Complete blood count (hemogram) panel - Blood by Automated count Haylie Pearson Work Phone: Start: 10-25-2019 Blood type and Indir ect antibody screen panel - Blood Haylie Hernandez [employer] Work Phone: Start: 10-25-2019 Complete blood count (hemogram) panel - Blood by Automated count Haylie Hernandez [employer] Work Phone: Start: 10-25-2019 Treponema pallidum I gG Ab [Presence] in Serum Haylie Hernandez [employer] Work Phone: Start: 10-14-2019 Blood group typing Caren ann Wickr Work Phone: Start: 10-14-2019 Blood type and Indir ect antibody screen panel - Blood Haylie Wickr Work Phone: Start: 10-14-2019 Complete blood count (hemogram) panel - Blood by Automated count Haylie Hernandez [employer] Work Phone: Start: 10-14-2019 Rapid plasma reagin test Haylie Ann [employer] Work Phone: Start: 10-01-2019 Streptococcus agalac tiae DNA [Presence] in Unspecified specimen by ELEUTERIO with probe detection Historical Provider Start: 03-22-2019 Blood type and Indir ect antibody screen panel - Blood Historical Provider Start: 03-22-2019 Neisseria gonorrhoea e nucleic acid detection Historical Provider Plan of Treatment Date Care Activity Detail Author Start: 09-10-2028 Screening for malign ant neoplasm of cervix [facility] Start: 01-31-2024 End: 01-31-2024 Patient encounter procedure 01/31/2024 9:50 AM EDT Routine [facility] [address] [id number] Sharri Guzman PA [address] [place] [address] [facility] Start: 01-22-2024 End: 01-22-2024 Patient encounter procedure [facility] Comment on above: Arrived Start: 01-22-2024 End: 01-21-2025 Strep B DNA probe, amplification Strep B DNA probe, amplification Lab Routine Third trimester Expected: 01/22/2024 (Approximate), Expires: 01/21/2025 [facility] Work Phone: Comment on above: Expected: 01/22/2024 (Approximate), Expires: 01/21/2025 Start: 12-03-2023 Influenza vaccination Influenza Vacc ine (#1) [facility] Start: 12-03-2019 Influenza vaccinatio n given Sequential Influenza Vaccine (#1) [facility] Start: 10-01-2019 Influenza vaccinatio n given SEQUENTIAL INFLUENZA VACCINE (#1) [facility] Comment on above: Postponed from 12/02 (Patient Refused) Start: 02-08-2006 Hepatitis C antibody , confirmatory test Hepatitis C Screening [facility] Start: 02-08-2003 HIV screening HIV Screening [facility] Start: 02-08-1991 History and physical examination, annual for health maintenance Wellness Visit [facility] Start: 1988 Screening for malign ant neoplasm of cervix PAP SMEAR [facility] Start: 1988 Tetanus vaccination [facility] Immunizations Immunization Date Immunization Notes Care Provider Felipe [facility] 10-25-2019 diphtheria, tetanus toxoids and acellular pertussis vaccine, unspecified formulation [facility] 10-25-2019 measles, mumps and r ubella virus vaccine [facility] 10-25-2019 varicella zoster immune globulin [facility] Payers Date Payer Category Payer Private Health Insurance [id number] 2023 Private Health Insurance [id number] 2022 Private Health Insurance [id number] 2019 Private Health Insurance [id number] 2019 Private Health Insurance [id number] 1988 Unknown [id number] 2.16. [id number] 1988 Unknown [id number] 2.16.8 [id number] 1988 Unknown [id number] 2.16.8 [id number] 1988 Unknown [id number] 2.16.8 [id number] 1988 Unknown [id number] 2.16.8 [id number] 1988 Unknown [id number] 2.16.8 [id number] 1988 Unknown [id number] 2.16.8 [id number] 1988 Unknown [id number] 2.16.8 [id number] 1988 Unknown [id number] 2.16.84 0.1.994728.3.579.2.1258 1988 Unknown [id number] 2.16.84 [id number] 1988 Unknown [id number] 2.16.84 0.1.111645.3.579.2.1258 1988 Unknown [id number] 2.16.84 [id number] 1988 Unknown [id number] 2.16.84 [id number] 1988 Unknown [id number] 2.16.84 [id number] 1988 Unknown [id number] 2.16.84 [id number] 1988 Unknown [id number] 2.16.84 0.1.938201.3.579.2.1258 1988 Unknown [id number] 2.16.84 0.1.045019.3.579.2.1258 1988 Unknown [id number] 2.16.84 [id number] Social History Date Type Detail Facility Start: 05-11-2019 End: 12-26-2022 Tobacco smoking status NHIS Never smoker [facility] Start: 05-11-2019 End: 10-27-2019 Alcohol intake Ex-drinker (finding) [facility] Start: 02-07-[address] [facility] Sex Assigned At Not on file [facility] alth Exposure to SARS-CoV -2 (event) Not sure [facility] Start: 12-26-2022 Tobacco use and exposure Smokeless t obacco non-user [facility] Start: 12-27-2023 End: 01-11-2024 Alcoholic beverage intake Current drinker of alcohol (finding) [facility] Start: 07-07-2023 History of Social function [facility] Start: 07-07-2023 Tobacco use panel [facility] Start: 1988 Sex assigned at Female [facility] Start: 12-25-2022 Gender identity Identifies as female gender (finding) [facility] Start: 12-25-2022 Sexual orientation Heterosexual (fin ding) [facility] Goals Date Patient Goal Desired Activity [...] History: Procedure Laterality Date SECTION, LOW TRANSVERSE 2019 REVIEW OF SYSTEMS Review of Systems: Review [...] nursing note reviewed. Exam conducted with a neurology hospitalist present. Vitals: Estimated body mass index is [...] nursing note reviewed. Exam conducted with a neurology hospitalist present. Vitals: Estimated body mass index is [...] Documents on File Type Date Recorded Patient Tub Chucker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 Advance Directives and Living Will Documents on File Type Date Recorded Patient Tub Chucker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 Advance Directives and Livin g Will 10/14/2019 5:28 AM Latest Code Status on File Code Status Date Activated Date Inactivated Comments Full Code 10/14/2019 5:32 AM 10/14/2019 1:17 PM Documents on File Type Date Recorded Patient Tub Chucker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 Advance Directives and Livin g [...] include drinking lots of fluids and taking pnir-uyk-xybcoou pain medicine. You will probably feel better [...] amount of fluids you drink. Take an tspy-gzu-wnmiuiy pain medicine, such as acetaminophen (Tylenol), ibuprofen (Advil, Motrin),or naproxen (Aleve). Read and follow all instructions on the label. Before you use cough and cold medicines, check the label. These medicines may not be safe for youngchildren or for people with certain health problems. Be careful when taking nfba-zgr-twaddaj cold or flu medicines and Tylenol at [...] Log into your personal health record on [email or web address] and enter K520 in the Education box to learn more about Upper Respiratory Infection (Cold): Care Instructions. Current as of: September 09, 2018 Content Version: 12.3 7629-5700 [employer]. Care instructions adapted under license by your healthcare professional. If you have questions about a medical condition or this instruction, always ask your healthcare professional. [employer] disclaims any warranty or liability for your [...] taking a prescription pain medicine, take an narf-zyp-vnndyqw medicine, such as acetaminophen (Tylenol), ibuprofen (Advil, [...] Log into your personal health record on [email or web address] and enter X558 in the Education box to learn more about Ear Infection (Otitis Media): Care Instructions. Current as of: October 28, 2018 Content Version: 12.3 3993-9166 [employer]. Care instructions adapted under license by your healthcare professional. If you have questions about a medical condition or this instruction, always ask your healthcare professional. [employer] disclaims any warranty or liability for your use of this information. 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 documented in this encounter Assessments Diagnosis Acute nasopharyngitis Acute nasopharyngitis (common cold) Acute bilateral otitis media Diagnosis state, incidental Discharge Instructions * Attachments The following attachments cannot be sent through Care Everywhere. 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 Parents to see the public health clinical nurse specialist tomorrow for exam and weight check. Mom [...] Care Teams (unrecognized sec tion and content) [employer] Relationship Specialty Start Date End Date Nathaly Keith MD [address] [place] [address] PCP - General Family Medicine 12/26/22 [employer] Relationship Specialty Start Date End Date Nathaly Keith MD [address] [place] [address] PCP - General Family Medicine 12/26/22 [employer] Relationship Specialty Start Date End Date Nathaly Keith MD [address] [facility] [place] [address] PCP - General Family Medicine 12/26/22 [employer] Relationship Specialty Start Date End Date Nathaly Keith MD [address] [facility] [place] [address] PCP - General Family Medicine 12/26/22 FOR [...] BE BASED ON THE PRIMARY CLINICAL RECORDS. [facility] [employer] [facility]. provides no warranty or guarantee of the accuracy or completeness of information in this document.
[2024-01-27 09:08] VITALS: BP 108/68; PULSE 108
== END 2024-01-27 09:38 | disposition home or self-care (01) ==
LOC: FBCO 06:49 → FBC 09:00
PROVIDERS: PCP Family Medicine; Visit Provider Obstetrics & Gynecology
DX: O09.529 Supervision of elderly multigravida, unspecified trimester (principal)
CPT/HCPCS: 59025

== ENCOUNTER 2024-01-31 07:15 | Outpatient (OUT) | payer OTHER, SELFPAY ==
--- NOTE | 2024-01-31 | US_ITS ---
[place] [id number] Patient Name: ACE MORRISSEY MRN: [id number] date: 1990 Sex: F Assigned Patient Location: [facility] Current Patient Location: Accession/Order Number: [id number] Exam Date: 01/31/2024 08:15 Report Date: 02/01/2024 04:25 At the request of: SHANNA KEITH Procedure: US OB BPP w non-stress EXAMINATION: US OB BPP w non-stress HISTORY:ADVANCED MATERNAL AGE O09.522 COMPARISON: Ultrasound OB biophysical 01/24/2024 TECHNIQUE: Ultrasound biophysical profile was performed in the radiology department. BREATHING MOVEMENTS: 2 GROSS BODY MOVEMENTS: 2 TONE: 2 QUALITATIVE AMNIOTIC FLUID VOLUME: 2 PRESENTATION: CEPHALIC HEART RATE: 133.00 bpm AMNIOTIC FLUID VOLUME: 18.29 cm GESTATIONAL AGE: 37 weeks 5 days US/US OB BPP w non-stress IMPRESSION: Total biophysical profile score: 8 Electronically authenticated by: MARKELL FERMIN Date: 02/01/2024 04:25
--- OUTSIDE RECORDS SUMMARY | 2024-01-31 07:17 | XMS_ITS | CCD ---
Author Organization [facility] Care Team Providers Care Lamp Clean[employer] Light Name Role Phone NO, PHYSICIAN Primary Care Unavailable JUDY TORO Attending Marla vailable Maryuri, Physician Primary Care Provider Unavailabl HAYLIE Bustos Admitting Unavailabl e HAYLIE PEARSON Referring Unavailabl e PEERZADE, [facility] Primary Care Unav ailable HAYLIE PEARSON Admitting Unavailabl e ORSUSU, HAYLIE HERNANDEZ Referring Unavailabl e PEERZADE, [facility] Care Unav ailable Haylie Pearson Unavailable Peerzade, [facility] Primary [facility] Provide r HAYLIE PEARSON Admitting Unavailabl e HAYLIE PEARSON Attending Unavailabl e NO, PHYSICIAN Primary Care Unavailable HAYLIE PEARSON Admitting Unavailabl e PEERZADE, [facility] Primary Care Unav ailable HAYLIE PEARSON Attending Unavailabl e [facility] onsulting Unavailable PEERZADE, [facility] Primary Care Unav ailable HAYLIE PEARSON Admitting Unavailabl e HAYLIE PEARSON Attending Unavailabl e HAYLIE PEARSON Admitting Unavailabl e PEERZADE, [facility] Primary Care Unav ailable [facility] onsulting Unavailable KAREN SCHULTE Attending Unavailable HAYLIE PEARSON Admitting Unavailabl e PEERZADE, [facility] Primary Care Unav ailable Nathaly Keith MD Primary Care Provider SHANNA FORD Attending Unavailable LOGAN, SHANNA Attending [...] 5 minutes, as instructed in the Notify Anesthesiologist/SMALL PACKAGE AND BUNDLE SORTER CLERK: Hypotension order. Start: 10-14-2019 End: 10-14-2019 lactated [...] CHEW. docusate sodium 50 mg / sennosides, prison 8.6 mg oral tablet (1 source) Start: [...] and [facility] B ELE[place]ERIO [place] [employer] [facility] B ELEUTERIO (ACOG) guidelines for prevention of group B [facility] B [place]ER[place] streptococcal (GBS) disease specify co-collection of [facility]RE[facility] GP B ELEUTERIO a vaginal and rectal swab specimen to maximize [facility] B ELEUTERIO sensitivity of GBS detection. Per the CDC and ACOG, [facility] STREP GP B ELEUTERIO swabbing both the lower vagina and rectum [facility] STREP GP B ELEUTERIO substantially increases the yield of detection [facility] STREP GP B ELEUTERIO compared with sampling the vagina alone. [facility] STREP GP B ELEUTERIO Penicillin G, ampicillin, or cefazolin are indicated [facility] STREP GP B ELEUTERIO for intrapartum prophylaxis of GBS [facility] STREP GP B ELEUTERIO colonization. Reflex susceptibility testing should be [facility] STREP GP B ELEUTERIO performed prior to use of clindamycin only on GBS [facility] STREP GP B ELEUTERIO isolates from penicillin-allergic women who are [facility] STREP GP B ELEUTERIO considered a high risk for anaphylaxis. Treatment with [facility] STREP GP B ELEUTERIO vancomycin without additional testing is warranted if [facility] STREP GP B ELEUTERIO resistance to clindamycin is noted. [facility] STREP GP B ELEUTERIO Performed at: [facility] STREP GP B ELEUTERIO [address] [place] [address] [id number] [facility] STREP GP B [place] Healthcare Administration Intern: Jeffery Delgado PhD, Phone: [phone] [facility] Urinalysis macro (dipstick) panel (U)on 01-22-2024 Bilirubin, UA Negative Negative - 4(70) +++ mg/dL [facility] Blood, UA Negative Negative - 50 [place]/mcL [facility] Clarity, UA Clear [facility] re Color, UA Yellow [facility] Glucose, UA Negative Negative - 1999(110) ++++ mg/dL [facility] Interpretation and review of laboratory results Abnormal [facility] Ketones, UA Negative Negative - 160(16) ++++ mg/dL [facility] Leukocytes, UA Negative Negative - 500+++ Elsa/mcL [facility] Nitrite, UA Negative Negative - Positive [facility] pH, UA 5.5 5 - 9 [facility] Protein, UA Negative Negative - 1999(20) ++++ mg/dL [facility] Spec Grav, UA 1.02 1 - 1.03 [facility] Urobilinogen, UA 1.0 0.2 - 12 mg/dL [facility] Urinalysis macro (dipstick) panel (U)on 01-11-2024 Bilirubin, UA Negative Negative - 4(70) +++ mg/dL [facility] Blood, UA Negative Negative - 50 [place]/mcL [facility] Clarity, UA Clear [facility] re Color, UA Yellow [facility] Glucose, UA Negative Negative - 1999(110) ++++ mg/dL [facility] Interpretation and review of laboratory results Normal [facility] Ketones, UA Negative Negative - 160(16) ++++ mg/dL [facility] Leukocytes, UA Negative Negative - 500+++ Elsa/mcL [facility] Nitrite, UA Negative Negative - Positive [facility] pH, UA 7.0 5 - 9 [facility] e Protein, UA Negative Negative - 1999(20) ++++ mg/dL [facility] Spec Grav, UA 1.010 1 - 1.03 [facility] Urobilinogen, UA 0.2 0.2 - 12 mg/dL [facility] CBCon 10-26-2019 Erythrocyte distribution width (RBC) [Entitic vol] 14.1 % 11.6 - 14.8 % [facility] Hematocrit (Bld) [Volume fraction] 31.7 % Low 36 - 46 % [facility] Hemoglobin (Bld) [Mass/Vol] 9.9 g/dL Low 12 - 16 g/dL [facility] Interpretation and review of laboratory results Abnormal [facility] MCH (RBC) [Entitic mass] 29.6 pg 26 - 34 pg [facility] MCHC (RBC) [Mass/Vol] 31.2 g/dL 31 - 37 g/dL [facility] MCV (RBC) [Entitic vol] 94.6 fL 80 - 100 fL [facility] Nucleated RBC (Bld) [#/Vol] 0.00 10*3/uL [facility] Nucleated RBC/100 WBC (Bld) [Ratio] 0.0 % [facility] Platelet mean volume (Bld) [Entitic vol] 12.2 fL 9.4 - 12.4 fL [facility] Platelets (Bld) [#/Vol] 191 10*3/uL [facility] RBC (Bld) [#/Vol] 3.35 10*6/uL Low [facility] ealth WBC (Bld) [#/Vol] 12.37 10*3/uL High [facility] CBCon 10-25-2019 Erythrocyte distribution width (RBC) [Entitic vol] 13.8 % 11.6 - 14.8 % [facility] Hematocrit (Bld) [Volume fraction] 37.8 % 36 - 46 % [facility] Hemoglobin (Bld) [Mass/Vol] 12.5 g/dL 12 - 16 g/dL [facility] Interpretation and review of laboratory results Abnormal [facility] MCH (RBC) [Entitic mass] 30.0 pg 26 - 34 pg [facility] MCHC (RBC) [Mass/Vol] 33.1 g/dL 31 - 37 g/dL [facility] MCV (RBC) [Entitic vol] 90.9 fL 80 - 100 fL [facility] Nucleated RBC (Bld) [#/Vol] 0.00 10*3/uL [facility] Nucleated RBC/100 WBC (Bld) [Ratio] 0.0 % [facility] Platelet mean volume (Bld) [Entitic vol] 12.4 fL 9.4 - 12.4 fL [facility] Platelets (Bld) [#/Vol] 256 10*3/uL [facility] RBC (Bld) [#/Vol] 4.16 10*6/uL [facility] WBC (Bld) [#/Vol] 12.90 10*3/uL High [facility] Syphilis Antibodyon 10-25-19 20 Interpretation and review of laboratory results Normal [facility] T. pallidum Ab Ql (S) Negative Negative [facility] Type and Screenon 10-25-2019 ABO and Rh group Nom (Bld) B Positive [facility] Blood group antibody screen Ql Negative [facility] Specimen Expires 10/28/2019 23:59 EST [facility] ABORH VERIFICATIONon 020 ABO and Rh group Nom (Bld) ABO/Rh Verification [facility] ABO and Rh group Nom (Bld) B Positive [facility] Patient's ABO/Rh is verified. [facility] CBCon 10-14-2019 Erythrocyte distribution width (RBC) [Entitic vol] 13.5 % 11.6 - 14.8 % [facility] Hematocrit (Bld) [Volume fraction] 35.6 % Low 36 - 46 % [facility] Hemoglobin (Bld) [Mass/Vol] 11.6 g/dL Low 12 - 16 g/dL [facility] Interpretation and review of laboratory results Abnormal [facility] MCH (RBC) [Entitic mass] 30.0 pg 26 - 34 pg [facility] MCHC (RBC) [Mass/Vol] 32.6 g/dL 31 - 37 g/dL [facility] MCV (RBC) [Entitic vol] 92.0 fL 80 - 100 fL [facility] Nucleated RBC (Bld) [#/Vol] 0.00 10*3/uL [facility] Nucleated RBC/100 WBC (Bld) [Ratio] 0.0 % [facility] Platelet mean volume (Bld) [Entitic vol] 12.8 fL High 9.4 - 12.4 fL [facility] Platelets (Bld) [#/Vol] 253 10*3/uL [facility] RBC (Bld) [#/Vol] 3.87 10*6/uL Low [facility]alth WBC (Bld) [#/Vol] 12.69 10*3/uL High [facility] RPRon 10-14-2019 Interpretation and review of laboratory results Normal [facility] Reagin Ab RPR Ql (S) Non-Reactive Non-Reactive [facility] Type and Screenon 10-14-2019 ABO and Rh group Nom (Bld) B Positive [facility] Blood group antibody screen Ql Negative [facility] Specimen Expires 10/17/2019 23:59 EST [facility] Group B Strep PCR, Vaginal/R ectalon 10-01-2019 S. agalactiae Ag Ql (Unsp spec) Negative Negative [facility] CHLAMYDIA/GONORRHOEAE AMPLIF IED RNAon 03-22-2019 C. trachomatis rRNA ELEUTERIO+probe Ql (Unsp spec) Negative Negative [facility] N. gonorrhoeae rRNA ELEUTERIO+probe Ql (Unsp spec) Negative Negative [facility] Type and Screenon 03-22-2019 ABO and Rh group Nom (Bld) B [facility] Rh Type Positive [facility] Vital Signs Date Time Vital Sign Value Performing Clinician Faci lity 01-22-2024 15:27-0400 Body mass index (BMI) [Ratio] 32.28 kg/m2 [employer] DO Work Phone: [facility] 01-22-2024 15:27-0400 Body weight 90.72 kg [employer] DO Work Phone: [facility] 01-22-2024 15:27-0400 Diastolic blood pressure 68 mm[Hg] [employer] Work Phone: [facility] 01-22-2024 15:27-0400 Systolic blood pressure 112 mm[Hg] Shanna Ford DO Work Phone: [facility] 01-11-2024 10:10-0400 Body mass index (BMI) [Ratio] 31.93 kg/m2 Sharri [place] PA Work Phone: [facility] 01-11-2024 10:10-0400 Body weight 89.72 kg Sharri Garciajadyn MEZA Work Phone: [facility] 01-11-2024 10:10-0400 Diastolic blood pressure 68 mm[Hg] Sharri Garciajadyn MEZA Work Phone: [facility] 01-11-2024 10:10-0400 Systolic blood pressure 120 mm[Hg] Sharri Garciajadyn MEZA Work Phone: [facility] 10-27-2019 08:19-0400 Body Temperature 97.7 [degF] [facility] 10-27-2019 08:19-0400 BP Diastolic 67 mm[Hg] [facility] 10-27-2019 08:19-0400 BP Systolic 105 mm[Hg] [facility] 10-27-2019 08:19-0400 Pulse (Heart Rate) 71 /min [facility] 10-27-2019 08:19-0400 Pulse Oximetry 96 % [facility] 10-27-2019 08:19-0400 Respiratory Rate 16 /min [facility] 10-25-2019 06:01-0400 BMI (Body Mass Index) 29.13 kg/m2 [facility] 10-25-2019 06:01-0400 Body weight 84.37 kg [facility] 10-25-2019 06:01-0400 Height 170.2 cm [facility] 10-14-2019 10:30-0400 BP Diastolic 77 mm[Hg] [facility] 10-14-2019 10:30-0400 BP Systolic 126 mm[Hg] [facility] 10-14-2019 10:30-0400 Pulse (Heart Rate) 91 /min [facility] 10-14-2019 10:30-0400 Respiratory Rate 16 /min [facility] 10-14-2019 10:15-0400 Pulse Oximetry 97 % [facility] 10-14-2019 05:39-0400 BMI (Body Mass Index) 28.82 kg/m2 [facility] 10-14-2019 05:39-0400 Body Temperature 98.1 [degF] [facility] 10-14-2019 05:39-0400 Body weight 83.46 kg [facility] 10-14-2019 05:39-0400 Height 170.2 cm [facility] 05-11-2019 13:20-0500 Pulse (Heart Rate) 106 /min [facility] 05-11-2019 13:15-0500 BMI (Body Mass Index) 26.31 kg/m2 [facility] 05-11-2019 13:15-0500 Body Temperature 98.4 [degF] [facility] 05-11-2019 13:15-0500 Body weight 76.2 kg [facility] 05-11-2019 13:15-0500 BP Diastolic 76 mm[Hg] [facility] 05-11-2019 13:15-0500 BP Systolic 110 mm[Hg] [facility] 05-11-2019 13:15-0500 Height 170.2 cm [facility] 05-11-2019 13:15-0500 Pulse Oximetry 98 % [facility] 05-11-2019 13:15-0500 Respiratory Rate 14 /min [facility] Encounters Encounter Date Encounter Type Care Provider Facility Start: 01-22-2024 End: 01-22-2024 flow sheet Shanan Ford DO Work Phone: [facility] [...] 01-11-2024 flow sheet Sharri MEZA Work Phone: [facility] Comment on above: 34 weeks gestation o f ; Third trimester Start: 12-27-2023 End: 12-27-2023 ambulatory SHARRI MEGAN Not Available Start: 12-13-2023 End: 12-13-2023 ambulatory SHANNA LOGAN Not Available Start: 11-29-2023 End: 11-29-2023 ambulatory SHARRI MEGAN Not Available Start: 11-15-2023 End: 11-15-2023 ambulatory SHANNA LOGNA Not Available Start: 10-16-2023 End: 10-16-2023 ambulatory SHANNA LOGAN Not Available Start: 09-11-2023 End: 09-11-2023 ambulatory SHANNA LOGAN Not Available Start: 08-14-2023 End: 08-14-2023 ambulatory SHANNA LOGAN Not Available Start: 07-13-2023 End: 07-13-2023 ambulatory SHANNA LOGAN Not Available Start: 11-11-2019 End: 11-15-[address] [facility] Start: 10-25-2019 End: 10-27-2019 [facility] Start: 10-25-2019 End: 10-27-2019 Evaluation and management of inpatient [facility] Work Phone: [facility] Mother/ Start: 10-24-2019 End: 10-24-2019 Patient encounter procedure [facility] Start: 10-14-2019 End: 10-14-2019 Patient encounter procedure DANETTE FINNEGANZACALVIN [facility] Start: 10-14-2019 End: 10-14-2019 Subsequent hospital visit by physician Haylie Jordanvavick Work Phone: [facility] Start: 10-11-2019 End: 10-11-2019 Patient encounter procedure [facility] Start: 10-08-[address] [facility] Start: 05-11-2019 End: 05-11-2019 Patient encounter procedure PHYSICIAN MARYURI [facility] Start: 05-11-2019 End: 05-11-2019 Office outpatient visit 25 minutes Judy CharlesOblong Work Phone: [facility] Comment on above: Acute nasopharyngiti [...] antibody screen panel - Blood Haylie Hernandez Swidjit Work Phone: Start: 10-25-2019 Complete blood count (hemogram) panel - Blood by Automated count Haylie Hernandez Swidjit Work Phone: Start: 10-25-2019 Treponema pallidum I gG Ab [Presence] in Serum Haylie Hernandez Swidjit Work Phone: Start: 10-14-2019 Blood group typing Caren ann Rain Work Phone: Start: 10-14-2019 Blood type and Indir ect antibody screen panel - Blood Haylie Rain Work Phone: Start: 10-14-2019 Complete blood count (hemogram) panel - Blood by Automated count Haylie Hernandez Swidjit Work Phone: Start: 10-14-2019 Rapid plasma reagin test Haylie Ann Swidjit Work Phone: Start: 10-01-2019 Streptococcus agalac tiae DNA [Presence] in Unspecified specimen by ELEUTERIO with probe detection Historical Provider Start: 03-22-2019 Blood type and Indir ect antibody screen panel - Blood Historical Provider Start: 03-22-2019 Neisseria gonorrhoea e nucleic acid detection Historical Provider Plan of Treatment Date Care Activity Detail Author Start: 09-10-2028 Screening for malign ant neoplasm of cervix [facility] Start: 01-31-2024 End: 01-31-2024 Patient encounter procedure 01/31/2024 9:50 AM EDT Routine [facility] [address] [id number] Sharri Guzman PA [address] [place] [address] [facility] Start: 01-22-2024 End: 01-22-2024 Patient encounter procedure [facility] Comment on above: Arrived Start: 01-22-2024 End: 01-21-2025 Strep B DNA probe, amplification Strep B DNA probe, amplification Lab Routine Third trimester Expected: 01/22/2024 (Approximate), Expires: 01/21/2025 [facility] Work Phone: Comment on above: Expected: 01/22/2024 (Approximate), Expires: 01/21/2025 Start: 12-03-2023 Influenza vaccination Influenza Vacc ine (#1) [facility] Start: 12-03-2019 Influenza vaccinatio n given Sequential Influenza Vaccine (#1) [facility] Start: 10-01-2019 Influenza vaccinatio n given SEQUENTIAL INFLUENZA VACCINE (#1) [facility] Comment on above: Postponed from 12/02 (Patient Refused) Start: 02-08-2006 Hepatitis C antibody , confirmatory test Hepatitis C Screening [facility] Start: 02-08-2003 HIV screening HIV Screening [facility] Start: 02-08-1991 History and physical examination, annual for health maintenance Wellness Visit [facility] Start: 1988 Screening for malign ant neoplasm of cervix PAP SMEAR [facility] Start: 1988 Tetanus vaccination [facility] Immunizations Immunization Date Immunization Notes Care Provider Felipe [facility] 10-25-2019 diphtheria, tetanus toxoids and acellular pertussis vaccine, unspecified formulation [facility] 10-25-2019 measles, mumps and r ubella virus vaccine [facility] 10-25-2019 varicella zoster immune globulin [facility] Payers Date Payer Category Payer Private Health Insurance [id number] 2023 Private Health Insurance [id number] 2022 Private Health Insurance [id number] 2019 Private Health Insurance [id number] 2019 Private Health Insurance xxx [id number] 1988 Unknown [id number] 2.16. [id number] 1988 Unknown [id number] 2.16.8 [id number] 1988 Unknown [id number] 2.16.8 [id number] 1988 Unknown [id number] 2.16.8 [id number] 1988 Unknown [id number] 2.16.8 [id number] 1988 Unknown [id number] 2.16.8 40.1.174476.3.579.2.902 1988 Unknown [id number] 2.16.8 40.1.790017.3.579.2.2 1988 Unknown [id number] 2.16.8 40.1.050965.3.579.2.902 1988 Unknown [id number] 2.16.84 0.1.755226.3.579.2.1258 1988 Unknown [id number] 2.16.84 0.1.566459.3.579.2.1258 1988 Unknown [id number] 2.16.84 0.1.787906.3.579.2.1258 1988 Unknown [id number] 2.16.84 0.1.746896.3.579.2.9 1988 Unknown [id number] 2.16.84 0.1.444406.3.579.2.1258 1988 Unknown [id number] 2.16.84 0.1.864267.3.579.2.1258 1988 Unknown [id number] 2.16.84 0.1.624224.3.579.2.1258 1988 Unknown [id number] 2.16.84 0.1.931884.3.579.2.1258 1988 Unknown [id number] 2.16.84 0.1.391220.3.579.2.1258 1988 Unknown [id number] 2.16.84 [id number] Social History Date Type Detail Facility Start: 05-11-2019 End: 12-26-2022 Tobacco smoking status NHIS Never smoker [facility] Start: 05-11-2019 End: 10-27-2019 Alcohol intake Ex-drinker (finding) [facility] Start: 02-07-2019 [facility] Sex Assigned At Not on file [facility] alth Exposure to SARS-CoV -2 (event) Not sure [facility] Start: 12-26-2022 Tobacco use and exposure Smokeless t obacco non-user [facility] Start: 12-27-2023 End: 01-11-2024 Alcoholic beverage intake Current drinker of alcohol (finding) [facility] Start: 07-07-2023 History of Social function [facility] Start: 07-07-2023 Tobacco use panel [facility] Start: 1990 Sex assigned at Female [facility] Start: 12-25-2022 Gender identity Identifies as female gender (finding) [facility] Start: 12-25-2022 Sexual orientation Heterosexual [...] nursing note reviewed. Exam conducted with a senior talent acquisition specialist present. Vitals: Estimated body mass index is [...] nursing note reviewed. Exam conducted with a senior talent acquisition specialist present. Vitals: Estimated body mass index is [...] Documents on File Type Date Recorded Patient Station Chief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 Advance Directives and Living Will Documents on File Type Date Recorded Patient Station Chief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 Advance Directives and Livin g Will 10/14/2019 5:28 AM Latest Code Status on File Code Status Date Activated Date Inactivated Comments Full Code 10/14/2019 5:32 AM 10/14/2019 1:17 PM Documents on File Type Date Recorded Patient Station Chief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 Advance Directives and Livin g [...] include drinking lots of fluids and taking uyme-cfy-lgrffbn pain medicine. You will probably feel better [...] amount of fluids you drink. Take an oeqv-bpr-yumwfwc pain medicine, such as acetaminophen (Tylenol), ibuprofen (Advil, Motrin),or naproxen (Aleve). Read and follow all instructions on the label. Before you use cough and cold medicines, check the label. These medicines may not be safe for youngchildren or for people with certain health problems. Be careful when taking dxxa-fqg-ehzhyju cold or flu medicines and Tylenol at [...] Log into your personal health record on [email or web address].[email or web address] and enter K520 in the Education box to learn more about Upper Respiratory Infection (Cold): Care Instructions. Current as of: September 09, 2018 Content Version: 12.3 3297-6346 [employer]. Care instructions adapted under license by your healthcare professional. If you have questions about a medical condition or this instruction, always ask your healthcare professional. [employer] disclaims any warranty or liability for your [...] taking a prescription pain medicine, take an cbwu-mcf-tmtdxoa medicine, such as acetaminophen (Tylenol), ibuprofen (Advil, [...] Log into your personal health record on [email or web address] and enter X558 in the Education box to learn more about Ear Infection (Otitis Media): Care Instructions. Current as of: October 28, 2018 Content Version: 12.3 0438-4641 [employer]. Care instructions adapted under license by your healthcare professional. If you have questions about a medical condition or this instruction, always ask your healthcare professional. [employer] disclaims any warranty or liability for your use of this information. 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 documented in this encounter Assessments Diagnosis Acute nasopharyngitis Acute nasopharyngitis (common cold) Acute bilateral otitis media Diagnosis state, incidental Discharge Instructions * Attachments The following attachments cannot be sent through Care Everywhere. * : KICK COUNTS (POLISH) * : WEEK 38 (POLISH) * : WHEN TO CALL (AFTER 20 WEEKS): GENERAL INFO (POLISH) * : BREECH VERSION (POLISH) documented in this encounter Hospital Course * [...] section and content) DATE CREATED AUTHOR 05/11/2019 [place] [facility] DATE CREATED AUTHOR AUTHOR'S ORGANIZ ATION 10/25/2019 [facility] DATE CREATED AUTHOR AUTHOR'S ORGANIZ ATION 11/27/2019 [facility] DATE CREATED AUTHOR AUTHOR'S ORGANIZ ATION 01/24/[address] [place] [address] [facility] EPIC Reason for Visit (unrecogniz [...] 10/14/2019 10:31 AM EDTQuick Note - Yasmin uBtts RN - 10/14/2019 9:16 AM EDT Miscellaneous [...] in this encounter Patient discharged out patient pick up driver exit in wheelchair with . 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 Parents to see the social sciences chair tomorrow for exam and weight check. Mom [...] Care Teams (unrecognized sec tion and content) [employer] [address] [employer] Relationship Specialty Start Date End Date Nathaly Keith MD [address] [place] [address] PCP - General Family Medicine 12/26/[address] Relationship Specialty Start Date End Date Nathaly Keith MD [address] [place] [address] PCP - General Family Medicine 12/26/[address] [employer] Relationship Specialty Start Date End Date Nathaly Keith MD [address] [facility] [place] [address] PCP - General Family Medicine 12/26/[address] Relationship Specialty Start Date End Date Nathaly Keith MD [address] [facility] [place] [address] PCP - General Family Medicine 12/26/22 FOR [...] BE BASED ON THE PRIMARY CLINICAL RECORDS. [facility] provides no warranty or guarantee of the accuracy or completeness of information in this document.
[2024-01-31 08:39] VITALS: BP 123/77; PULSE 80
== END 2024-01-31 09:24 | disposition home or self-care (01) ==
LOC: US 07:15 → FBC 08:07
PROVIDERS: PCP Family Medicine; Visit Provider Obstetrics & Gynecology
DX: O09.523 Supervision of elderly multigravida, third trimester (principal); Z3A.37 37 weeks gestation of pregnancy
CPT/HCPCS: 76818

== ENCOUNTER 2024-02-03 07:55 | Outpatient (OUT) | payer OTHER, SELFPAY ==
--- OUTSIDE RECORDS SUMMARY | 2024-02-03 07:58 | XMS_ITS | CCD ---
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 Name Role Phone NO, PHYSICIAN Primary Care Unavailable JUDY TORO Attending Marla vailable Maryuri, Physician Primary Care Provider Unavailabl HAYLIE Bustos Admitting Unavailabl e HAYLIE PEARSON Referring Unavailabl e PEERZADE, [facility] Primary Care Unav ailable HAYLIE PEARSON Admitting Unavailabl e ORSUSU, HAYLIE HERNANDEZ Referring Unavailabl e PEERZADE, [facility] Care Unav ailable Haylie Pearson Unavailable Peerzade, [facility] Primary [facility] Provide r HAYLIE PEARSON Admitting Unavailabl e HAYLIE PEARSON Attending Unavailabl e NO, PHYSICIAN Primary Care Unavailable HAYLIE PEARSON Admitting Unavailabl e PEERZADE, [facility] Primary Care Unav ailable HAYLIE PEARSON Attending Unavailabl e [facility] onsulting Unavailable PEERZADE, [facility] Primary Care Unav ailable HAYLIE PEARSON Admitting Unavailabl e HAYLIE PEARSON Attending Unavailabl e HAYLIE PEARSON Admitting Unavailabl e PEERZADE, [facility] Primary Care Unav ailable [facility] onsulting Unavailable KAREN SCHULTE Attending Unavailable HAYLIE PEARSON Admitting Unavailabl e PEERZADE, [facility] Primary Care Unav ailable Nathaly Keith MD Primary Care Provider [phone] SHANNA FORD Attending Unavailable LOGAN, SHANNA Attending Unavailable LOGAN, SHANNA Attending Unavailable LOGAN, SHANNA Attending Unavailable MEGAN, SHARRI Attending Unavailable LOGAN, SHANNA Attending Unavailable MEGAN, SHARRI Attending Unavailable MEGAN, SHARRI Attending Unavailable LOGAN, SHANNA Attending Unavailable MEGAN, SHARRI Attending Unavailable Medications Current Medications Medication Drug [...] aspirin 81 mg delayed release oral tablet (10 sources) Platelet Aggregation Inhibitor, Nonsteroidal Anti-inflammatory Drug take 1 tablet by mouth once daily aspirin 81 MG EC tablet Take 81 mg by mouth Daily Active MV-Min-Fe Fum-FA-DHA ( 1 PO) (10 sources) MV-Min-Fe Fum-FA-DHA ( 1 PO) Take [...] 5 minutes, as instructed in the Notify Anesthesiologist/NAIL FEEDER: Hypotension order. Start: 10-14-2019 End: 10-14-2019 lactated [...] CHEW. docusate sodium 50 mg / sennosides, care home 8.6 mg oral tablet (1 source) [...] te Episodic/Chronic Other and delivery including normal (10 sources) ; Translations: [Third trimester ] Onset: 10-14-2019 10-14-2019 Episodic Other upper respiratory infections (1 source) Nasopharyngitis; Translations: [Acute nasopharyngitis] Episodic Otitis media and related conditions (1 source) Acute bilateral otitis media ; Translations: [Acute bilateral otitis media] Episodic Residual codes; unclassified (2 sources) Gestation period, 34 weeks; Translations: [34 weeks gestation of ] 01-11-2024 Episodic Residual codes; unclassified (8 sources) Gestation period, 36 weeks; Translations: [36 weeks gestation of ] Onset: 01-23-2024 01-22-2024 Episodic Residual codes; unclassified (2 sources) Gestation period, 37 weeks; Translations: [37 weeks gestation of ] 01-31-2024 Episodic Unclassified (10 sources) OB Reminders Onset: 08-13-2023 08-13-2023 Past or Other Problems Problem Classification Problem Date Documented Da te Episodic/Chronic NEGATED: Highlighted row has been ruled out!Unclassified (1 source) No known active problems Results Test Name Value Interpretation Reference Range Facil ity Urinalysis macro (dipstick) panel (U)on 01-31-2024 Bilirubin, UA Negative Negative - 4(70) +++ mg/dL [facility] Blood, UA Negative Negative - 50 [place]/mcL [facility] Clarity, UA Clear [facility] Color, UA Yellow [facility] Glucose, UA Negative Negative - 2000(110) ++++ mg/dL [facility] Interpretation and review of laboratory results Normal [facility] Ketones, UA Negative Negative - 160(16) ++++ mg/dL [facility] Leukocytes, UA Negative Negative - 500+++ Elsa/mcL [facility] Nitrite, UA Negative Negative - Positive [facility] pH, UA 7 5 - 9 [facility] e Protein, UA Negative Negative - 1999(20) ++++ mg/dL [facility] Spec Grav, UA 1.015 1 - 1.[address] [facility] Urobilinogen, UA 1.0 0.2 - 12 mg/dL [facility] STREP GP B NAAon 01-25-2024 STREP GP B ELEUTERIO Strep Gp B ELEUTERIO [facility] STREP GP B ELEUTERIO Negative [facility] Healt hcare STREP GP B ELEUTERIO Centers for Disease Control and Prevention (CDC) and [facility] STREP GP B ELEUTERIO [place] [employer] [facility] Healthcare STREP GP B ELEUTERIO (ACOG) guidelines for prevention of group B [facility] Healthcare STREP GP B ELEUTERIO streptococcal (GBS) disease specify co-collection of [facility] Healthcare STREP GP B ELEUTERIO a vaginal and rectal swab specimen to maximize [facility] Healthcare STREP GP B ELEUTERIO sensitivity of GBS detection. Per the CDC and ACOG, [facility] STREP GP B ELEUTERIO swabbing both the lower vagina and rectum [facility] STREP GP B ELEUTERIO substantially increases the yield of detection [facility] STREP GP B ELEUTERIO compared with sampling the vagina alone. [facility] STREP GP B ELEUTERIO Penicillin G, ampicillin, or cefazolin are indicated [facility] STREP GP B ELEUTERIO for intrapartum prophylaxis of GBS [facility] STREP GP B ELEUTERIO colonization. Reflex susceptibility testing should be [facility] STREP GP B ELEUTERIO performed prior to use of clindamycin only on GBS [facility] STREP GP B ELEUTERIO isolates from penicillin-allergic women who are [facility] STREP GP B ELEUTERIO considered a high risk for anaphylaxis. Treatment with [facility] STREP GP B ELEUTERIO vancomycin without additional testing is warranted if [facility] STREP GP B ELEUTERIO resistance to clindamycin is noted. [facility] STREP GP B ELEUTERIO Performed at: [facility] STREP GP B ELEUTERIO [address] [place], [place] [id number] [facility] STREP GP B ELEUTERIO Miller Apprentice: Jeffery Delgado PhD, Phone: [phone] [facility] Urinalysis macro (dipstick) panel (U)on 01-22-2024 Bilirubin, UA Negative Negative - 4(70) +++ mg/dL [facility] Blood, UA Negative Negative - 50 [place]/mcL [facility] Clarity, UA Clear [facility] Color, UA Yellow [facility] Glucose, UA Negative Negative - 1999(110) ++++ mg/dL [facility] Interpretation and review of laboratory results Abnormal [facility] Ketones, UA Negative Negative - 160(16) ++++ mg/dL [facility] Leukocytes, UA Negative Negative - 500+++ Elsa/mcL [facility] Healthcare Nitrite, UA Negative Negative - Positive [facility] pH, UA 5.5 5 - 9 [facility] e Protein, UA Negative Negative - 1999(20) ++++ mg/dL [facility] Spec Grav, UA 1.02 1 - 1.[address] [facility] Urobilinogen, UA 1.0 0.2 - 12 mg/dL [facility] Urinalysis macro (dipstick) panel (U)on 01-11-2024 Bilirubin, UA Negative Negative - 4(70) +++ mg/dL [facility] Blood, UA Negative Negative - 50 [place]/mcL [facility] Clarity, UA Clear [facility] Color, UA Yellow [facility] Glucose, UA Negative Negative - 1999(110) ++++ mg/dL [facility] Interpretation and review of laboratory results Normal [facility] Ketones, UA Negative Negative - 160(16) ++++ mg/dL [facility] Leukocytes, UA Negative Negative - 500+++ Elsa/mcL [facility] Healthcare Nitrite, UA Negative Negative - Positive [facility] pH, UA 7.0 5 - 9 [facility] Protein, UA Negative Negative - 1999(20) ++++ mg/dL [facility] Healthcare Spec Grav, UA 1.010 1 - 1.[address] [facility] Urobilinogen, UA 0.2 0.2 - 12 mg/dL [facility] CBCon 10-26-2019 Erythrocyte distribution width (RBC) [Entitic vol] 14.1 % 11.6 - 14.8 % [facility] Hematocrit (Bld) [Volume fraction] 31.7 % Low 36 - 46 % [facility] Hemoglobin (Bld) [Mass/Vol] 9.9 g/dL Low 12 - 16 g/dL [facility] Interpretation and review of laboratory results Abnormal [facility] MCH (RBC) [Entitic mass] 29.6 pg 26 - 34 pg [facility] MCHC (RBC) [Mass/Vol] 31.2 g/dL 31 - 37 g/dL [facility] MCV (RBC) [Entitic vol] 94.6 fL 80 - 100 fL [facility] Nucleated RBC (Bld) [#/Vol] 0.00 10*3/uL [facility] Nucleated RBC/100 WBC (Bld) [Ratio] 0.0 % [facility] Platelet mean volume (Bld) [Entitic vol] 12.2 fL 9.4 - 12.4 fL [facility] Platelets (Bld) [#/Vol] 191 10*3/uL [facility] RBC (Bld) [#/Vol] 3.35 10*6/uL Low [facility] WBC (Bld) [#/Vol] 12.37 10*3/uL [facility] CBCon 10-25-2019 Erythrocyte distribution width (RBC) [Entitic vol] 13.8 % 11.6 - 14.8 % [facility] Hematocrit (Bld) [Volume fraction] 37.8 % 36 - 46 % [facility] Hemoglobin (Bld) [Mass/Vol] 12.5 g/dL 12 - 16 g/dL [facility] Interpretation and review of laboratory results Abnormal [facility] MCH (RBC) [Entitic mass] 30.0 pg 26 - 34 pg [facility] MCHC (RBC) [Mass/Vol] 33.1 g/dL 31 - 37 g/dL [facility] MCV (RBC) [Entitic vol] 90.9 fL 80 - 100 fL [facility] Nucleated RBC (Bld) [#/Vol] 0.00 10*3/uL [facility] Nucleated RBC/100 WBC (Bld) [Ratio] 0.0 % [facility] Platelet mean volume (Bld) [Entitic vol] 12.4 fL 9.4 - 12.4 fL [facility] Platelets (Bld) [#/Vol] 256 10*3/uL [facility] RBC (Bld) [#/Vol] 4.16 10*6/uL [facility] WBC (Bld) [#/Vol] 12.90 10*3/uL [facility] Syphilis Antibodyon 10-25-19 20 Interpretation and review of laboratory results Normal [facility] T. pallidum Ab Ql (S) Negative Negative [facility] Type and Screenon 10-25-2019 ABO and Rh group Nom (Bld) B Positive [facility] Blood group antibody screen Ql Negative [facility] Specimen Expires 10/28/2019 23:59 EST [facility] ABORH VERIFICATIONon 020 ABO and Rh group Nom (Bld) ABO/Rh Verification [facility] ABO and Rh group Nom (Bld) B Positive [facility] Patient's ABO/Rh is verified. [facility] CBCon 10-14-2019 Erythrocyte distribution width (RBC) [Entitic vol] 13.5 % 11.6 - 14.8 % [facility] Hematocrit (Bld) [Volume fraction] 35.6 % Low 36 - 46 % [facility] Hemoglobin (Bld) [Mass/Vol] 11.6 g/dL Low 12 - 16 g/dL [facility] Interpretation and review of laboratory results Abnormal [facility] MCH (RBC) [Entitic mass] 30.0 pg 26 - 34 pg [facility] MCHC (RBC) [Mass/Vol] 32.6 g/dL 31 - 37 g/dL [facility] MCV (RBC) [Entitic vol] 92.0 fL 80 - 100 fL [facility] Nucleated RBC (Bld) [#/Vol] 0.00 10*3/uL [facility] Nucleated RBC/100 WBC (Bld) [Ratio] 0.0 % [facility] Platelet mean volume (Bld) [Entitic vol] 12.8 fL High 9.4 - 12.4 fL [facility] Platelets (Bld) [#/Vol] 253 10*3/uL [facility] RBC (Bld) [#/Vol] 3.87 10*6/uL Low [facility] ealth WBC (Bld) [#/Vol] 12.69 10*3/uL [facility] RPRon 10-14-2019 Interpretation and review of laboratory results Normal [facility] Reagin Ab RPR Ql (S) Non-Reactive Non-Reactive [facility] Type and Screenon 10-14-2019 ABO and Rh group Nom (Bld) B Positive [facility] Blood group antibody screen Ql Negative [facility] Specimen Expires 10/17/2019 23:59 EST [facility] Group B Strep PCR, Vaginal/R ectalon 10-01-2019 S. agalactiae Ag Ql (Unsp spec) Negative Negative [facility] CHLAMYDIA/GONORRHOEAE AMPLIF IED RNAon 03-22-2019 C. trachomatis rRNA ELEUTERIO+probe Ql (Unsp spec) Negative Negative [facility] N. gonorrhoeae rRNA ELEUTERIO+probe Ql (Unsp spec) Negative Negative [facility] Type and Screenon 03-22-2019 ABO and Rh group Nom (Bld) B [facility] Rh Type Positive [facility] Vital Signs Date Time Vital Sign Value Performing Clinician Faci lity 01-31-2024 09:52-0400 Body mass index (BMI) [Ratio] 32.73 kg/m2 Sharri MEZA Work Phone: [facility] 01-31-2024 09:52-0400 Body weight 91.99 kg Sharri MEZA Work Phone: [facility] 01-31-2024 09:52-0400 Diastolic blood pressure 68 mm[Hg] Sharri MEZA Work Phone: [facility] 01-31-2024 09:52-0400 Systolic blood pressure 112 mm[Hg] Sharri MEZA Work Phone: [facility] 01-22-2024 15:27-0400 Body mass index (BMI) [Ratio] 32.28 kg/m2 Shanna Loagn DO Work Phone: [facility] 01-22-2024 15:27-0400 Body weight 90.72 kg Shanna Logan DO Work Phone: [facility] 01-22-2024 15:27-0400 Diastolic blood pressure 68 mm[Hg] Shanna Logan DO Work Phone: [facility] 01-22-2024 15:27-0400 Systolic blood pressure 112 mm[Hg] Shanna Logan DO Work Phone: [facility] 01-11-2024 10:10-0400 Body mass index (BMI) [Ratio] 31.93 kg/m2 Sharri MEZA Work Phone: [facility] 01-11-2024 10:10-0400 Body weight 89.72 kg Sharri MEZA Work Phone: [facility] 01-11-2024 10:10-0400 Diastolic blood pressure 68 mm[Hg] Sharri MEZA Work Phone: [facility] 01-11-2024 10:10-0400 Systolic blood pressure 120 mm[Hg] Sharri MEZA Work Phone: [facility] 10-27-2019 08:19-0400 Body Temperature 97.7 [degF] [facility] 10-27-2019 08:19-0400 BP Diastolic 67 mm[Hg] [facility] 10-27-2019 08:19-0400 BP Systolic 105 mm[Hg] [facility] 10-27-2019 08:19-0400 Pulse (Heart Rate) 71 /min [facility] 10-27-2019 08:19-0400 Pulse Oximetry 96 % [facility] 10-27-2019 08:19-0400 Respiratory Rate 16 /min [facility] 10-25-2019 06:01-0400 BMI (Body Mass Index) 29.13 kg/m2 [facility] 10-25-2019 06:01-0400 Body weight 84.37 kg [facility] 10-25-2019 06:01-0400 Height 170.2 cm [facility] 10-14-2019 10:30-0400 BP Diastolic 77 mm[Hg] [facility] 10-14-2019 10:30-0400 BP Systolic 126 mm[Hg] [facility] 10-14-2019 10:30-0400 Pulse (Heart Rate) 91 /min [facility] 10-14-2019 10:30-0400 Respiratory Rate 16 /min [facility] 10-14-2019 10:15-0400 Pulse Oximetry 97 % [facility] 10-14-2019 05:39-0400 BMI (Body Mass Index) 28.82 kg/m2 [facility] 10-14-2019 05:39-0400 Body Temperature 98.1 [degF] [facility] 10-14-2019 05:39-0400 Body weight 83.46 kg [facility] 10-14-2019 05:39-0400 Height 170.2 cm [facility] 05-11-2019 13:20-0500 Pulse (Heart Rate) 106 /min [facility] 05-11-2019 13:15-0500 BMI (Body Mass Index) 26.31 kg/m2 [facility] 05-11-2019 13:15-0500 Body Temperature 98.4 [degF] [facility] 05-11-2019 13:15-0500 Body weight 76.2 kg [facility] 05-11-2019 13:15-0500 BP Diastolic 76 mm[Hg] [facility] 05-11-2019 13:15-0500 BP Systolic 110 mm[Hg] [facility] 05-11-2019 13:15-0500 Height 170.2 cm [facility] 05-11-2019 13:15-0500 Pulse Oximetry 98 % [facility] 05-11-2019 13:15-0500 Respiratory Rate 14 /min [facility] Encounters Encounter Date Encounter Type Care Provider Facility Start: 01-31-2024 End: 01-31-2024 Bamboo flowsheet Sharri MEZA Work Phone: [facility] Start: 01-31-2024 End: 01-31-2024 Bamboo flowsheet Sharri MEZA Work Phone: [facility] Start: 01-31-2024 End: 01-31-2024 flow sheet Sharri MEZA Work Phone: [facility] Comment on above: Third trimester preg eliud; 37 weeks gestation of Start: 01-31-2024 End: 01-31-2024 ambulatory SHARRI GUZMAN Not Available Start: 01-22-2024 End: 01-22-2024 flow sheet Shanna Logan DO Work Phone: [facility] Comment on above: Third trimester preg eliud; 36 weeks gestation of Start: 01-22-2024 End: 01-22-2024 ambulatory SHANNA LOGAN Not Available Start: 01-22-2024 End: 01-22-2024 Bamboo flowsheet Shanna Logan DO Work Phone: [facility] Start: 01-22-2024 End: 01-25-2024 Bamboo flowsheet Shanna Logan DO Work Phone: [facility] Start: 01-22-2024 End: 01-25-2024 Clinisync Result Encounter Generic External Data Provider [facility] Unsolicited Start: 01-11-2024 End: 01-11-2024 Bamboo flowsheet Sharri MEZA Work Phone: [facility] Start: 01-11-2024 End: 01-11-2024 Bamboo flowsheet Sharri MEZA Work Phone: [facility] Start: 01-11-2024 End: 01-11-2024 ambulatory SHARRI GUZMAN Not Available Start: 01-11-2024 End: 01-11-2024 flow sheet Sharri MEZA Work Phone: [facility] Comment on above: 34 weeks [...] End: 11-15-2019 Patient encounter procedure HAYLIE DAVID [facility] Start: 10-25-2019 End: 10-27-2019 Evaluation and management of inpatient [facility] Start: 10-25-2019 End: 10-27-2019 Evaluation and management of inpatient [facility] Work Phone: [facility]/ Start: 10-24-2019 End: 10-24-2019 Patient encounter procedure [facility] Start: 10-14-2019 End: 10-14-2019 [facility]: 10-14-2019 End: 10-14-2019 Subsequent hospital visit by physician Haylie Hernandez [facility] Work Phone: [facility] Start: 10-11-2019 End: 10-11-2019 Patient encounter procedure [facility] Start: 10-08-2019 Patient encounter procedure [facility] Start: 05-11-2019 End: 05-11-2019 Patient encounter procedure [facility]YSICIAN MARYURI [facility] Start: 05-11-2019 End: 05-11-2019 Office outpatient visit 25 minutes Judy Parker [employer] Work Phone: [facility] Comment on above: Acute nasopharyngiti s (Primary Dx); Acute bilateral otitis media Procedures Date Procedure Procedure Detail Performing Clinician Start: 01-31-2024 Urnls dip stick/tabl et rgnt non-auto w/o micrscp Sharri MEZA Work Phone: Start: 01-22-2024 Urnls dip stick/tabl et rgnt non-auto w/o micrscp Shanna Ford DO Work Phone: Start: 01-22-2024 STREP GP B LEEUTERIO Generic External Data Provider Start: 01-11-2024 Urnls dip stick/tabl et rgnt non-auto w/o micrscp Sharri MEZA Work Phone: Start: 09-11-2023 Microscopic observat ion [Identifier] in Cervix by Cyto stain Sharri MEZA Work Phone: Start: 10-26-2019 Complete blood count (hemogram) panel - Blood by Automated count Haylie [facility] Work Phone: Start: 10-25-2019 Blood type and Indir ect antibody screen panel - Blood [facility] Work Phone: Start: 10-25-2019 Complete blood count (hemogram) panel - Blood by Automated count [facility] Work Phone: Start: 10-25-2019 Treponema pallidum I gG Ab [Presence] in Serum Haylie [facility] Work Phone: Start: 10-14-2019 Blood group typing Caren velaimani [facility] Work Phone: Start: 10-14-2019 Blood type and Indir ect antibody screen panel - [facility] Work Phone: Start: 10-14-2019 Complete blood count (hemogram) panel - Blood by Automated count Haylie [facility] Work Phone: Start: 10-14-2019 Rapid plasma reagin test [facility] Work Phone: Start: 10-01-2019 Streptococcus agalac tiae [...] Start: 01-31-2024 End: 01-31-2024 Patient encounter procedure [facility] Comment on above: Arrived Start: 01-22-2024 End: 01-22-2024 Patient encounter procedure [facility] Comment on above: Arrived Start: 01-22-2024 End: 01-21-2025 Strep B DNA probe, amplification Strep B DNA probe, amplification Lab Routine Third trimester Expected: 01/22/2024 (Approximate), Expires: 01/21/2025 [facility] Work Phone: Comment on above: Expected: 01/22/2024 (Approximate), Expires: 01/21/2025 Start: 12-03-2023 Influenza vaccination Influenza Vacc ine (#1) [facility] Start: 12-03-2019 Influenza vaccinatio n given Sequential Influenza Vaccine (#1) [facility] Start: 10-01-2019 Influenza vaccinatio n given SEQUENTIAL INFLUENZA VACCINE (#1) [facility] Comment on above: Postponed from 12/02 (Patient Refused) Start: 02-08-2006 Hepatitis C antibody , confirmatory test Hepatitis C Screening [facility] Start: 02-08-2003 HIV screening HIV Screening [facility] Start: 02-08-1991 History and physical examination, annual for health maintenance Wellness Visit [facility] Start: 1988 Screening for malign ant neoplasm of cervix PAP SMEAR [facility] Start: 1988 Tetanus vaccination [facility] Immunizations Immunization Date Immunization Notes Care Provider Felipe peres 10-25-2019 diphtheria, tetanus toxoids and acellular pertussis vaccine, unspecified formulation Haylie Orwick [facility] 10-25-2019 measles, mumps and r ubella virus vaccine Haylie Orpavick [facility] 10-25-2019 varicella zoster immune globulin [facility] Payers Date Payer Category Payer Private Health Insurance [id number] 2023 Private Health Insurance [id number] 2022 Private Health Insurance [id number] 2019 Private Health Insurance [id number] 2019 Private Health Insurance [id number] [id number] 1988 Unknown [id number] 1988 Unknown [id number] 2.16.8 [id number] 1988 Unknown [id number] 2.16.8 [id number] 1988 Unknown [id number] 2.16.8 [id number] 1988 Unknown [id number] 2.16.8 [id number] 1988 Unknown [id number] 2.16.8 [id number] 1988 Unknown [id number] 2.16.8 [id number] 1988 Unknown [id number] 2.16.8 [id number] 1988 Unknown [id number] 2.16.84 [id number] 1990 Unknown [id number] 2.16.84 0.1.773037.3.579.2.1258 1990 Unknown [id number] 2.16.84 0.1.534912.3.579.2.9 1988 Unknown [id number] 2.16.84 0.1.359036.3.579.2.9 1988 Unknown [id number] 2.16.84 0.1.529431.3.579.2.1259 1988 Unknown [id number] 2.16.84 0.1.199997.3.579.2.1258 1988 Unknown [id number] 2.16.84 0.1.127913.3.579.2.9 1988 Unknown [id number] 2.16.84 0.1.084528.3.579.2.1258 1988 Unknown [id number] 2.16.84 0.1.554350.3.579.2.1259 1988 Unknown [id number] 2.16.84 0.1.177662.3.579.2.1259 1988 Unknown [id number] 2.16.84 0.1.319602.3.579.2.1259 Social History Date Type Detail Facility Start: 05-11-2019 End: 12-26-2022 Tobacco smoking status NHIS Never smoker [facility] Start: 05-11-2019 End: 10-27-2019 Alcohol intake Ex-drinker (finding) [facility] Start: 02-07-2019 [facility] Sex Assigned At Not on file [facility] Exposure to SARS-CoV -2 (event) Not sure [facility] Start: 12-26-2022 Tobacco use and exposure Smokeless t obacco non-user [facility] Start: 01-11-2024 End: 01-31-2024 Alcoholic beverage intake Current drinker of alcohol (finding) [facility] Start: 07-07-2023 History of Social function [facility] Start: 07-07-2023 Tobacco use panel [facility] Start: 1990 Sex assigned at Female [facility] Start: 12-25-2022 Gender identity Identifies as female gender (finding) [facility] Start: 12-25-2022 Sexual orientation Heterosexual (fin ding) [facility] Goals Date Patient Goal Desired Activity /State Personal health goal History of Present illness Narrative 01-31-2024 DERRICK Vargas - 01/31/2024 9:50 AM EDT Note Date & Type Note Facility 01-31-2024 History of Presen t illness Narrative Reason [...] nursing note reviewed. Exam conducted with a barge loader present. Vitals: Estimated body mass index is 32.73 kg/m as calculated from the following: Height as of 08/08/22: 5' 6 . Weight as of this encounter: 202 lb 12.8 oz. BP: 112/68 Patient's last menstrual period was 05/12/2023. ASSESSMENT & PLAN ICD-10-CM 1. Third trimester Z34.93 Urine dip 2. 37 weeks gestation of Z3A.37 Urine dip Return OB: Patient presents today for a routine obstetrics appointment. Patient is currently 37w5d . Patient states she is doing well but has complaints of being tired due to current . Patient has verbalizes frequent movement. labor precautions was discussed/given and patient was instructed to perform kick counts three times a day. Orders Placed This Encounter Procedures Urine dip Follow Up: Patient is to return to office in 1 week for routine OB appointment. Documented by Elis Ramires LPN on behalf of: DERRICK Vargas documented in this encounter [facility] History of Present illness Narrative 01-22-2024 Shanna FordDO - 01/22/2024 3:00 PM EDT Note Date [...] nursing note reviewed. Exam conducted with a barge loader present. Vitals: Estimated body mass index is [...] nursing note reviewed. Exam conducted with a barge loader present. 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 You will probably feel better [...] amount of fluids you drink. Take an thnz-rox-lqcmvcb pain medicine, such as acetaminophen (Tylenol), ibuprofen (Advil, Motrin),or naproxen (Aleve). Read and follow all instructions on the label. Before you use cough and cold medicines, check the label. These medicines may not be safe for youngchildren or for people with certain health problems. Be careful when taking qdgp-bmc-conjzel cold or flu medicines and Tylenol at [...] Log into your personal health record on [email or web address] and enter K520 in the Education box to learn more about Upper Respiratory Infection (Cold): Care Instructions. Current as of: September 09, 2018 Content Version: 12.3 [id number] [employer]. Care instructions adapted under license by your healthcare professional. If you have questions about a medical condition or this instruction, always ask your healthcare professional. [employer] disclaims any warranty or liability for your [...] taking a prescription pain medicine, take an cjyo-upy-otvgqry medicine, such as acetaminophen (Tylenol), ibuprofen (Advil, [...] Log into your personal health record on [email or web address] and enter X558 in the Education box to learn more about Ear Infection (Otitis Media): Care Instructions. Current as of: October 28, 2018 Content Version: 12.3 [id number] [employer]. Care instructions adapted under license by your healthcare professional. If you have questions about a medical condition or this instruction, always ask your healthcare professional. [employer] disclaims any warranty or liability for your use of this information. 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 documented in this encounter Assessments Diagnosis Acute nasopharyngitis Acute nasopharyngitis (common cold) Acute bilateral otitis media Diagnosis state, incidental Discharge Instructions * Attachments The following attachments cannot be sent through Care Everywhere. * : KICK COUNTS ([place]) * : WEEK 38 ([place]) * : WHEN TO CALL (AFTER 20 WEEKS): GENERAL INFO ([place]) * : BREECH VERSION ([place]) documented in this encounter Hospital Course * [...] section and content) DATE CREATED AUTHOR 05/11/2019 [facility] DATE CREATED AUTHOR AUTHOR'S ORGANIZ ATION 10/25/2019 [facility] DATE CREATED AUTHOR AUTHOR'S ORGANIZ ATION 11/27/2019 [facility] DATE CREATED AUTHOR AUTHOR'S ORGANIZ ATION 02/01/2024 [facility] EPIC Reason for Visit (unrecogniz [...] in this encounter Patient discharged out 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 Parents to see the branch maker tomorrow for exam and weight check. 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 [facility] [employer] [facility]. provides no warranty or guarantee of the accuracy or completeness of information in this document.
[2024-02-03 11:12] VITALS: BP 121/74; PULSE 71
[2024-02-03 11:13] VITALS: TEMP 36
== END 2024-02-03 12:15 | disposition home or self-care (01) ==
LOC: FBCO 07:56 → FBC 11:05
PROVIDERS: PCP Family Medicine; Visit Provider Obstetrics & Gynecology
DX: O09.523 Supervision of elderly multigravida, third trimester (principal); Z3A.38 38 weeks gestation of pregnancy
CPT/HCPCS: 59025

== ENCOUNTER 2024-02-06 10:04 | Inpatient (IN) | payer OTHER, SELFPAY ==
[2024-02-06] VITALS (40 sets, daily range): BP systolic 79–129; BP diastolic 44–86; PULSE 59–112; TEMP 36.4–37.2; O2SAT 95–100
--- OUTSIDE RECORDS SUMMARY | 2024-02-06 10:22 | XMS_ITS | CCD ---
Author Organization [facility] Care Team Providers Care Sales Support Technician Name Role Phone NO, PHYSICIAN Primary Care Unavailable JUDY TORO Attending Marla vailable Maryuri, Physician Primary Care Provider Unavailabl HAYLIE Bustos Admitting Unavailabl e HAYLIE PEARSON Referring Unavailabl e PEERZADE, [facility] Primary Care Unav ailable HAYLIE PEARSON Admitting Unavailabl e ORSUSU, HAYLIE HERNANDEZ Referring Unavailabl e PEERZADE, [facility] Care Unav ailable Haylie Pearson Unavailable [phone] Peerzade, [facility] Primary [facility] [place] Provide r HAYLIE PEARSON Admitting Unavailabl e HAYLIE PEARSON Attending Unavailabl e NO, PHYSICIAN Primary Care Unavailable HAYLIE PEARSON Admitting Unavailabl e PEERZADE, [facility] Primary Care Unav ailable HAYLIE PEARSON Attending Unavailabl e [facility] onsulting Unavailable PEERZADE, [facility] Primary Care Unav ailable HAYLIE PEARSON Admitting Unavailabl e HAYLIE PEARSON Attending Unavailabl e HAYLIE PEARSON Admitting Unavailabl e PEERZADE, [facility] Primary Care Unav ailable [facility] onsulting Unavailable KAREN SCHULTE Attending Unavailable HAYLIE PEARSON Admitting Unavailabl e PEERZADE, [facility] Primary Care Unav ailable Nathaly Keith MD Primary Care Provider SHANNA FORD Attending Unavailable LOGAN, SHANNA Attending Unavailable LOGAN, SHANNA Attending Unavailable LOGAN, SHANNA Attending Unavailable MEGAN, SHARRI Attending Unavailable LOGAN, SHANNA Attending Unavailable MEGAN, SHARRI Attending Unavailable MEGAN, SHARRI Attending Unavailable LOGAN, SHANNA Attending Unavailable EMGAN, SHARRI Attending Unavailable Medications Current Medications Medication [...] 5 minutes, as instructed in the Notify Anesthesiologist/ROLLER EMBOSSER: Hypotension order. Start: 10-14-2019 End: 10-14-2019 lactated [...] UA Negative Negative - 2000(110) ++++ mg/dL [facility] Interpretation and review of laboratory results Normal [facility] Ketones, UA Negative Negative - 160(16) ++++ mg/dL [facility] Leukocytes, UA Negative Negative - 500+++ Elsa/mcL [facility] Nitrite, UA Negative Negative - Positive [facility] pH, UA 7 5 - 9 [facility] e Protein, UA Negative Negative - 1999(20) ++++ mg/dL [facility] Spec Grav, UA 1.015 1 - 1.03 [facility] Urobilinogen, UA 1.0 0.2 - 12 mg/dL [facility] STREP GP B NAAon 01-25-2024 STREP GP B ELEUTERIO Strep Gp B ELEUTERIO [facility] STREP GP B ELEUTERIO Negative [facility] Healt hcare STREP GP B ELEUTERIO Centers for Disease Control and Prevention (CDC) and [facility] STREP GP B ELEUTERIO [employer] [employer] [facility] Healthcare STREP GP B ELEUTERIO (ACOG) guidelines for prevention of group B [facility] Healthcare STREP GP B ELEUTERIO streptococcal (GBS) disease specify co-collection of [facility] Healthcare STREP GP B ELEUTERIO a vaginal and rectal swab specimen to maximize [facility] Healthcare STREP GP B ELEUTERIO sensitivity of GBS detection. Per the CDC and ACOG, [facility] STREP GP B ELEUTERIO swabbing both the lower vagina and rectum [facility] STREP GP B ELEUTERIO substantially increases the yield of detection [facility] STREP GP B ELEUTERIO compared with sampling the vagina alone. [facility] STREP GP B ELEUTERIO Penicillin G, ampicillin, or cefazolin are indicated [facility] STREP GP B ELEUTERIO for intrapartum prophylaxis of GBS [facility] STREP GP B ELEUTERIO colonization. Reflex susceptibility testing should be [facility] STREP GP B ELEUTERIO performed prior to use of clindamycin only on GBS [facility] STREP GP B ELEUTERIO isolates from penicillin-allergic women who are [facility] STREP GP B ELEUTERIO considered a high risk for anaphylaxis. Treatment with [facility] STREP GP B ELEUTERIO vancomycin without additional testing is warranted if [facility] STREP GP B ELEUTERIO resistance to clindamycin is noted. [facility] STREP GP B ELEUTERIO Performed at: [facility] STREP GP B ELEUTERIO [address], [place] [id number] [facility] STREP GP B ELEUTERIO [employer]rick: Jeffery Delgado PhD, Phone: [phone] [facility] Urinalysis macro (dipstick) panel (U)on 01-22-2024 Bilirubin, UA Negative Negative - 4(70) +++ mg/dL [facility] Blood, UA Negative Negative - 50 [place]/mcL [facility] Healthcare Clarity, UA Clear [facility] Color, UA Yellow [facility] Glucose, UA Negative Negative - 1999(110) ++++ mg/dL [facility] Interpretation and review of laboratory results Abnormal [facility] Ketones, UA Negative Negative - 160(16) ++++ mg/dL [facility] Leukocytes, UA Negative Negative - 500+++ Elsa/mcL [facility] Healthcare Nitrite, UA Negative Negative - Positive [facility] pH, UA 5.5 5 - 9 [facility] Protein, UA Negative Negative - 1999(20) ++++ mg/dL [facility] Spec Grav, UA 1.02 1 - 1.03 [facility] Urobilinogen, UA 1.0 0.2 - 12 mg/dL [facility] Urinalysis macro (dipstick) panel (U)on 01-11-2024 Bilirubin, UA Negative Negative - 4(70) +++ mg/dL [facility] Blood, UA Negative Negative - 50 [place]/mcL [facility] Clarity, UA Clear [facility] Color, UA Yellow [facility] Glucose, UA Negative Negative - 1999(110) ++++ mg/dL [facility] Interpretation and review of laboratory results Normal [facility] Ketones, UA Negative Negative - 160(16) ++++ mg/dL [facility] Leukocytes, UA Negative Negative - 500+++ Elsa/mcL [facility] Healthcare Nitrite, UA Negative Negative - Positive [facility] pH, UA 7.0 5 - 9 [facility] Protein, UA Negative Negative - 1999(20) ++++ mg/dL [facility] Spec Grav, UA 1.010 1 - 1.03 [facility] Urobilinogen, UA 0.2 0.2 - 12 mg/dL [facility] CBCon 10-26-2019 Erythrocyte distribution width (RBC) [Entitic vol] 14.1 % 11.6 - 14.8 % [facility] Hematocrit (Bld) [Volume fraction] 31.7 % Low 36 - 46 % [facility] Hemoglobin (Bld) [Mass/Vol] 9.9 g/dL Low 12 - 16 g/dL [facility] Interpretation and review of laboratory results Abnormal [facility] MCH (RBC) [Entitic mass] 29.6 pg 26 - 34 pg [facility] MCHC (RBC) [Mass/Vol] 31.2 g/dL 31 - 37 g/dL [facility] MCV (RBC) [Entitic vol] 94.6 fL 80 - 100 fL [facility] Nucleated RBC (Bld) [#/Vol] 0.00 10*3/uL [facility] Nucleated RBC/100 WBC (Bld) [Ratio] 0.0 % [facility] Platelet mean volume (Bld) [Entitic vol] 12.2 fL 9.4 - 12.4 fL [facility] Platelets (Bld) [#/Vol] 191 10*3/uL [facility] RBC (Bld) [#/Vol] 3.35 10*6/uL Low [facility] WBC (Bld) [#/Vol] 12.37 10*3/uL High [facility] CBCon 10-25-2019 Erythrocyte distribution width (RBC) [Entitic vol] 13.8 % 11.6 - 14.8 % [facility] Hematocrit (Bld) [Volume fraction] 37.8 % 36 - 46 % [facility] Hemoglobin (Bld) [Mass/Vol] 12.5 g/dL 12 - 16 g/dL [facility] Interpretation and review of laboratory results Abnormal [facility] MCH (RBC) [Entitic mass] 30.0 pg 26 - 34 pg [facility] MCHC (RBC) [Mass/Vol] 33.1 g/dL 31 - 37 g/dL [facility] MCV (RBC) [Entitic vol] 90.9 fL 80 - 100 fL [facility] Nucleated RBC (Bld) [#/Vol] 0.00 10*3/uL [facility] Nucleated RBC/100 WBC (Bld) [Ratio] 0.0 % [facility] Platelet mean volume (Bld) [Entitic vol] 12.4 fL 9.4 - 12.4 fL [facility] Platelets (Bld) [#/Vol] 256 10*3/uL [facility] RBC (Bld) [#/Vol] 4.16 10*6/uL [facility] WBC (Bld) [#/Vol] 12.90 10*3/uL [facility] Syphilis Antibodyon 10-25-19 20 Interpretation and review of laboratory results Normal [facility] T. pallidum Ab Ql (S) Negative Negative [facility] Type and Screenon 10-25-2019 ABO and Rh group Nom (Bld) B Positive [facility] Blood group antibody screen Ql Negative [facility] Specimen Expires 10/28/2019 23:59 EST [facility] ABORH VERIFICATIONon 020 ABO and Rh group Nom (Bld) ABO/Rh Verification [facility] ABO and Rh group Nom (Bld) B Positive [facility] Patient's ABO/Rh is verified. [facility] CBCon 10-14-2019 Erythrocyte distribution width (RBC) [Entitic vol] 13.5 % 11.6 - 14.8 % [facility] Hematocrit (Bld) [Volume fraction] 35.6 % Low 36 - 46 % [facility] Hemoglobin (Bld) [Mass/Vol] 11.6 g/dL Low 12 - 16 g/dL [facility] Interpretation and review of laboratory results Abnormal [facility] MCH (RBC) [Entitic mass] 30.0 pg 26 - 34 pg [facility] MCHC (RBC) [Mass/Vol] 32.6 g/dL 31 - 37 g/dL [facility] MCV (RBC) [Entitic vol] 92.0 fL 80 - 100 fL [facility] Nucleated RBC (Bld) [#/Vol] 0.00 10*3/uL [facility] Nucleated RBC/100 WBC (Bld) [Ratio] 0.0 % [facility] Platelet mean volume (Bld) [Entitic vol] 12.8 fL High 9.4 - 12.4 fL [facility] Platelets (Bld) [#/Vol] 253 10*3/uL [facility] RBC (Bld) [#/Vol] 3.87 10*6/uL Low [facility] ealth WBC (Bld) [#/Vol] 12.69 10*3/uL [facility] RPRon 10-14-2019 Interpretation and review of laboratory results Normal [facility] Reagin Ab RPR Ql (S) Non-Reactive Non-Reactive [facility] Type and Screenon 10-14-2019 ABO and Rh group Nom (Bld) B Positive [facility] Blood group antibody screen Ql Negative [facility] Specimen Expires 10/17/2019 23:59 EST [facility] Group B Strep PCR, Vaginal/R ectalon 10-01-2019 S. agalactiae Ag Ql (Unsp spec) Negative Negative [facility] CHLAMYDIA/GONORRHOEAE AMPLIF IED RNAon 03-22-2019 C. trachomatis rRNA ELEUTERIO+probe Ql (Unsp spec) Negative Negative [facility] N. gonorrhoeae rRNA ELEUTERIO+probe Ql (Unsp spec) Negative Negative [facility] Type and Screenon 03-22-2019 ABO and Rh group Nom (Bld) B [facility] Rh Type Positive [facility] Vital Signs Date Time Vital Sign Value Performing Clinician Faci lity 01-31-2024 09:52-0400 Body mass index (BMI) [Ratio] 32.73 kg/m2 Sharri MEZA Work Phone: [facility] 01-31-2024 09:52-0400 Body weight 91.99 kg Sharri MEZA Work Phone: [facility] 01-31-2024 09:52-0400 Diastolic blood pressure 68 mm[Hg] Sharri MEZA Work Phone: [facility] 01-31-2024 09:52-0400 Systolic blood pressure 112 mm[Hg] Sharri MEAZ Work Phone: [facility] 01-22-2024 15:27-0400 Body mass index (BMI) [Ratio] 32.28 kg/m2 Shanna Logan DO Work Phone: [facility] 01-22-2024 15:27-0400 Body weight 90.72 kg Shanna Logan DO Work Phone: [facility] 01-22-2024 15:27-0400 Diastolic blood pressure 68 mm[Hg] Shanna Logan DO Work Phone: [facility] 01-22-2024 15:27-0400 Systolic blood pressure 112 mm[Hg] Shanna Logan DO Work Phone: [facility] 01-11-2024 10:10-0400 Body mass index (BMI) [Ratio] 31.93 kg/m2 Sharri MEZA Work Phone: [facility] 01-11-2024 10:10-0400 Body weight 89.72 kg Sharri MEZA Work Phone: [facility] 01-11-2024 10:10-0400 Diastolic blood pressure 68 mm[Hg] Sharri MEZA Work Phone: [facility] 01-11-2024 10:10-0400 Systolic blood pressure 120 mm[Hg] Sharri MEZA Work Phone: [facility] 10-27-2019 08:19-0400 Body Temperature 97.7 [degF] [facility] 10-27-2019 08:19-0400 BP Diastolic 67 mm[Hg] [facility] 10-27-2019 08:19-0400 BP Systolic 105 mm[Hg] [facility] 10-27-2019 08:19-0400 Pulse (Heart Rate) 71 /min [facility] 10-27-2019 08:19-0400 Pulse Oximetry 96 % [facility] 10-27-2019 08:19-0400 Respiratory Rate 16 /min [facility] 10-25-2019 06:01-0400 BMI (Body Mass Index) 29.13 kg/m2 [facility] 10-25-2019 06:01-0400 Body weight 84.37 kg [facility] 10-25-2019 06:01-0400 Height 170.2 cm [facility] 10-14-2019 10:30-0400 BP Diastolic 77 mm[Hg] [facility] 10-14-2019 10:30-0400 BP Systolic 126 mm[Hg] [facility] 10-14-2019 10:30-0400 Pulse (Heart Rate) 91 /min [facility] 10-14-2019 10:30-0400 Respiratory Rate 16 /min [facility] 10-14-2019 10:15-0400 Pulse Oximetry 97 % [facility] 10-14-2019 05:39-0400 BMI (Body Mass Index) 28.82 kg/m2 [facility] 10-14-2019 05:39-0400 Body Temperature 98.1 [degF] [facility] 10-14-2019 05:39-0400 Body weight 83.46 kg [facility] 10-14-2019 05:39-0400 Height 170.2 cm [facility] 05-11-2019 13:20-0500 Pulse (Heart Rate) 106 /min [facility] 05-11-2019 13:15-0500 BMI (Body Mass Index) 26.31 kg/m2 [facility] 05-11-2019 13:15-0500 Body Temperature 98.4 [degF] [facility] 05-11-2019 13:15-0500 Body weight 76.2 kg [facility] 05-11-2019 13:15-0500 BP Diastolic 76 mm[Hg] [facility] 05-11-2019 13:15-0500 BP Systolic 110 mm[Hg] [facility] 05-11-2019 13:15-0500 Height 170.2 cm [facility] 05-11-2019 13:15-0500 Pulse Oximetry 98 % [facility] 05-11-2019 13:15-0500 Respiratory Rate 14 /min [facility] Encounters Encounter Date Encounter Type Care [...] flow sheet Shanna Logan DO Work Phone: [facility] Comment on above: Third trimester preg eliud; 36 weeks gestation of Start: 01-22-2024 End: 01-22-2024 ambulatory SHANNA LOGAN Not Available Start: 01-22-2024 End: 01-22-2024 Bamboo flowsheet Shanna Logan DO Work Phone: [facility] Start: 01-22-2024 End: 01-25-2024 Bamboo flowsheet Shanna Logan DO Work Phone: [facility] Start: 01-22-2024 End: 01-25-2024 [facility] Result Encounter Generic External Data Provider [facility] Unsolicited Start: 01-11-2024 End: 01-11-2024 Bamboo flowsheet Sharri MEZA Work Phone: [facility] Start: 01-11-2024 End: 01-11-2024 Bamboo flowsheet Sharri MEZA Work Phone: [facility] Start: 01-11-2024 End: 01-11-2024 ambulatory SHARRI GUZMAN Not Available Start: 01-11-2024 End: 01-11-2024 flow sheet Sharri MEZA Work Phone: [facility] Comment on above: 34 [...] End: 11-15-2019 Patient encounter procedure HAYLIE DAVID [facility] Start: 10-25-2019 End: 10-27-2019 Evaluation and management of inpatient [facility] Start: 10-25-2019 End: 10-27-2019 Evaluation and management of inpatient [facility] Work Phone: [facility] Mother/ Start: 10-24-2019 End: 10-24-2019 Patient encounter procedure [facility] Start: 10-14-2019 End: 10-14-2019 [facility]: 10-14-2019 End: 10-14-2019 Subsequent hospital visit by physician Haylie Hernandez [facility] Work Phone: [facility] Labor & Delivery Start: 10-11-2019 End: 10-11-2019 Patient encounter procedure [facility] Start: 10-08-2019 Patient encounter procedure [facility] Start: 05-11-2019 End: 05-11-2019 Patient encounter procedure PHYSICIAN MARYURI [facility] Start: 05-11-2019 End: 05-11-2019 Office outpatient visit 25 minutes Judy Parker [facility] Work Phone: [facility] Comment on above: Acute nasopharyngiti [...] panel - Blood by Automated count [employer] Work Phone: Start: 10-25-2019 Blood type and Indir ect antibody screen panel - Blood [employer] Work Phone: Start: 10-25-2019 Complete blood count (hemogram) panel - Blood by Automated count [facility] Work Phone: Start: 10-25-2019 Treponema pallidum I gG Ab [Presence] in Serum [employer] [employer] Work Phone: Start: 10-14-2019 Blood group typing Caren velaimani [employer] Work Phone: Start: 10-14-2019 Blood type and Indir ect antibody screen panel - Blood [facility] Work Phone: Start: 10-14-2019 Complete blood count (hemogram) panel - Blood by Automated count [employer] [employer] Work Phone: Start: 10-14-2019 Rapid plasma reagin test [facility] Work Phone: Start: 10-01-2019 Streptococcus agalac tiae [...] Third trimester Expected: 01/22/2024 (Approximate), Expires: 01/21/2025 [facility] Work Phone: Comment on above: Expected: 01/22/2024 (Approximate), Expires: 01/21/2025 Start: 12-03-2023 Influenza vaccination Influenza Vacc ine (#1) [facility] Start: 12-03-2019 Influenza vaccinatio n given Sequential Influenza Vaccine (#1) [facility] Start: 10-01-2019 Influenza vaccinatio n given SEQUENTIAL INFLUENZA VACCINE (#1) [facility] Comment on above: Postponed from 12/02 (Patient Refused) Start: 02-08-2006 Hepatitis C antibody , confirmatory test Hepatitis C Screening [facility] Start: 02-08-2003 HIV screening HIV Screening [facility] Start: 02-08-1991 History and physical examination, annual for health maintenance Wellness Visit [facility] Start: 1988 Screening for malign ant neoplasm of cervix PAP SMEAR [facility] Start: 1988 Tetanus vaccination [facility] Immunizations Immunization Date Immunization Notes Care Provider Felipe peres 10-25-2019 diphtheria, tetanus toxoids and acellular pertussis vaccine, unspecified formulation Haylie Orwick [facility] 10-25-2019 measles, mumps and r ubella virus vaccine Haylie Orcavick [facility] 10-25-[address] immune glob[address] [facility] Payers Date Payer Category Payer Private Health Insurance [id number] 2023 Private Health Insurance [id number] 2022 Private Health Insurance [id number] 2019 Private Health Insurance [id number] 2019 Private Health Insurance [id number] 1988 Unknown [id number] 2.16. [id number] 1988 Unknown [id number] 2.16.8 [id number] 1988 Unknown [id number] 2.16.8 [id number] 1988 Unknown [id number] 2.16.8 [id number] 1988 Unknown [id number] 2.16.8 [id number] 1988 Unknown [id number] 2.16.8 [id number] 1988 Unknown [id number] 2.16.8 [id number] 1988 Unknown [id number] 2.16.8 [id number] 1988 Unknown [id number] 2.16.84 0.1.741882.3.579.2.9 1988 Unknown [id number] 2.16.84 0.1.255588.3.579.2.1258 1988 Unknown [id number] 2.16.84 0.1.877570.3.579.2.9 1988 Unknown [id number] 2.16.84 0.1.088193.3.579.2.9 1988 Unknown [id number] 2.16.84 0.1.928188.3.579.2.1259 1988 Unknown [id number] 2.16.84 0.1.181296.3.579.2.1258 1988 Unknown [id number] 2.16.84 0.1.213187.3.579.2.9 1988 Unknown [id number] 2.16.84 0.1.368748.3.579.2.1258 1988 Unknown [id number] 2.16.84 0.1.563730.3.579.2.1259 1988 Unknown [id number] 2.16.84 [id number] 1988 Unknown [id number] 2.16.84 [id number] Social History Date Type Detail Facility Start: 05-11-2019 End: 12-26-2022 Tobacco smoking status NHIS Never smoker [facility] Start: 05-11-2019 End: 10-27-2019 Alcohol intake Ex-drinker (finding) [facility] Start: 02-07-2019 [facility] Sex Assigned At Not on file [facility] Exposure to SARS-CoV -2 (event) Not sure [facility] Start: 12-26-2022 Tobacco use and exposure Smokeless t obacco non-user [facility] Start: 01-11-2024 End: 01-31-2024 Alcoholic beverage intake Current drinker of alcohol (finding) [facility] Start: 07-07-2023 History of Social function [facility] Start: 07-07-2023 Tobacco use panel [facility] Start: 1990 Sex assigned at Female [facility] Start: 12-25-2022 Gender identity Identifies as female gender (finding) [facility] Start: 12-25-2022 Sexual orientation Heterosexual [...] nursing note reviewed. Exam conducted with a other sports coach or instructor present. Vitals: Estimated body mass index is [...] nursing note reviewed. Exam conducted with a other sports coach or instructor present. Vitals: Estimated body mass index is [...] nursing note reviewed. Exam conducted with a other sports coach or instructor present. Vitals: Estimated body mass index is [...] FoundDocuments on File Type Date Recorded Patient Assistant Spa Manager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 Advance Directives and Living Will Documents on File Type Date Recorded Patient Assistant Spa Manager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 Advance Directives and Livin g Will 10/14/2019 5:28 AM Latest Code Status on File Code Status Date Activated Date Inactivated Comments Full Code 10/14/2019 5:32 AM 10/14/2019 1:17 PM Documents on File Type Date Recorded Patient Assistant Spa Manager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 Advance Directives and Livin [...] include drinking lots of fluids and taking bqmi-[id number]-lgaibmt pain medicine. You will probably feel better [...] amount of fluids you drink. Take an eepv-lsw-hvrnsve pain medicine, such as acetaminophen (Tylenol), ibuprofen (Advil, Motrin),or naproxen (Aleve). Read and follow all instructions on the label. Before you use cough and cold medicines, check the label. These medicines may not be safe for youngchildren or for people with certain health problems. Be careful when taking ljjh-ont-jxturks cold or flu medicines and Tylenol at [...] Log into your personal health record on https://The Luxury [email or web address] [email or web address] and enter K520 in the Education box to learn more about Upper Respiratory Infection (Cold): Care Instructions. Current as of: September 09, 2018 Content Version: 12.3 5245-2675 [employer]. Care instructions adapted under license by your healthcare professional. If you have questions about a medical condition or this instruction, always ask your healthcare professional. [employer] disclaims any warranty or liability for your [...] taking a prescription pain medicine, take an umuv-qnv-zvqszob medicine, such as acetaminophen (Tylenol), ibuprofen (Advil, [...] Log into your personal health record on [email or web address].[facility] and enter X558 in the Education box to learn more about Ear Infection (Otitis Media): Care Instructions. Current as of: October 28, 2018 Content Version: 12.3 9068-9522 [employer]op[employer]. Care instructions adapted under license by your healthcare professional. If you have questions about a medical condition or this instruction, always ask your healthcare professional. [employer] disclaims any warranty or liability for your use of this information. 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 documented in this encounter Assessments Diagnosis Acute nasopharyngitis Acute nasopharyngitis (common cold) Acute bilateral otitis media Diagnosis state, incidental Discharge Instructions * Attachments The following attachments cannot be sent through Care Everywhere. 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 Parents to see the basting puller tomorrow for exam and weight check. Mom [...] Teams (unrecognized sec tion and content) Sales Support Technician Relationship Specialty Start Date End Date Nathaly Keith MD [address] [facility] [place] [address] PCP - General Family Medicine 12/26/22 Sales Support Technician Relationship Specialty Start Date End Date Nathaly Keith MD [address] [facility] [place] [address] PCP - General Family Medicine 12/26/22 Sales Support Technician Relationship Specialty Start Date End Date Nathaly Keith MD [address] [facility] [place] [address] PCP - General Family Medicine 12/26/22 Sales Support Technician Relationship Specialty Start Date End Date Nathaly Keith MD [address] [facility] [place] [address] PCP - General Family Medicine 12/26/22 Sales Support Technician Relationship Specialty Start Date End Date Nathaly Keith MD [address] [facility] [place] [address] PCP - General Family Medicine 12/26/22 FOR [...] BE BASED ON THE PRIMARY CLINICAL RECORDS. [facility] [employer] [facility]. provides no warranty or guarantee of the accuracy or completeness of information in this document.
[2024-02-06] MEDS: 0.9 % SODIUM CHLORIDE 1,000 ML 1000 ML IV ×2 (10:42→11:37)
[2024-02-06] MEDS: FAMOTIDINE/PF 20 MG/2 ML VIAL IV (11:11)
[2024-02-06] MEDS: CITRIC ACID/SODIUM CITRATE 30 ML SOLUTION ORACIT SHOHL'S SOLN PO (11:13)
[2024-02-06] MEDS: METOCLOPRAMIDE HCL 10 MG/2 ML VIAL IVP (11:13)
[2024-02-06 11:24] LABS: Basophils Absolute Auto 0.1 10^3/uL (0.0-0.1); Basophils Percent Auto 0.6 % (0.2-2.0); Eosinophils Absolute Auto 0.1 10^3/uL (0.0-0.7); Eosinophils Percent Auto 1.1 % (0.9-7.0); Hematocrit 35.5 % (36.0-48.0); Hemoglobin 11.9 g/dL (12.0-16.0); Immature Granulocytes Abs Auto 0.05 10^3/uL (0.00-0.03); Immature Granulocytes Pct Auto 0.5 % (0.0-0.5); Lymphocytes Absolute Auto 2.8 10^3/uL (1.2-3.8); Lymphocytes Percent Auto 27.2 % (20.5-60.0); Mean Corpuscular HGB Conc 33.5 g/dL (29.9-35.2); Mean Corpuscular Hemoglobin 29.2 pg (26.7-34.0); Mean Platelet Volume 12.5 fL (9.5-13.5); Monocytes Absolute Auto 0.8 10^3/uL (0.3-0.8); Monocytes Percent Auto 7.4 % (1.7-12.0); Neutrophils Absolute Auto 6.6 10^3/uL (1.4-6.5); Neutrophils Percent Auto 63.2 % (43.0-75.0); Platelet Count 305 10^3/uL (150-450); Red Blood Count 4.08 10^6/uL (4.20-5.40); White Blood Count 10.5 10^3/uL (4.0-11.0)
[2024-02-06 11:36] LABS: Amphetamine Screen Urine NEGATIVE (NEGATIVE); Barbiturates Screen Urine NEGATIVE (NEGATIVE); Benzodiazepines Screen Urine NEGATIVE (NEGATIVE); Buprenorphine Screen Urine NEGATIVE (NEGATIVE); Cannabinoid Screen Urine NEGATIVE (NEGATIVE); Cocaine Screen Urine NEGATIVE (NEGATIVE); Methadone Screen Urine NEGATIVE (NEGATIVE); Methamphetamines Screen Urine NEGATIVE (NEGATIVE); Opiate Screen Urine NEGATIVE (NEGATIVE); Oxycodone Screen Urine NEGATIVE (NEGATIVE); Phencyclidine Screen Urine NEGATIVE (NEGATIVE); Tricyclic Antidepressant Urine NEGATIVE (NEGATIVE)
[2024-02-06] MEDS: CEFAZOLIN SODIUM/DEXTROSE,ISO 2 GM/50 ML PIGGYBACK IV ×2 (12:45→17:52)
[2024-02-06] MEDS: LACTATED RINGER'S SOLUTION 1,000 ML 50 ML IV (13:10)
--- NOTE | 2024-02-06 13:41 | PM.ONB ---
Brief Operative Note Date of procedure: 02/06/24 Pre-op diagnosis general: iup at 39wks, previous c/s Post-op diagnosis: same as pre-op Procedure: NAME OF PROCEDURE: [ section ] PROCEDURE: Patient was taken back to the Operating Room where she was given a spinal anesthesia with Duramorph without difficulty. She was prepped and draped in the normal sterile fashion. A Pfannenstiel skin incision was then made 2 cm above the symphysis pubis and carried down to underlying rectus fascia using a Bovie. The fascia was incised in the midline and extended laterally using Link scissors. Two Emeterio clamps were placed on the superior aspect of the fascia and dissected off the underlying rectus muscles. The same was performed on the inferior aspect as well. The muscles were then in the midline. Peritoneum was identified and entered bluntly. The peritoneum was then extended superiorly and inferiorly with good visualization of the bladder. The bladder blade was inserted. A low transverse incision was made on the patient's uterus and extended laterally digitally. The was then delivered atraumatically after the bladder blade was removed in the cephalic position. The cord was clamped and cut. Cord blood was obtained. The was handed off to awaiting team. The patient's placenta was spontaneously delivered. The uterus was then exteriorized. The uterus was cleared of all clots and debris. The bladder blade was reinserted. The patient's uterine incision was closed using #0 Vicryl in a running lock fashion. Excellent hemostasis was assured. The uterus was then returned to the patient's abdomen. The patient's abdomen was copiously irrigated using warm saline. Peritoneal gutters were cleared of all clots and debris. Again excellent hemostasis was assured. The patient's peritoneum was closed using 3-0 Vicryl in a running fashion. The patient's fascia was closed using #0 Vicryl in a running fashion. The patient's skin was closed using 4-0 Vicryl subcuticularly. The patient tolerated the procedure well. Sponge, lap, and needle counts were correct x2. The patient was taken to the Recovery Room in stable condition. Anesthesia: spinal Surgeon: Stanley Ford Plastic Card Grader Cardroom: Alka Ramírez Estimated blood loss (mL): 575 Pathology: none sent Condition: stable Disposition: PACU
--- NOTE | 2024-02-06 13:42 | PM.OBPRCCS ---
Procedure Pre-op/Post-op diagnoses: Pre-Op/Post-Op Diagnoses Operation Date: 02/06/24 12:00 <No data on this case meets the specified criteria> Procedure: Procedures Operation Date: 02/06/24 12:00 Actual Procedure Side Surgeon p Repeat Not Applicable Stanley Ford DO Cutting Room Supervisor: Alka Ramírez Estimated blood loss (mL): 575 Disposition: PACU Anesthesia type: Epidural
[2024-02-06] MEDS: OXYTOCIN/0.9 % SODIUM CHLORIDE 20 UNITS/1,000 ML PLAST..BAG 125 UNIT IV (14:27)
--- NOTE | 2024-02-06 17:04 | PC.NURSE ---
no pain reported at this time.
--- NOTE | 2024-02-06 17:32 | PC.NURSE ---
IV saline lock at this time.
[2024-02-07 01:41] VITALS: BP 104/59; PULSE 70
[2024-02-07] MEDS: ENOXAPARIN SODIUM 40 MG/0.4 ML SYRINGE SUBQ (01:48)
[2024-02-07] MEDS: KETOROLAC TROMETHAMINE 30 MG/ML VIAL IVP ×4 (01:48→20:06)
[2024-02-07 06:43] LABS: Basophils Absolute Auto 0.1 10^3/uL (0.0-0.1); Basophils Percent Auto 0.3 % (0.2-2.0); Eosinophils Percent Auto 0.1 % (0.9-7.0); Hematocrit 28.1 % (36.0-48.0); Hemoglobin 9.5 g/dL (12.0-16.0); Immature Granulocytes Pct Auto 0.5 % (0.0-0.5); Lymphocytes Absolute Auto 3.6 10^3/uL (1.2-3.8); Lymphocytes Percent Auto 18.6 % (20.5-60.0); Mean Corpuscular HGB Conc 33.8 g/dL (29.9-35.2); Mean Corpuscular Hemoglobin 29.5 pg (26.7-34.0); Mean Corpuscular Volume 87.3 fL (81.0-99.0); Mean Platelet Volume 11.5 fL (9.5-13.5); Monocytes Absolute Auto 1.5 10^3/uL (0.3-0.8); Monocytes Percent Auto 7.6 % (1.7-12.0); Neutrophils Percent Auto 72.9 % (43.0-75.0); Platelet Count 226 10^3/uL (150-450); Red Blood Count 3.22 10^6/uL (4.20-5.40); Red Cell Distribution Width 12.9 % (11.0-15.0); White Blood Count 19.1 10^3/uL (4.0-11.0)
--- NOTE | 2024-02-07 07:41 | P.OBPN_ITS ---
OB - PN: Subj Subjective Patient comments: no complaints and pain well controlled [place] status: doing well Exam Constitutional Vital Signs, click to edit/add: Last Vital Signs Temp 97.7 F 02/06/24 17:53 Pulse 70 02/07/24 01:41 Resp 18 02/06/24 19:45 BP 104/59 02/07/24 01:41 Pulse Ox 96 02/06/24 16:37 O2 Del Method Room Air 02/06/24 19:45 Documenting provider has reviewed patient's vital signs: yes Common normals: no apparent distress Respiratory Common normals: clear to auscultation bilaterally Cardio Common normals: regular rate and regular rhythm GI Common normals: Normal to inspection, nondistended, normoactive bowel sounds present Extremity Common normals: no calf tenderness Results Labs Labs: Short CBC 02/06/24 02/07/24 Range/Units 10:30 06:34 WBC 10.5 19.1 H (4.0-11.0) 10^3/uL Hgb 11.9 L 9.5 L (12.0-16.0) g/dL Hct 35.5 L 28.1 L (36.0-48.0) % Plt Count 305 226 (150-450) 10^3/uL Urinary Catheter Management Urinary Catheter Management Urethral: Cath placed during this visit: yes Urethral indwelling: No Insertion date: 02/06/24 Insertion time: 12:50 OB - PN: A/P Plan - day: 1 Plan: routine postop care Time Spent with Patient Time: Total time spent is greater than 50% in coordination of care (as documented) at patient's floor/unit and/or counseling patient: Total time spent with greater than 50% in coordination of care (as documented) at patient's floor/unit and/or counseling patient: less than 15 minutes
[2024-02-07 07:57] VITALS: BP 103/59; PULSE 64
[2024-02-07 08:00] VITALS: TEMP 36.3
[2024-02-07] MEDS: DOCUSATE SODIUM 100 MG CAPSULE PO ×2 (08:12→20:05)
[2024-02-07 12:24] VITALS: BP 116/75; PULSE 60
[2024-02-07 23:51] VITALS: BP 116/70; PULSE 68
[2024-02-07 23:55] VITALS: BP 116/70; PULSE 68; TEMP 36.8
[2024-02-07] MEDS: ACETAMINOPHEN 500 MG TABLET 1000 MG PO (23:56)
[2024-02-08] MEDS: KETOROLAC TROMETHAMINE 30 MG/ML VIAL IVP (02:16)
[2024-02-08] MEDS: ENOXAPARIN SODIUM 40 MG/0.4 ML SYRINGE SUBQ (02:16)
[2024-02-08 08:05] VITALS: TEMP 36.6
[2024-02-08 08:08] VITALS: BP 115/70; PULSE 66
[2024-02-08] MEDS: IBUPROFEN 400 MG TABLET 800 MG PO (08:09)
[2024-02-08] MEDS: DOCUSATE SODIUM 100 MG CAPSULE PO (08:09)
--- NOTE | 2024-02-08 08:34 | PM.OBPN ---
OB - PN: Subj Subjective Patient comments: no complaints and pain well controlled [place] status: doing well Exam Constitutional Vital Signs, click to edit/add: Last Vital Signs Temp 98.2 F 02/07/24 23:55 Pulse 66 02/08/24 08:08 Resp 16 02/07/24 23:55 BP 115/70 02/08/24 08:08 Pulse Ox 96 02/06/24 16:37 O2 Del Method Room Air 02/07/24 23:55 Documenting provider has reviewed patient's vital signs: yes Common normals: no apparent distress Respiratory Common normals: normal respiratory effort and clear to auscultation bilaterally Cardio Common normals: regular rate and regular rhythm GI Common normals: Normal to inspection, nondistended, normoactive bowel sounds present Extremity Common normals: no calf tenderness Urinary Catheter Management Urinary Catheter Management Urethral: Cath placed during this visit: yes Urethral indwelling: No Insertion date: 02/06/24 Insertion time: 12:50 OB - PN: A/P Plan - day: 2 Plan: routine postop care, discharge home and other (fu 1wk) Time Spent with Patient Time: Total time spent is greater than 50% in coordination of care (as documented) at patient's floor/unit and/or counseling patient: Total time spent with greater than 50% in coordination of care (as documented) at patient's floor/unit and/or counseling patient: less than 15 minutes
[2024-02-08] MEDS: ACETAMINOPHEN 500 MG TABLET 1000 MG PO (10:22)
== END 2024-02-08 11:40 | disposition home or self-care (01) | DRG 788 ==
PROVIDERS: Admitting Provider Obstetrics & Gynecology; PCP Family Medicine; Visit Provider Obstetrics & Gynecology
PROC: 10D00Z1 Extraction of Products of Conception, Low, Open Approach (ICD-10-PCS; CPT 59514; principal; 2024-02-06 12:00)
DX: O34.211 Maternal care for low transverse scar from previous cesarean delivery (principal); Z3A.39 39 weeks gestation of pregnancy; Z37.0 Single live birth; Z87.59 Personal history of other complications of pregnancy, childbirth and the puerperium
CPT/HCPCS: 36415; 64488; 80307; 81001; 85025; 86850; 86900; 86901; 94667; 94668; J0131; J0665; J0690; J1100; J1230; J1650; J1885; J2274; J2371; J2405; J2590; J2765

== ENCOUNTER 2024-12-19 13:53 | Outpatient (REF) | payer OTHER, SELFPAY ==
--- OUTSIDE RECORDS SUMMARY | 2024-12-19 09:00 | XMS_ITS | Encounter Summary ---
Author Organization [facility] Address [address] [place] [address] Care Team Providers Care Fire Control Technician Name Role Phone Nathaly Keith MD Primary Care Provider [phone] Reason for Visit * Reason Comments Well Women Visit Encounter Details Date Type Department Care Team (Late st Contact Info) Description 12/19/2024 9:00 AM EDT Office Visit PAULETTE DODSON [address] [place] [id number] Sharri Draper PA [address] [facility] [address] [place], [facility] Well woman exam with routine gynecological exam Social History Tobacco Use Types Packs/Day Years Used Date Smoking Tobacco: Never Smokeless Tobacco: Never Alcohol Use Standard Drinks/Week Comments Yes 0 (1 standard drink = 0.6 oz pur e alcohol) Comments Unknown Sex and Gender Information Value Date Recorded Sex Assigned at Female 12/25/2022 4:00 PM EDT Legal Sex Female 11:08 PM EDT Gender Identity Female 12/25/2022 4:00 PM EDT Sexual Orientation Straight 12/25/2022 4: 00 PM EDT documented as of this encounter Last Filed Vital Signs Vital Sign Reading Time Taken Comments Blood Pressure 110/60 12/19/2024 9:13 AM EDT Pulse - - Temperature - - Respiratory Rate - - Oxygen Saturation - - Inhaled Oxygen Concentration - - Weight 82.7 kg (182 lb 6.4 oz) 12/19/2024 9:13 A M EDT Height - - Body Mass Index 29.44 09/03/2024 1:05 PM EDT documented in this encounter Progress Notes * DERRICK Vargas - 12/19/2024 9:00 AM EDT Reason for Appointment: Patient ID: Joanne Brown is a 34 y.o. female who presents for Well Women Visit Patient presents today for Annual Exam. MEDICATIONS Current Outpatient Medications Medication Instructions fluticasone (Flonase) 50 MCG/ACT nasal spray 1 spray, Each Nostril, Daily, Shake gently. Before first use, prime pump. After use, clean tip and replace cap. ALLERGIES No Known Allergies PROBLEMS Active Ambulatory Problems Diagnosis Date Noted S/P section 03/18/2024 ([facility]) 10/14/2019 Vitamin D deficiency 09/03/2024 Resolved Ambulatory Problems Diagnosis Date Noted 36 weeks gestation of ([facility]) 01/23/2024 Past Medical History: Diagnosis Date Anxiety History [...] appearance. She is well-developed. Genitourinary: Vulva normal. Right Adnexa: not tender and no mass present. Left Adnexa: not tender and no mass present. No cervical discharge. Breasts: Breasts are soft. Right: Normal. Left: Normal. HENT: Head: Normocephalic. Nose: Nose normal. Mouth/Throat: Mouth: Mucous membranes are moist. Cardiovascular: Rate and Rhythm: Normal rate and regular rhythm. Pulmonary: Effort: Pulmonary effort is normal. Breath sounds: Normal breath sounds. Abdominal: General: Bowel sounds are normal. There is no distension. Palpations: Abdomen is soft. Tenderness: There is no abdominal tenderness. There is no guarding or rebound. Musculoskeletal: General: No swelling. Normal range of motion. Cervical back: Normal range of motion. Right lower leg: No edema. Left lower leg: No edema. Neurological: General: No focal deficit present. Mental Status: She is alert and oriented to person, place, and time. Skin: General: Skin is warm and dry. Psychiatric: Mood and Affect: Mood normal. Behavior: Behavior normal. Vitals and nursing note reviewed. Exam conducted with a furnace checker present. Vitals: Estimated body mass index is 29.44 kg/m?? as calculated from the following: Height as of 09/03/24: 5' 6 . Weight as of this encounter: 182 lb 6.4 oz. BP: 110/60 Patient's last menstrual period was 12/07/2024. ASSESSMENT & PLAN ICD-10-CM 1. Well woman exam with routine gynecological exam Z01.419 Pap Smear HPV DNA probe, amplified Annual Exam: Patient presents today for an annual exam. Patient states she is doing well and has no complaints. Pap was obtained without difficulty. Orders Placed This Encounter Procedures HPV DNA probe, amplified Follow Up: Patient is to return in one year for annual unless needed otherwise. Documented by Shirley Shultz LPN on behalf of: DERRICK Vargas documented in this encounter Plan of Treatment Upcoming Encounters Date Type Department Care Team (Late st Contact Info) Description 12/24/2025 10:00 AM EDT Procedure Visit [facility] [address] [place] [address] Sharri Draper PA [address] [facility] [place] [address] Scheduled Orders Name Type Priority Associated Diagnoses Orde r Schedule Pap Smear Pathology and Cytology Routine Well woman exam with routine gynecological exam Ordered: 12/19/2024 HPV DNA probe, amplified Microbiology Routine Well woman exam with routine gynecological exam Ordered: 12/19/2024 documented as of this encounter Goals Goal Patient Goal Type Associated Problems Recent Progress Patient-Stated? Author Reminders Care Plan OB Reminders No Open Scheduling, Background documented as of this encounter Visit Diagnoses Diagnosis Well woman exam with routine gynecological exam Routine gynecological examination documented in this encounter Additional Health Concerns Active Problems Noted Date Diagnosed Date OB Reminders 08/13/2023 documented as of this encounter Care Teams Fire Control Technician Relationship Specialty Start Date End Date Nathaly Keith MD [address] [place] [address] PCP - General Family Medicine 12/26/22 documented as of this encounter
--- OUTSIDE RECORDS SUMMARY | 2024-12-19 13:58 | XMS_ITS | Clinical Summary ---
Author Organization [facility] Address [address] [place] [address] Care Team Providers Care Tumbling Barrel Painter Name Role Phone Haylie Winchester MD Unavailable [phone] Rob Ritchie MD Primary Care Prov ider Allergies No known active allergies Medications vitamin with Ca-Iron-FA 27-1 mg Tab Take 1 tablet by mouth daily . Active Active Problems Problem Noted Date Diagnosed Date 10/14/2019 Family History Medical History Relation Comments No Known Problems Brother No Known Problems Father No Known Problems Mother Relation Status Comments Brother Alive Father Alive Mother Alive Social History Tobacco Use Types Packs/Day Years Used Date Smoking Tobacco: Never Smokeless Tobacco: Never Alcohol Use Standard Drinks/Week Comments Not Currently 0 (1 standard drink = 0.6 oz pur e alcohol) Comments No Sex and Gender Information Value Date Recorded Sex Assigned at Not on file Legal Sex Female 1:07 PM EST Gender Identity Female 05/11/2019 1:10 PM EST Sexual Orientation Straight 05/11/2019 1: 10 PM EST Last Filed Vital Signs Vital Sign Reading Time Taken Comments Blood Pressure 105/67 10/27/2019 8:19 AM EDT Pulse 71 10/27/2019 8:19 AM EDT Temperature 36.5 C (97.7 F) 10/27/2019 8:19 AM EDT Respiratory Rate 16 10/27/2019 8:19 AM EDT Oxygen Saturation 96% 10/27/2019 8:19 AM EDT Inhaled Oxygen Concentration - - Weight 84.4 kg (186 lb) 10/25/2019 6:01 AM EDT Height 170.2 cm (5' 7 ) 10/25/2019 6:01 AM EDT Body Mass Index 29.13 10/25/2019 6:01 AM EDT Plan of Treatment Health Maintenance Due Date Last Done Comments Tetanus: Every 10yrs 1990 Wellness Visit 02/08/1991 Depression Screening/Follow- Up (PHQ-2/9) 2000 HIV Screening 02/08/2003 Hepatitis C Screening 02/08/2006 Pap Smear 02/08/2009 Cervical Cancer Screening 02/08/2018 HPV/Cotest 02/08/2018 COVID-19 Vaccine (2023-2 5 season) 2024 Influenza Vaccine (#1) 2024 Pneumococcal Vaccine: Ped or At-Risk Aged Out No longer eligible b ased on patient's age to complete this topic Insurance [employer] CHO[employer]D-ANY CHOICE FUND Advance Directives For more information, please contact: [phone] * Full Code (Latest Code Status on File) Date Activated Date Inactivated Comments 10/25/2019 11:46 AM 10/27/2019 2:32 PM * Full Code Date Activated Date Inactivated Comments 10/25/2019 5:44 AM 10/25/2019 10:39 AM * Full Code Date Activated Date Inactivated Comments 10/14/2019 5:32 AM 10/14/2019 1:17 PM Care Teams Tumbling Barrel Painter Relationship Specialty Start Date End Date Rob Ritchie MD [address] [place] [address] [place] [address] PCP - General Family Medicine 10/09/19 Haylie Winchester MD [address] [place] [address] Consulting Physician Obstetrics/Gynecology 10/08/19
--- OUTSIDE RECORDS SUMMARY | 2024-12-19 13:58 | XMS_ITS | Encounter Summary ---
Author Organization [facility] Address [address] [facility] [place] [address] Care Team Providers Care Sheet Rock Installer Name Role Phone Brenton Saldivar MD Primary Care Provider [phone] Encounter Details Date Type Department Care Team (Late st Contact Info) Description 02/01/2024 Clinisync Result Encounter [facility] External Department Unsolicited Shanna Ford, DO [address] [place], [facility] Social History Tobacco Use Types Packs/Day Years Used Date Smoking Tobacco: Never Smokeless Tobacco: Never Alcohol Use Standard Drinks/Week Comments Yes 0 (1 standard drink = 0.6 oz pur e alcohol) Comments Yes Sex and Gender Information Value Date Recorded Sex Assigned at Female 12/25/2022 4:00 PM EDT Legal Sex Female 11:08 PM EDT Gender Identity Female 12/25/2022 4:00 PM EDT Sexual Orientation Straight 12/25/2022 4: 00 PM EDT documented as of this encounter Plan of Treatment Upcoming Encounters Date Type Department Care Team (Late st Contact Info) Description 12/24/2025 10:00 AM EDT Procedure Visit [facility] [address] [place] [place] [address] Sharri Draper PA [address] [place] [address] documented as of this encounter Goals Goal Patient Goal Type Associated Problems Recent Progress Patient-Stated? Author Reminders Care Plan OB Reminders No Open Scheduling, Background documented as of this encounter Procedures Procedure Name Priority Date/Time Associated Diagnosis Comments US OB BPP W NON-STRESS 02/01/2024 4:25 AM EDT documented in this encounter Results * US OB BPP W NON-STRESS (02/01/2024 4:25 AM EDT) Anatomical Region Laterality Modality Other 02/01/2024 4:25 AM EDT Narrative 02/01/2024 4:28 [place] [address] Ultrasound Report Signed Patient: JOANNE BROWN MR#: [id number] : 1990 Acct:[id number] Age/Sex: 33 / F ADM Date: 01/31/24 Loc: US Attending Dr: Shanna Ford D.O. Ordering Physician: Shanna Ford D.O. Date of Service: 01/31/24 Procedure(s): US OB BPP w non-stress Accession Number(s): [id number] cc: BRENTON SALDIVAR ; Shanna Ford D.O. [place] [id number] Patient Name: JOANNE BROWN MRN: [id number] date: 1990 Sex: F Assigned Patient Location: [facility] Current Patient Location: Accession/Order Number: [id number] Exam Date: 01/31/2024 08:15 Report Date: 02/01/2024 04:25 At the request of: SHANNA FORD Procedure: US OB BPP w non-stress EXAMINATION: US OB BPP w non-stress HISTORY:ADVANCED MATERNAL AGE O09.522 COMPARISON: Ultrasound OB biophysical 01/24/2024 TECHNIQUE: Ultrasound biophysical profile was performed in the radiology department. BREATHING MOVEMENTS: 2 GROSS BODY MOVEMENTS: 2 TONE: 2 QUALITATIVE AMNIOTIC FLUID VOLUME: 2 PRESENTATION: CEPHALIC HEART RATE: 133.00 bpm AMNIOTIC FLUID VOLUME: 18.29 cm GESTATIONAL AGE: 37 weeks 5 days US/US OB BPP w non-stress IMPRESSION: Total biophysical profile score: 8 Electronically authenticated by: MAIK VILLAGRAN Date: 02/01/2024 04:25 Dictated By: Maik Villagran M.D. Signed By: 02/01/24427 DD/ 4 TD/TT: Iron Setter: Procedure Note Radiology, Radiologist, - 02/01/2024 [place] [address] Ultrasound Report Signed Patient: JOANNE BROWN AMR#: [id number] : 1990Acct:[id number] Age/Sex: 33 / FADM Date: 01/31/24 Loc: US Attending Dr: Shanna Ford D.O. Ordering Physician: Shanna Ford D.O. Date of Service: 01/31/24 Procedure(s): US OB BPP w non-stress Accession Number(s): [id number] cc: BRENTON SALDIVAR ; Shanna Ford D.O. [place] [id number] Patient Name: JOANNE BROWN MRN: [facility]:[id number] date: 1990 Sex: F Assigned Patient Location: [facility] Current Patient Location: Accession/Order Number: [id number] Exam Date: 01/31/2024 08:15 Report Date: 02/01/2024 04:25 At the request of: SHANNA FORD Procedure: US OB BPP w non-stress EXAMINATION: US OB BPP w non-stress HISTORY:ADVANCED MATERNAL AGE O09.522 COMPARISON: Ultrasound OB biophysical 01/24/2024 TECHNIQUE: Ultrasound biophysical profile was performed in the radiology department. BREATHING MOVEMENTS: 2 GROSS BODY MOVEMENTS: 2 TONE: 2 QUALITATIVE AMNIOTIC FLUID VOLUME: 2 PRESENTATION: CEPHALIC HEART RATE: 133.00 bpm AMNIOTIC FLUID VOLUME: 18.29 cm GESTATIONAL AGE: 37 weeks 5 days US/US OB BPP w non-stress IMPRESSION: Total biophysical profile score: 8 Electronically authenticated by: MAIK VILLAGRAN Date: 02/01/2024 04:25 Dictated By: Maik Villagran M.D. Signed By:02/01/248 DD/ 4 TD/TT: Iron Setter: us Shanna Logan DO [facility] Final Result documented in this encounter Visit Diagnoses Not on filedocumented in this encounter Additional Health Concerns Active Problems Noted Date Diagnosed Date OB Reminders 08/13/2023 documented as of this encounter Care Teams Sheet Rock Installer Relationship Specialty Start Date End Date Brenton Saldivar MD [address] [place] [address] PCP - General Family Medicine 12/26/22 documented as of this encounter
--- OUTSIDE RECORDS SUMMARY | 2024-12-19 13:58 | XMS_ITS | Encounter Summary ---
Author Organization [facility] Address [address] [place] [address] Care Team Providers Care Car Lot Attendant Name Role Phone Nathaly Keith MD Primary Care Provider [phone] Encounter Details Date Type Department Care Team (Late Contact Info) Description 02/06/2024 Abstract [facility] [address] [facility] [place] [address] Stanley Ford DO [address] [facility] [address] Liz Shah, [place] [address] Social History Tobacco Use Types Packs/Day Years [...] Description 12/24/2025 10:00 AM EDT Procedure Visit [facility] [address] [facility] [place] [address] Sharri Draper PA [address] [facility] [address] [place], [facility] documented as of this encounter Goals Goal Patient Goal Type Associated Problems Recent Progress Patient-Stated? Author Reminders Care Plan OB Reminders No Open Scheduling, Background documented as of this encounter Visit Diagnoses Not on filedocumented in this encounter Additional Health Concerns Active Problems Noted Date Diagnosed Date OB Reminders 08/13/2023 documented as of this encounter Care Teams Car Lot Attendant Relationship Specialty Start Date End Date Nathaly Keith MD [address] [place] [address] PCP - General Family Medicine 12/26/22 documented as of this encounter
--- OUTSIDE RECORDS SUMMARY | 2024-12-19 13:58 | XMS_ITS | Encounter Summary ---
Author Organization [facility] Address [address] [place] [address] Care Team Providers Care Lance Crewmember Name Role Phone Nathaly Keith MD Primary Care Provider [phone] Encounter Details Date Type Department Care Team (Late Contact Info) Description 01/22/2024 Abstract [facility] [address] [facility] [address] Stanley Ford DO [address] [facility] [address] Liz [address], [place] [address] Social History Tobacco Use Types Packs/Day Years [...] AM EDT Procedure Visit [facility] [address] [facility] [address] Sharri Draper PA [address] [facility] [address] [place], [facility]11 documented as of this encounter Goals Goal Patient Goal Type Associated Problems Recent Progress Patient-Stated? Author Reminders Care Plan OB Reminders No Open Scheduling, Background documented as of this encounter Visit Diagnoses Not on filedocumented in this encounter Additional Health Concerns Active Problems Noted Date Diagnosed Date OB Reminders 08/13/2023 documented as of this encounter Care Teams Lance Crewmember Relationship Specialty Start Date End Date Nathaly Keith MD [address] [place] [address] PCP - General Family Medicine 12/26/22 documented as of this encounter
--- OUTSIDE RECORDS SUMMARY | 2024-12-19 13:58 | XMS_ITS | Encounter Summary ---
Author Organization [facility] Address [address] [place] [address] Care Team Providers Care Child Nutrition Director Name Role Phone Brenton Saldivar MD Primary Care Provider [phone] Encounter Details Date Type Department Care Team (Late Contact Info) Description 01/17/2024 Clinisync Result Encounter [facility] External Department Unsolicited Provider, Generic External Data Social History Tobacco Use Types Packs/Day Years [...] Encounters Date Type Department Care Team (Late Contact Info) Description 12/24/2025 10:00 AM EDT Procedure Visit [facility] [address] [facility] [place] [address] Sharri Draper PA [address] [facility] [place] [address] documented as of this encounter Goals Goal Patient Goal Type Associated Problems Recent Progress Patient-Stated? Author Reminders Care Plan OB Reminders No Open Scheduling, Background documented as of this encounter Procedures Procedure Name Priority Date/Time Associated Diagnosis Comments US OB BPP W NON-STRESS 01/17/2024 8:50 AM EDT documented in this encounter Results * US OB BPP W NON-STRESS (01/17/2024 8:50 AM EDT) Anatomical Region Laterality Modality Other 01/17/2024 8:50 AM EDT Narrative 01/17/2024 8:53 [place] [address] Ultrasound Report Signed Patient: JOANNE BROWN MR#: [id number] : 1990 Acct:[id number] Age/Sex: 33 / F ADM Date: 01/17/24 Loc: [facility] 250-[address]: Shanna Ford D.O. Ordering Physician: Shanna Ford D.O. Date of Service: 01/17/24 Procedure(s): US OB BPP w non-stress Accession Number(s): [id number] cc: BRENTON SALDIVAR ; Shanna Ford D.O. [place] [address] Patient Name: JOANNE BROWN MRN: [id number] date: 1990 Sex: F Assigned Patient Location: [facility] Current Patient Location: [facility] Accession/Order Number: [id number] Exam Date: 01/17/2024 08:05 Report Date: 01/17/2024 08:50 At the request of: SHANNA FORD Procedure: US OB BPP w non-stress EXAMINATION: US OB BPP w non-stress HISTORY: Multigravida of advanced maternal age O09.522 COMPARISON: No relevant comparison available. TECHNIQUE: Ultrasound biophysical profile was performed in the radiology department. non-reactive stress testing was performed by nursing staff in the birthing center. FINDINGS: BREATHING MOVEMENTS: 2 GROSS BODY MOVEMENTS: 2 TONE: 2 QUALITATIVE AMNIOTIC FLUID VOLUME: 2 PRESENTATION: CEPHALIC HEART RATE: 117.84 bpm AMNIOTIC FLUID VOLUME: 16.9 cm GESTATIONAL AGE: 35 weeks 5 days US/US OB BPP w non-stress IMPRESSION: Total biophysical profile score: 8 Electronically authenticated by: DANG ROD Date: 01/17/2024 08:50 Dictated By: Dang Rod M.D. Signed By: 01/17/24852 DD/ 9 TD/TT: Administrative Analyst: Procedure Note Radiology, Radiologist, - 01/17/2024 [place] [address] Ultrasound Report Signed Patient: JOANNE BROWN AMR#: [id number] : 1990Acct:[id number] Age/Sex: 33 / FADM Date: 01/17/24 Loc: [facility] 250-[address]: Shanna Ford D.O. Ordering Physician: Shanna Ford D.O. Date of Service: 01/17/24 Procedure(s): US OB BPP w non-stress Accession Number(s): [id number] cc: BRENTON SALDIVAR ; Shanna Ford D.O. The [place] [address] Patient Name: JOANNE BROWN MRN: [id number] date: 1990 Sex: F Assigned Patient Location: [facility] Current Patient Location: [facility] Accession/Order Number: [id number] Exam Date: 01/17/2024 08:05 Report Date: 01/17/2024 08:50 At the request of: SHANNA FORD Procedure: US OB BPP w non-stress EXAMINATION: US OB BPP w non-stress HISTORY: Multigravida of advanced maternal age O09.522 COMPARISON: No relevant comparison available. TECHNIQUE: Ultrasound biophysical profile was performed in the radiology department. non-reactive stress testing was performed by nursingstaff in the birthing center. FINDINGS: BREATHING MOVEMENTS: 2 GROSS BODY MOVEMENTS: 2 TONE: 2 QUALITATIVE AMNIOTIC FLUID VOLUME: 2 PRESENTATION: CEPHALIC HEART RATE: 117.84 bpm AMNIOTIC FLUID VOLUME: 16.9 cm GESTATIONAL AGE: 35 weeks 5 days US/US OB BPP w non-stress IMPRESSION: Total biophysical profile score: 8 Electronically authenticated by: DANG ROD Date: 01/17/2024 08:50 Dictated By: Dang Rod M.D. Signed By:01/17/2453 DD/ TD/TT: Administrative Analyst: us Generic External Data Provider [facility] Final Result documented in this encounter Visit Diagnoses Not on filedocumented in this encounter Additional Health Concerns Active Problems Noted Date Diagnosed Date OB Reminders 08/13/2023 documented as of this encounter Care Teams Child Nutrition Director Relationship Specialty Start Date End Date Brenton Saldivar MD [address] [place] [address] PCP - General Family Medicine 12/26/22 documented as of this encounter
--- OUTSIDE RECORDS SUMMARY | 2024-12-19 13:58 | XMS_ITS | Encounter Summary ---
Author Organization [facility] Address [address] [place] [address] Care Team Providers Care Cash Shortage Investigator Name Role Phone Nathaly Keith MD Primary Care Provider [phone] Encounter Details Date Type Department Care Team (Late Contact Info) Description 11/17/2023 Abstract [facility] [address] [facility] [place] [address] Stanley Ford DO [address] [facility] [address] [place], [place] [address] Social History Tobacco Use Types Packs/Day Years [...] AM EDT Procedure Visit [facility] [address] [facility] [place] [address] Sharri Draper PA [address] [facility] [address] [place], [facility]11 documented as of this encounter Goals Goal Patient Goal Type Associated Problems Recent Progress Patient-Stated? Author Reminders Care Plan OB Reminders No Open Scheduling, Background documented as of this encounter Visit Diagnoses Not on filedocumented in this encounter Additional Health Concerns Active Problems Noted Date Diagnosed Date OB Reminders 08/13/2023 documented as of this encounter Care Teams Cash Shortage Investigator Relationship Specialty Start Date End Date Nathaly Keith MD [address] [place] [address] PCP - General Family Medicine 12/26/22 documented as of this encounter
--- OUTSIDE RECORDS SUMMARY | 2024-12-19 13:58 | XMS_ITS | Encounter Summary ---
Author Organization [facility] Address [address] [facility] [place] [address] Care Team Providers Care Logging Crew Foreman Name Role Phone Nathaly Keith MD Primary Care Provider [phone] Encounter Details Date Type Department Care Team (Late st Contact Info) Description 03/14/2023 [facility] [address] [place] [id number] Nathaly Keith MD [address] [place], [place] [id number] Social History Tobacco Use Types Packs/Day Years [...] 12/24/2025 10:00 AM EDT Procedure Visit [facility] OBKATHLE[facility] [address] [place] [address] Sharri Draper PA [address] [facility] [address] [place], [place] [address] documented as of this encounter Visit Diagnoses Not on filedocumented in this encounter Care Teams Logging Crew Foreman Relationship Specialty Start Date End Date Nathaly Keith MD [address] [place] [address] PCP - General Family Medicine 12/26/22 documented as of this encounter
--- OUTSIDE RECORDS SUMMARY | 2024-12-19 13:58 | XMS_ITS | Encounter Summary ---
Author Organization [facility] Address [address] [place] [address] Care Team Providers Care Supervisor Stave Finishing Name Role Phone Brenton Saldivar MD Primary Care Provider [phone] Encounter Details Date Type Department Care Team (Late Contact Info) Description 01/08/2024 Clinisync Result Encounter [facility] External Department Unsolicited [...] EDT Procedure Visit [facility] [address] [facility] [place] [address] Sharri Draper PA [address] [facility] [place] [address] documented as of this encounter Goals Goal Patient Goal Type Associated Problems Recent Progress Patient-Stated? Author Reminders Care Plan OB Reminders No Open Scheduling, Background documented as of this encounter Procedures Procedure Name Priority Date/Time Associated Diagnosis Comments US OB BPP W NON-STRESS 01/08/2024 2:52 PM EDT documented in this encounter Results * US OB BPP W NON-STRESS (01/08/2024 2:52 PM EDT) Anatomical Region Laterality Modality Other 01/08/2024 2:52 PM EDT Narrative 01/08/2024 2:55 [place] [address] Ultrasound Report Signed Patient: JOANNE BROWN MR#: [id number] : 1990 Acct:[id number] Age/Sex: 33 / F ADM Date: 01/08/24 Loc: [facility] 250-[address]: Shanna Ford D.O. Ordering Physician: Shanna Ford D.O. Date of Service: 01/08/24 Procedure(s): US OB BPP w non-stress Accession Number(s): [id number] cc: BRENTON SALDIVAR ; Shanna Ford D.O. The [place] [id number] Patient Name: JOANNE BROWN MRN: [id number] date: 1990 Sex: F Assigned Patient Location: [facility] Current Patient Location: [facility] Accession/Order Number: [id number] Exam Date: 01/08/2024 14:08 Report Date: 01/08/2024 14:52 At the request of: SHANNA FORD Procedure: [...] FLUID VOLUME: 2 PRESENTATION: CEPHALIC HEART RATE: 139.90 bpm AMNIOTIC FLUID VOLUME: 18.2 cm GESTATIONAL AGE: 34 weeks 3 days US/US OB BPP w non-stress IMPRESSION: Total biophysical profile score: 8 Electronically authenticated by: DANG ROD Date: 01/08/2024 14:52 Dictated By: Dang Rod M.D. Signed By: 01/08/245 DD/ 51 TD/TT: Telephone Maintainer: Procedure Note Radiology, Radiologist, - 01/08/2024 [place] [address] Ultrasound Report Signed Patient: JOANNE BROWN AMR#: [id number] : 1990Acct:[id number] Age/Sex: 33 / FADM Date: 01/08/24 Loc: [facility] 250-[address]: Shanna Ford D.O. Ordering Physician: Shanna Ford D.O. Date of Service: 01/08/24 Procedure(s): US OB BPP w non-stress Accession Number(s): [id number] cc: BRENTON SALDIVAR ; Shanna Ford D.O. [place] [address] Patient Name: JOANNE BROWN MRN: [id number] date: 1990 Sex: F Assigned Patient Location: [facility] Current Patient Location: [facility] Accession/Order Number: [id number] Exam Date: 01/08/2024 14:08 Report Date: 01/08/2024 14:52 At the request of: SHANNA FORD Procedure: [...] FLUID VOLUME: 2 PRESENTATION: CEPHALIC HEART RATE: 139.90 bpm AMNIOTIC FLUID VOLUME: 18.2 cm GESTATIONAL AGE: 34 weeks 3 days US/US OB BPP w non-stress IMPRESSION: Total biophysical profile score: 8 Electronically authenticated by: DANG ROD Date: 01/08/2024 14:52 Dictated By: Dang Rod M.D. Signed By:01/08/24 1455 DD/ 145 TD/TT: Telephone Maintainer: us Generic External Data Provider [facility] Final Result documented in this encounter Visit Diagnoses Not on filedocumented in this encounter Additional Health Concerns Active Problems Noted Date Diagnosed Date OB Reminders 08/13/2023 documented as of this encounter Care Teams Supervisor Stave Finishing Relationship Specialty Start Date End Date Brenton Saldivar MD [address] [place] [address] PCP - General Family Medicine 12/26/22 documented as of this encounter
--- OUTSIDE RECORDS SUMMARY | 2024-12-19 13:58 | XMS_ITS | Encounter Summary ---
Author Organization [facility] Address [address] [place] [address] Care Team Providers Care Mat Packer Name Role Phone Nathaly Keith MD Primary Care Provider [phone] Encounter Details Date Type Department Care Team (Late Contact Info) Description 10/16/2023 Abstract [facility] [address] [facility] [place] [address] Stanley Ford DO [address] [facility] [address], [place] [address] Social History Tobacco Use Types Packs/Day Years [...] AM EDT Procedure Visit [facility] [address] [facility] [place] [address] Sharri Draper PA [address] [facility] [address] [place], [facility]11 documented as of this encounter Goals Goal Patient Goal Type Associated Problems Recent Progress Patient-Stated? Author Reminders Care Plan OB Reminders No Open Scheduling, Background documented as of this encounter Visit Diagnoses Not on filedocumented in this encounter Additional Health Concerns Active Problems Noted Date Diagnosed Date OB Reminders 08/13/2023 documented as of this encounter Care Teams Mat Packer Relationship Specialty Start Date End Date Nathaly Keith MD [address] [place] [address] PCP - General Family Medicine 12/26/22 documented as of this encounter
--- OUTSIDE RECORDS SUMMARY | 2024-12-19 13:58 | XMS_ITS | Encounter Summary ---
Author Organization [facility] Address [address] [place] [address] Care Team Providers Care Field Automobile Adjuster Name Role Phone Nathaly Keith MD Primary Care Provider [phone] Encounter Details Date Type Department Care Team (Late Contact Info) Description 09/21/2023 Abstract [facility] [address] [facility] [place] [address] Stanley Ford DO [address] [facility] [address], [place] [address] Social History Tobacco Use Types Packs/Day Years [...] AM EDT Procedure Visit [facility] [address] [facility] [place] [address] Sharri Draper PA [address] [facility] [address] [place], [facility] documented as of this encounter Goals Goal Patient Goal Type Associated Problems Recent Progress Patient-Stated? Author Reminders Care Plan OB Reminders No Open Scheduling, Background documented as of this encounter Visit Diagnoses Not on filedocumented in this encounter Additional Health Concerns Active Problems Noted Date Diagnosed Date OB Reminders 08/13/2023 documented as of this encounter Care Teams Field Automobile Adjuster Relationship Specialty Start Date End Date Nathaly Keith MD [address] [place] [address] PCP - General Family Medicine 12/26/22 documented as of this encounter
--- OUTSIDE RECORDS SUMMARY | 2024-12-19 13:58 | XMS_ITS | Encounter Summary ---
Author Organization [facility] Address [address] [place] [address] Care Team Providers Care Ground Support Equipment Fitter Name Role Phone Brenton Saldivar MD Primary Care Provider [phone] Encounter Details Date Type Department Care Team (Late Contact Info) Description 01/24/2024 Clinisync Result Encounter [facility] External Department Unsolicited [...] EDT Procedure Visit [facility] [address] [facility] [place] [address] Sharri Draper PA [address] [facility] [place] [address] documented as of this encounter Goals Goal Patient Goal Type Associated Problems Recent Progress Patient-Stated? Author Reminders Care Plan OB Reminders No Open Scheduling, Background documented as of this encounter Procedures Procedure Name Priority Date/Time Associated Diagnosis Comments US OB BPP W NON-STRESS 01/24/2024 4:23 PM EDT documented in this encounter Results * US OB BPP W NON-STRESS (01/24/2024 4:23 PM EDT) Anatomical Region Laterality Modality Other 01/24/2024 4:23 PM EDT Narrative 01/24/2024 4:25 [place] [address] Ultrasound Report Signed Patient: JOANNE BROWN MR#: [id number] : 1990 Acct:[id number] Age/Sex: 33 / F ADM Date: 01/24/24 Loc: US Attending Dr: Shanna Ford D.O. Ordering Physician: Shanna Ford D.O. Date of Service: 01/24/24 Procedure(s): US OB BPP w non-stress Accession Number(s): [id number] cc: BRENTON SALDIVAR ; Shanna Ford D.O. The [place] [address] Patient Name: JOANNE BROWN MRN: [id number] date: 1990 Sex: F Assigned Patient Location: Current Patient Location: Accession/Order Number: [id number] Exam Date: 01/24/2024 08:06 Report Date: 01/24/2024 16:23 At the request of: SHANNA FORD Procedure: US OB BPP w non-stress EXAMINATION: US OB BPP w non-stress HISTORY:Multigravida of advanced maternal age O09.522 COMPARISON: Ultrasound OB biophysical 01/08/2024, 01/17/2024 TECHNIQUE: Ultrasound biophysical profile was performed in the radiology department. BREATHING MOVEMENTS: 2 GROSS BODY MOVEMENTS: 2 TONE: 2 QUALITATIVE AMNIOTIC FLUID VOLUME: 2 PRESENTATION: CEPHALIC HEART RATE: 123.85 bpm AMNIOTIC FLUID VOLUME: 18.14 cm GESTATIONAL AGE: 36 weeks 5 days US/US OB BPP w non-stress IMPRESSION: Total biophysical profile score: 8 Electronically authenticated by: MAIK VILLAGRAN Date: 01/24/2024 16:23 Dictated By: Maik Villagran M.D. Signed By: 01/24/241624 DD/ 22 TD/TT: Mail List Librarian: Procedure Note Radiology, Radiologist, - 01/24/2024 [place] [address] Ultrasound Report Signed Patient: JOANNE BROWN AMR#: [id number] : 1990Acct:[id number] Age/Sex: 33 / FADM Date: 01/24/24 Loc: US Attending Dr: Shanna Ford D.O. Ordering Physician: Shanna Ford D.O. Date of Service: 01/24/24 Procedure(s): US OB BPP w non-stress Accession Number(s): [id number] cc: BRENTON SALDIVAR ; Shanna Ford D.O. [place] [address] Patient Name: JOANNE BROWN MRN: [id number] date: 1990 Sex: F Assigned Patient Location: US Current Patient Location: US Accession/Order Number: [id number] Exam Date: 01/24/2024 08:06 Report Date: 01/24/2024 16:23 At the request of: SHANNA FORD Procedure: US OB BPP w non-stress EXAMINATION: US OB BPP w non-stress HISTORY:Multigravida of advanced maternal age O09.522 COMPARISON: Ultrasound OB biophysical 01/08/2024, 01/17/2024 TECHNIQUE: Ultrasound biophysical profile was performed in the radiology department. BREATHING MOVEMENTS: 2 GROSS BODY MOVEMENTS: 2 TONE: 2 QUALITATIVE AMNIOTIC FLUID VOLUME: 2 PRESENTATION: CEPHALIC HEART RATE: 123.85 bpm AMNIOTIC FLUID VOLUME: 18.14 cm GESTATIONAL AGE: 36 weeks 5 days US/US OB BPP w non-stress IMPRESSION: Total biophysical profile score: 8 Electronically authenticated by: MAIK VILLAGRAN Date: 01/24/2024 16:23 Dictated By: Maik Villagran M.D. Signed By:01/24/24 1625 DD/ 1623 TD/TT: Mail List Librarian: us Generic External Data Provider [facility] Final Result documented in this encounter Visit Diagnoses Not on filedocumented in this encounter Additional Health Concerns Active Problems Noted Date Diagnosed Date OB Reminders 08/13/2023 documented as of this encounter Care Teams Ground Support Equipment Fitter Relationship Specialty Start Date End Date Brenton Saldivar MD [address] [place] [address] PCP - General Family Medicine 12/26/22 documented as of this encounter
--- OUTSIDE RECORDS SUMMARY | 2024-12-19 13:58 | XMS_ITS | Encounter Summary ---
Author Organization [facility] Address [address] [place] [address] Care Team Providers Care Oilseed Meat Presser Name Role Phone Nathaly Keith MD Primary Care Provider [phone] Encounter Details Date Type Department Care Team (Late Contact Info) Description 12/19/2024 Bamboo flowsheet [facility] [address] [place] [address] Sharri Draper PA [address] [place] [address] [address] [place], [place] [address] Social History Tobacco Use Types Packs/Day Years [...] EDT Procedure Visit [facility] [address] [place] [address] Sharri Draper, PA [address] [place] [address] [address] [place], [facility] documented as of this encounter Goals Goal Patient Goal Type Associated Problems Recent Progress Patient-Stated? Author Reminders Care Plan OB Reminders No Open Scheduling, Background documented as of this encounter Visit Diagnoses Not on filedocumented in this encounter Additional Health Concerns Active Problems Noted Date Diagnosed Date OB Reminders 08/13/2023 documented as of this encounter Care Teams Oilseed Meat Presser Relationship Specialty Start Date End Date Nathaly Keith MD [address] [place] [address] PCP - General Family Medicine 12/26/22 documented as of this encounter
--- OUTSIDE RECORDS SUMMARY | 2024-12-19 13:58 | XMS_ITS | Clinical Summary ---
Author Organization [facility] Address [address] [place] [place] [address] Care Team Providers Care Monitoring Analyst Name Role Phone Nathaly Keith MD Primary Care Provider [phone] Allergies No known active allergies Medications fluticasone (Flonase) 50 MCG/ACT nasal sprayIndication s:Right otitis media with effusion ADMINISTER 1 SPRAY INTO EACH NOSTRIL DAILY SHAKE GENTLY. BEFORE FIRST USE, PRIME PUMP. AFTER USE, CLEAN TIP AND REPLACE CAP. 48 mL 1 Active Active Problems Problem Noted Date Diagnosed Date Vitamin D deficiency 09/03/2024 S/P section 03/18/2024 ([facility]) 10/14/2019 Resolved Problems Problem Noted Date Diagnosed Date Resolved Date 36 weeks gestation of ([facility]) 01/23/2024 02/06/2024 Encounters Date Type Department Care Team Description 12/19/2024 9:00 AM EDT Office Visit [facility] [address] [place] [address] Sharri Draper PA Well woman exam with routine gynecological exam 12/19/2024 Bamboo flowsheet [facility] [address] [place] [address] Shrari Draper PA 09/25/2024 [facility]ill [facility] [address] [place] [phone] Maribell Zamorano, SAHIL Right otitis media with effusion from Last 3 Months Family History Relation Name Status Comments Father Alive Mother Alive Social History Tobacco Use Types Packs/Day Years Used Date Smoking Tobacco: Never Smokeless Tobacco: Never Tobacco Cessation:Counseling Given: Not Answered Alcohol Use Standard Drinks/Week Comments Yes 0 (1 standard drink = 0.6 oz pur e alcohol) Comments Unknown Sex and Gender Information Value Date Recorded Sex Assigned at Female 12/25/2022 4:00 PM EDT Legal Sex Female 11:08 PM EDT Gender Identity Female 12/25/2022 4:00 PM EDT Sexual Orientation Straight 12/25/2022 4: 00 PM EDT Last Filed Vital Signs Vital Sign Reading Time Taken Comments Blood Pressure 110/60 12/19/2024 9:13 AM EDT Pulse 88 09/03/2024 1:05 PM EDT Temperature - - Respiratory Rate - - Oxygen Saturation 97% 09/03/2024 1:05 PM EDT Inhaled Oxygen Concentration - - Weight 82.7 kg (182 lb 6.4 oz) 12/19/2024 9:13 A M EDT Height 167.6 cm (5' 6 ) 09/03/2024 1:05 PM EDT Body Mass Index 29.44 09/03/2024 1:05 PM EDT Plan of Treatment Upcoming Encounters Date Type Department Care Team (Late st Contact Info) Description 12/24/2025 10:00 AM EDT Procedure Visit [facility] [address] [place] [place] [address] Sharri Draper PA [address] [place] [address] Health Maintenance Due Date Last Done Comments Influenza Vaccine (#1) 2024 Cervical Cancer Screening 09/10/2028 HPV/Cotest 09/10/2028 Pap Smear 09/10/2028 09/11/2023, 06/09/2020, 0312/2020 Goals Goal Patient Goal Type Associated Problems Recent Progress Patient-Stated? Author Reminders Care Plan OB Reminders No Open Scheduling, Background Procedures Procedure Name Priority Date/Time Associated Diagnosis Comments PAP SMEAR Routine 09/11/2023 12:00 AM EDT from Last 3 Months or Most Recently Relevant to Health Maintenance Results * Pap Smear (09/11/2023 12:00 AM EDT) Swab Cervical swab / Unknown us Stanley Ford DO LAB CYTOLOGY ORDERABLES Final Re sult EXTERNAL LAB from Last 3 Months or Most Recently Relevant to Health Maintenance Additional Health Concerns Active Problems Noted Date Diagnosed Date OB Reminders 08/13/2023 Insurance [employer] Care Teams Monitoring Analyst Relationship Specialty Start Date End Date Nathaly Keith MD [address] [place] [address] PCP - General Family Medicine 12/26/22
--- OUTSIDE RECORDS SUMMARY | 2024-12-19 13:58 | XMS_ITS | Encounter Summary ---
Author Organization [facility] Address [address] [place] [address] Care Team Providers Care Undercoat Sprayer Name Role Phone Brenton Saldivar MD Primary Care Provider Encounter Details Date Type Department Care Team (Late Contact Info) Description 10/16/2023 Clinisync Result Encounter [facility] External Department Unsolicited [...] EDT Procedure Visit [facility] [address] [place] [address] Sharri Draper PA [address] [place] [place] [address] documented as of this encounter Goals Goal Patient Goal Type Associated Problems Recent Progress Patient-Stated? Author Reminders Care Plan OB Reminders No Open Scheduling, Background documented as of this encounter Procedures Procedure Name Priority Date/Time Associated Diagnosis Comments US OB ANATOMY 10/16/2023 9:59 AM EDT documented in this encounter Results * US OB ANATOMY (10/16/2023 9:59 AM EDT) Anatomical Region Laterality Modality Other 10/16/2023 9:59 AM EDT Narrative 10/16/2023 10:02 [place] [address] Ultrasound Report Signed Patient: JOANNE BROWN MR#: [id number] : 1990 Acct:[id number] Age/Sex: 33 / F ADM Date: 10/16/23 Loc: [facility] Attending Dr: Shanna Ford D.O. Ordering Physician: Shanna Ford D.O. Date of Service: 10/16/23 Procedure(s): US OB anatomy Accession Number(s): [id number] cc: BRENTON SALDIVAR ; Shanna Ford D.O. [place] [id number] Patient Name: JOANNE BROWN MRN: [id number]:[id number] date: 1990 Sex: F Assigned Patient Location: [facility] Current Patient Location: [facility] Accession/Order Number: [id number] Exam Date: 10/16/2023 08:29 Report Date: 10/16/2023 09:59 At the request of: SHANNA FORD Procedure: US OB anatomy EXAMINATION: US OB anatomy, US OB cervical length HISTORY: ANATOMY COMPARISON: No relevant comparison available. TECHNIQUE: Transabdominal sonographic examination was performed for obstetrical and evaluation. FINDINGS: Number: 1 Heart Rate: 141 H.B. /min Amniotic Fluid Volume: Subjectively normal position: Variable Placental Location: Anterior, grade 1. Placental edge is 3.6 cm from the internal cervical os Cervix Length: 4.4 cm, closed Normal anatomy: Lateral ventricles, cerebellum, posterior fossa, nose, lips, orbits, four-chamber heart, diaphragm, stomach, kidneys, abdominal cord insertion, bladder, umbilical arteries, three-vessel cord, extremities Nonvisualization: RVOT, LVOT due to positioning Suboptimal visualization: Spine due to positioning BIOMETRY: BPD: 5.5 cm, 22 weeks 4 days, 53% HC: 20.6 cm, 22 weeks 5 days, 50% AC: 18.9 cm, 23 weeks 4 days, 79% FL: 4.1 cm, 23 weeks 1 day, 62% EFW:581 g, 1 lb. 4 oz., 84%; FL/AC: 21.47 FL/BPD: 74.31 HC/AC: 1.09 GESTATIONAL AGE: Age by EDC: 22 weeks 3 days ZAMZAM by EDC: 02/16/2024 Age by current US: 23 weeks 0 days ZAMZAM by current US: 02/12/2024 US/US OB anatomy IMPRESSION: Nonvisualization and suboptimal visualization of the RVOT, LVOT and spine Otherwise normal anatomy scan Closed cervix measuring 3.6 cm in length. *Reference: [employer] Practice Guideline for the performance of Obstetric Ultrasound Examinations, January 01, 2007. Electronically authenticated by: DANG ROD Date: 10/16/2023 09:59 Dictated By: Dang Rod M.D. Signed By: 10/16/23 1002 DD/ 0959 TD/TT: Product Consultant: Procedure Note Radiology, Radiologist, MD - 10/16/2023 [place] [address] Ultrasound Report Signed Patient: JOANNE BROWN AMR#: [id number] : 1990Acct:[id number] Age/Sex: 33 / FADM Date: 10/16/23 Loc: [facility] Attending Dr: Shanna Ford D.O. Ordering Physician: Shanna Ford D.O. Date of Service: 10/16/23 Procedure(s): US OB anatomy Accession Number(s): [id number] cc: BRENTON SALDIVAR ; Shanna Ford D.O. The [address] [address] Patient Name: JOANNE BROWN MRN: [id number] date: 1990 Sex: F Assigned Patient [facility]: [facility] Current Patient [facility]: [facility] Accession/Order Number: [id number] Exam Date: 10/16/2023 08:29 Report Date: 10/16/2023 09:59 At the request of: SHANNA INNA Procedure: US OB anatomy EXAMINATION: US OB anatomy, US OB cervical length HISTORY: ANATOMY COMPARISON: No relevant comparison available. TECHNIQUE: Transabdominal sonographic examination was performed for obstetrical and evaluation. FINDINGS: Number: 1 Heart Rate: 141 H.B. /min Amniotic Fluid Volume: Subjectively normal position: Variable Placental Location: Anterior, grade 1. Placental edge is 3.6 cm from the internal cervical os Cervix Length: 4.4 cm, closed Normal anatomy: Lateral ventricles, cerebellum, posterior fossa, nose,lips, orbits, four-chamber heart, diaphragm, stomach, kidneys, abdominal cord insertion, bladder, umbilical arteries, three-vessel cord, extremities Nonvisualization: RVOT, LVOT due to positioning Suboptimal visualization: Spine due to positioning BIOMETRY: BPD: 5.5 cm, 22 weeks 4 days, 53% HC: 20.6 cm, 22 weeks 5 days, 50% AC: 18.9 cm, 23 weeks 4 days, 79% FL: 4.1 cm, 23 weeks 1 day, 62% EFW:581 g, 1 lb. 4 oz., 84%; FL/AC: 21.47 FL/BPD: 74.31 HC/AC: 1.09 GESTATIONAL AGE: Age by EDC: 22 weeks 3 days ZAMZAM by EDC: 02/16/2024 Age by current US: 23 weeks 0 days ZAMZAM by current US: 02/12/2024 US/US OB anatomy IMPRESSION: Nonvisualization and suboptimal visualization of the RVOT, LVOT and spine Otherwise normal anatomy scan Closed cervix measuring 3.6 cm in length. *Reference: [employer] Practice Guideline for the performance of Obstetric Ultrasound Examinations, January 01, 2007. Electronically authenticated by: DANG ROD Date: 10/16/2023 09:59 Dictated By: Dang Rod M.D. Signed By:10/16/23 1002 DD/ 0959 TD/TT: Product Consultant: us Generic External Data Provider [facility] Final Result documented in this encounter Visit Diagnoses Not on filedocumented in this encounter Additional Health Concerns Active Problems Noted Date Diagnosed Date OB Reminders 08/13/2023 documented as of this encounter Care Teams Undercoat Sprayer Relationship Specialty Start Date End Date Brenton Saldivar MD [address] [place] [address] PCP - General Family Medicine 12/26/22 documented as of this encounter
--- OUTSIDE RECORDS SUMMARY | 2024-12-19 13:58 | XMS_ITS | Encounter Summary ---
Author Organization [facility] Address [address] [facility] [place] [address] Care Team Providers Care General Manager Land Department Name Role Phone Brenton Saldivar MD Primary Care Provider [phone] Encounter Details Date Type Department Care Team (Late Contact Info) Description 11/15/2023 Clinisync Result Encounter [facility] External Department Unsolicited [...] EDT Procedure Visit [facility] [address] [place] [address] Sharri Draper PA [address] [place] [address] documented as of this encounter Goals Goal Patient Goal Type Associated Problems Recent Progress Patient-Stated? Author Reminders Care Plan OB Reminders No Open Scheduling, Background documented as of this encounter Procedures Procedure Name Priority Date/Time Associated Diagnosis Comments US OB FOLLOW UP 11/15/2023 12:08 PM EDT documented in this encounter Results * US OB FOLLOW UP (11/15/2023 12:08 PM EDT) Anatomical Region Laterality Modality Radiographic Janet ging 11/15/2023 12:0 8 PM EDT Narrative 11/15/2023 12:11 [place] [address] Ultrasound Report Signed Patient: JOANNE BROWN MR#: [id number] : 1990 Acct:[id number] Age/Sex: 33 / F ADM Date: 11/15/23 Loc: [facility] Attending Dr: Shanna Ford D.O. Ordering Physician: Shanna Ford D.O. Date of Service: 11/15/23 Procedure(s): US OB follow up Accession Number(s): [id number] cc: BRENTON SALDIVAR ; Shanna Ford D.O. The [place] [address] Patient Name: JOANNE BROWN MRN: [id number] date: 1990 Sex: F Assigned Patient Location: [facility] Current Patient Location: [facility] Accession/Order Number: [id number] Exam Date: 11/15/2023 09:56 Report Date: 11/15/2023 12:08 At the request of: SHANNA FORD Procedure: US OB follow up EXAMINATION: US OB follow up HISTORY: INCOMPLETE ANATOMY COMPARISON: 10/16/2023 FINDINGS: Cephalic presentation Normal observed anatomy, spine, RVOT, LVOT Clinical age: 26 weeks 5 days US/US OB follow up IMPRESSION: Normal observed anatomy Electronically authenticated by: DANG ROD Date: 11/15/2023 12:08 Dictated By: Dang Rod M.D. Signed By: 11/15/23 1211 DD/ 1208 TD/TT: Client Account Assistant: Procedure Note Radiology, Radiologist, MD - 11/15/2023 [place] [address] Ultrasound Report Signed Patient: JOANNE BROWN AMR#: [id number] : 1990Acct:[id number] Age/Sex: 33 / FADM Date: 11/15/23 Loc: [facility] Attending Dr: Shanna Ford D.O. Ordering Physician: Shanna Ford D.O. Date of Service: 11/15/23 Procedure(s): US OB follow up Accession Number(s): [id number] cc: BRENTON SALDIVAR ; Shanna Ford D.O. [address] [address] Patient Name: JOANNE BROWN MRN: [facility]:[id number] date: 1990 Sex: F Assigned Patient Location: [facility] Current Patient Location: [facility] Accession/Order Number: [id number] Exam Date: 11/15/2023 09:56 Report Date: 11/15/2023 12:08 At the request of: SHANNA FORD Procedure: US OB follow up EXAMINATION: US OB follow up HISTORY: INCOMPLETE ANATOMY COMPARISON: 10/16/2023 FINDINGS: Cephalic presentation Normal observed anatomy, spine, RVOT, LVOT Clinical age: 26 weeks 5 days US/US OB follow up IMPRESSION: Normal observed anatomy Electronically authenticated by: DANG ROD Date: 11/15/2023 12:08 Dictated By: Dang Rod M.D. Signed By:11/15/23 1211 DD/ 1208 TD/TT: Client Account Assistant: us Generic External Data Provider IMG XR PROCEDURES Final Result documented in this encounter Visit Diagnoses Not on filedocumented in this encounter Additional Health Concerns Active Problems Noted Date Diagnosed Date OB Reminders 08/13/2023 documented as of this encounter Care Teams General Manager Land Department Relationship Specialty Start Date End Date Brenton Saldivar MD [address] [place] [address] PCP - General Family Medicine 12/26/22 documented as of this encounter
--- OUTSIDE RECORDS SUMMARY | 2024-12-19 13:58 | XMS_ITS | Encounter Summary ---
Author Organization [facility] Address [address] [place] [address] Care Team Providers Care Flask Carrier Name Role Phone Brenton Saldivar MD Primary Care Provider [phone] Encounter Details Date Type Department Care Team [...] EDT Procedure Visit [facility] [address] [place] [address] Sharri Draper PA [address] [place] [address] documented as of this encounter Goals Goal Patient Goal Type Associated Problems Recent Progress Patient-Stated? Author Reminders Care Plan OB Reminders No Open Scheduling, Background documented as of this encounter Procedures Procedure Name Priority Date/Time Associated Diagnosis Comments US OB GROWTH 01/24/2024 4:26 PM EDT documented in this encounter Results * US OB GROWTH (01/24/2024 4:26 PM EDT) Anatomical Region Laterality Modality Other 01/24/2024 4:26 PM EDT Narrative 01/24/2024 4:28 [place] [address] Ultrasound Report Signed Patient: JOANNE BROWN MR#: [id number] : 1990 Acct:[id number] Age/Sex: 33 / F ADM Date: 01/24/24 Loc: US Attending Dr: Shanna Ford D.O. Ordering Physician: Shanna Ford D.O. Date of Service: 01/24/24 Procedure(s): US OB growth Accession Number(s): [id number] cc: BRENTON SALDIVAR ; Shanna Ford D.O. [place] [id number] Patient Name: JOANNE BROWN MRN: [id number] date: 1990 Sex: F Assigned Patient Location: [facility] Current Patient Location: US Accession/Order Number: [id number] Exam Date: 01/24/2024 08:06 Report Date: 01/24/2024 16:26 At the request of: SHANNA FORD Procedure: US OB growth EXAMINATION: US OB growth HISTORY: Multigravida advanced maternal age O09.522 COMPARISON: Ultrasound OB growth 12/27/2023 FINDINGS: Heart Rate: 123.85 bpm Amniotic Fluid Volume: 18.1 cm; normal range Number: 1 Position: CEPHALIC BIOMETRY: BPD: 9.00 cm; 36 weeks 3 days; 56.70 % HC: 34.24 cm; 39 weeks 3 days; 85.50 % AC: 35.01 cm; 38 weeks 6 days; >97 % FL: 7.25 cm; 37 weeks 1 day; 58.60 % EFW: 3445.31 g; 89.70 % FL/AC: 20.71 FL/BPD: 80.51 HC/AC: 0.98 GESTATIONAL AGE: Age by EDC: 36 weeks 5 days ZAMZAM by EDC: 2024-02-16 Age by US: 38 weeks 0 days ZAMZAM by US: 2024-02-07 US/US OB growth IMPRESSION: 1. Single live intrauterine with growth detailed above. 2. Abdominal circumference is greater than 97th percentile. Electronically authenticated by: MAIK VILLAGRAN Date: 01/24/2024 16:26 Dictated By: Maik Villagran M.D. Signed By: 01/24/241627 DD/ 25 TD/TT: Barn Operator: Procedure Note Radiology, Radiologist, MD - 01/24/2024 [place] [address] Ultrasound Report Signed Patient: JOANNE BROWN AMR#: [id number] : 1990Acct:[id number] Age/Sex: 33 / FADM Date: 01/24/24 Loc: US Attending Dr: Shanna Ford D.O. Ordering Physician: Shanna Ford D.O. Date of Service: 01/24/24 Procedure(s): US OB growth Accession Number(s): [id number] cc: BRENTON SALDIVAR ; Shanna Ford D.O. The [place] [id number] Patient Name: JOANNE BROWN MRN: [id number] date: 1990 Sex: F Assigned Patient Location: [facility] Current Patient Location: US Accession/Order Number: [id number] Exam Date: 01/24/2024 08:06 Report Date: 01/24/2024 16:26 At the request of: SHANNA FORD Procedure: US OB growth EXAMINATION: US OB growth HISTORY: Multigravida advanced maternal age O09.522 COMPARISON: Ultrasound OB growth 12/27/2023 FINDINGS: Heart Rate: 123.85 bpm Amniotic Fluid Volume: 18.1 cm; normal range Number: 1 Position: CEPHALIC BIOMETRY: BPD: 9.00 cm; 36 weeks 3 days; 56.70 % HC: 34.24 cm; 39 weeks 3 days; 85.50 % AC: 35.01 cm; 38 weeks 6 days; >97 % FL: 7.25 cm; 37 weeks 1 day; 58.60 % EFW: 3445.31 g; 89.70 % FL/AC: 20.71 FL/BPD: 80.51 HC/AC: 0.98 GESTATIONAL AGE: Age by EDC: 36 weeks 5 days ZAMZAM by EDC: 2024-02-16 Age by US: 38 weeks 0 days ZAMZAM by US: 2024-02-07 US/US OB growth IMPRESSION: 1. Single live intrauterine with growth detailed above. 2. Abdominal circumference is greater than 97th percentile. Electronically authenticated by: MAIK VILLAGRAN Date: 01/24/2024 16:26 Dictated By: Maik Villagran M.D. Signed By:01/24/248 DD/ 25 TD/TT: Barn Operator: us Generic External Data Provider [facility] Final Result documented in this encounter Visit Diagnoses Not on filedocumented in this encounter Additional Health Concerns Active Problems Noted Date Diagnosed Date OB Reminders 08/13/2023 documented as of this encounter Care Teams Flask Carrier Relationship Specialty Start Date End Date Brenton Saldivar MD [address] [place] [address] PCP - General Family Medicine 12/26/22 documented as of this encounter
--- OUTSIDE RECORDS SUMMARY | 2024-12-19 13:58 | XMS_ITS | Encounter Summary ---
Author Organization [facility] Address [address] [facility] [place] [address] Care Team Providers Care Cherry Pitter Name Role Phone Brenton Saldivar MD Primary Care Provider [phone] Encounter Details Date Type Department Care Team (Late Contact Info) Description 12/28/2023 Clinisync Result Encounter [facility] External Department Unsolicited [...] EDT Procedure Visit [facility] [address] [place] [address] Sharri Draper PA [address] [place] [address] documented as of this encounter Goals Goal Patient Goal Type Associated Problems Recent Progress Patient-Stated? Author Reminders Care Plan OB Reminders No Open Scheduling, Background documented as of this encounter Procedures Procedure Name Priority Date/Time Associated Diagnosis Comments US OB GROWTH 12/28/2023 4:15 AM EDT documented in this encounter Results * US OB GROWTH (12/28/2023 4:15 AM EDT) Anatomical Region Laterality Modality Other 12/28/2023 4:15 AM EDT Narrative 12/28/2023 4:18 [place] [address] Ultrasound Report Signed Patient: JOANNE BROWN MR#: [id number] : 1990 Acct:[id number] Age/Sex: 33 / F ADM Date: 12/27/23 Loc: [facility] Attending Dr: Shanna Ford D.O. Ordering Physician: Shanna Ford D.O. Date of Service: 12/27/23 Procedure(s): US OB growth Accession Number(s): [id number] cc: BRENTON SALDIVAR ; Shanna Ford D.O. [place] [address] Patient Name: JOANNE BROWN MRN: [id number]:[id number] date: 1990 Sex: F Assigned Patient Location: [facility] Current Patient Location: US Accession/Order Number: [id number] Exam Date: 12/27/2023 14:42 Report Date: 12/28/2023 04:15 At the request of: SHANNA FORD Procedure: US OB growth EXAMINATION: US OB growth HISTORY: ADVANCED MATERNAL AGE COMPARISON: Ultrasound OB growth 11/29/2023 FINDINGS: Heart Rate: 136 bpm Amniotic Fluid Volume: 16.8 cm; normal range Number: 1 Position: CEPHALIC BIOMETRY: BPD: 8.28 cm; 33 weeks 2 days; 60.90 % HC: 31.42 cm; 35 weeks 2 days; 78.40 % AC: 31.23 cm; 35 weeks 1 day; 97 % FL: 6.80 cm; 35 weeks 0 days; 89.70 % EFW: 2385.86 g; 95.30 % FL/AC: 21.77 FL/BPD: 82.13 HC/AC: 1.01 GESTATIONAL AGE: Age by EDC: 32 weeks 5 days ZAMZAM by EDC: 2024-02-16 Age by US: 34 weeks 5 days ZAMZAM by US: 2024-02-02 US/US OB growth IMPRESSION: 1. Single live intrauterine with growth detailed above. 2. Estimated weight is at 95th percentile. Abdominal circumference is greater than 97th percentile Electronically authenticated by: MAIK VILLAGRAN Date: 12/28/2023 04:15 Dictated By: Maik Villagran M.D. Signed By: 12/28/238 DD/ 4 TD/TT: Tenter Frame Back Tender: Procedure Note Radiology, Radiologist, MD - 12/28/2023 [place] [address] Ultrasound Report Signed Patient: JOANNE BROWN AMR#: [id number] : 1990Acct:[id number] Age/Sex: 33 / FADM Date: 12/27/23 Loc: [facility] Attending Dr: Shanna Ford D.O. Ordering Physician: Shanna Ford D.O. Date of Service: 12/27/23 Procedure(s): US OB growth Accession Number(s): [id number] cc: BRENTON SALDIVAR ; Shanna Ford D.O. The [place] [address] Patient Name: JOANNE BROWN MRN: [facility]:[id number] date: 1990 Sex: F Assigned Patient Location: [facility] Current Patient Location: US Accession/Order Number: [id number] Exam Date: 12/27/2023 14:42 Report Date: 12/28/2023 04:15 At the request of: SHANNA FORD Procedure: US OB growth EXAMINATION: US OB growth HISTORY: ADVANCED MATERNAL AGE COMPARISON: Ultrasound OB growth 11/29/2023 FINDINGS: Heart Rate: 136 bpm Amniotic Fluid Volume: 16.8 cm; normal range Number: 1 Position: CEPHALIC BIOMETRY: BPD: 8.28 cm; 33 weeks 2 days; 60.90 % HC: 31.42 cm; 35 weeks 2 days; 78.40 % AC: 31.23 cm; 35 weeks 1 day; 97 % FL: 6.80 cm; 35 weeks 0 days; 89.70 % EFW: 2385.86 g; 95.30 % FL/AC: 21.77 FL/BPD: 82.13 HC/AC: 1.01 GESTATIONAL AGE: Age by EDC: 32 weeks 5 days ZAMZAM by EDC: 2024-02-16 Age by US: 34 weeks 5 days ZAMZAM by US: 2024-02-02 US/US OB growth IMPRESSION: 1. Single live intrauterine with growth detailed above. 2. Estimated weight is at 95th percentile. Abdominal circumferenceis greater than 97th percentile Electronically authenticated by: MAIK VILLAGRAN Date: 12/28/2023 04:15 Dictated By: Maik Villagran M.D. Signed By:12/28/238 DD/ TD/TT: Tenter Frame Back Tender: us Generic External Data Provider [facility] Final Result documented in this encounter Visit Diagnoses Not on filedocumented in this encounter Additional Health Concerns Active Problems Noted Date Diagnosed Date OB Reminders 08/13/2023 documented as of this encounter Care Teams Cherry Pitter Relationship Specialty Start Date End Date Brenton Saldivar MD [address] [place] [address] PCP - General Family Medicine 12/26/22 documented as of this encounter
--- OUTSIDE RECORDS SUMMARY | 2024-12-19 13:58 | XMS_ITS | Encounter Summary ---
Author Organization [facility] Address [address] [facility] [place] [address] Care Team Providers Care Feed Mill Manager Name Role Phone Brenton Saldivar MD Primary Care Provider [phone] Encounter Details Date Type Department Care Team [...] [address] [facility] [place] [address] Sharri Draper PA [address] [facility] [place] [address] documented as of this encounter Goals Goal Patient Goal Type Associated Problems Recent Progress Patient-Stated? Author Reminders Care Plan OB Reminders No Open Scheduling, Background documented as of this encounter Procedures Procedure Name Priority Date/Time Associated Diagnosis Comments US OB CERVICAL LENGTH 10/16/2023 9:59 AM EDT documented in this encounter Results * US OB CERVICAL LENGTH (10/16/2023 9:59 AM EDT) Anatomical Region Laterality Modality Other 10/16/2023 9:59 AM EDT Narrative 10/16/2023 10:02 AM EDT [address] [address] Ultrasound Report Signed Patient: JOANNE BROWN MR#: [id number] : 1990 Acct:[id number] Age/Sex: 33 / F ADM Date: 10/16/23 Loc: [facility] Attending Dr: Shanna Ford D.O. Ordering Physician: Shanna Ford D.O. Date of Service: 10/16/23 Procedure(s): US OB cervical length Accession Number(s): [id number] cc: BRENTON SALDIVAR ; Shanna Ford D.O. [place] [id number] Patient Name: JOANNE BROWN MRN: [id number] date: 1990 Sex: F Assigned Patient Location: [facility] Current Patient Location: [facility] Accession/Order Number: [id number] Exam Date: 10/16/2023 08:29 Report Date: 10/16/2023 09:59 At the request of: SHANNA FORD Procedure: US OB cervical length EXAMINATION: US OB anatomy, US OB cervical [...] ZAMZAM by current US: 02/12/2024 US/US OB cervical length IMPRESSION: Nonvisualization and suboptimal visualization of the RVOT, LVOT and spine Otherwise normal anatomy scan Closed cervix measuring 3.6 cm in length. *Reference: [employer] Practice Guideline for the performance of Obstetric Ultrasound Examinations, January 01, 2007. Electronically authenticated by: DANG ROD Date: 10/16/2023 09:59 Dictated By: Dang Rod M.D. Signed By: 10/16/23 1002 DD/ 0959 TD/TT: Junior Automation Engineer: Procedure Note Radiology, Radiologist, MD - 10/16/2023 [place] [address] Ultrasound Report Signed Patient: JOANNE BROWN AMR#: [id number] : 1990Acct:[id number] Age/Sex: 33 / FADM Date: 10/16/23 Loc: [facility] Attending Dr: Shanna Ford D.O. Ordering Physician: Shanna Ford D.O. Date of Service: 10/16/23 Procedure(s): US OB cervical length Accession Number(s): [id number] cc: BRENTON SALDIVAR ; Shanna Ford D.O. The [place] [id number] Patient Name: JOANNE BROWN MRN: [id number] date: 1990 Sex: F Assigned [facility] Current [facility] Accession/Order Number: [id number] Exam Date: 10/16/2023 08:29 Report Date: 10/16/2023 09:59 At the request of: SHANNA FORD Procedure: US OB cervical length EXAMINATION: US OB anatomy, US OB cervical [...] ZAMZAM by current US: 02/12/2024 US/US OB cervical length IMPRESSION: Nonvisualization and suboptimal visualization of the RVOT, LVOT and spine Otherwise normal anatomy scan Closed cervix measuring 3.6 cm in length. *Reference: [facility] Practice Guideline for the performance of Obstetric Ultrasound Examinations, January 01, 2007. Electronically authenticated by: DANG ROD Date: 10/16/2023 09:59 Dictated By: Dang Rod M.D. Signed By:10/16/23 1002 DD/ 0959 TD/TT: Junior Automation Engineer: us Generic External Data Provider [facility] Final Result documented in this encounter Visit Diagnoses Not on filedocumented in this encounter Additional Health Concerns Active Problems Noted Date Diagnosed Date OB Reminders 08/13/2023 documented as of this encounter Care Teams Feed Mill Manager Relationship Specialty Start Date End Date Brenton Saldivar MD [address] [place] [address] PCP - General Family Medicine 12/26/22 documented as of this encounter
--- OUTSIDE RECORDS SUMMARY | 2024-12-19 13:58 | XMS_ITS | Encounter Summary ---
Author Organization [facility] Address [address] [facility] [place] [address] Care Team Providers Care Academy Director Name Role Phone Nathaly Keith MD Primary Care Provider [phone] Encounter Details Date Type Department Care Team (Late st Contact Info) Description 02/[facility]2024 [facility] [address] [place] [phone] Nathaly Keith MD [address] [place], [place] [phone] Social History Tobacco Use Types Packs/Day Years [...] 10:00 AM EDT Procedure Visit [facility]ed [facility] [address] [place] [phone] Sharri Draper PA [address] [facility] [place] [address] documented as of this encounter Goals Goal Patient Goal Type Associated Problems Recent Progress Patient-Stated? Author Reminders Care Plan OB Reminders No Open Scheduling, Background documented as of this encounter Visit Diagnoses Not on filedocumented in this encounter Additional Health Concerns Active Problems Noted Date Diagnosed Date OB Reminders 08/13/2023 documented as of this encounter Care Teams Academy Director Relationship Specialty Start Date End Date Nathaly Keith MD [address] [place] [address] PCP - General Family Medicine 12/26/22 documented as of this encounter
--- OUTSIDE RECORDS SUMMARY | 2024-12-19 13:58 | XMS_ITS | Encounter Summary ---
Author Organization [facility] Address [address] [place] [address] Care Team Providers Care Medical Parasitologist Name Role Phone Nathaly Keith MD Primary Care Provider [phone] Encounter Details Date Type Department Care Team (Late Contact Info) Description 10/16/2023 Abstract NOMSyed DODSON [address] [facility] [place] [address] Stanley Ford DO [address] [facility] [address] [place], [place] [address] Social History Tobacco Use Types Packs/Day Years [...] AM EDT Procedure Visit NOM[facility]ed DODSON [address] [facility] [place] [address] Sharri Draper PA [address] [facility] [address] [place], [facility] documented as of this encounter Goals Goal Patient Goal Type Associated Problems Recent Progress Patient-Stated? Author Reminders Care Plan OB Reminders No Open Scheduling, Background documented as of this encounter Visit Diagnoses Not on filedocumented in this encounter Additional Health Concerns Active Problems Noted Date Diagnosed Date OB Reminders 08/13/2023 documented as of this encounter Care Teams Medical Parasitologist Relationship Specialty Start Date End Date Nathaly Keith MD [address] [place] [address] PCP - General Family Medicine 12/26/22 documented as of this encounter
--- OUTSIDE RECORDS SUMMARY | 2024-12-19 13:58 | XMS_ITS | Encounter Summary ---
Author Organization [facility] Address [address] [place] [address] Care Team Providers Care Childhood Development Teacher Name Role Phone Nathaly Keith MD Primary Care Provider [phone] Encounter Details Date Type Department Care Team (Late Contact Info) Description 09/11/2023 Abstract [facility] [address] [facility] [place] [address] Stanley Ford DO [address] [facility] [address] [place], [place] [address] Social History Tobacco Use Types Packs/Day Years [...] AM EDT Procedure Visit [facility]OM[facility]ed DODSON [address] [facility] [place] [address] Sharri Draper PA [address] [facility] [address] [place], [facility] documented as of this encounter Goals Goal Patient Goal Type Associated Problems Recent Progress Patient-Stated? Author Reminders Care Plan OB Reminders No Open Scheduling, Background documented as of this encounter Visit Diagnoses Not on filedocumented in this encounter Additional Health Concerns Active Problems Noted Date Diagnosed Date OB Reminders 08/13/2023 documented as of this encounter Care Teams Childhood Development Teacher Relationship Specialty Start Date End Date Nathaly Keith MD [address] [place] [address] PCP - General Family Medicine 12/26/22 documented as of this encounter
--- OUTSIDE RECORDS SUMMARY | 2024-12-19 13:58 | XMS_ITS | Encounter Summary ---
Author Organization [facility] Address [address] [facility] [place] [address] Care Team Providers Care Residential Energy Auditor Name Role Phone Nathaly Keith MD Primary Care Provider [phone] Encounter Details Date Type Department Care Team (Late Contact Info) Description 09/20/2023 Orders Only [facility] Alyssa D[facility]SON [address] [place] [address] [place] [address] Saniya Che MA [address] [facility] [place] [address] Social History Tobacco Use Types Packs/Day Years [...] EDT Procedure Visit [facility] Alyssa [facility] [address] [facility] [place] [address] Sharri Draper PA [address] [facility] [address] [place], [place] [phone] documented as of this encounter Goals Goal Patient Goal Type Associated Problems Recent Progress Patient-Stated? Author Reminders Care Plan OB Reminders No Open Scheduling, Background documented as of this encounter Procedures Procedure Name Priority Date/Time Associated Diagnosis Comments PAP SMEAR Routine 09/11/2023 12:00 AM EDT documented in this encounter Results * Pap Smear (09/11/2023 12:00 AM EDT) Swab Cervical swab / Unknown us Stanley Logan DO LAB CYTOLOGY ORDERABLES Final Re sult EXTERNAL LAB documented in this encounter Visit Diagnoses Not on filedocumented in this encounter Additional Health Concerns Active Problems Noted Date Diagnosed Date OB Reminders 08/13/2023 documented as of this encounter Care Teams Residential Energy Auditor Relationship Specialty Start Date End Date Nathaly Keith MD [address] [place] [address] PCP - General Family Medicine 12/26/22 documented as of this encounter
--- OUTSIDE RECORDS SUMMARY | 2024-12-19 13:58 | XMS_ITS | Encounter Summary ---
Author Organization [facility] Address [facility] [place] [address] Care Team Providers Care Azure Architect Name Role Phone Haylie Winchester MD Unavailable [phone] Rob Ritchie MD Primary Care Prov ider Encounter Details Date Type Department Care Team (Late st Contact Info) Description 10/24/[address] [facility] Clinical Contact Center [address] [place] [phone] Lindsey Mcnair, TECHNOLOGIST Exposure to SARS virus (Primary Dx) Social History Tobacco Use Types Packs/Day Years [...] Orientation Straight 05/11/2019 1: 10 PM EST COVID-19 Exposure Response Date Recorded In the last month, have you been in contact with someone who was confirmed or suspected to have Coronavirus / COVID-19? No / Unsure 10/25/2019 6:01 AM EDT documented as of this encounter Plan of Treatment Scheduled Orders Name Type Priority Associated Diagnoses Orde r Schedule COVID-19, Molecular Microbiology Routine Exposure to SARS virus 1 Occurrences starting 10/24/2019 until 10/23/2020 documented as of this encounter Visit Diagnoses Diagnosis Exposure to SARS virus- Primary Exposure to SARS-associated coronavirus documented in this encounter Additional Health Concerns Infection Onset Date Last Indicated Resolved Time COVID-19 Suspected 10/24/2019 10/24/2019 0 4:01 PM EDT documented as of this encounter Care Teams Azure Architect Relationship Specialty Start Date End Date Rob Ritchie MD [address] [place] [address] [place] [address] PCP - General Family Medicine 10/09/19 Haylie Winchester MD [address] [place] [address] Consulting Physician Obstetrics/Gynecology 10/08/19 documented as of this encounter
--- OUTSIDE RECORDS SUMMARY | 2024-12-19 13:58 | XMS_ITS | Encounter Summary ---
Author Organization [facility] Address [address] [place] [address] Care Team Providers Care Comsec Manager Name Role Phone Haylie Winchester MD Unavailable [phone] Rob Ritchie MD Primary Care Prov ider Encounter Details Date Type Department Care Team (Late st Contact Info) Description 10/22/2019 Transcribe Orders [facility] Clinical Contact Center Critical [facility]0 [place] [address] Haylie Winchester MD [address] [place] [address] Exposure to SARS virus (Primary Dx) Social [...] as of this encounter Plan of Treatment Not on file documented as of this encounter Results * COVID-19, Molecular (10/24/2019 11:13 AM EDT) SARS-CoV-2 RNA Not Detected Not Detected 10/24/2019 4:01 PM EDT [facility] Comment: This test was performed under the FDA's Emergency Use Authorization (EUA). Testing was performed using the Bernardo SARS-CoV-2 assay on the [employer] Bernardo 6800 System. This test has not been approved for use in asymptomatic patients and its performance in this patient population has not been evaluated. Negative results do not rule out the presence of SARS-CoV-2/COVID-19. Fact sheets for this EUA can be found at the following links: For Healthcare Providers: https://www.fda.gov/media/746749/download For Patients: https://www.fda.gov/media/972859/download Swab THROAT SWAB / Unknown 10/24/2019 11:13 AM EDT 10/24/2019 11:13 AM EDT Haylie Winchester MD MICROBIOLOGY - GENERAL O RDERABLES Final Result [facility] [address] [place] [address] documented in this encounter Visit Diagnoses Diagnosis Exposure to SARS virus- Primary Exposure to SARS-associated coronavirus documented in this encounter Additional Health Concerns Infection Onset Date Last Indicated Resolved Time COVID-19 Suspected 10/24/2019 10/24/2019 0 4:01 PM EDT documented as of this encounter Care Teams Comsec Manager Relationship Specialty Start Date End Date Rob Ritchie MD [address] [place] [address] [place] [address] PCP - General Family Medicine 10/09/19 Haylie Winchester MD [address] [place] [address] Consulting Physician Obstetrics/Gynecology 10/08/19 documented as of this encounter
--- OUTSIDE RECORDS SUMMARY | 2024-12-19 13:58 | XMS_ITS | Encounter Summary ---
Author Organization [facility] Address [address] [facility] [place] [address] Care Team Providers Care Edge Bonder Name Role Phone Nathaly Keith MD Primary Care Provider Encounter Details Date Type Department Care Team (Late st Contact Info) Description 2024 [facility] [address] [place] [phone] Nathaly Keith MD [address] [place], [place] [phone] Social History Tobacco Use Types Packs/Day Years [...] EDT Procedure Visit NOMSyed Shah OBG[facility]Christian [address] [facility] [address] Sharri Draper PA [address] [place] [address] documented as of this encounter Goals Goal Patient Goal Type Associated Problems Recent Progress Patient-Stated? Author Reminders Care Plan OB Reminders No Open Scheduling, Background documented as of this encounter Visit Diagnoses Not on filedocumented in this encounter Additional Health Concerns Active Problems Noted Date Diagnosed Date OB Reminders 08/13/2023 documented as of this encounter Care Teams Edge Bonder Relationship Specialty Start Date End Date Nathaly Keith MD [address] [place] [address] PCP - General Family Medicine 12/26/22 documented as of this encounter
--- OUTSIDE RECORDS SUMMARY | 2024-12-19 13:58 | XMS_ITS | Encounter Summary ---
Author Organization [facility] Address [address] [place] [address] Care Team Providers Care Warp Knitter Helper Name Role Phone Nathaly Keith MD Primary Care Provider [phone] Encounter Details Date Type Department Care Team (Late Contact Info) Description 01/22/2024 Abstract [facility] D[facility]SON [address] [facility] [place] [address] Stanley Ford DO [address] [facility] [address], [place] [address] Social History Tobacco Use Types Packs/Day Years [...] AM EDT Procedure Visit NOMSyed DODSON [address] [facility] [place] [address] Sharri Draper PA [address] [facility] [address] [place], [facility] documented as of this encounter Goals Goal Patient Goal Type Associated Problems Recent Progress Patient-Stated? Author Reminders Care Plan OB Reminders No Open Scheduling, Background documented as of this encounter Visit Diagnoses Not on filedocumented in this encounter Additional Health Concerns Active Problems Noted Date Diagnosed Date OB Reminders 08/13/2023 documented as of this encounter Care Teams Warp Knitter Helper Relationship Specialty Start Date End Date Nathaly Keith MD [address] [place] [address] PCP - General Family Medicine 12/26/22 documented as of this encounter
--- OUTSIDE RECORDS SUMMARY | 2024-12-19 13:58 | XMS_ITS | Encounter Summary ---
Author Organization [facility] Address [address] [facility] [place] [address] Care Team Providers Care Director Media Name Role Phone Brenton Saldivar MD Primary Care Provider [phone] Encounter Details Date Type Department Care Team (Late Contact Info) Description 07/13/2023 Clinisync Result Encounter [facility] External Department Unsolicited [...] [address] [facility] [place] [address] Sharri Draper PA [address] [facility] [place] [address] documented as of this encounter Procedures Procedure Name Priority Date/Time Associated Diagnosis Comments US OB TRANSVAGINAL 07/13/2023 11 :09 AM EDT documented in this encounter Results * US OB TRANSVAGINAL (07/13/2023 11:09 AM EDT) Anatomical Region Laterality Modality Other 07/13/2023 11:0 9 AM EDT Narrative 07/13/2023 11:12 [place] [address] Ultrasound Report Signed Patient: JOANNE BROWN MR#: [id number] : 1990 Acct:[id number] Age/Sex: 33 / F ADM Date: 07/13/23 Loc: [facility] Attending Dr: Shanna Ford D.O. Ordering Physician: Shanna Ford D.O. Date of Service: 07/13/23 Procedure(s): US OB transvaginal Accession Number(s): [id number] cc: BRENTON SALDIVAR ; Shanna Ford D.O. [place] [address] Patient Name: JOANNE BROWN MRN: [id number] date: 1990 Sex: F Assigned Patient Location: [facility] Current Patient Location: [facility] Accession/Order Number: [id number] Exam Date: 07/13/2023 09:40 Report Date: 07/13/2023 11:09 At the request of: SHANNA FORD Procedure: US OB transvaginal EXAMINATION: US OB transvaginal HISTORY: MISSED MENSES COMPARISON: No relevant comparison available. FINDINGS: GESTATIONAL SAC: Present and normal appearing. YOLK SAC: Present and normal appearing. POLE: Present and normal appearing. CARDIAC: Present. UTERUS: Small subchorionic hematoma. OVARIES: Right: Normal. Left: Not seen. CERVIX: 3.5 cm in length and closed. CUL-DE-SAC: Normal. OTHER: None. AGE BY LMP: 8 weeks 6 days ZAMZAM BY LMP: 02/16/2024 AGE BY US CRL: 9 weeks 0 days ZAMZAM BY US CRL: 02/15/2024 US/US OB transvaginal IMPRESSION: 1. Single live intrauterine . 2. Small subchronic hematoma. Electronically authenticated by: MAIK VILLAGRAN Date: 07/13/2023 11:09 Dictated By: Maik Villagran M.D. Signed By: 07/13/23 1112 DD/ 1109 TD/TT: Fish Net Maker: Procedure Note Radiology, Radiologist, - 07/13/2023 [place] [address] Ultrasound Report Signed Patient: JOANNE BROWN AMR#: [id number] : 1990Acct:[id number] Age/Sex: 33 / FADM Date: 07/13/23 Loc: [facility] Attending Dr: Shanna Ford D.O. Ordering Physician: Shanna Ford D.O. Date of Service: 07/13/23 Procedure(s): US OB transvaginal Accession Number(s): [id number] cc: BRENTON SALDIVAR ; Shanna Ford D.O. The [place] [address] Patient Name: JOANNE BROWN MRN: [id number] date: 1990 Sex: F Assigned Patient Location: [facility] Current Patient Location: [facility] Accession/Order Number: [id number] Exam Date: 07/13/2023 09:40 Report Date: 07/13/2023 11:09 At the request of: SHANNA FORD Procedure: US OB transvaginal EXAMINATION: US OB transvaginal HISTORY: MISSED MENSES COMPARISON: No relevant comparison available. FINDINGS: GESTATIONAL SAC: Present and normal appearing. YOLK SAC: Present and normal appearing. POLE: Present and normal appearing. CARDIAC: Present. UTERUS: Small subchorionic hematoma. OVARIES: Right: Normal. Left: Not seen. CERVIX: 3.5 cm in length and closed. CUL-DE-SAC: Normal. OTHER: None. AGE BY LMP: 8 weeks 6 days ZAMZAM BY LMP: 02/16/2024 AGE BY US CRL: 9 weeks 0 days ZAMZAM BY US CRL: 02/15/2024 US/US OB transvaginal IMPRESSION: 1. Single live intrauterine . 2. Small subchronic hematoma. Electronically authenticated by: MAIK VILLAGRAN Date: 07/13/2023 11:09 Dictated By: Maik Villagran M.D. Signed By:07/13/23 1112 DD/ 1109 TD/TT: Fish Net Maker: us Generic External Data Provider [facility] Final Result documented in this encounter Visit Diagnoses Not on filedocumented in this encounter Care Teams Director Media Relationship Specialty Start Date End Date Brenton Saldivar MD [address] [place] [address] PCP - General Family Medicine 12/26/22 documented as of this encounter
--- OUTSIDE RECORDS SUMMARY | 2024-12-19 13:58 | XMS_ITS | Encounter Summary ---
Author Organization [facility] Address [address] [place] [address] Care Team Providers Care Aviation Electrician Name Role Phone Brenton Saldviar MD Primary Care Provider [phone] Encounter Details Date Type Department Care Team [...] Procedure Visit [facility] [address] [address] Sharri Draper PA [address] [place] [address] documented as of this encounter Goals Goal Patient Goal Type Associated Problems Recent Progress Patient-Stated? Author Reminders Care Plan OB Reminders No Open Scheduling, Background documented as of this encounter Procedures Procedure Name Priority Date/Time Associated Diagnosis Comments US OB BPP W NON-STRESS 12/28/2023 4:09 AM EDT documented in this encounter Results * US OB BPP W NON-STRESS (12/28/2023 4:09 AM EDT) Anatomical Region Laterality Modality Other 12/28/2023 4:09 AM EDT Narrative 12/28/2023 4:11 [place] [address] Ultrasound Report Signed Patient: JOANNE BROWN MR#: [id number] : 1990 Acct:[id number] Age/Sex: 33 / F ADM Date: 12/27/23 Loc: US Attending Dr: Shanna Ford D.O. Ordering Physician: Shanna Ford D.O. Date of Service: 12/27/23 Procedure(s): US OB BPP w non-stress Accession Number(s): [id number] cc: BRENTON SADLIVAR ; Shanna Ford D.O. [place] [address] Patient Name: JOANNE BROWN MRN: [id number] date: 1990 Sex: F Assigned Patient Location: [facility] Current Patient Location: Accession/Order Number: [id number] Exam Date: 12/27/2023 17:10 Report Date: 12/28/2023 04:09 At the request of: SHANNA FORD Procedure: US OB BPP w non-stress EXAMINATION: US OB BPP w non-stress HISTORY:Multigravida of advanced maternal age COMPARISON: Ultrasound OB growth 11/29/2023 TECHNIQUE: Ultrasound biophysical profile was performed in the radiology department. BREATHING MOVEMENTS: 2 GROSS BODY MOVEMENTS: 2 TONE: 2 QUALITATIVE AMNIOTIC FLUID VOLUME: 2 PRESENTATION: CEPHALIC HEART RATE: 121.08 bpm AMNIOTIC FLUID VOLUME: 16.21 cm GESTATIONAL AGE: 32 weeks 5 days US/US OB BPP w non-stress IMPRESSION: Total biophysical profile score: 8 Electronically authenticated by: MAIK VILLAGRAN Date: 12/28/2023 04:09 Dictated By: Maik Villagran M.D. Signed By: 12/28/23410 DD/ 8 TD/TT: Transportation Driver: Procedure Note Radiology, Radiologist, - 12/28/2023 [place] [address] Ultrasound Report Signed Patient: JOANNE BROWN AMR#: [id number] : 1990Acct:[id number] Age/Sex: 33 / FADM Date: 12/27/23 Loc: US Attending Dr: Shanna Ford D.O. Ordering Physician: Shanna Ford D.O. Date of Service: 12/27/23 Procedure(s): US OB BPP w non-stress Accession Number(s): [id number] cc: BRENTON SALDIVAR ; Shanna Ford D.O. [place] [address] Patient Name: JOANNE BROWN MRN: [id number] date: 1990 Sex: F Assigned Patient Location: [facility] Current Patient Location: Accession/Order Number: [id number] Exam Date: 12/27/2023 17:10 Report Date: 12/28/2023 04:09 At the request of: SHANNA FORD Procedure: US OB BPP w non-stress EXAMINATION: US OB BPP w non-stress HISTORY:Multigravida of advanced maternal age COMPARISON: Ultrasound OB growth 11/29/2023 TECHNIQUE: Ultrasound biophysical profile was performed in the radiology department. BREATHING MOVEMENTS: 2 GROSS BODY MOVEMENTS: 2 TONE: 2 QUALITATIVE AMNIOTIC FLUID VOLUME: 2 PRESENTATION: CEPHALIC HEART RATE: 121.08 bpm AMNIOTIC FLUID VOLUME: 16.21 cm GESTATIONAL AGE: 32 weeks 5 days US/US OB BPP w non-stress IMPRESSION: Total biophysical profile score: 8 Electronically authenticated by: MAIK VILLAGRAN Date: 12/28/2023 04:09 Dictated By: Maik Villagran M.D. Signed By:12/28/23410 DD/ 8 TD/TT: Transportation Driver: us Generic External Data Provider [facility] Final Result documented in this encounter Visit Diagnoses Not on filedocumented in this encounter Additional Health Concerns Active Problems Noted Date Diagnosed Date OB Reminders 08/13/2023 documented as of this encounter Care Teams Aviation Electrician Relationship Specialty Start Date End Date Brenton Saldivar MD [address] [place] [address] PCP - General Family Medicine 12/26/22 documented as of this encounter
--- OUTSIDE RECORDS SUMMARY | 2024-12-19 13:58 | XMS_ITS | Encounter Summary ---
Author Organization [facility] Address [address] [facility] [place] [address] Care Team Providers Care Visual C Developer Name Role Phone Brenton Saldivar MD Primary Care Provider [phone] Encounter Details Date Type Department Care Team (Late Contact Info) Description 11/29/2023 Clinisync Result Encounter [facility] External Department Unsolicited [...] EDT Procedure Visit [facility] [address] [address] Sharri Draper PA [address] [facility] [facility] [place] [address] documented as of this encounter Goals Goal Patient Goal Type Associated Problems Recent Progress Patient-Stated? Author Reminders Care Plan OB Reminders No Open Scheduling, Background documented as of this encounter Procedures Procedure Name Priority Date/Time Associated Diagnosis Comments US OB GROWTH 11/29/2023 10:24 AM EDT documented in this encounter Results * US OB GROWTH (11/29/2023 10:24 AM EDT) Anatomical Region Laterality Modality Other 11/29/2023 10:2 4 AM EDT Narrative 11/29/2023 10:27 [place] [address] Ultrasound Report Signed Patient: JOANNE BROWN MR#: [id number] : 1990 Acct:[id number] Age/Sex: 33 / F ADM Date: 11/29/23 Loc: [facility] Attending Dr: Shanna Ford D.O. Ordering Physician: Shanna Ford D.O. Date of Service: 11/29/23 Procedure(s): US OB growth Accession Number(s): [id number] cc: BRENTON SALDIVAR ; Shanna Ford D.O. [place] [id number] Patient Name: JOANNE BROWN MRN: [id number] date: 1990 Sex: F Assigned Patient Location: [facility] Current Patient Location: [facility] Accession/Order Number: [id number] Exam Date: 11/29/2023 09:45 Report Date: 11/29/2023 10:24 At the request of: SHANNA FORD Procedure: US OB growth EXAMINATION: US OB growth HISTORY: Multigravida of advanced maternal age O09.522 COMPARISON: Ultrasound OB follow-up 11/15/2023, ultrasound OB anatomy 10/16/2023 FINDINGS: Heart Rate: 141 bpm Amniotic Fluid Volume: 16.0 cm; normal range Number: 1 Position: CEPHALIC BIOMETRY: BPD: 7.51 cm; 30 weeks 1 day; 80.80 % HC: 29.05 cm; 32 weeks 0 days; 96.20 % AC: 26.80 cm; 30 weeks 6 days; 94.10 % FL: 5.73 cm; 30 weeks 0 days; 72.90 % EFW: 1640.68 g; 95.60 % FL/AC: 21.38 FL/BPD: 76.30 HC/AC: 1.08 GESTATIONAL AGE: Age by EDC: 28 weeks 5 days ZAMZAM by EDC: 2024-02-16 Age by US: 30 weeks 5 days ZAMZAM by US: 2024-02-02 US/US OB growth IMPRESSION: 1. Single live intrauterine with growth detailed above. 2. Estimated weight is at 96th percentile. Electronically authenticated by: MAIK VILLAGRAN Date: 11/29/2023 10:24 Dictated By: Maik Villagran M.D. Signed By: 11/29/23 1027 DD/ 1024 TD/TT: Director Of Vendor Management: Procedure Note Radiology, Radiologist, MD - 11/29/2023 [place] [address] Ultrasound Report Signed Patient: JOANNE BROWN AMR#: [id number] : 1990Acct:[id number] Age/Sex: 33 / FADM Date: 11/29/23 Loc: [facility] Attending Dr: Shanna Ford D.O. Ordering Physician: Shanna Ford D.O. Date of Service: 11/29/23 Procedure(s): US OB growth Accession Number(s): [id number] cc: BRENTON SALDIVAR ; Shanna Ford D.O. [place] [address] Patient Name: JOANNE BROWN MRN: [facility]:[id number] date: 1990 Sex: F Assigned Patient Location: [facility] Current Patient Location: [facility] Accession/Order Number: [id number] Exam Date: 11/29/2023 09:45 Report Date: 11/29/2023 10:24 At the request of: SHANNA FORD Procedure: US OB growth EXAMINATION: US OB growth HISTORY: Multigravida of advanced maternal age O09.522 COMPARISON: Ultrasound OB follow-up 11/15/2023, ultrasound OB anatomy10/16/2023 FINDINGS: Heart Rate: 141 bpm Amniotic Fluid Volume: 16.0 cm; normal range Number: 1 Position: CEPHALIC BIOMETRY: BPD: 7.51 cm; 30 weeks 1 day; 80.80 % HC: 29.05 cm; 32 weeks 0 days; 96.20 % AC: 26.80 cm; 30 weeks 6 days; 94.10 % FL: 5.73 cm; 30 weeks 0 days; 72.90 % EFW: 1640.68 g; 95.60 % FL/AC: 21.38 FL/BPD: 76.30 HC/AC: 1.08 GESTATIONAL AGE: Age by EDC: 28 weeks 5 days ZAMZAM by EDC: 2024-02-16 Age by US: 30 weeks 5 days ZAMZAM by US: 2024-02-02 US/US OB growth IMPRESSION: 1. Single live intrauterine with growth detailed above. 2. Estimated weight is at 96th percentile. Electronically authenticated by: MAIK VILLAGRAN Date: 11/29/2023 10:24 Dictated By: Maik Villagran M.D. Signed By:11/29/23 1027 DD/ 1024 TD/TT: Director Of Vendor Management: us Generic External Data Provider [facility] Final Result documented in this encounter Visit Diagnoses Not on filedocumented in this encounter Additional Health Concerns Active Problems Noted Date Diagnosed Date OB Reminders 08/13/2023 documented as of this encounter Care Teams Visual C Developer Relationship Specialty Start Date End Date Brenton Saldivar MD [address] [place] [address] PCP - General Family Medicine 12/26/22 documented as of this encounter
--- OUTSIDE RECORDS SUMMARY | 2024-12-19 13:58 | XMS_ITS | Encounter Summary ---
Author Organization [facility] Address [address] [facility] [place] [address] Care Team Providers Care Food Production Associate Name Role Phone Nathaly Keith MD Primary Care Provider [phone] Encounter Details Date Type Department Care Team (Late Contact Info) Description 10/18/2023 Abstract [facility] [address] [place] [address] [place] [address] Shirley Shultz LPN [address] [place] [address] Social History Tobacco Use Types Packs/Day Years [...] 10:00 AM EDT Procedure Visit [facility] [address] [place] [address] [place] [address] Sharri Draper PA [address] [facility] [address] [place], [place] [id number] documented as of this encounter Goals Goal Patient Goal Type Associated Problems Recent Progress Patient-Stated? Author Reminders Care Plan OB Reminders No Open Scheduling, Background documented as of this encounter Visit Diagnoses Not on filedocumented in this encounter Additional Health Concerns Active Problems Noted Date Diagnosed Date OB Reminders 08/13/2023 documented as of this encounter Care Teams Food Production Associate Relationship Specialty Start Date End Date Nathaly Keith MD [address] [place] [address] PCP - General Family Medicine 12/26/22 documented as of this encounter
--- OUTSIDE RECORDS SUMMARY | 2024-12-19 13:58 | XMS_ITS | Encounter Summary ---
Author Organization [facility] Address [address] [facility] [place] [place] [address] Care Team Providers Care Home Health Lpn Name Role Phone Nathaly Keith MD Primary Care Provider [phone] Encounter Details Date Type Department Care Team (Late Contact Info) Description 07/17/2023 Abstract [facility] [address] [place] [address] [place] [address] Saniya Che MA [address] [facility] [place] [address] Social History Tobacco Use Types Packs/Day Years [...] EDT Procedure Visit [facility] [address] [facility] [place] [address] Sharri Draper PA [address] [facility] [address] [place], [place] [id number] documented as of this encounter Visit Diagnoses Not on filedocumented in this encounter Care Teams Home Health Lpn Relationship Specialty Start Date End Date Nathaly Keith MD [address] [place] [address] PCP - General Family Medicine 12/26/22 documented as of this encounter
--- OUTSIDE RECORDS SUMMARY | 2024-12-19 14:04 | XMS_ITS | CCD ---
Author Organization [facility] Care Team Providers Care Internet Salesperson Name Role Phone NO, PHYSICIAN Primary Care Unavailable JUDY TORO Attending Marla vailable Maryuri, Physician Primary Care Provider Unavailabl HAYLIE Bustos Admitting Unavailabl e HAYLIE PEARSON Referring Unavailabl e PEERZADE, [facility] Primary Care Unav ailable HAYLIE PEARSON Admitting Unavailabl e LILI, HAYLIE HERNANDEZ Referring Unavailabl e PEERZADE, [facility] Care Unav ailable Haylie Pearson Unavailable Peerzade, [facility] Primary [facility] [place] Provide r HAYLIE PEARSON Admitting Unavailabl e HAYLIE PEARSON Attending Unavailabl e NO, PHYSICIAN Primary Care Unavailable HAYLIE PEARSON Admitting Unavailabl e PEERZADE, [facility] Primary Care Unav ailable HAYLIE PEARSON Attending Unavailabl e [facility] onsulting Unavailable PEERZADE, [facility] Primary Care Unav ailable HAYLIE PEARSON Admitting Unavailabl e HAYLIE PEARSON Attending Unavailabl e HAYLIE PEARSON Admitting Unavailabl e PEERZADE, [facility] Primary Care Unav ailable [facility] C onsulting Unavailable KAREN SCHULTE Attending Unavailable HAYLIE PEARSON Admitting Unavailabl e PEERZADE, [facility] Primary Care Unav ailable Nathaly Ketih MD Primary Care Provider ASIF ZAMORANO Attending Unavailable LOGAN, SHANNA Attending Unavailable LOGAN, SHANNA Attending Unavailable LOGAN, SHANNA Attending Unavailable MEGAN, SHARRI Attending Unavailable LOGAN, SHANNA Attending Unavailable MEGAN, SHARRI Attending Unavailable MEGAN, SHARRI Attending Unavailable LOGAN, SHANNA Attending Unavailable MEGAN, SHARRI Attending Unavailable MEGAN, SHARRI Attending Unavailable MEGAN, SHARRI Attending Unavailable Medications [...] . 30 capsule 0 05/11/2019 05/21/2019 Active fluticasone propionate 0.05 mg/actuat metered dose nasal spray (5 sources) Corticosteroid Start: 09-25-2024 take 1 spray(s) nasal route once daily fluticasone (Flonase) 50 MCG/ACT nasal spray Indications: Right otitis media with effusion ADMINISTER 1 SPRAY INTO EACH NOSTRIL DAILY SHAKE GENTLY. BEFORE FIRST USE, PRIME PUMP. AFTER USE, CLEAN TIP AND REPLACE CAP. 48 mL 1 09/25/2024 Active Start: 09-03-2024 take 1 spray(s) nasa l route once daily fluticasone (Flonase) 50 MCG/ACT nasal spray Indications: Right otitis media with effusion Administer 1 spray into each nostril Daily Shake gently. Before first use, prime pump. After use, clean tip and replace cap. 16 g 09/03/2024 Active Start: 09-03-2024 take 1 spray(s) nasa l route once daily fluticasone (Flonase) 50 MCG/ACT nasal spray Indications: Right otitis media with effusion Administer 1 spray into each nostril Daily Shake gently. Before first use, prime pump. After use, clean tip and replace cap. 16 g 09/03/2024 Active predniSONE 20 mg oral tablet (2 sources) Start: 09-03-2024 End: 09-08-2024 take 1 tablet by mouth in the morning predniSONE (Deltasone) 20 MG tablet Indications: Right otitis media with effusion Take 1 tablet (20 mg) by mouth in the morning and 1 tablet (20 mg) before bedtime. Do all this for 5 days. 10 tablet 09/03/2024 09/08/2024 Active MV-Min-Fe Fum-FA-DHA ( 1 PO) (20 sources) End: 09-03-2024 MV-Min-Fe Fum-FA-DHA ( 1 PO) Take 1 each by mouth Daily 09/03/2024 Discontinued MV-Min- Fe Fum-FA-DHA ( 1 PO) Take 1 each by mouth Daily Active vitamin with Ca-Iron-FA 27-1 mg Tab (2 sources) take 1 tablet by julián th once daily vitamin with Ca-Iron-FA 27-1 mg [...] hours PRN, indigestion, Starting 10/25/19 at 1146, aspirin 81 mg delayed release oral tablet (20 sources) Platelet Aggregation Inhibitor, Nonsteroidal Anti-inflammatory Drug End: 02-15-2024 take 1 tablet by mouth once daily aspirin 81 MG EC tablet Take 81 mg by mouth Daily 02/15/2024 Discontinued (Therapy completed) bisacodyl 10 mg rectal suppository (1 source) [...] 5 minutes, as instructed in the Notify Anesthesiologist/DEPUTY FIRE MARSHAL: Hypotension order. Start: 10-14-2019 End: 10-14-2019 lactated [...] CHEW. docusate sodium 50 mg / sennosides, nursing home 8.6 mg oral tablet (1 source) [...] Active Problems Problem Classification Problem Date Documented Date Episodic/Chronic Nutritional deficiencies (5 sources) Vitamin D deficiency; Translations: [Vitamin D deficiency, unspecified] Onset: 09-03-2024 09-03-2024 Chronic Other aftercare (2 sources) Postoperative visit; Translations: [Encounter for other specified surgical aftercare] 02-15-2024 Episodic Other upper respiratory infections (1 source) Nasopharyngitis; Translations: [Acute nasopharyngitis] Episodic Otitis media and related conditions (3 sources) Acute bilateral otitis media ; Translations: [Otitis media] 09-03-2024 Episodic Residual codes; unclassified (2 sources) Gestation period, 34 weeks; Translations: [34 weeks gestation of ] 01-11-2024 Episodic Residual codes; unclassified (2 sources) Gestation period, 37 weeks; Translations: [37 weeks gestation of ] 01-31-2024 Episodic Residual codes; unclassified (2 sources) Gestation period, 32 weeks; Translations: [32 weeks gestation of ] 12-27-2023 Episodic Unclassified (20 sources) OB Reminders Onset: 08-13-2023 08-13-2023 Past or Other Problems Problem Classification Problem Date Documented Da te Episodic/Chronic Other complications of (2 sources) Multigravida of advanced maternal age; Translations: [Supervision of elderly multigravida, second trimester] 12-13-2023 Episodic Other and delivery including normal (19 sources) ; Translations: [Third trimester ] Onset: 10-14-2019 10-14-2019 Episodic Residual codes; unclassified (20 sources) Gestation period, 36 weeks; Translations: [36 weeks gestation of ] Onset: 01-23-2024 Resolved: 02-06-2024 01-22-2024 Episodic NEGATED: Highlighted row has been ruled out!Unclassified (1 source) No known active problems Results Test Name Value Interpretation Reference Range Facil ity ALL CBC WITH AUTO DIFFon BASOPHILS ABSOLUTE AUTO 0.1 [facility] Basophils/100 WBC (Bld) 0.3 % 0.2 - 2.0 % [facility] Eosinophils/100 WBC (Bld) 0.1 % Low 0.9 - 7.0 % [facility] Erythrocyte distribution width (RBC) [Ratio] 12.9 % 11.0 - 15.0 % [facility] Hematocrit (Bld) [Volume fraction] 28.1 % Low 36.0 - 48.0 % [facility] Hemoglobin (Bld) [Mass/Vol] 9.5 g/dL Low 12.0 - 16.0 g/dL [facility] IMMATURE GRANULOCYTES ABS AUTO 0.1 High [facility] Immature granulocytes/100 WBC (Bld) 0.5 % 0.0 - 0.5 % [facility] Interpretation and review of laboratory results Abnormal [facility] LYMPHOCYTES ABSOLUTE AUTO 3.6 [facility] Lymphocytes/100 WBC (Bld) 18.6 % Low 20.5 - 60.0 % [facility] MCH (RBC) [Entitic mass] 29.5 pg 26.7 - 34.0 pg [facility] MCHC (RBC) [Mass/Vol] 33.8 g/dL 29.9 - 35.2 g/dL [facility] MCV (RBC) [Entitic vol] 87.3 fL 81.0 - 99.0 fL [facility] MONOCYTES ABSOLUTE AUTO 1.5 High [facility] Monocytes/100 WBC (Bld) 7.6 % 1.7 - 12.0 % [facility] NEUTROPHILS ABSOLUTE AUTO 14 High [facility] Neutrophils/100 WBC (Bld) 72.9 % 43.0 - 75.0 % [facility] Platelet mean volume (Bld) [Entitic vol] 11.5 fL 9.5 - 13.5 fL [facility] are TBH EO # 0 [facility] TBH PLT 226 [facility] RBC 3.22 Low [facility] WBC 19.1 High [facility] ALL CBC WITH AUTO DIFFon BASOPHILS ABSOLUTE AUTO 0.1 [facility] Basophils/100 WBC (Bld) 0.6 % 0.2 - 2.0 % [facility] Eosinophils/100 WBC (Bld) 1.1 % 0.9 - 7.0 % [facility] Erythrocyte distribution width (RBC) [Ratio] 13 % 11.0 - 15.0 % [facility] Hematocrit (Bld) [Volume fraction] 35.5 % Low 36.0 - 48.0 % [facility] Hemoglobin (Bld) [Mass/Vol] 11.9 g/dL Low 12.0 - 16.0 g/dL [facility] IMMATURE GRANULOCYTES ABS AUTO 0.05 High [facility] Immature granulocytes/100 WBC (Bld) 0.5 % 0.0 - 0.5 % [facility] Interpretation and review of laboratory results Abnormal [facility] LYMPHOCYTES ABSOLUTE AUTO 2.8 [facility] Lymphocytes/100 WBC (Bld) 27.2 % 20.5 - 60.0 % [facility] MCH (RBC) [Entitic mass] 29.2 pg 26.7 - 34.0 pg [facility] MCHC (RBC) [Mass/Vol] 33.5 g/dL 29.9 - 35.2 g/dL [facility] MCV (RBC) [Entitic vol] 87 fL 81.0 - 99.0 fL [facility] MONOCYTES ABSOLUTE AUTO 0.8 [facility] Monocytes/100 WBC (Bld) 7.4 % 1.7 - 12.0 % [facility] NEUTROPHILS ABSOLUTE AUTO 6.6 High [facility] Neutrophils/100 WBC (Bld) 63.2 % 43.0 - 75.0 % [facility] Platelet mean volume (Bld) [Entitic vol] 12.5 fL 9.5 - 13.5 fL [facility].1 [facility]T 305 [facility] e TB RBC 4.08 Low [facility] e TB WBC 10.5 [facility] e Urinalysis macro (dipstick) panel (U)on 01-31-2024 Bilirubin, UA Negative Negative - 4(70) +++ mg/dL [facility] Blood, UA Negative Negative - 50 [place]/mcL [facility] Clarity, UA Clear [facility] re Color, UA Yellow [facility] e Glucose, UA Negative Negative - 2000(110) ++++ mg/dL [facility] Interpretation and review of laboratory results Normal [facility] Ketones, UA Negative Negative - 160(16) ++++ mg/dL [facility] Leukocytes, UA Negative Negative - 500+++ Elsa/mcL [facility] Nitrite, UA Negative Negative - Positive [facility] pH, UA 7 5 - 9 [facility] e Protein, UA Negative Negative - 2000(20) ++++ mg/dL [facility] Spec Grav, UA 1.015 1 - 1.03 [facility] Urobilinogen, UA 1.0 0.2 - 12 mg/dL [facility] e STREP GP B NAAon 01-25-2024 STREP GP B ELEUTERIO Strep Gp B ELEUTERIO [facility] STREP GP B ELEUTERIO Negative [facility]alt [facility] STREP GP B ELEUTERIO Centers for Disease Control and Prevention (CDC) and [facility] STREP GP B ELEUTERIO [place] [employer] [facility] STREP GP B ELEUTERIO (ACOG) guidelines for prevention of group B [facility] STREP GP B ELEUTERIO streptococcal (GBS) disease specify co-collection of [facility] STREP GP B ELEUTERIO a vaginal and rectal swab specimen to maximize [facility] STREP GP B ELEUTERIO sensitivity of GBS detection. Per the CDC and ACOG, [facility] Healthcare STREP GP B ELEUTERIO swabbing both the lower vagina and rectum [facility] STREP GP B ELEUTERIO substantially increases the yield of detection [facility] STREP GP B ELEUTERIO compared with sampling the vagina alone. [facility] STREP GP B ELEUTERIO Penicillin G, ampicillin, or cefazolin are indicated [facility] STREP GP B ELEUTERIO for intrapartum prophylaxis of GBS [facility] Healthcare STREP GP B ELEUTERIO colonization. Reflex susceptibility testing should be [facility] STREP GP B ELEUTERIO performed prior to use of clindamycin only on GBS [facility] Healthcare STREP GP B ELEUTERIO isolates from penicillin-allergic women who are [facility] STREP GP B ELEUTERIO considered a high risk for anaphylaxis. Treatment with [facility] STREP GP B ELEUTERIO vancomycin without additional testing is warranted if [facility] STREP GP B ELEUTERIO resistance to clindamycin is noted. [facility] STREP GP B ELEUTERIO Performed at: [facility] STREP GP B ELEUTERIO [address], [place] [id number] [facility] STREP GP B ELEUTERIO Spare Fixer: Jeffery Delgado PhD, Phone: [phone] [facility] Healthcar e Urinalysis macro (dipstick) panel (U)on 01-22-2024 Bilirubin, UA Negative Negative - 4(70) +++ mg/dL [facility] Blood, UA Negative Negative - 50 [place]/mcL [facility] Healthcare Clarity, UA Clear [facility] re Color, UA Yellow [facility] Glucose, UA Negative Negative - 1999(110) ++++ mg/dL [facility] Interpretation and review of laboratory results Abnormal [facility] Ketones, UA Negative Negative - 160(16) ++++ mg/dL [facility] Leukocytes, UA Negative Negative - 500+++ Elsa/mcL [facility] Healthcare Nitrite, UA Negative Negative - Positive [facility] pH, UA 5.5 5 - 9 [facility] Protein, UA Negative Negative - 1999(20) ++++ mg/dL [facility] Healthcare Spec Grav, UA 1.02 1 - 1.03 [facility] Urobilinogen, UA 1.0 0.2 - 12 mg/dL [facility] macro (dipstick) panel (U)on 01-11-2024 Bilirubin, UA Negative Negative - 4(70) +++ mg/dL [facility] Blood, UA Negative Negative - 50 [place]/mcL [facility] Healthcare Clarity, UA Clear [facility] Healthca re Color, UA Yellow [facility] e Glucose, UA Negative Negative - 1999(110) ++++ mg/dL [facility] Interpretation and review of laboratory results Normal [facility] Ketones, UA Negative Negative - 160(16) ++++ mg/dL [facility] Leukocytes, UA Negative Negative - 500+++ Elsa/mcL [facility] Healthcare Nitrite, UA Negative Negative - Positive [facility] pH, UA 7.0 5 - 9 [facility] Protein, UA Negative Negative - 1999(20) ++++ mg/dL [facility] Spec Grav, UA 1.010 1 - 1.03 [facility] care Urobilinogen, UA 0.2 0.2 - 12 mg/dL [facility] Urinalysis macro (dipstick) panel (U)on 12-27-2023 Bilirubin, UA Negative Negative - 4(70) +++ mg/dL [facility] Blood, UA Negative Negative - 50 [place]/mcL [facility] Healthcare Clarity, UA Clear [facility] re Color, UA Yellow [facility] Glucose, UA Negative Negative - 1999(110) ++++ mg/dL [facility] Interpretation and review of laboratory results Normal [facility] Ketones, UA Negative Negative - 160(16) ++++ mg/dL [facility] Leukocytes, UA Negative Negative - 500+++ Elsa/mcL [facility] Healthcare Nitrite, UA Negative Negative - Positive [facility] pH, UA 7.5 5 - 9 [facility] Health[facility] e Protein, UA Negative Negative - 1999(20) ++++ mg/dL [facility] Spec Grav, UA 1.020 1 - 1.03 [facility] Urobilinogen, UA 0.2 0.2 - 12 mg/dL [facility] Urinalysis macro (dipstick) panel (U)on 12-13-2023 Bilirubin, UA Negative Negative - 4(70) +++ mg/dL [facility] Blood, UA Negative Negative - 50 [place]/mcL [facility] Healthcare Clarity, UA Clear [facility] re Color, UA Yellow [facility] e Glucose, UA Negative Negative - 1999(110) ++++ mg/dL [facility] Interpretation and review of laboratory results Normal [facility] Ketones, UA Negative Negative - 160(16) ++++ mg/dL [facility] Leukocytes, UA Negative Negative - 500+++ Elsa/mcL [facility] Healthcare Nitrite, UA Negative Negative - Positive [facility] pH, UA 7.5 5 - 9 [facility] Health[facility] e Protein, UA Negative Negative - 1999(20) ++++ mg/dL [facility] Spec Grav, UA 1.015 1 - 1.03 [facility] Urobilinogen, UA 0.2 0.2 - 12 mg/dL [facility] Urinalysis macro (dipstick) panel (U)on 11-29-2023 Bilirubin, UA Negative Negative - 4(70) +++ mg/dL [facility] Blood, UA Negative Negative - 50 [place]/mcL [facility] Healthcare Clarity, UA Clear [facility] re Color, UA Yellow [facility] e Glucose, UA Negative Negative - 1999(110) ++++ mg/dL [facility] Interpretation and review of laboratory results Normal [facility] Ketones, UA Negative Negative - 160(16) ++++ mg/dL [facility] Leukocytes, UA Negative Negative - 500+++ Elsa/mcL [facility] Nitrite, UA Negative Negative - Positive [facility] pH, UA 7.5 5 - 9 [facility] e Protein, UA Negative Negative - 2000(20) ++++ mg/dL [facility] Spec Grav, UA 1.025 1 - 1.03 [facility] Urobilinogen, UA 0.2 0.2 - 12 mg/dL [facility] CBCon 10-26-2019 Erythrocyte distribution width (RBC) [Entitic vol] 14.1 % 11.6 - 14.8 % [facility] Hematocrit (Bld) [Volume fraction] 31.7 % Low 36 - 46 % [facility] Hemoglobin (Bld) [Mass/Vol] 9.9 g/dL Low 12 - 16 g/dL [facility] Interpretation and review of laboratory results Abnormal [facility] MCH (RBC) [Entitic mass] 29.6 pg 26 - 34 pg [facility] MCHC (RBC) [Mass/Vol] 31.2 g/dL 31 - 37 g/dL [facility] MCV (RBC) [Entitic vol] 94.6 fL 80 - 100 fL [facility] Nucleated RBC (Bld) [#/Vol] 0.00 10*3/uL [facility] Nucleated RBC/100 WBC (Bld) [Ratio] 0.0 % [facility] Platelet mean volume (Bld) [Entitic vol] 12.2 fL 9.4 - 12.4 fL [facility] Platelets (Bld) [#/Vol] 191 10*3/uL [facility] RBC (Bld) [#/Vol] 3.35 10*6/uL Low [facility] ealt WBC (Bld) [#/Vol] 12.37 10*3/uL High [facility] CBCon 10-25-2019 Erythrocyte distribution width (RBC) [Entitic vol] 13.8 % 11.6 - 14.8 % [facility] Hematocrit (Bld) [Volume fraction] 37.8 % 36 - 46 % [facility] Hemoglobin (Bld) [Mass/Vol] 12.5 g/dL 12 - 16 g/dL [facility] Interpretation and review of laboratory results Abnormal [facility] MCH (RBC) [Entitic mass] 30.0 pg 26 - 34 pg [facility] MCHC (RBC) [Mass/Vol] 33.1 g/dL 31 - 37 g/dL [facility] MCV (RBC) [Entitic vol] 90.9 fL 80 - 100 fL [facility] Nucleated RBC (Bld) [#/Vol] 0.00 10*3/uL [facility] Nucleated RBC/100 WBC (Bld) [Ratio] 0.0 % [facility] Platelet mean volume (Bld) [Entitic vol] 12.4 fL 9.4 - 12.4 fL [facility] Platelets (Bld) [#/Vol] 256 10*3/uL [facility] RBC (Bld) [#/Vol] 4.16 10*6/uL [facility] ealth WBC (Bld) [#/Vol] 12.90 10*3/uL High [facility] Syphilis Antibodyon 10-25-19 20 Interpretation and review of laboratory results Normal [facility] T. pallidum Ab Ql (S) Negative Negative [facility] Type and Screenon 10-25-2019 ABO and Rh group Nom (Bld) B Positive [facility] Blood group antibody screen Ql Negative [facility] Specimen Expires 10/28/2019 23:59 EST [facility] ABORH VERIFICATIONon 020 ABO and Rh group Nom (Bld) ABO/Rh Verification [facility] ABO and Rh group Nom (Bld) B Positive [facility] Patient's ABO/Rh is verified. [facility] CBCon 10-14-2019 Erythrocyte distribution width (RBC) [Entitic vol] 13.5 % 11.6 - 14.8 % [facility] Hematocrit (Bld) [Volume fraction] 35.6 % Low 36 - 46 % [facility] Hemoglobin (Bld) [Mass/Vol] 11.6 g/dL Low 12 - 16 g/dL [facility] Interpretation and review of laboratory results Abnormal [facility] MCH (RBC) [Entitic mass] 30.0 pg 26 - 34 pg [facility] MCHC (RBC) [Mass/Vol] 32.6 g/dL 31 - 37 g/dL [facility] MCV (RBC) [Entitic vol] 92.0 fL 80 - 100 fL [facility] Nucleated RBC (Bld) [#/Vol] 0.00 10*3/uL [facility] Nucleated RBC/100 WBC (Bld) [Ratio] 0.0 % [facility] Platelet mean volume (Bld) [Entitic vol] 12.8 fL High 9.4 - 12.4 fL [facility] Platelets (Bld) [#/Vol] 253 10*3/uL [facility] RBC (Bld) [#/Vol] 3.87 10*6/uL Low [facility] ealth WBC (Bld) [#/Vol] 12.69 10*3/uL High [facility] RPRon 10-14-2019 Interpretation and review of laboratory results Normal [facility] Reagin Ab RPR Ql (S) Non-Reactive Non-Reactive [facility] Type and Screenon 10-14-2019 ABO and Rh group Nom (Bld) B Positive [facility] Blood group antibody screen Ql Negative [facility] Specimen Expires 10/17/2019 23:59 EST [facility] Group B Strep PCR, Vaginal/R ectalon 10-01-2019 S. agalactiae Ag Ql (Unsp spec) Negative Negative [facility] CHLAMYDIA/GONORRHOEAE AMPLIF IED RNAon 03-22-2019 C. trachomatis rRNA ELEUTERIO+probe Ql (Unsp spec) Negative Negative [facility] N. gonorrhoeae rRNA ELEUTERIO+probe Ql (Unsp spec) Negative Negative [facility] Type and Screenon 03-22-2019 ABO and Rh group Nom (Bld) B [facility] Rh Type Positive [facility] Vital Signs Date Time Vital Sign Value Performing Clinician Faci lity 12-19-2024 09:13-0400 Body mass index (BMI) [Ratio] 29.44 kg/m2 Sharri MEZA Work Phone: [facility] 12-19-2024 09:13-0400 Body weight 82.74 kg Sharri MEZA Work Phone: [facility] 12-19-2024 09:13-0400 Diastolic blood pressure 60 mm[Hg] Sharri MEZA Work Phone: [facility] 12-19-2024 09:13-0400 Systolic blood pressure 110 mm[Hg] Sharri MEZA Work Phone: [facility] 09-03-2024 13:05-0400 Body height 167.6 cm Asif Zamorano NP Work Phone: [facility] 09-03-2024 13:05-0400 Body mass index (BMI) [Ratio] 29.8 kg/m2 Asif Zamorano NP Work Phone: [facility] 09-03-2024 13:05-0400 Body weight 83.73 kg Asif Zamorano SEWER DIGGER Work Phone: [facility] 09-03-2024 13:05-0400 Diastolic blood pressure 78 mm[Hg] Asif Zamorano SEWER DIGGER Work Phone: [facility] [facility] 09-03-2024 13:05-0400 Heart rate 88 /min Asif Zamorano SEWER DIGGER Work Phone: [facility] 09-03-2024 13:05-0400 SaO2% (BldA) [Mass fraction] 97 % Asif Zamorano SEWER DIGGER Work Phone: [facility] 09-03-2024 13:05-0400 Systolic blood pressure 122 mm[Hg] Asif Zamorano SEWER DIGGER Work Phone: [facility] 03-18-2024 11:34-0500 Body mass index (BMI) [Ratio] 30.15 kg/m2 Sharri Guzman PA Work Phone: [facility] 03-18-2024 11:34-0500 Body weight 84.73 kg Sharri Dundas PA Work Phone: [facility] 03-18-2024 11:34-0500 Diastolic blood pressure 64 mm[Hg] Sharri Dundas PA Work Phone: [facility] 03-18-2024 11:34-0500 Systolic blood pressure 102 mm[Hg] Sharri Dundas PA Work Phone: [facility] 02-15-2024 09:21-0500 Body mass index (BMI) [Ratio] 28.73 kg/m2 Sharri Dundas PA Work Phone: [facility] 02-15-2024 09:21-0500 Body weight 80.74 kg Sharri Megan PA Work Phone: [facility] 02-15-2024 09:21-0500 Diastolic blood pressure 70 mm[Hg] Sharri Megan PA Work Phone: [facility] 02-15-2024 09:21-0500 Systolic blood pressure 108 mm[Hg] Sharri Guzman PA Work Phone: [facility] 01-31-2024 09:52-0400 Body mass index (BMI) [Ratio] 32.73 kg/m2 Sharri Megan PA Work Phone: [facility] 01-31-2024 09:52-0400 Body weight 91.99 kg Sharri Megan PA Work Phone: [facility] 01-31-2024 09:52-0400 Diastolic blood pressure 68 mm[Hg] Sharri Megan PA Work Phone: [facility] 01-31-2024 09:52-0400 Systolic blood pressure 112 mm[Hg] Sharri Dundas PA Work Phone: [facility] 01-22-2024 15:27-0400 Body mass index (BMI) [Ratio] 32.28 kg/m2 Shanna Logan DO Work Phone: [facility] 01-22-2024 15:27-0400 Body weight 90.72 kg Shanna Logan DO Work Phone: [facility] 01-22-2024 15:27-0400 Diastolic blood pressure 68 mm[Hg] Shanna Logan DO Work Phone: [facility] 01-22-2024 15:27-0400 Systolic blood pressure 112 mm[Hg] Shanna Logan DO Work Phone: [facility] 01-11-2024 10:10-0400 Body mass index (BMI) [Ratio] 31.93 kg/m2 Sharri Dundas PA Work Phone: [facility] 01-11-2024 10:10-0400 Body weight 89.72 kg Sharri Dundas PA Work Phone: [facility] 01-11-2024 10:10-0400 Diastolic blood pressure 68 mm[Hg] Sharri Megan PA Work Phone: [facility] 01-11-2024 10:10-0400 Systolic blood pressure 120 mm[Hg] Sharri Dundas PA Work Phone: [facility] 12-27-2023 15:48-0400 Body mass index (BMI) [Ratio] 31.47 kg/m2 Sharri Megan PA Work Phone: [facility] 12-27-2023 15:48-0400 Body weight 88.45 kg Sharri Megan PA Work Phone: [facility] 12-27-2023 15:48-0400 Diastolic blood pressure 74 mm[Hg] Sharri Dundas PA Work Phone: [facility] 12-27-2023 15:48-0400 Systolic blood pressure 118 mm[Hg] Sharri Dundas PA Work Phone: [facility] 12-13-2023 10:45-0400 Body mass index (BMI) [Ratio] 31.39 kg/m2 Shanna Logan DO Work Phone: [facility] 12-13-2023 10:45-0400 Body weight 88.22 kg Shanna Logan DO Work Phone: [facility] 12-13-2023 10:45-0400 Diastolic blood pressure 68 mm[Hg] Shanna Logan DO Work Phone: [facility] 12-13-2023 10:45-0400 Systolic blood pressure 108 mm[Hg] Shanna Logan DO Work Phone: [facility] 11-29-2023 10:09-0400 Body mass index (BMI) [Ratio] 30.99 kg/m2 Sharri Megan PA Work Phone: [facility] 11-29-2023 10:09-0400 Body weight 87.09 kg Sharri Megan PA Work Phone: [facility] 11-29-2023 10:09-0400 Diastolic blood pressure 72 mm[Hg] Sharri Dundas PA Work Phone: [facility] 11-29-2023 10:09-0400 Systolic blood pressure 118 mm[Hg] Sharri Dundas PA Work Phone: [facility] 10-27-2019 08:19-0400 Body Temperature 97.7 [degF] Haylie Pearson [facility] 10-27-2019 08:19-0400 BP Diastolic 67 mm[Hg] [facility] 10-27-2019 08:19-0400 BP Systolic 105 mm[Hg] [facility] 10-27-2019 08:19-0400 Pulse (Heart Rate) 71 /min [facility] 10-27-2019 08:19-0400 Pulse Oximetry 96 % [facility] 10-27-2019 08:19-0400 Respiratory Rate 16 /min [facility] 10-25-2019 06:01-0400 BMI (Body Mass Index) 29.13 kg/m2 [facility] 10-25-2019 06:01-0400 Body weight 84.37 kg [facility] 10-25-2019 06:01-0400 Height 170.2 cm [facility] 10-14-2019 10:30-0400 BP Diastolic 77 mm[Hg] [facility] 10-14-2019 10:30-0400 BP Systolic 126 mm[Hg] [facility] 10-14-2019 10:30-0400 Pulse (Heart Rate) 91 /min [facility] 10-14-2019 10:30-0400 Respiratory Rate 16 /min [facility] 10-14-2019 10:15-0400 Pulse Oximetry 97 % [facility] 10-14-2019 05:39-0400 BMI (Body Mass Index) 28.82 kg/m2 [facility] 10-14-2019 05:39-0400 Body Temperature 98.1 [degF] [facility] 10-14-2019 05:39-0400 Body weight 83.46 kg [facility] 10-14-2019 05:39-0400 Height 170.2 cm [facility] 05-11-2019 13:20-0500 Pulse (Heart Rate) 106 /min [facility] 05-11-2019 13:15-0500 BMI (Body Mass Index) 26.31 kg/m2 [facility] 05-11-2019 13:15-0500 Body Temperature 98.4 [degF] [facility] 05-11-2019 13:15-0500 Body weight 76.2 kg [facility] 05-11-2019 13:15-0500 BP Diastolic 76 mm[Hg] [facility] 05-11-2019 13:15-0500 BP Systolic 110 mm[Hg] [facility] 05-11-2019 13:15-0500 Height 170.2 cm [facility] 05-11-2019 13:15-0500 Pulse Oximetry 98 % [facility] 05-11-2019 13:15-0500 Respiratory Rate 14 /min [facility] Encounters Encounter Date Encounter Type Care Provider Facility Start: 12-19-2024 End: 12-19-2024 Bamboo flowsheet Sharri MEZA Work Phone: [facility] Start: 12-19-2024 End: 12-19-2024 Bamboo flowsheet Sharri MEZA Work Phone: [facility] Start: 12-19-2024 End: 12-19-2024 Patient encounter procedure Sharri MEZA Work Phone: [facility] Work Phone: Start: 12-19-2024 End: 12-19-2024 Periodic preventive med est patient 18-39 yrs Sharri MEZA Work Phone: [facility] Comment on above: Well woman exam with routine gynecological exam Start: 09-03-2024 End: 09-03-2024 Bamboo flowsheet Asif Zamorano SEWER DIGGER Work Phone: [facility] Start: 09-03-2024 End: 09-03-2024 Bamboo flowsheet Asif Zamorano SEWER DIGGER Work Phone: [facility] Start: 09-03-2024 End: 09-03-2024 ambulatory ASIF ZAMORANO Not Available Start: 09-03-2024 End: 09-03-2024 Office outpatient visit 15 minutes Asif Lona BAXTER Work Phone: [facility] Comment on above: Right otitis media w ith effusion (Primary Dx) Start: 03-18-2024 End: 03-18-2024 care visit Sharri MEZA Work Phone: [facility] Comment on above: S/P section Start: 03-18-2024 End: 03-18-2024 ambulatory SHARRI GUZMAN Not Available Start: 02-15-2024 End: 02-15-2024 Bamboo flowsheet Sharri MEZA Work Phone: [facility] Start: 02-15-2024 End: 02-15-2024 Bamboo flowsheet Sharri MEZA Work Phone: [facility] Start: 02-15-2024 End: 02-15-2024 ambulatory SHARRI GUZMAN Not Available Start: 02-15-2024 End: 02-15-2024 Postop follow up visit related to original px Sharri MEZA Work Phone: [facility] Comment on above: Postoperative visit; S/P section Start: 02-07-2024 End: 02-07-2024 Clinisync Result Encounter Shanna Logan DO Work Phone: [facility] Unsolicited Start: 02-07-2024 End: 02-07-2024 Clinisync Result Encounter Shanna Logan DO Work Phone: [facility]solicited Start: 02-06-2024 End: 02-06-2024 Clinisync Result Encounter Shanna Logan DO Work Phone: [facility] Unsolicited Start: 02-06-2024 End: 02-06-2024 Clinisync Result Encounter Shanna Logan DO Work Phone: [facility] Unsolicited Start: 01-31-2024 End: 01-31-2024 Bamboo flowsheet Sharri [...] ; Third trimester Start: 12-27-2023 End: 12-27-2023 flow sheet Sharri MEZA Work Phone: [facility] Comment on above: 32 weeks gestation o f Start: 12-27-2023 End: 12-27-2023 ambulatory SHARRI GUZMAN Not Available Start: 12-27-2023 End: 12-27-2023 Bamboo flowsheet Sharri MEZA Work Phone: [facility] Start: 12-27-2023 End: 12-27-2023 Bamboo flowsheet Sharri MEZA Work Phone: [facility] Start: 12-13-2023 End: 12-13-2023 Bamboo flowsheet Shanna Logan DO Work Phone: [facility] Start: 12-13-2023 End: 12-13-2023 Bamboo flowsheet Shanna Logan DO Work Phone: [facility] Start: 12-13-2023 End: 12-13-2023 flow sheet Shanna Logan DO Work Phone: [facility] Comment on above: Third trimester preg eliud; Multigravida of advanced maternal age in second trimester Start: 12-13-2023 End: 12-13-2023 ambulatory SHANNA LOGAN Not Available Start: 11-29-2023 End: 11-29-2023 Bamboo flowsheet Sharri MEZA Work Phone: [facility] Start: 11-29-2023 End: 11-29-2023 Bamboo flowsheet Sharri MEZA Work Phone: [facility] Start: 11-29-2023 End: 11-29-2023 Periodic preventive med est patient 18-39 yrs Sharri MEZA Work Phone: [facility] Comment on above: Third trimester preg eliud Start: 11-29-2023 End: 11-29-2023 ambulatory SHARRI GUZMAN Not Available Start: 11-15-2023 End: 11-15-2023 ambulatory SHANNA LOGAN Not Available Start: 10-16-2023 End: 10-16-2023 ambulatory SHANNA LOGAN Not Available Start: 09-11-2023 End: 09-11-2023 ambulatory SHANNA LOGAN Not Available Start: 11-11-2019 End: 11-15-2019 Patient encounter procedure [facility] Start: 10-25-2019 End: 10-27-2019 Evaluation and management of inpatient [facility] Start: 10-25-2019 End: 10-27-2019 Evaluation and management of inpatient [facility] Work Phone: [facility] Mother/Infant Start: 10-24-2019 End: 10-24-2019 Patient encounter procedure [facility] Start: 10-14-2019 End: 10-14-2019 [facility] Start: 10-14-2019 End: 10-14-2019 [facility] Work Phone: [facility] Start: 10-11-2019 End: 10-11-2019 Patient encounter procedure [facility] Start: 10-08-2019 Patient encounter procedure [facility] Start: 05-11-2019 End: 05-11-2019 Patient encounter procedure PHYSICIAN MARYURI [facility] Start: 05-11-2019 End: 05-11-2019 Office outpatient visit 25 minutes Jduy CharlesHudson Work Phone: [facility] Comment on above: Acute nasopharyngiti s (Primary Dx); Acute bilateral otitis media Procedures Date Procedure Procedure Detail Performing Clinician Start: 03-18-2024 H/O: section S/P s ection Sharri MEZA Work Phone: Start: 02-07-2024 ALL CBC WITH AUTO DIFF Shanna Logan DO Work Phone: Start: 02-06-2024 ALL CBC WITH AUTO DIFF Shanna Logan DO Work Phone: Start: 01-31-2024 Urnls dip stick/tabl et rgnt non-auto w/o micrscp Sharri MEZA Work Phone: Start: 01-22-2024 Urnls dip stick/tabl et rgnt non-auto w/o micrscp Shanna Logan DO Work Phone: Start: 01-22-2024 STREP GP B ELEUTERIO Generic External Data Provider Start: 01-11-2024 Urnls dip stick/tabl et rgnt non-auto w/o micrscp Sharri MEZA Work Phone: Start: 12-27-2023 Urnls dip stick/tabl et rgnt non-auto w/o micrscp Sharri MEZA Work Phone: Start: 12-13-2023 Urnls dip stick/tabl et rgnt non-auto w/o micrscp Shanna Logan DO Work Phone: Start: 11-29-2023 Urnls dip stick/tabl et rgnt non-auto w/o [...] Phone: Start: 10-14-2019 Blood group typing [employer] Work Phone: Start: 10-14-2019 Blood type and Indir ect antibody screen panel - Blood [employer] Work Phone: Start: 10-14-2019 Complete blood count (hemogram) panel - Blood by Automated count Haylie Pearson Work Phone: Start: 10-14-2019 Rapid plasma reagin test Haylie Pearson Work Phone: Start: 10-01-2019 Streptococcus agalac tiae DNA [Presence] in Unspecified specimen by ELEUTERIO with probe detection Historical Provider Start: 03-22-2019 Blood type and Indir ect antibody screen panel - Blood Historical Provider Start: 03-22-2019 Neisseria gonorrhoea e nucleic acid detection Historical Provider H/O: section S/P sectio n Sharri MEZA Work Phone: Plan of Treatment Date Care Activity Detail Author Start: 09-10-2028 Screening for malign ant neoplasm of cervix [facility] Start: 12-24-2025 End: 12-24-2025 Patient encounter procedure 12/24/2025 10:00 AM EDT Procedure Visit [facility] [address] [place] [phone] Sharri Guzman PA [address] [place], [facility] Start: 12-02-2024 Influenza vaccination [facility] Start: 10-07-2024 End: 10-07-2024 Patient encounter procedure 10/07/2024 2:00 PM EDT Office [facility] [address] [phone] Sharri Guzman PA [address] [place], [facility] Start: 09-16-2024 End: 09-16-2024 Patient encounter procedure 09/16/2024 10:00 AM EDT Office Visit [facility] [address] [address] Sharri Guzman PA [address] [place] [address] [facility] Start: 03-18-2024 End: 03-18-2024 ambulatory 03/18/2024 11:30 AM EST Visit [facility] [address] [place] [phone] Sharri Guzman PA [address] [place] [address] [facility] Start: 01-31-2024 End: 01-31-2024 Patient encounter procedure [facility] Comment on above: Arrived Start: 01-22-2024 End: 01-22-2024 Patient encounter procedure [facility] Comment on above: Arrived Start: 01-22-2024 End: 01-21-2025 Strep B DNA probe, amplification Strep B DNA probe, amplification Lab Routine Third trimester Expected: 01/22/2024 (Approximate), Expires: 01/21/2025 [facility] Work Phone: Comment on above: Expected: 01/22/2024 (Approximate), Expires: 01/21/2025 Start: 01-10-2024 End: 01-10-2024 Patient encounter procedure 01/10/2024 11:20 AM EDT Routine [facility] [address] [place] [phone] Sharri Guzman, PA [address] [place] [address] [facility] Start: 12-27-2023 End: 12-27-2023 Patient encounter procedure [facility] Comment on above: Arrived Start: 12-27-2023 End: 12-27-2023 Professional / ancillary services management 12/27/2023 2:30 PM EDT Ancillary Procedure [facility] [address] [place] [phone] [facility] Start: 12-13-2023 End: 12-12-2024 US biophysical profile w non stress test US biophysical profile w non stress test Imaging Routine Multigravida of advanced maternal age in second trimester Expected: 12/13/2023 (Approximate), Expires: 12/12/2024 [facility] Work Phone: Comment on above: Expected: 12/13/2023 (Approximate), Expires: 12/12/2024 Start: 12-13-2023 End: 12-13-2023 Patient encounter procedure [facility] Comment on above: Arrived Start: 12-03-2023 Influenza vaccination Influenza Vacc ine (#1) [facility] Start: 11-29-2023 End: 11-29-2023 Patient encounter procedure 11/29/2023 10:30 AM EDT Routine [facility] [address] [place] [phone] Sharri Guzman PA [address] [place] [address] Arrived [facility] Comment on above: Arrived Start: 12-03-2019 Influenza vaccinatio n given Sequential Influenza Vaccine (#1) [facility] Start: 10-01-2019 Influenza vaccinatio n given SEQUENTIAL INFLUENZA VACCINE (#1) [facility] Comment on above: Postponed from 12/02 (Patient Refused) Start: 02-08-2006 Hepatitis C antibody , confirmatory test Hepatitis C Screening [facility] Start: 02-08-2003 HIV screening HIV Screening [facility] Start: 02-08-1991 History and physical examination, annual for health maintenance Wellness Visit [facility] Start: 1988 Screening for malign ant neoplasm of cervix PAP SMEAR [facility] Start: 1988 Tetanus vaccination [facility] Cytology Cervical or vaginal smear or scraping study Pap Smear Pathology and Cytology Routine Well woman exam with routine gynecological exam Ordered: 12/19/2024 [facility] Work Phone: Comment on above: Ordered: 12/19/2024 Human papilloma viru s DNA [Presence] in Unspecified specimen by Probe with amplification HPV DNA probe, amplified Microbiology Routine Well woman exam with routine gynecological exam Ordered: 12/19/2024 [facility] Comment on above: Ordered: 12/19/2024 Immunizations Immunization Date Immunization Notes Care Provider Felipe mayfield 10-25-2019 diphtheria, tetanus toxoids and acellular pertussis vaccine, unspecified formulation [facility] 10-25-2019 measles, mumps and r ubella virus vaccine [facility] 10-25-2019 varicella zoster immune globulin [facility] Payers Date Payer Category Payer Private Health Insurance [id number] 2023 Private Health Insurance [id number] 2019 Private Health Insurance [id number] 2019 Private Health Insurance xxx [id number] 1988 Unknown [id number] 2.16. [id number] 1988 Unknown [id number] 2.16.8 40.1.582660.3.579.2.900 1988 Unknown [id number] 2.16.8 40.1.702844.3.579.2.900 1988 Unknown [id number] 2.16.8 40.1.044566.3.579.2.902 1988 Unknown [id number] 2.16.8 40.1.058450.3.579.2.902 1988 Unknown [id number] 2.16.8 40.1.450458.3.579.2.902 1988 Unknown [id number] 2.16.8 40.1.934022.3.579.2.902 1988 Unknown [id number] 2.16.8 40.1.897708.3.579.2.902 1988 Unknown [id number] 2.16.8 40.1.657880.3.579.2.1259 1988 Unknown [id number] 2.16.84 0.1.474730.3.579.2.9 1988 Unknown [id number] 2.16.84 0.1.780175.3.579.2.1258 1988 Unknown [id number] 2.16.84 0.1.655610.3.579.2.1258 1988 Unknown [id number] 2.16.84 0.1.897044.3.579.2.1258 1988 Unknown [id number] 2.16.84 0.1.374283.3.579.2.1258 1988 Unknown [id number] 2.16.84 0.1.156645.3.579.2.1258 1988 Unknown [id number] 2.16.84 0.1.838472.3.579.2.9 1988 Unknown [id number] 2.16.84 0.1.324431.3.579.2.1258 1988 Unknown [id number] 2.16.84 0.1.277066.3.579.2.1258 1988 Unknown [id number] 2.16.84 0.1.961157.3.579.2.1258 1988 Unknown [id number] 2.16.84 0.1.279769.3.579.2.1259 Social History Date Type Detail Facility Start: 05-11-2019 End: 12-26-2022 Tobacco smoking status [facility] Never smoker [facility] Start: 05-11-2019 End: 10-27-2019 Alcohol intake Ex-drinker (finding) [facility] Start: 02-07-2019 [facility] Sex Assigned At Not on file [facility] Exposure to SARS-CoV -2 (event) Not sure [facility] Start: 12-26-2022 Tobacco use and exposure Smokeless t obacco non-user [facility] Start: 01-11-2024 End: 12-19-2024 Alcoholic beverage intake Current drinker of alcohol (finding) [facility] Start: 07-07-2023 End: 09-03-2024 History of Social function [facility] Start: 07-07-2023 End: 09-03-2024 Tobacco use panel [facility] Start: 1990 Sex assigned at Female [facility] Start: 12-25-2022 Gender identity Identifies as female gender (finding) [facility] Start: 12-25-2022 Sexual orientation Heterosexual (fin brigitte) [facility] Goals Date Patient Goal Desired Activity /State Personal health goal Clinical Notes 11-29-2023 to 12-19-2024 DERRICK Vargas - 12/19/2024 9:00 AM Nolan Zamorano NP - 09/03/2024 1:00 PM DERRICK Abbasi - 03/18/2024 11:30 AM DERRICK Mercado - 02/15/2024 8:50 AM DERRICK Mercado - 01/31/2024 9:50 AM EDT Note Date & Type Note Facility 12-19-2024 History of Presen t illness Narrative Reason [...] Problems Diagnosis Date Noted S/P section 03/18/2024 ([facility]) 10/14/2019 Vitamin D deficiency 09/03/2024 Resolved Ambulatory Problems Diagnosis Date Noted 36 weeks gestation of ([facility]) 01/23/2024 Past Medical History: Diagnosis Date Anxiety [...] nursing note reviewed. Exam conducted with a feeder switchboard operator present. Vitals: Estimated body mass index is 29.44 kg/m as calculated from the following: Height [...] of: DERRICK Vargas documented in this encounter [facility] 09-03-2024 History of Presen t illness Narrative Images from the original note were not included. Joanne Brown is a 34 y.o. female presents with chief complaint of Earache HPI: HPI History of Present Illness The patient presents via virtual visit for evaluation of ear fullness. She sought medical attention at an urgent care facility where she was prescribed a 10-day course of Augmentin. Despite this treatment, she continues to experience a sensation of fullness in her ear, although the associated pain has subsided. She also reports mild nasal congestion and drainage. This is her first encounter with such symptoms, which initially caused significant discomfort, including jaw pain. She is not currently . She has not utilized Flonase or any [id number] medications during her antibiotic regimen. She attempted to manage the pain with analgesics, but these provided minimal relief. SUBJECTIVE: MEDICATIONS: No current outpatient medications I have reviewed and reconciled the history and medication list with the patient today. REVIEW OF SYMPTOMS: Review of Systems OBJECTIVE: Visit Vitals BP 122/78 Pulse 88 Ht 5' 6 Wt 184 lb 9.6 oz SpO2 97% BMI 29.80 kg/m OB Status Unknown Smoking Status Never BSA 1.97 m Physical Exam Vitals reviewed. HENT: Head: Normocephalic and atraumatic. Right Ear: A middle ear effusion is present. Left Ear: Tympanic membrane normal. Nose: Congestion and rhinorrhea present. Rhinorrhea is clear. Mouth/Throat: Mouth: Mucous membranes are moist. Eyes: Pupils: Pupils are equal, round, and reactive to light. Cardiovascular: Rate and Rhythm: Normal rate and regular rhythm. Pulses: Normal pulses. Heart sounds: Normal heart sounds. Pulmonary: Effort: Pulmonary effort is normal. Breath sounds: Normal breath sounds. Musculoskeletal: Cervical back: Normal range of motion and neck supple. Skin: General: Skin is warm and dry. Capillary Refill: Capillary refill takes less than 2 seconds. Findings: No rash. Neurological: General: No focal deficit present. Mental Status: She is alert and oriented to person, place, and time. ASSESSMENT AND PLAN: Assessment/Plan Diagnoses and all orders for this visit: Right otitis media with effusion - predniSONE (Deltasone) 20 MG tablet; Take 1 tablet (20 mg) by mouth in the morning and 1 tablet (20 mg) before bedtime. Do all this for 5 days. - fluticasone (Flonase) 50 MCG/ACT nasal spray; Administer 1 spray into each nostril Daily Shake gently. Before first use, prime pump. After use, clean tip and replace cap. -Fluid behind tympanic membrane with no active signs of infection. Explained to patient antibiotics are not indicated as there is no active infection and this could take 4-6 weeks to resolve fully. May use flonase or antihistamine OTC to help dry up secretions. Instructed to notify office immediately if patient begins to experience and sharp ear pain or fevers. Patient verbalizes understanding. documented in this encounter [facility] 03-18-2024 History of Presen t illness Narrative Reason for Appointment: Patient ID: Joanne Brown is a 34 y.o. female who presents for Post-op Visit and Care Patient presents today for Post Follow Up appointment. MEDICATIONS Current Outpatient Medications Medication Instructions MV-Min-Fe Fum-FA-DHA ( 1 PO) 1 each, Oral, Daily ALLERGIES No Known Allergies PROBLEMS Active Ambulatory Problems Diagnosis Date Noted S/P section 03/18/2024 Resolved Ambulatory Problems Diagnosis Date Noted 36 weeks gestation of 01/23/2024 Past Medical History: Diagnosis Date Anxiety [...] Exam Constitutional: Appearance: Normal appearance. She is normal weight. HENT: Head: Normocephalic. Cardiovascular: Rate and Rhythm: Normal rate. Pulses: Normal pulses. Pulmonary: Effort: Pulmonary effort is normal. Breath sounds: Normal breath sounds. Abdominal: Palpations: Abdomen is soft. Musculoskeletal: General: Normal range of motion. Neurological: General: No focal deficit present. Mental Status: She is alert and oriented to person, place, and time. Psychiatric: Mood and Affect: Mood normal. Behavior: Behavior normal. Thought Content: Thought content normal. Judgment: Judgment normal. Vitals and nursing note reviewed. Vitals: Estimated body mass index is 30.15 kg/m as calculated from the following: Height as of 08/08/22: 5' 6 . Weight as of this encounter: 186 lb 12.8 oz. BP: 102/64 No LMP recorded (lmp unknown). ASSESSMENT & PLAN ICD-10-CM 1. S/P section Z98.891 Post Follow Up: Patient is doing well but has no complaints of . Patient presents today for 6 week visit. Patient is s/p delivery. Patient state denies and post depression. All options were discussed with the patient regarding control and patient desires none at this time as her spouse is scheduled for vasectomy. Follow Up: Patient is to return for annual unless needed otherwise. Documented by Bren Ag LPN on behalf of: DERRICK Vargas documented in this encounter [facility] 02-15-2024 History of Presen t illness Narrative Reason for Appointment: Patient ID: Joanne Brown is a 34 y.o. female who presents for Post-op Visit (Pt present 1 week post op c/s. Pt delivered on 02/06/2024) Patient presents today for 1 Week Post Op Follow Up appointment. MEDICATIONS Current Outpatient Medications Medication Instructions MV-Min-Fe Fum-FA-DHA ( 1 PO) 1 each, Oral, Daily ALLERGIES No Known Allergies PROBLEMS Active Ambulatory Problems Diagnosis Date Noted No Active Ambulatory Problems Resolved Ambulatory Problems Diagnosis Date Noted 36 weeks gestation of 01/23/2024 Past Medical History: Diagnosis Date Anxiety [...] Exam Constitutional: Appearance: Normal appearance. She is normal weight. HENT: Head: Normocephalic. Cardiovascular: Rate and Rhythm: Normal rate. Pulses: Normal pulses. Pulmonary: Effort: Pulmonary effort is normal. Breath sounds: Normal breath sounds. Abdominal: Palpations: Abdomen is soft. Comments: Pfannenstiel incision healing well, steri strips in place Musculoskeletal: General: Normal range of motion. Neurological: General: No focal deficit present. Mental Status: She is alert and oriented to person, place, and time. Psychiatric: Mood and Affect: Mood normal. Behavior: Behavior normal. Thought Content: Thought content normal. Judgment: Judgment normal. Vitals and nursing note reviewed. Vitals: Estimated body mass index is 32.73 kg/m as calculated from the following: Height as of 08/08/22: 5' 6 . Weight as of 01/31/24: 202 lb 12.8 oz. BP: No LMP recorded. ASSESSMENT & PLAN ICD-10-CM 1. Postoperative visit Z48.89 2. S/P section Z98.891 Patient presents today for a one week postop section check. Patient is doing well with minor complaints of pain. Incision has been noted as healing well with no signs and symptoms of infection. Pt denies any post depression and no control. Pt has no issues at this time. Follow Up: Patient is to return in 5 weeks for 6 week evaluation. Documented by Saniya Che MA on behalf of: DERRIKC Vargas documented in this encounter [facility] 01-31-2024 History of Presen t illness Narrative [...] nursing note reviewed. Exam conducted with a feeder switchboard operator present. Vitals: Estimated body mass index is [...] of: DERRICK Vargas documented in this encounter [facility] 01-22-2024 History of Presen t illness Narrative [...] nursing note reviewed. Exam conducted with a feeder switchboard operator present. Vitals: Estimated body mass index is [...] Shanna Ford DO documented in this encounter [facility] 01-11-2024 History of Presen t illness Narrative [...] nursing note reviewed. Exam conducted with a feeder switchboard operator present. Vitals: Estimated body mass index is [...] of: DERRICK Vargas documented in this encounter [facility] 12-27-2023 History of Presen t illness Narrative Reason for Appointment: Patient ID: Joanne Brown is a 33 y.o. female who presents for No chief complaint on file. Patient presents today for Return OB appointment. [...] Exam Constitutional: Appearance: Normal appearance. She is normal weight. HENT: Head: Normocephalic. Cardiovascular: Rate and Rhythm: Normal rate. Pulses: Normal pulses. Pulmonary: Effort: Pulmonary effort is normal. Breath sounds: Normal breath sounds. Abdominal: Palpations: Abdomen is soft. Musculoskeletal: General: Normal range of motion. Neurological: General: No focal deficit present. Mental Status: She is alert and oriented to person, place, and time. Psychiatric: Mood and Affect: Mood normal. Behavior: Behavior normal. Thought Content: Thought content normal. Judgment: Judgment normal. Vitals and nursing note reviewed. Vitals: Estimated body mass index is 31.47 kg/m as calculated from the following: Height as of 08/08/22: 5' 6 . Weight as of this encounter: 195 lb. BP: 118/74 Patient's last menstrual period was 05/12/2023. ASSESSMENT & PLAN ICD-10-CM 1. 32 weeks gestation of Z3A.32 POCT urinalysis dipstick manually resulted Return OB: Patient presents today for a routine obstetrics appointment. Patient is currently 32w5d . Patient states she is doing well [...] week for routine OB appointment. Documented by DERRICK Vargas on behalf of: DERRICK Vargas documented in this encounter [facility] 12-13-2023 History of Presen t illness Narrative Reason [...] Constitutional: Appearance: Normal appearance. She is well-developed. Cardiovascular: Rate and Rhythm: Normal rate and [...] nursing note reviewed. Exam conducted with a feeder switchboard operator present. Vitals: Estimated body mass index is 31.39 kg/m as calculated from the following: Height as of 08/08/22: 5' 6 . Weight as of this encounter: 194 lb 8 oz. BP: 108/68 Patient's last menstrual period was 05/12/2023. ASSESSMENT & PLAN ICD-10-CM 1. Third trimester Z34.93 POCT urinalysis dipstick manually resulted 2. Multigravida of advanced maternal age in second trimester O09.522 US biophysical profile w non stress test Return OB: Patient presents today for a routine obstetrics appointment. Patient is currently 30w5d . Patient states she is doing well but has complaints of being tired due to current . Pt has complaints of restless legs, and insomnia- pt advised to take unisom (dox) and tums with calcium. Patient has verbalizes frequent movement. labor precautions was discussed/given and patient was instructed to perform kick counts three times a day. Orders Placed This Encounter Procedures US biophysical profile w non stress test POCT urinalysis dipstick manually resulted Follow Up: Patient is to return to office in 2 week for routine OB appointment. Documented by Annette Rocha LPN on behalf of: Shanna Ford DO documented in this encounter [facility] 11-29-2023 History of Presen t illness Narrative Reason [...] Exam Constitutional: Appearance: Normal appearance. She is normal weight. HENT: Head: Normocephalic. Cardiovascular: Rate and Rhythm: Normal rate. Pulses: Normal pulses. Pulmonary: Effort: Pulmonary effort is normal. Breath sounds: Normal breath sounds. Abdominal: Palpations: Abdomen is soft. Musculoskeletal: General: Normal range of motion. Neurological: General: No focal deficit present. Mental Status: She is alert and oriented to person, place, and time. Psychiatric: Mood and Affect: Mood normal. Behavior: Behavior normal. Thought Content: Thought content normal. Judgment: Judgment normal. Vitals and nursing note reviewed. Vitals: Estimated body mass index is 30.99 kg/m as calculated from the following: Height as of 08/08/22: 5' 6 . Weight as of this encounter: 192 lb. BP: 118/72 Patient's last menstrual period was 05/12/2023. ASSESSMENT & PLAN ICD-10-CM 1. Third trimester Z34.93 POCT urinalysis dipstick manually resulted Return OB: Patient presents today for a routine obstetrics appointment. Patient is currently 28w5d . Patient states she is doing well [...] week for routine OB appointment. Documented by DERRICK Vargas on behalf of: DERRICK Vargas documented in this encounter [facility] Healthcare Evaluation note Diagnosis 34 weeks gestation of Third trimester state, incidental [facility] Diagnosis Third trimester state, incidental 36 weeks gestation of documented [facility] Diagnosis Third trimester state, incidental 37 weeks gestation of documented [facility]* Diagnosis Postoperative visit S/P section Other postprocedural status [facility] Diagnosis S/P section Other postprocedural status [facility] Diagnosis Third trimester state, incidental [facility] Diagnosis Third trimester state, incidental Multigravida of advanced maternal age in second trimester documented [facility] Diagnosis 32 weeks gestation of documented [facility]* Diagnosis Right otitis media with effusion- Primary Nonsuppurative otitis media, not specified as acute or chronic documented [facility]* Diagnosis Well woman exam with routine gynecological exam Routine gynecological examination documented in this encounter [facility] Summary Purpose Family History No Family History Records FoundNo Family History Records FoundNo Family History Records FoundNo Family History Records Found Advance Directives Documents on File Type Date Recorded Patient Manager Transfer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 Advance Directives and Living Will Documents on File Type Date Recorded Patient Manager Transfer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 Advance Directives and Livin g Will 10/14/2019 5:28 AM Latest Code Status on File Code Status Date Activated Date Inactivated Comments Full Code 10/14/2019 5:32 AM 10/14/2019 1:17 PM Documents on File Type Date Recorded Patient Manager Transfer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 Advance Directives and Livin g [...] include drinking lots of fluids and taking frem-gqx-rkwoohj pain medicine. You will probably feel better [...] amount of fluids you drink. Take an gpzc-pea-zcrmbbo pain medicine, such as acetaminophen (Tylenol), ibuprofen (Advil, Motrin),or naproxen (Aleve). Read and follow all instructions on the label. Before you use cough and cold medicines, check the label. These medicines may not be safe for youngchildren or for people with certain health problems. Be careful when taking ldvu-kxt-xsmtgkd cold or flu medicines and Tylenol at [...] Log into your personal health record on [email or web address] and enter K520 in the Education box to learn more about Upper Respiratory Infection (Cold): Care Instructions. Current as of: September 09, 2018 Content Version: 12.3 8238-0917 [employer]. Care instructions adapted under license by your healthcare professional. If you have questions about a medical condition or this instruction, always ask your healthcare professional. [employer] disclaims any warranty or liability for your [...] taking a prescription pain medicine, take an fwpq-mbr-poggtkt medicine, such as acetaminophen (Tylenol), ibuprofen (Advil, [...] Log into your personal health record on [email or web address] and enter X558 in the Education box to learn more about Ear Infection (Otitis Media): Care Instructions. Current as of: October 28, 2018 Content Version: 12.3 1401-0501 [employer]. Care instructions adapted under license by your healthcare professional. If you have questions about a medical condition or this instruction, always ask your healthcare professional. [employer] disclaims any warranty or liability for your use of this information. documented in this encounter History of Present Illness * Judy Toro CNP - 05/11/2019 1:31 PM EST PATIENT NAME: Joanne Brown [facility] [address] [facility] [id number] : 1990 DATE OF VISIT: 05/11/2019 #: [...] file Gets together: Not on file Attends rastafarian service: Not on file Active member of [...] Ortiz MD - 10/25/2019 8:16 AM EDT language assistant to of primary for breech. documented in this encounter Assessments Diagnosis Acute nasopharyngitis Acute nasopharyngitis (common cold) Acute bilateral otitis media Diagnosis state, incidental Discharge Instructions * Attachments The following attachments cannot be sent through Care Everywhere. * : KICK COUNTS (HONDURAN) * : WEEK 38 (HONDURAN) * : WHEN TO CALL (AFTER 20 WEEKS): GENERAL INFO (HONDURAN) * : BREECH VERSION (HONDURAN) documented in this encounter Hospital Course * [...] section and content) DATE CREATED AUTHOR 05/11/2019 [facility] DATE CREATED AUTHOR AUTHOR'S ORGANIZ ATION 10/25/2019 [facility] DATE CREATED AUTHOR AUTHOR'S ORGANIZ ATION 11/27/2019 [facility] DATE CREATED AUTHOR AUTHOR'S ORGANIZ ATION 09/04/2024 [facility] EPIC Reason for Visit (unrecogniz ed [...] breech Procedures SECTION Reason Comments Routine Visit Reason Comments Post-op Visit Pt present [address] op c/s. 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 Parents to see the raimann machine operator tomorrow for exam and weight check. Mom [...] Care Teams (unrecognized sec tion and content) Internet Salesperson Relationship Specialty Start Date End Date Nathaly Keith MD [address] [facility] [place] [address] PCP - General Family Medicine 12/26/22 Internet Salesperson Relationship Specialty Start Date End Date Nathaly Keith MD [address] [facility] [place] [address] PCP - General Family Medicine 12/26/22 Internet Salesperson Relationship Specialty Start Date End Date Nathaly Keith MD [address] [facility] [place] [address] PCP - General Family Medicine 12/26/22 Internet Salesperson Relationship Specialty Start Date End Date Nathaly Keith MD [address] [facility] [place] [address] PCP - General Family Medicine 12/26/22 Internet Salesperson Relationship Specialty Start Date End Date Nathaly Keith MD [address] [facility] [place] [address] PCP - General Family Medicine 12/26/22 Internet Salesperson Relationship Specialty Start Date End Date Nathaly Keith MD [address] [facility] [place] [address] PCP - General Family Medicine 12/26/22 Internet Salesperson Relationship Specialty Start Date End Date Nathaly Keith MD [address] [facility] [place] [address] PCP - General Family Medicine 12/26/22 Internet Salesperson Relationship Specialty Start Date End Date Nathaly Keith MD [address] [facility] [place] [address] PCP - General Family Medicine 12/26/22 Internet Salesperson Relationship Specialty Start Date End Date Nathaly Keith MD [address] [facility] [place] [address] PCP - General Family Medicine 12/26/22 Internet Salesperson Relationship Specialty Start Date End Date Nathaly Keith MD [address] [facility] [place] [address] PCP - General Family Medicine 12/26/22 FOR [...] BE BASED ON THE PRIMARY CLINICAL RECORDS. [facility] provides no warranty or guarantee of the accuracy or completeness of information in this document.
[2024-12-24 13:09] LABS: Age Gdln ACOG Testing Note (.); IGP, Aptima HPV, rfx 16/18,45 Note (.)
== END 2024-12-19 13:54 | disposition home or self-care (01) ==
LOC: LAB 13:53
PROVIDERS: PCP Family Medicine; Visit Provider Physician Assistant
DX: Z01.419 Encounter for gynecological examination (general) (routine) without abnormal findings (principal)
CPT/HCPCS: 87624; 88175